=== PATIENT | male | born 1975 | race Caucasian/White ===

== ENCOUNTER 2018-02-28 06:16 | Emergency (ER) | payer BC, SELFPAY ==
[2018-02-28 06:17] VITALS: BP 164/111; PULSE 99; RESP 18; TEMP 37.1; O2SAT 93; BMI 33.5
--- NOTE | 2018-02-28 08:10 | ED.VIS.GEN ---
History of Present Illness Chief Complaint: Back Informant: Patient Onset: Weeks - 3-4 Context: Sudden Onset - Bumping machine at work with his hip Quality: Ache Location: Right low back, buttock, anterior thigh Current Severity: Moderate Maximum Severity: Severe Worsened by: Movement, bumping his machine with his hip at work Relieved by: Ibuprofen, rest Narrative: History of this pain, recurrent now. No bowel or bladder dysfunction. No numbness or weakness in his leg, pain radiates to the anterior right thigh but not to or below the knee. 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 Past Medical History - Allergies and Home Meds Allergies/Adverse Reactions: Allergies acetaminophen [From Vicodin] Adverse Reaction (Verified 02/28/18 06:18) Upset Stomach hydrocodone bitartrate [From Vicodin] Adverse Reaction (Verified 02/28/18 06:18) Upset Stomach meloxicam [From Mobic] Adverse Reaction (Verified 02/28/18 06:18) Nausea Primary Care Physician: Nikko Yoo MD [Primary Care Provider] - Smoking Status: Current some day smoker Review of Systems All systems negative except as indicated Musculoskeletal: Reports: Back pain, Extremity Pain Physical Exam Vital Signs/Narrative: Vital Signs Temp Pulse Resp BP Pulse Ox 02/28/18 06:17 98.8 F 99 18 164/111 H 93 Inital Vital Signs reviewed: Yes General: Well nourished, Well developed Head: Normocephalic, Atraumatic Back: - - Right SI joint, pelvic brim, buttock including piriformis. No midline tenderness or step-off or signs of trauma or rash.. Negative for: Spinal tenderness Extremities: Nontender, No edema, - - Negative bilateral lower extremity straight leg raises while lying supine Skin: Normal color, No rash Neurological: Alert, Oriented x3, Cranial nerves II-XII grossly intact, Normal Strength, Normal Sensation Psychological: Normal affect Diagnostic/Tx/Re-eval - Medical Decision Making Patient states he is on Suboxone and wants nothing to do with narcotics. He took ibuprofen this morning which helped. He is asking for Tylenol, I also offered a muscle relaxer, he is thankful and will follow-up. ED Disposition - Plan for ED Patient: Disposition: Home or Assisted Living Chief Complaint: Back Diagnosis: Acute lumbosacral myofascial strain Instructions: ED Low Back Pain Injury Prescriptions: Cyclobenzaprine [Flexeril] 10 mg PO TID PRN PRN #15 tab PRN Reason: Muscle Spasm Referrals: Nikko Yoo MD [Primary Care Provider] - 1 Week if not improving
[2018-02-28] MEDS: Acetaminophen 500 MG Tablet 1000 MG PO (08:15)
[2018-02-28] MEDS: Orphenadrine 60 MG/2 ML Ampul IM (08:16)
== END 2018-02-28 08:36 | disposition home or self-care (01) ==
PROVIDERS: Emergency Provider Emergency Medicine; Family Provider Family Medicine; PCP Family Medicine
DX: S39.012A Strain of muscle, fascia and tendon of lower back, initial encounter (principal); W22.8XXA Striking against or struck by other objects, initial encounter; Y93.9 Activity, unspecified; Y92.9 Unspecified place or not applicable; Y99.0 Civilian activity done for income or pay; Z79.899 Other long term (current) drug therapy
CPT/HCPCS: 96372; 99283

== ENCOUNTER 2018-10-05 06:49 | Emergency (ER) | payer BC, SELFPAY ==
[2018-10-05] VITALS (8 sets, daily range): BP systolic 141–164; BP diastolic 85–111; PULSE 89–121; RESP 14–22; TEMP 36.3; O2SAT 95–98; BMI 33.9
--- NOTE | 2018-10-05 07:11 | EKG12_ITS ---
Test Reason : CP Blood Pressure : / mmHG Vent. Rate : 118 BPM Atrial Rate : 118 BPM P-R Int : 146 ms QRS Dur : 094 ms QT Int : 314 ms P-R-T Axes : 056 079 035 degrees QTc Int : 440 ms Sinus tachycardia Otherwise normal ECG Confirmed by IRINEO PRADO MD ([id number]), newspaper photo editor CRZU SANCHEZ ([id number]) on 10/08/2018 8:29:49 AM Referred By: ZAYDA Confirmed By:IRINEO PRADO MD
--- NOTE | 2018-10-05 07:11 | CT_ITS ---
STUDY: CTA CHEST REASON FOR EXAM: Male, 43 years old. Chest pain RADIATION DOSAGE (If Supplied By Facility): CTDIvol = ( 14.97 ) mGy, DLP = ( 1345.02 ) mGycm TECHNIQUE: The examination was performed with the intravenous administration of 100 ml of Isovue 370 contrast material. Post-processing of the angiographic images was performed, with multiplanar reformation and 3D reconstruction. Individualized dose optimization techniques were used for this CT. COMPARISON: None. FINDINGS: There is suboptimal enhancement of the pulmonary arteries. Pulmonary embolism cannot be entirely excluded on this examination. Normal thoracic aorta and visualized great vessels. There is no demonstrated aortic dissection. Normal heart and pericardium. Normal mediastinum. Normal hilar regions. Normal visualized trachea and bronchi. The lungs are well expanded. There are no pulmonary infiltrates. There are no pleural effusions. Normal chest wall structures. Normal osseous structures. Normal visualized upper abdomen. CT/CTA Chest W/WO Contrast IMPRESSION: 1. No evidence of aortic dissection. 2. No infiltrate is seen. Electronically Signed: Carlos Coronado MD at 9:20 EST Tel , Service support ,
--- NOTE | 2018-10-05 07:11 | RAD_ITS ---
STUDY: X-RAY CHEST REASON FOR EXAM: Male, 43 years old. Chest pain TECHNIQUE: Single AP portable view of the chest. COMPARISON: 09/13/2016. FINDINGS: The lungs are clear and expanded. There is no demonstrated pleural abnormality. Normal size heart. Normal mediastinum and mabel. Normal visualized pulmonary arteries. Normal visualized aortic arch and descending thoracic aorta. The thoracic spine is obscured by the mediastinum. Normal visualized ribs, clavicles, and shoulders. There is no demonstrated abnormality of the visualized soft tissue structures of the upper abdomen. RAD/Chest 1 View (Portable) IMPRESSION: No active pulmonary disease. Electronically Signed: Carlos Coronado MD at 8:51 EST Tel , Service support ,
--- NOTE | 2018-10-05 07:13 | CT_ITS ---
Chest pain. PROCEDURE: CTA ABDOMEN AND PELVIS WITH CONTRAST REASON FOR EXAM: Male, 43 years old. Chest pain. RADIATION DOSAGE (If Supplied By Facility): CTDIvol = ( 14.97 ) mGy, DLP = ( 1345.02 ) mGycm TECHNIQUE: Transaxial images were obtained from the dome of the diaphragm to the symphysis pubis without oral contrast, and without intravenous contrast. COMPARISON: None. FINDINGS: The visualized lung bases are unremarkable. No focal lesion is identified in the liver. Normal gallbladder and extrahepatic biliary system. Normal unenhanced spleen. Normal pancreas. The right adrenal gland is unremarkable. There is slightly prominent nodular left adrenal gland. Normal right kidney. Normal left kidney. Normal visualized stomach. There are nonspecific fluid-filled small bowel loops. There is no evidence of bowel obstruction. There is fecal retention. There is mild thickening of the sigmoid colon probably due to underdistention. The appendix is visualized and appears normal. There is no demonstrated peritoneal fluid. Normal abdominal aorta. No evidence of aortic dissection. Normal inferior vena cava. Normal retroperitoneum. There is mild thickening of the bladder wall which could be due to underdistention. Cystitis is less likely. There is no pelvic mass lesion or lymphadenopathy. There is no pelvic fluid. Normal abdominal wall. There are degenerative changes in the spine. CT/CT ANGIO ABD&PEL W/O&W/DYE IMPRESSION: 1. No evidence of aortic dissection. 2. Mild thickening of the bladder wall probably due to underdistention. Cystitis is less likely. 3. No demonstrated acute process. CT Electronically Signed: Carlos Coronado MD at 9:17 EST Tel , Service support ,
--- NOTE | 2018-10-05 07:14 | ED.VISSUMM ---
- ER Visit Summary Date of Service: 10/05/18 Chief Complaint: Chest pain History of Present Illness: The patient is a 43 M who presents with 1 hour of 11 out of 10 chest pain. Pain is described as a substernal pressure and burning with radiation into the abdomen and down the front of the legs. Patient denies any back pain, neck pain, radiation to the arms. He has associated shortness of breath and sweats. Patient denies fever, acute cough, nausea or vomiting. He has had similar episodes in the past but states the pain is never been this severe for quite like this episode today. He does have history of anxiety and panic attacks. He missed a dose of Effexor 2 days ago but is taking it yesterday and today. He is on Suboxone and took it this morning. He has been drinking daily for the last 6 months to help with his anxiety with his last drink last night. He denies ever drinking in the mornings. Patient received aspirin by EMS. He has history of hypertension and smoking. He denies any history of diabetes, or any recent travel, surgery, or prior VTE. Patient denies any possibility that he is withdrawing from a substance. Physical Examination: Vital signs: afebrile, hypertensive and tachycardic, no hypoxia on room air General: well nourished, well developed, appears mildly uncomfortable Skin: warm, diaphoretic, especially in the face, no rash, no pallor HEENT: normocephalic and atraumatic; PERRL, EOMI, moist mucous membranes Cardiovascular: Tachycardic rate and rhythm without murmurs, no peripheral edema, 2+ pulses in the radial pulses, diminished pulses in the lower extremities Respiratory: No increased work of breathing, lungs are clear to auscultation in the upper m[place], mild coarseness in the lower mckin[place] consistent with smoker's lung Abdominal: Abdomen is soft, nontender with normoactive bowel sounds, no guarding or rebound, no pulsatile masses MSK: Moves all extremities, no deformities, normal strength Neuro: Awake and alert, oriented ?4. No facial droop, sensation and motor function intact and symmetric Test Results: Abnormal Lab Results 10/05/18 10/05/18 10/05/18 07:35 07:35 07:35 WBC 5.5 RBC 4.87 Hgb 15.5 Hct 46.0 MCV 94.5 H MCH 31.8 MCHC 33.7 RDW 13.8 RDW Differential 47.4 H Plt Count 282 MPV 8.9 Immature Gran % (Auto) 0.400 Neut % (Auto) 53.8 Lymph % (Auto) 28.4 [place] % (Auto) 13.4 H Eos % (Auto) 3.3 Baso % (Auto) 0.7 Absolute Neuts (auto) 2.9 Absolute Lymphs (auto) 1.55 Total Counted Not Reportable PT 12.7 INR 1.0 APTT 23.9 L Sodium 136 Potassium 4.2 Chloride 101 Carbon Dioxide 27.0 Anion Gap 8 BUN 15 Creatinine 1.24 Estim Creat Clear Calc 86.05 Est GFR (MDRD) Af Amer 83 Est GFR (MDRD) Non-Af 68 BUN/Creatinine Ratio 12.1 Glucose 187 H Calcium 9.1 Magnesium 1.7 Total Bilirubin 0.30 AST 20 ALT 23 Alkaline Phosphatase 96 Troponin I < 0.015 Total Protein 8.1 Albumin 4.1 Globulin 4.0 Albumin/Globulin Ratio 1.0 TSH 1.07 Ethyl Alcohol 10/05/18 07:35 WBC RBC Hgb Hct MCV MCH MCHC RDW RDW Differential Plt Count MPV Immature Gran % (Auto) Neut % (Auto) Lymph % (Auto) [place] % (Auto) Eos % (Auto) Baso % (Auto) Absolute Neuts (auto) Absolute Lymphs (auto) Total Counted PT INR APTT Sodium Potassium Chloride Carbon Dioxide Anion Gap BUN Creatinine Estim Creat Clear Calc Est GFR (MDRD) Af Amer Est GFR (MDRD) Non-Af BUN/Creatinine Ratio Glucose Calcium Magnesium Total Bilirubin AST ALT Alkaline Phosphatase Troponin I Total Protein Albumin Globulin Albumin/Globulin Ratio TSH Ethyl Alcohol 5.0 Clinical Impression(s) from Imaging Studies Chest CTA 10/05/18 07:11 IMPRESSION: 1. No evidence of aortic dissection. 2. No infiltrate is seen. Electronically Signed: Carlos Coronado MD at 9:20 EST Tel , Service support , Chest X-Ray 10/05/18 07:11 IMPRESSION: No active pulmonary disease. Electronically Signed: Carlos Coronado MD at 8:51 EST Tel , Service support , Abdomen/Pelvis CTA 10/05/18 07:13 IMPRESSION: 1. No evidence of aortic dissection. 2. Mild thickening of the bladder wall probably due to underdistention. Cystitis is less likely. 3. No demonstrated acute process. CT Electronically Signed: Carlos Coronado MD at 9:17 EST Tel , Service support , Medications Given Discontinued Medications Al Hydroxide/Mg Hydroxide (Mylanta Ii) 30 ml PO X1 ONE Stop: 10/05/18 10:19 Last Admin: 10/05/18 11:05 Dose: 30 ml Sodium Chloride () 1,000 mls @ 1,000 mls/hr IV .Q1H ONE Stop: 10/05/18 08:10 Last Admin: 10/05/18 07:45 Dose: 1,000 mls/hr Ketorolac Tromethamine (Toradol) 15 mg IV X1 ONE Stop: 10/05/18 11:58 Last Admin: 10/05/18 12:34 Dose: 15 mg Lidocaine HCl (Xylocaine Viscous) 15 ml PO X1 ONE Stop: 10/05/18 10:19 Last Admin: 10/05/18 11:05 Dose: 15 ml Lorazepam (Ativan) 0.5 mg IV X1 ONE Stop: 10/05/18 08:09 Last Admin: 10/05/18 08:16 Dose: 0.5 mg Multi-Ingredient GI Drug () 1 each PO X1 ONE Stop: 10/05/18 10:19 Last Admin: 10/05/18 12:34 Dose: Not Given Nitroglycerin (Nitrostat) 0.4 mg SUBLINGUAL Q5M WANG Stop: 10/05/18 07:26 Last Admin: 10/05/18 07:57 Dose: 0.4 mg Admin: 10/05/18 07:51 Dose: 0.4 mg Admin: 10/05/18 07:46 Dose: 0.4 mg Nitroglycerin (Nitrobid) 0.5 inch TRANSDERM. X1 ONE Stop: 10/05/18 08:10 Last Admin: 10/05/18 08:15 Dose: 0.5 inch Emergency Department Course and Treatment: Patient received aspirin prehospital. Patient is presenting with severe chest tightness and burning with radiation into the abdomen and bilateral lower extremities. Patient is persistently tachycardic and mildly diaphoretic. Differential includes acute coronary syndrome, pulmonary embolism, aortic dissection, substance withdrawal or abuse, among other possibilities. Because patient is tachycardic and has radiation into the abdomen and lower legs, CTA of the chest, abdomen and pelvis was performed to evaluate for any possible dissection or aneurysm, as well as pulmonary embolism. EKG showed a sinus tachycardia with no overt ischemic changes. Reevaluated 804 after he had received 3 sublingual nitro. Patient states his pain is now localized only in the substernal region and is continued pressure about any radiation into the abdomen or legs. Pain is rated 6 out of 10 now. Patient remains hypertensive and persistently tachycardic at 120. Nitropaste was applied the patient's chest, and he was given 0.5 mg of Ativan IV to see if this would help with his feeling of anxiousness and the tachycardia. Patient continued to have discomfort, although improved, and was given a GI cocktail. Labs showed no leukocytosis or anemia, no electrolyte derangements. No hepatic derangements. Troponin negative. Alcohol negative. TSH within normal limits. EKG showed sinus tachycardia without any ischemic changes. A repeat EKG after treatment showed tachycardia resolved and still no ST changes. CTA of the chest, abdomen and pelvis showed no dissection. Timing was not adequate for ruling out PE. Patient's tachycardia has resolved however. Because patient continues to complain of the chest discomfort, he was discussed with the earth moving technician Dr. Oh, who agrees with admission for further chest pain workup. Patient was discussed with the hospitalist and accepted for admission. However while still in the emergency department, the patient decided that he would prefer not to stay. Cardiology did evaluate patient in the emergency department, patient states that since he would not get any further cardiac workup this weekend and would have to wait for Sunday, he does not want to stay. He is going to follow-up on Sunday with his family doctor to pursue an outpatient workup. Patient was strongly encouraged to stay for the chest pain rule out, but he still chose to leave AGAINST MEDICAL ADVICE after we discussed the risks and benefits of him leaving. Patient will return if he has any worsening of his condition. Patient left AGAINST MEDICAL ADVICE. Treatment Plan: [] Disposition: [] Impression: Acute intractable chest pain, left AGAINST MEDICAL ADVICE This note was generated with [employer] dictation software. It may contain incorrect words, spelling, and punctuation that were not noted in review of the chart prior to signing ED Disposition - Plan for ED Patient: Disposition: Against Medical Advice Referrals: Nikko Yoo MD [Primary Care Provider] - As soon as possible Additional Instructions: You have chosen to leave AGAINST MEDICAL ADVICE instead of completing a chest pain workup to make sure your chest pain is not caused by your heart. Please return at any time if you change your mind and would like to complete your chest pain workup. If you develop worsening of your symptoms or have any new concerning symptoms, call 911 or return immediately to the emergency department for another evaluation. If you choose not to return, please follow-up with your family doctor or cardiology to get an outpatient stress test and further heart workup.
--- NOTE | 2018-10-05 07:19 | ED.DCSUM_ITS ---
- ER Visit Summary Date of Service: 10/05/18 Chief Complaint: Chest pain History of Present Illness: The patient is a 43 M who presents with 1 hour of 11 out of 10 chest pain. Pain is described as a substernal pressure and burning with radiation into the abdomen and down the front of the legs. Patient denies any back pain, neck pain, radiation to the arms. He has associated shortness of breath and sweats. Patient denies fever, acute cough, nausea or vomiting. He has had similar episodes in the past but states the pain is never been this severe for quite like this episode today. He does have history of anxiety and panic attacks. He missed a dose of Effexor 2 days ago but is taking it yesterday and today. He is on Suboxone and took it this morning. He has been drinking daily for the last 6 months to help with his anxiety with his last drink last night. He denies ever drinking in the mornings. Patient received aspirin by EMS. He has history of hypertension and smoking. He denies any history of diabetes, or any recent travel, surgery, or prior VTE. Patient denies any possibility that he is withdrawing from a substance. Physical Examination: Vital signs: afebrile, hypertensive and tachycardic, no hypoxia on room air General: well nourished, well developed, appears mildly uncomfortable Skin: warm, diaphoretic, especially in the face, no rash, no pallor HEENT: normocephalic and atraumatic; PERRL, EOMI, moist mucous membranes Cardiovascular: Tachycardic rate and rhythm without murmurs, no peripheral edema, 2+ pulses in the radial pulses, diminished pulses in the lower extremities Respiratory: No increased work of breathing, lungs are clear to auscultation in the upper mckinney, mild coarseness in the lower mckinney consistent with smoker's lung Abdominal: Abdomen is soft, nontender with normoactive bowel sounds, no guarding or rebound, no pulsatile masses MSK: Moves all extremities, no deformities, normal strength Neuro: Awake and alert, oriented ?4. No facial droop, sensation and motor function intact and symmetric Test Results: Abnormal Lab Results 10/05/18 10/05/18 10/05/18 07:35 07:35 07:35 WBC 5.5 RBC 4.87 Hgb 15.5 Hct 46.0 MCV 94.5 H MCH 31.8 MCHC 33.7 RDW 13.8 RDW Differential 47.4 H Plt Count 282 MPV 8.9 Immature Gran % (Auto) 0.400 Neut % (Auto) 53.8 Lymph % (Auto) 28.4 Bulloch % (Auto) 13.4 H Eos % (Auto) 3.3 Baso % (Auto) 0.7 Absolute Neuts (auto) 2.9 Absolute Lymphs (auto) 1.55 Total Counted Not Reportable PT 12.7 INR 1.0 APTT 23.9 L Sodium 136 Potassium 4.2 Chloride 101 Carbon Dioxide 27.0 Anion Gap 8 BUN 15 Creatinine 1.24 Estim Creat Clear Calc 86.05 Est GFR (MDRD) Af Amer 83 Est GFR (MDRD) Non-Af 68 BUN/Creatinine Ratio 12.1 Glucose 187 H Calcium 9.1 Magnesium 1.7 Total Bilirubin 0.30 AST 20 ALT 23 Alkaline Phosphatase 96 Troponin I < 0.015 Total Protein 8.1 Albumin 4.1 Globulin 4.0 Albumin/Globulin Ratio 1.0 TSH 1.07 Ethyl Alcohol 10/05/18 07:35 WBC RBC Hgb Hct MCV MCH MCHC RDW RDW Differential Plt Count MPV Immature Gran % (Auto) Neut % (Auto) Lymph % (Auto) Bulloch % (Auto) Eos % (Auto) Baso % (Auto) Absolute Neuts (auto) Absolute Lymphs (auto) Total Counted PT INR APTT Sodium Potassium Chloride Carbon Dioxide Anion Gap BUN Creatinine Estim Creat Clear Calc Est GFR (MDRD) Af Amer Est GFR (MDRD) Non-Af BUN/Creatinine Ratio Glucose Calcium Magnesium Total Bilirubin AST ALT Alkaline Phosphatase Troponin I Total Protein Albumin Globulin Albumin/Globulin Ratio TSH Ethyl Alcohol 5.0 Clinical Impression(s) from Imaging Studies Chest CTA 10/05/18 07:11 IMPRESSION: 1. No evidence of aortic dissection. 2. No infiltrate is seen. Electronically Signed: Carlos Coronado MD at 9:20 EST Tel , Service support , Chest X-Ray 10/05/18 07:11 IMPRESSION: No active pulmonary disease. Electronically Signed: Carlos Coronado MD at 8:51 EST Tel , Service support , Abdomen/Pelvis CTA 10/05/18 07:13 IMPRESSION: 1. No evidence of aortic dissection. 2. Mild thickening of the bladder wall probably due to underdistention. Cystitis is less likely. 3. No demonstrated acute process. CT Electronically Signed: Carlos Coronado MD at 9:17 EST Tel , Service support , Medications Given Discontinued Medications Al Hydroxide/Mg Hydroxide (Mylanta Ii) 30 ml PO X1 ONE Stop: 10/05/18 10:19 Last Admin: 10/05/18 11:05 Dose: 30 ml Sodium Chloride () 1,000 mls @ 1,000 mls/hr IV .Q1H ONE Stop: 10/05/18 08:10 Last Admin: 10/05/18 07:45 Dose: 1,000 mls/hr Ketorolac Tromethamine (Toradol) 15 mg IV X1 ONE Stop: 10/05/18 11:58 Last Admin: 10/05/18 12:34 Dose: 15 mg Lidocaine HCl (Xylocaine Viscous) 15 ml PO X1 ONE Stop: 10/05/18 10:19 Last Admin: 10/05/18 11:05 Dose: 15 ml Lorazepam (Ativan) 0.5 mg IV X1 ONE Stop: 10/05/18 08:09 Last Admin: 10/05/18 08:16 Dose: 0.5 mg Multi-Ingredient GI Drug () 1 each PO X1 ONE Stop: 10/05/18 10:19 Last Admin: 10/05/18 12:34 Dose: Not Given Nitroglycerin (Nitrostat) 0.4 mg SUBLINGUAL Q5M WANG Stop: 10/05/18 07:26 Last Admin: 10/05/18 07:57 Dose: 0.4 mg Admin: 10/05/18 07:51 Dose: 0.4 mg Admin: 10/05/18 07:46 Dose: 0.4 mg Nitroglycerin (Nitrobid) 0.5 inch TRANSDERM. X1 ONE Stop: 10/05/18 08:10 Last Admin: 10/05/18 08:15 Dose: 0.5 inch Emergency Department Course and Treatment: Patient received aspirin prehospital. Patient is presenting with severe chest tightness and burning with radiation into the abdomen and bilateral lower extremities. Patient is persistently tachycardic and mildly diaphoretic. Differential includes acute coronary syndrome, pulmonary embolism, aortic dissection, substance withdrawal or abuse, among other possibilities. Because patient is tachycardic and has radiation into the abdomen and lower legs, CTA of the chest, abdomen and pelvis was performed to evaluate for any possible dissection or aneurysm, as well as pulmonary embolism. EKG showed a sinus tachycardia with no overt ischemic changes. Reevaluated 804 after he had received 3 sublingual nitro. Patient states his pain is now localized only in the substernal region and is continued pressure about any radiation into the abdomen or legs. Pain is rated 6 out of 10 now. Patient remains hypertensive and persistently tachycardic at 120. Nitropaste was applied the patient's chest, and he was given 0.5 mg of Ativan IV to see if this would help with his feeling of anxiousness and the tachycardia. Patient continued to have discomfort, although improved, and was given a GI cocktail. Labs showed no leukocytosis or anemia, no electrolyte derangements. No hepatic derangements. Troponin negative. Alcohol negative. TSH within normal limits. EKG showed sinus tachycardia without any ischemic changes. A repeat EKG after treatment showed tachycardia resolved and still no ST changes. CTA of the chest, abdomen and pelvis showed no dissection. Timing was not adequate for ruling out PE. Patient's tachycardia has resolved however. Because patient continues to complain of the chest discomfort, he was discussed with the chocolate finisher operator Dr. Oh, who agrees with admission for further chest pain workup. Patient was discussed with the hospitalist and accepted for admission. However while still in the emergency department, the patient decided that he would prefer not to stay. Cardiology did evaluate patient in the emergency departm ent, patient states that since he would not get any further cardiac workup this weekend and would have to wait for Sunday, he does not want to stay. He is going to follow-up on Sunday with his family doctor to pursue an outpatient workup. Patient was strongly encouraged to stay for the chest pain rule out, but he still chose to leave AGAINST MEDICAL ADVICE after we discussed the risks and benefits of him leaving. Patient will return if he has any worsening of his condition. Patient left AGAINST MEDICAL ADVICE. Treatment Plan: [] Disposition: [] Impression: Acute intractable chest pain, left AGAINST MEDICAL ADVICE This note was generated with [employer] dictation software. It may contain incorrect words, spelling, and punctuation that were not noted in review of the chart prior to signing ED Disposition - Plan for ED Patient: Disposition: Against Medical Advice Referrals: Nikko Yoo MD [Primary Care Provider] - As soon as possible Additional Instructions: You have chosen to leave AGAINST MEDICAL ADVICE instead of completing a chest pain workup to make sure your chest pain is not caused by your heart. Please return at any time if you change your mind and would like to complete your chest pain workup. If you develop worsening of your symptoms or have any new concerning symptoms, call 911 or return immediately to the emergency department for another evaluation. If you choose not to return, please follow-up with your family doctor or cardiology to get an outpatient stress test and further heart workup.
[2018-10-05] MEDS: 0.9% Normal Saline 1,000 ML 1000 ML IV (07:45)
[2018-10-05 07:52] LABS: Absolute Lymphocyte Count 1.55 X10^3/ul (0.83-4.51); Absolute Neutrophil Count 2.9 X10^3/uL (2.0-7.7); Basophil# 0.04 X10^3/uL; Basophil% 0.7 % (0-1); Eosinophil# 0.18 X10^3/uL; Eosinophils% 3.3 % (0-5); Hemoglobin 15.5 g/dl (13.0-16.5); Lymphocyte # 1.55 X10^3/ul (4.0); Lymphocyte % 28.4 % (19-41); Mean Corp Hgb Conc 33.7 g/gl (32-36); Mean Corpuscular Hgb 31.8 pg (27.0-32.0); Mean Corpuscular Volume 94.5 fL (80-94); Mean Platelet Vol. 8.9 fl (6.2-12.0); Monocyte# 0.73 X10^3/uL; Monocyte% 13.4 % (0-10); Neutrophil # 2.94 X10^3/uL (2.7-7.7); Neutrophil % 53.8 % (47-70); Platelet Count 282 K/mm3 (150-450); RBC Distribution Width CV 13.8 % (11.6-14.6); RBC Distribution Width SD 47.4 fl (35.1-43.9); Red Blood Count 4.87 M/mm3 (4.6-6.2); White Blood Count 5.5 K/mm3 (4.4-11.0)
[2018-10-05 07:53] LABS: POSITIVE COUNT NO; POSITIVE DIFFERENTIAL NO; POSITIVE MORPHOLOGY NO
[2018-10-05 07:56] LABS: Prothrombin Time (Protime)PT. 12.7 SECONDS (11.7-14.9)
[2018-10-05 07:57] LABS: Partial Thromboplast Time 23.9 Seconds (24.1-36.2)
[2018-10-05] MEDS: Nitroglycerin Oint 1 INCH PACKET 0.5 INCH TRANSDERM. (08:15)
[2018-10-05] MEDS: LORazepam 2 MG/ML Syringe 0.5 MG IV (08:16)
[2018-10-05 08:28] LABS: AST(SGOT) 20 U/L (15-37); Alanine Aminotransfer ALT/SGPT 23 U/L (16-61); Albumin, Serum 4.1 g/dL (3.2-5.0); Alkaline Phosphatase 96 U/L (45-117); Anion Gap 8 (5-15); BUN 15 mg/dL (7-18); BUN/Creat Ratio 12.1 RATIO (10-20); Calcium,Total 9.1 mg/dL (8.5-10.1); Chloride 101 mmol/L (98-107); Creatinine, Serum 1.24 mg/dL (0.70-1.30); EST Glomerular Filtration Rate 68 mL/min (>60); Est Glom Filt Rate - Afr Amer 83 mL/min (>60); Estimated Creatinine Clearance 86.05 ml/min; Glucose 187 mg/dL (74-106); Magnesium 1.7 mg/dL (1.6-2.6); Potassium 4.2 mmol/L (3.5-5.1); Protein, Total 8.1 g/dL (6.4-8.2); Sodium Level 136 mmol/L (136-145); Thyroid Stim Hormone (TSH) 1.07 uIU/mL (0.358-3.74)
--- NOTE | 2018-10-05 10:41 | EKG12_ITS ---
Test Reason : REPEAT EKG Blood Pressure : / mmHG Vent. Rate : 091 BPM Atrial Rate : 091 BPM P-R Int : 152 ms QRS Dur : 096 ms QT Int : 332 ms P-R-T Axes : 063 060 038 degrees QTc Int : 408 ms Normal sinus rhythm Normal ECG Confirmed by EVE XAVIER, IRINEO ([id number]), society editor CRUZ SANCHEZ ([id number]) on 10/08/2018 8:30:03 AM Referred By: DAVID Confirmed By:IRINEO PRADO MD
[2018-10-05] MEDS: Mag Hydrox/Al Hydrox/Simeth 30 ML UDC PO (11:05)
[2018-10-05] MEDS: Ketorolac 15 MG/ML Vial IV (12:34)
--- NOTE | 2018-10-05 13:18 | ED.RN ---
PT STATES THAT HE HAD A STRESS TEST 6 MO. AGO. STATES HE WILL F/U WITH HIS DRJanelle ON SUNDAY FOR A REFERAL TO A BROADCAST OPERATIONS MANAGER.
--- NOTE | 2018-10-05 13:19 | DCINST.ED_ITS ---
ED Disposition - Plan for ED Patient: Disposition: Against Medical Advice Referrals: Nikko Yoo MD [Primary Care Provider] - As soon as possible Additional Instructions: You have chosen to leave AGAINST MEDICAL ADVICE instead of completing a chest pain workup to make sure your chest pain is not caused by your heart. Please return at any time if you change your mind and would like to complete your chest pain workup. If you develop worsening of your symptoms or have any new concerning symptoms, call 911 or return immediately to the emergency department for another evaluation. If you choose not to return, please follow-up with your family doctor or cardio logy to get an outpatient stress test and further heart workup.
== END 2018-10-05 13:23 | disposition left against medical advice (07) ==
PROVIDERS: Emergency Provider Emergency Medicine; Family Provider Family Medicine; PCP Family Medicine
DX: R07.9 Chest pain, unspecified (principal); R00.0 Tachycardia, unspecified; Z53.21 Procedure and treatment not carried out due to patient leaving prior to being seen by health care provider; I10 Essential (primary) hypertension; F41.0 Panic disorder [episodic paroxysmal anxiety]; F17.200 Nicotine dependence, unspecified, uncomplicated; Z72.89 Other problems related to lifestyle; Z79.899 Other long term (current) drug therapy
CPT/HCPCS: 71045; 71275; 74174; 80053; 80320; 83735; 84443; 84484; 85025; 85610; 85730; 93005; 96361; 96374; 96375; 99285; J7030; Q9967; A4216; G0480

== ENCOUNTER 2020-01-11 23:06 | Emergency (ER) | payer OTHER, SELFPAY ==
[2018-10-05 06:51] VITALS: BMI 33.9
[2020-01-11 23:08] VITALS: BP 163/106; PULSE 112; RESP 12; TEMP 36.4; O2SAT 100
--- NOTE | 2020-01-11 23:16 | EKG12_ITS ---
Test Reason : EDEMA Blood Pressure : / mmHG Vent. Rate : 099 BPM Atrial Rate : 099 BPM P-R Int : 146 ms QRS Dur : 100 ms QT Int : 338 ms P-R-T Axes : 074 064 040 degrees QTc Int : 433 ms Normal sinus rhythm Normal ECG Confirmed by IRINEO PRADO MD ([id number]), graphics editor CRUZ SANCHEZ ([id number]) on 01/13/2020 3:39:37 PM Referred By: CD Confirmed By:IRINEO PRADO MD
--- NOTE | 2020-01-11 23:24 | ED.VIS.GEN ---
History of Present Illness Chief Complaint: Edema Narrative: 44-year-old male presents with 5 days of gradual onset ankle and hand swelling. No shortness of breath or chest pain. No exertional symptoms. No recent travel or immobilization. He states that he has heart problems but does not know what they are. He states that he never followed up as directed but reports that he does take occasional sublingual nitro when he gets stressed out. He does not take it for chest pain or shortness of breath and is not certain why he has it but reports that his doctor prescribed him several years ago. He denies family history of cardiac disease at young age. Denies IV drug use. Denies fever, chills, body aches, or night sweats. No recent coronavirus exposure. Symptom onset gradual. Severity moderate. Past Medical History - Allergies and Home Meds Allergies/Adverse Reactions: Allergies acetaminophen [From Vicodin] Adverse Reaction (Verified 01/11/20 23:07) Upset Stomach hydrocodone bitartrate [From Vicodin] Adverse Reaction (Verified 01/11/20 23:07) Upset Stomach meloxicam [From Mobic] Adverse Reaction (Verified 01/11/20 23:07) Nausea Primary Care Physician: Nikko Yoo MD [Primary Care Provider] - Smoking Status: Current every day smoker Review of Systems General: Denies: Chills, Fever, Sweats Eyes: Denies: Visual changes - bilaterally, Diplopia ENT: Denies: Rhinorrhea, Sore throat Cardiovascular: Denies: Chest pain, Palpitations Respiratory: Denies: Dyspnea, Cough, Dyspnea on exertion Gastrointestinal: Denies: Abdominal pain, Nausea, Vomiting, Diarrhea, Melena, Hematochezia Genitourinary: Denies: Dysuria, Hematuria, Frequency Musculoskeletal: Reports: Swelling. Denies: Back pain, Extremity Pain Skin: Denies: Rash, Wounds Neurological: Denies: Headache, Weakness, Numbness Physical Exam Vital Signs/Narrative: Vital Signs Temp Pulse Resp BP Pulse Ox 01/11/20 23:08 97.5 F L 112 H 12 163/106 H 100 General: Well nourished, Well developed, No Acute Distress Head: Normocephalic, Atraumatic Eyes: Perrl, EOMI ENT: Moist mucous membranes, No rhinorrhea Neck: Supple, Nontender Cardiovascular: Regular rate, Regular rhythm, No murmurs Respiratory: No distress, CTA bilaterally, Chest nontender Abdomen: Soft, Nontender, Nondistended, Normal bowel sounds Back: Nontender, Normal Inspection Extremities: Nontender, Edema - 1+ symmetric ankle edema and hand edema. No tenderness along the venous system. Skin: Normal color, No rash Neurological: Alert, Oriented x3, Cranial nerves II-XII grossly intact, Normal Strength, Normal Sensation Psychological: Normal affect, Normal Mood Diagnostic/Tx/Re-eval - Medical Decision Making EKG reveals sinus rhythm at a rate of 99. No acute ischemic changes. No ST elevation. Interpreted by me. Unchanged from prior. Troponin negative. Beta natruretic peptide normal. Chest x-ray totally clear. Other labs within normal limits except for slight leukopenia. He has no cough, chest pain, fever, chills, or body aches to suggest coronavirus and his platelets and lymphocyte count are essentially normal. He looks well. On reexamination his heart rate is normal. No hypoxia to suggest PE. No fever, chills, or night sweats. He states that he is also being worked up for inflammatory arthritis and he has a history of arthritis. He states that there is some concern that he may have rheumatoid arthritis. He states that he is already scheduled to have outpatient labs for this. Given his overall well appearance and normal vital signs, I feel that he can safely follow-up as an outpatient, perhaps for an outpatient echocardiogram as well. He will return here if worse. ED Disposition - Plan for ED Patient: Disposition: Home or Assisted Living Diagnosis: Edema Instructions: ED Peripheral Edema, Bilateral Referrals: Nikko Yoo MD [Primary Care Provider] - As soon as possible
[2020-01-11 23:37] VITALS: BP 157/103; PULSE 99; RESP 20; O2SAT 96
[2020-01-11 23:43] LABS: Absolute Lymphocyte Count 1.24 X10^3/uL (0.83-4.51); Absolute Neutrophil Count 2.1 X10^3/uL (2.0-7.7); Basophil# 0.05 X10^3/uL; Basophil% 1.2 % (0-1); Eosinophil# 0.13 X10^3/uL; Eosinophils% 3.2 % (0-5); Hematocrit 41.1 % (40-54); Hemoglobin 13.1 g/dL (13.0-16.5); Lymphocyte # 1.24 X10^3/ul (4.0); Lymphocyte % 30.3 % (19-41); Mean Corp Hgb Conc 31.9 g/dL (32-36); Mean Corpuscular Hgb 28.5 pg (27.0-32.0); Mean Corpuscular Volume 89.3 fL (80-94); Mean Platelet Vol. 8.6 fl (6.2-12.0); Monocyte% 14.7 % (0-10); NRBC Flagged by Analyzer 0 % (0-5); Neutrophil # 2.06 X10^3/uL (2.7-7.7); Neutrophil % 50.4 % (47-70); POSITIVE MORPHOLOGY YES; Platelet Count 280 K/mm3 (150-450); RBC Distribution Width CV 12.9 % (11.6-14.6); RBC Distribution Width SD 42.5 fl (35.1-43.9); White Blood Count 4.1 K/mm3 (4.4-11.0)
[2020-01-11 23:44] LABS: Differential Indicated SCAN CRITERIA MET
--- NOTE | 2020-01-11 23:45 | RAD_ITS ---
STUDY: X-RAY CHEST REASON FOR EXAM: Male, 44 years old patient with chest pain and signs and symptoms of CHF. TECHNIQUE: Single AP portable view of the chest. COMPARISON: October 05, 2018. FINDINGS: Cardiac monitoring leads are present. The lungs are clear and hyperexpanded. There is no demonstrated pleural abnormality. Normal size heart. Normal mediastinum and mabel. There is prominence of the pulmonary hilar arteries without peripheral pulmonary vascular congestion. Normal visualized aortic arch and descending thoracic aorta. Normal visualized thoracic spine. Normal visualized ribs, clavicles, and shoulders. There is no demonstrated abnormality of the visualized soft tissue structures of the upper abdomen. RAD/Chest 1 View (Portable) IMPRESSION: No radiographic evidence of acute cardiopulmonary disease. Electronically Signed: Francine Peña MD at 0:10 EDT , Service support ,
[2020-01-12 00:11] LABS: Anion Gap 6 (5-15); BUN 20 mg/dL (7-18); BUN/Creat Ratio 17.4 RATIO (10-20); Calcium,Total 8.9 mg/dL (8.5-10.1); Chloride 102 mmol/L (98-107); Creatinine, Serum 1.15 mg/dL (0.70-1.30); EST Glomerular Filtration Rate 74 mL/min (>60); Est Glom Filt Rate - Afr Amer 89 mL/min (>60); Estimated Creatinine Clearance 91.85 ml/min; Glucose 150 mg/dL (74-106); Potassium 4.6 mmol/L (3.5-5.1); Sodium Level 137 mmol/L (136-145)
[2020-01-12 00:15] LABS: Atypical Lymphocyte RARE %; Differential Comment SCANNED
[2020-01-12 00:17] LABS: BNP,B-Type NATRIURETIC PEPTIDE 14.9 pg/mL (0-100)
[2020-01-12 00:25] VITALS: BP 137/87; PULSE 90; RESP 14; O2SAT 98
[2020-01-12 00:42] VITALS: BP 137/87; PULSE 89; RESP 18; O2SAT 99
== END 2020-01-12 00:43 | disposition home or self-care (01) ==
PROVIDERS: Emergency Provider Emergency Medicine; PCP Family Medicine
DX: R60.0 Localized edema (principal); F17.200 Nicotine dependence, unspecified, uncomplicated
CPT/HCPCS: 71045; 80048; 83880; 84484; 85025; 93005; 99283

== ENCOUNTER 2020-11-25 20:50 | Observation (INO) | payer MEDICAID, SELFPAY ==
[2020-11-25 20:51] VITALS: BP 144/89; PULSE 109; RESP 18; TEMP 36.6; O2SAT 99; BMI 29.8
--- NOTE | 2020-11-25 21:27 | EKG12_ITS ---
Test Reason : DYSRYTHMIA Blood Pressure : / mmHG Vent. Rate : 080 BPM Atrial Rate : 080 BPM P-R Int : 148 ms QRS Dur : 098 ms QT Int : 388 ms P-R-T Axes : 066 070 036 degrees QTc Int : 447 ms Normal sinus rhythm Normal ECG Confirmed by KENAN XAVIER, REYES ([id number]), senior technical editor ANDRAE RIVERA ([id number]) on 11/26/2020 12:56:38 PM Referred By: MARIO ALBERTO Confirmed By:REYES GRAYSON MD
[2020-11-25] MEDS: Ondansetron 4 MG/2 ML Vial IV (21:51)
[2020-11-25] MEDS: 0.9% Normal Saline 1,000 ML 1000 ML IV (21:51)
[2020-11-25 21:56] LABS: Absolute Lymphocyte Count 1.25 X10^3/uL (0.83-4.51); Absolute Neutrophil Count 2.2 X10^3/uL (2.0-7.7); Basophil# 0.05 X10^3/uL; Basophil% 1.2 % (0-1); Eosinophil# 0.18 X10^3/uL; Eosinophils% 4.4 % (0-5); Hematocrit 38.8 % (40-54); Hemoglobin 12.7 g/dL (13.0-16.5); Lymphocyte # 1.25 X10^3/ul (4.0); Lymphocyte % 30.8 % (19-41); Mean Corp Hgb Conc 32.7 g/dL (32-36); Mean Corpuscular Hgb 30.3 pg (27.0-32.0); Mean Corpuscular Volume 92.6 fL (80-94); Mean Platelet Vol. 9.1 fl (6.2-12.0); Monocyte# 0.42 X10^3/uL; Monocyte% 10.3 % (0-10); NRBC Flagged by Analyzer 0 % (0-5); Neutrophil # 2.15 X10^3/uL (2.7-7.7); Neutrophil % 53.1 % (47-70); Platelet Count 186 K/mm3 (150-450); RBC Distribution Width CV 13.1 % (11.6-14.6); RBC Distribution Width SD 44.4 fl (35.1-43.9); Red Blood Count 4.19 M/mm3 (4.6-6.2); White Blood Count 4.1 K/mm3 (4.4-11.0)
--- NOTE | 2020-11-25 22:02 | RAD_ITS ---
STUDY: X-RAY - THORACIC SPINE REASON FOR EXAM: Male, 45 years old. mid t spine pain TECHNIQUE: 6 view(s) of the thoracic spine were obtained. COMPARISON: None. FINDINGS: Normal kyphosis of the thoracic spine. There is no substantial scoliosis. There is multilevel endplate spondylosis of the thoracic vertebrae. There is multilevel disc space narrowing of the thoracic spine. The soft tissue structures are unremarkable. RAD/Thoracic Spine 3 Views IMPRESSION: Degenerative changes without acute findings Electronically Signed: Rip Jha DO at 22:46 EDT Tel , Service support ,
--- NOTE | 2020-11-25 22:02 | RAD_ITS ---
STUDY: X-RAY CHEST REASON FOR EXAM: Male, 45 years old. chest pain TECHNIQUE: Single AP portable view of the chest. COMPARISON: 01/11/2020 FINDINGS: The lungs are clear and expanded. There is no demonstrated pleural abnormality. Normal size heart. Normal mediastinum and mabel. Normal visualized pulmonary arteries. Normal visualized aortic arch and descending thoracic aorta. Normal visualized thoracic spine. Normal visualized ribs, clavicles, and shoulders. There is no demonstrated abnormality of the visualized soft tissue structures of the upper abdomen. RAD/Chest 1 View (Portable) IMPRESSION: Normal x-ray examination of the chest. Electronically Signed: Rip Jha DO at 22:40 EDT Tel , Service support ,
[2020-11-25 22:05] LABS: International Normalized Ratio 1.2; Prothrombin Time (Protime)PT. 14.6 SECONDS (11.7-14.9)
[2020-11-25 22:18] LABS: Alcohol, Blood (Medical)-Serum < 3.0 mg/dL
[2020-11-25 22:24] LABS: ALB/GLOB Ratio 0.9 RATIO (0.9-2.4); AST(SGOT) 114 U/L (15-37); Alanine Aminotransfer ALT/SGPT 174 U/L (16-61); Alkaline Phosphatase 130 U/L (45-117); Anion Gap 0 (5-15); BUN 15 mg/dL (7-18); BUN/Creat Ratio 19.8 RATIO (10-20); Calcium,Total 8.5 mg/dL (8.5-10.1); Chloride 104 mmol/L (98-107); Creatinine, Serum 0.76 mg/dL (0.70-1.30); EST Glomerular Filtration Rate 119 mL/min (>60); Est Glom Filt Rate - Afr Amer 144 mL/min (>60); Estimated Creatinine Clearance 137.56 ml/min; Globulin 3.4 g/dL (2.2-4.2); Glucose 172 mg/dL (74-106); Potassium 4.2 mmol/L (3.5-5.1); Protein, Total 6.4 g/dL (6.4-8.2); Sodium Level 136 mmol/L (136-145)
[2020-11-25 22:51] VITALS: BP 151/94; PULSE 83; RESP 15; O2SAT 95
[2020-11-25 23:22] LABS: Amphetamine Urine VISTA POSITIVE (<1000 ng/mL); Barbiturate Urine VISTA NEGATIVE (< 200 ng/mL); Benzodiazepine Urine VISTA NEGATIVE (< 200 ng/mL); Cocaine Urine VISTA NEGATIVE (< 300 ng/mL); Ecstacy Urine VISTA POSITIVE (< 500 ng/mL); Methadone Urine VISTA NEGATIVE (< 300 ng/mL); PCP Urine VISTA NEGATIVE (< 25 ng/mL); THC Urine VISTA NEGATIVE (< 50 ng/mL); Vista UDS pH Range 6
[2020-11-26] VITALS: BP 140/103; PULSE 94; RESP 12; O2SAT 99
--- NOTE | 2020-11-26 00:09 | ED.DCSUM_ITS ---
- ER Visit Summary Date of Service: 11/26/20 Chief Complaint: Multiple complaints History of Present Illness: The patient is a 45 M with multiple complaints. He uses fentanyl daily. He injects into his left arm at the AC and upper arm. He relapsed about 6 or 7 months ago and has been using since. His last use was earlier today. He is requesting detox. He is having myalgias and arthralgias. He also has upper back pain and he reports some swelling to his hands and feet. He denies fever, chest pain, shortness of breath, or skin changes. He reports methamphetamine use to help with his withdrawal symptoms. His last use was 3 days ago. He denies suicidal or homicidal thoughts. Physical Examination: Afebrile and vital signs unremarkable except for heart rate of 109. Heart tachycardic. No murmurs. Lungs clear. Abdomen soft. Back shows normal inspection. He has mild mid thoracic tenderness. Overlying skin appears normal. I cannot reproduce his pain. Neurologic testing is unremarkable. Extremities show no signs of splinter hemorrhages, Osler nodes, Janeway lesions. Mild edema to his hands and feet. He has track sneed to his left upper arm. No sign of infection there. Test Results: EKG shows sinus rhythm at a rate of 80. White count 4.1, hemoglobin 12.7, glucose 172, alkaline phosphatase 130, ALT 174, AST 114, INR normal. Troponin normal. BMP normal. Alcohol negative. Talk screen positive for amphetamines. Covid negative. Chest x-ray negative. Thoracic x-ray negative. Emergency Department Course and Treatment: Patient is withdrawing from opioids and requesting detox. He has some back pain. The exam is unremarkable. He has chronic pain. I do not suspect an abscess at this time. He has no fevers. His white count is 4.1. He has nothing to suggest endocarditis. I am not sure why he has some swelling. He does have a history of hepatitis B and his liver enzymes were slightly elevated. His kidney function is normal and his BNP is normal. Swelling is symmetric and nontender. I do not believe he has DVTs. I reevaluated the patient. He is still requesting detox. He is not suicidal. I consulted the hospitalist for further care. Treatment Plan: As above Disposition: [facility] Impression: Opioid withdrawal, methamphetamine use, hepatitis B This note was generated with [employer] software. It may contain incorrect words, spelling, and punctuation that were not noted in review of the chart prior to signing ED Disposition - Plan for ED Patient: Referrals: Marika Gibbs NP, [facility] [Primary Care Provider] -
--- NOTE | 2020-11-26 00:12 | HP.PCM_ITS ---
Problem List (1) Opioid abuse Status: Acute (2) Desire for detoxification Status: Acute (3) recurrent MRSA skin infections Status: Chronic (4) Chronic back pain Status: Chronic History of Present Illness Date of Admission: 11/26/20 Chief Complaint: Desire for detoxification The patient is a 45 year old M with a significant history of hepatitis B; hepatitis C and recurrent MRSA infection; and opioid abuse who presents to the emergency department with desire from detoxification from opioids. Reportedly he has been shooting fentanyl for many years. He was clean for 6 years and then began using about 8 months ago. Last time he used was just before coming to the emergency department. Also he reports bilateral hand swelling that started a day before presentation. Further he reports swelling/tightness in bilateral legs that has been going on for many years and reportedly was treated with prednisone for 2 and half years. He also reports a history of cryoglobulinemia; rheumatoid arthritis; and osteoarthritis. Reportedly in regard to his hepatitis C he has received treatment. Past Medical History Past Medical History (Chronic Problems): Chronic Problems recurrent MRSA skin infections (Chronic) Chronic back pain (Chronic) Allergies acetaminophen [From Vicodin] Adverse Reaction (Verified 11/25/20 20:53) Upset Stomach hydrocodone bitartrate [From Vicodin] Adverse Reaction (Verified 11/25/20 20:53) Upset Stomach meloxicam [From Mobic] Adverse Reaction (Verified 11/25/20 20:53) Nausea Home Medications: Ambulatory Orders Medication Instructions Recorded Albuterol Inhaler [Ventolin Hfa] 1 - 2 puff INHALATION Q4H PRN PRN 09/14/16 #1 inhaler Nitroglycerin 0.4 mg SL DAILY PRN 01/11/20 Surgical History: herniorrhaphy Smoking Status: Current every day smoker Tobacco Use: Cigarettes Alcohol: Sober - *Family History Maternal History Items: Cancer, Heart Disease Paternal History Items: Cancer Review of Systems Constitutional: Denies: Chills, Fever, Weight Change HEENT: Denies: Head Aches, Sinus Congestion, Sinus Drainage Cardiovascular: Denies: Chest Pain, Palpitations Respiratory: Denies: Cough, Shortness of breath at rest, Sputum production Gastrointestinal: Reports: Hematochezia. Denies: Abdominal Pain, Nausea, Vomiting Genitourinary: Denies: Dysuria Musculoskeletal: Denies: Joint Pain, Joint Tenderness Skin: Denies: Rash, Wounds Neurological: Denies: Numbness, Tingling, Focal weakness Psychiatric: Denies: Anxiety, Depression, Homicidal Ideations, Suicidal Ideations Hematologic/ Lymphatic: Denies: Easy Bruising, Easy Bleeding VTE Information - Inpt Only VTE Present on Admission: No VTE Mechan Device Prophylaxis: None VTE Pharm Prophylaxis ordered?: No Reason prophylaxis not ordered:: Treatment Not Indicated - Low risk; encourage to ambulate Patient Problems: Active and Suspected Problems Opioid abuse (Acute) Desire for detoxification (Acute) - Physical Exam Vitals/I&O's: Vital Signs Temp Pulse Resp BP Pulse Ox 97.8 F 83 15 151/94 H 95 11/25/20 20:51 11/25/20 22:51 11/25/20 22:51 11/25/20 22:51 11/25/20 22:51 Oxygen Delivery Method Room Air Weight: 99.79 kg Body Mass Index (BMI) 29.8 General: Alert, Oriented x3, Cooperative HEENT: Atraumatic, PERRLA, EOMI, Normocephalic Neck: Supple, No JVD, Negative Carotid Bruits Lungs: Clear to auscultation, Normal air movement Cardiovascular: Regular rate, No murmurs Abdomen: Bowel Sounds Present, Soft, Non Tender Extremities: Capillary Refill Less than 3 Seconds, Edema - bilateral hands Skin: No rashes, No breakdown Musculoskeletal: Tenderness - Between shoulder blades Neurological: Cranial nerves II-XII grossly intact Psych/Mental Status: Normal Affect, Appropriate Microbiology Past 72 Hours 11/25/20 21:45 Mucosa - Nose SARS-CoV-2 Antigen (Rapid) - Final Laboratory Results 11/25/20 21:45: WBC 4.1 L, RBC 4.19 L, Hgb 12.7 L, Hct 38.8 L, MCV 92.6, MCH 30.3, MCHC 32.7, RDW Std Deviation 44.4 H, RDW Coeff of Cullen 13.1, Plt Count 186, MPV 9.1, Immature Gran % (Auto) 0.200, Neut % (Auto) 53.1, Lymph % (Auto) 30.8, [place] % (Auto) 10.3 H, Eos % (Auto) 4.4, Baso % (Auto) 1.2 H, Absolute Neuts (auto) 2.2, Absolute Lymphs (auto) 1.25, Nucleated RBC % 0 11/25/20 21:45: PT 14.6, INR 1.2 11/25/20 21:45: Sodium 136, Potassium 4.2, Chloride 104, Carbon Dioxide 32.0, Anion Gap 0 L, BUN 15, Creatinine 0.76, Estim Creat Clear Calc 137.56, Est GFR (MDRD) Af Amer 144, Est GFR (MDRD) Non-Af 119, BUN/Creatinine Ratio 19.8, Glucose 172 H, Calcium 8.5, Total Bilirubin 0.50, AST 114 H, ALT 174 H, Alkaline Phosphatase 130 H, Troponin I < 0.015, Total Protein 6.4, Albumin 3.0 L, Globulin 3.4, Albumin/Globulin Ratio 0.9 11/25/20 21:45: Ethyl Alcohol < 3.0 11/25/20 21:45: B-Natriuretic Peptide 28.0 11/25/20 22:35: Urine Opiates Screen NEGATIVE, Urine Methadone Screen NEGATIVE, Ur Barbiturates Screen NEGATIVE, Ur Phencyclidine Scrn NEGATIVE, Ur Amphetamines Screen POSITIVE H, U Methamphetamin-MDMA POSITIVE H, U Benzodiazepines Scrn NEGATIVE, Urine Cocaine Screen NEGATIVE, U Cannabinoids Screen NEGATIVE, Ur Drug Screen Comment Assessment/Plan All Active Problems Opioid abuse (Acute) Desire for detoxification (Acute) The patient is a 45 year old M with a significant history of hepatitis B; hepatitis C and recurrent MRSA infection; and opioid abuse who presents emergency department with desire from detoxification from opioids. Opioid dependence and withdrawal Patient be started on Subutex and other adjunctive medications: Gabapentin as needed; dicyclomine as needed; Vistaril as needed; methocarbamol as needed; clonidine as needed; Imodium as needed; trazodone as needed and Zofran as needed. Monitor COWS and CINA score Tobacco abuse Counseled Declined nicotine patch . Acute blood loss anemia Hemoglobin is mildly low at 12.7. Report hematochezia. We will put on Protonix p.o. Occult stool ordered. Trend CBC Elevated liver enzymes Review of emergency department labs showed elevated AST; ALT and alkaline phosphatase. These have risen over his baseline. Reports history of hepatitis B; and treated hepatitis C. Acute hepatitis panel ordered. Trend CMP. DVT prophylaxis Low risk Encourage to ambulate Inpatient E&M: 20789 Init Hosp L3
[2020-11-26 00:21] VITALS: BP 140/103; PULSE 93; RESP 19; TEMP 36.3; O2SAT 100
[2020-11-26 01:01] VITALS: BMI 30.2; BMI 30.3
[2020-11-26 01:24] VITALS: BP 140/85; PULSE 85; RESP 16; TEMP 36.7; O2SAT 97
[2020-11-26] MEDS: Dicyclomine 10 MG Capsule 20 MG PO ×2 (01:51→08:46)
[2020-11-26] MEDS: Methocarbamol 750 MG Tablet 1500 MG PO ×2 (01:51→08:46)
[2020-11-26 06:00] VITALS: BP 133/78; PULSE 87; RESP 18; TEMP 36.8; O2SAT 97
[2020-11-26 06:32] LABS: Absolute Lymphocyte Count 1.61 X10^3/uL (0.83-4.51); Absolute Neutrophil Count 2.2 X10^3/uL (2.0-7.7); Basophil# 0.06 X10^3/uL; Basophil% 1.3 % (0-1); Eosinophil# 0.21 X10^3/uL; Eosinophils% 4.7 % (0-5); Hemoglobin 13.1 g/dL (13.0-16.5); Lymphocyte # 1.61 X10^3/ul (4.0); Lymphocyte % 35.8 % (19-41); Mean Corp Hgb Conc 33.6 g/dL (32-36); Mean Corpuscular Hgb 31.5 pg (27.0-32.0); Mean Corpuscular Volume 93.8 fL (80-94); Mean Platelet Vol. 9.5 fl (6.2-12.0); Monocyte# 0.46 X10^3/uL; Monocyte% 10.2 % (0-10); NRBC Flagged by Analyzer 0 % (0-5); Neutrophil # 2.15 X10^3/uL (2.7-7.7); Neutrophil % 47.8 % (47-70); Platelet Count 193 K/mm3 (150-450); RBC Distribution Width CV 13.2 % (11.6-14.6); RBC Distribution Width SD 45.6 fl (35.1-43.9); Red Blood Count 4.16 M/mm3 (4.6-6.2); White Blood Count 4.5 K/mm3 (4.4-11.0)
[2020-11-26 06:56] LABS: ALB/GLOB Ratio 0.8 RATIO (0.9-2.4); AST(SGOT) 98 U/L (15-37); Alanine Aminotransfer ALT/SGPT 160 U/L (16-61); Albumin, Serum 2.7 g/dL (3.2-5.0); Alkaline Phosphatase 115 U/L (45-117); Anion Gap 1 (5-15); BUN 15 mg/dL (7-18); BUN/Creat Ratio 19.6 RATIO (10-20); Calcium,Total 8.5 mg/dL (8.5-10.1); Chloride 107 mmol/L (98-107); Creatinine, Serum 0.76 mg/dL (0.70-1.30); EST Glomerular Filtration Rate 118 mL/min (>60); Est Glom Filt Rate - Afr Amer 143 mL/min (>60); Estimated Creatinine Clearance 137.56 ml/min; Globulin 3.3 g/dL (2.2-4.2); Glucose 121 mg/dL (74-106); Potassium 4.1 mmol/L (3.5-5.1); Sodium Level 139 mmol/L (136-145)
--- NOTE | 2020-11-26 07:53 | PN_ITS ---
Patient Problems: Active and Suspected Problems Opioid abuse (Acute) Desire for detoxification (Acute) Vitals/I&O's: Vital Signs Temp Pulse Resp BP Pulse Ox 98.2 F 87 18 133/78 H 97 11/26/20 06:00 11/26/20 06:00 11/26/20 06:00 11/26/20 06:00 11/26/20 06:00 Oxygen Delivery Method Room Air Weight: 101.2 kg Body Mass Index (BMI) 30.2 Intake and Output for Last 24 Hours 11/24/20 11/25/20 11/26/20 23:59 23:59 23:59 Intake Total 1000 / 1000 400 / 400 Balance 1000 / 1000 400 / 400 Microbiology Past 72 Hours 11/25/20 21:45 Mucosa - Nose SARS-CoV-2 Antigen (Rapid) - Final Laboratory Results 11/25/20 21:45: WBC 4.1 L, RBC 4.19 L, Hgb 12.7 L, Hct 38.8 L, MCV 92.6, MCH 30.3, MCHC 32.7, RDW Std Deviation 44.4 H, RDW Coeff of Cullen 13.1, Plt Count 186, MPV 9.1, Immature Gran % (Auto) 0.200, Neut % (Auto) 53.1, Lymph % (Auto) 30.8, [place] % (Auto) 10.3 H, Eos % (Auto) 4.4, Baso % (Auto) 1.2 H, Absolute Neuts ( auto) 2.2, Absolute Lymphs (auto) 1.25, Nucleated RBC % 0 11/25/20 21:45: PT 14.6, INR 1.2 11/25/20 21:45: Sodium 136, Potassium 4.2, Chloride 104, Carbon Dioxide 32.0, Anion Gap 0 L, BUN 15, Creatinine 0.76, Estim Creat Clear Calc 137.56, Est GFR (MDRD) Af Amer 144, Est GFR (MDRD) Non-Af 119, BUN/Creatinine Ratio 19.8, Glucose 172 H, Calcium 8.5, Total Bilirubin 0.50, AST 114 H, ALT 174 H, Alkaline Phosphatase 130 H, Troponin I < 0.015, Total Protein 6.4, Albumin 3.0 L, Globulin 3.4, Albumin/Globulin Ratio 0.9 11/25/20 21:45: Ethyl Alcohol < 3.0 11/25/20 21:45: B-Natriuretic Peptide 28.0 11/25/20 22:35: Urine Opiates Screen NEGATIVE, Urine Methadone Screen NEGATIVE, Ur Barbiturates Screen NEGATIVE, Ur Phencyclidine Scrn NEGATIVE, Ur Amphetamines Screen POSITIVE H, U Methamphetamin-MDMA POSITIVE H, U Benzodiazepines Scrn NEGATIVE, Urine Cocaine Screen NEGATIVE, U Cannabinoids Screen NEGATIVE, Ur Drug Screen Comment 11/26/20 06:10: Hepatitis A IgM Ab Pending, Hep Bs Antigen Pending, Hep B Core IgM Ab Pending, Hepatitis C Ab (EIA) Pending 11/26/20 06:10: WBC 4.5, RBC 4.16 L, Hgb 13.1, Hct 39.0 L, MCV 93.8, MCH 31.5, MCHC 33.6, RDW Std Deviation 45.6 H, RDW Coeff of Cullen 13.2, Plt Count 193, MPV 9.5, Immature Gran % (Auto) 0.200, Neut % (Auto) 47.8, Lymph % (Auto) 35.8, [place] % (Auto) 10.2 H, Eos % (Auto) 4.7, Baso % (Auto) 1.3 H, Absolute Neuts (auto) 2.2, Absolute Lymphs (auto) 1.61, Nucleated RBC % 0 11/26/20 06:10: Sodium 139, Potassium 4.1, Chloride 107, Carbon Dioxide 31.0, Anion Gap 1 L, BUN 15, Creatinine 0.76, Estim Creat Clear Calc 137.56, Est GFR (MDRD) Af Amer 143, Est GFR (MDRD) Non-Af 118, BUN/Creatinine Ratio 19.6, Glucose 121 H, Calcium 8.5, Total Bilirubin 0.60, AST 98 H, ALT 160 H, Alkaline Phosphatase 115, Total Protein 6.0 L, Albumin 2.7 L, Globulin 3.3, Albumin/Globulin Ratio 0.8 L Current Medications Buprenorphine HCl (Buprenorphine Hcl 2 Mg Tab.Subl) 0 mg SL Q8H WANG; Taper Stop: 11/29/20 00:54 Clonidine (Clonidine Hcl 0.1 Mg Tablet) 0.1 mg PO Q8H PRN PRN PRN Reason: RESTLESSNESS Dicyclomine HCl (Dicyclomine 10 Mg Capsule) 20 mg PO Q6H PRN PRN PRN Reason: Abdominal Discomfort Last Admin: 11/26/20 01:51 Dose: 20 mg Documented by: Gabapentin (Gabapentin 300 Mg Capsule) 300 mg PO Q8H PRN PRN PRN Reason: moderate to severe anxiety Hydroxyzine Pamoate (Hydroxyzine Kendra 25 Mg Capsule) 50 mg PO Q6H PRN PRN PRN Reason: mild anxiety Loperamide HCl (Loperamide 2 Mg Capsule) 2 mg PO Q4H PRN PRN PRN Reason: LOOSE STOOLS Methocarbamol (Methocarbamol 750 Mg Tablet) 1,500 mg PO Q6H PRN PRN PRN Reason: MUSCLE SPASM Last Admin: 11/26/20 01:51 Dose: 1,500 mg Documented by: Nutritional Formula (Lactose Free) (Ensure Enlive 120 Ml Liquid) 120 ml PO 4X/DAY WANG Ondansetron HCl (Ondansetron 8 Mg Tablet) 8 mg PO Q8H PRN PRN PRN Reason: NAUSEA Pantoprazole Sodium (Pantoprazole Sodium 40 Mg Tablet) 40 mg PO DAILY WANG Sodium Chloride (0.9% Saline Lock 10 Ml Syringe) 10 - 40 ml IV UD PRN PRN Reason: SALINE FLUSH Trazodone HCl (Trazodone 100 Mg Tablet) 100 mg PO QHS PRN PRN PRN Reason: INSOMNIA STROKE Vital Signs/Narrative: Vital Signs Temp Pulse Resp BP Pulse Ox 11/26/20 06:00 98.2 F 87 18 133/78 H 97 Medical Necessity - Tobacco Use Smoking Status: Current every day smoker Tobacco Use: Cigarettes Assessment/Plan All Active Problems Opioid abuse (Acute) Desire for detoxification (Acute)
[2020-11-26 08:45] VITALS: PULSE 96
[2020-11-26] MEDS: Gabapentin 300 MG Capsule PO (08:46)
[2020-11-26] MEDS: Buprenorphine HCl 2 MG TAB.SUBL 4 MG SL (10:10)
[2020-11-26] MEDS: Pantoprazole Sodium 40 MG Tablet PO (10:10)
--- NOTE | 2020-11-26 10:51 | CASEMGMT ---
Social Work Note Pt is RAMP pt. Pt is also listed as self-pay. [facility]. SW in to speak with pt. SW introduced self and role at [facility]. Pt sleeping when this worker entered the room but woke up to speak to this worker. Pt confirms he currently has no insurance, states he reapplied for Medicaid this week. Pt states he is currently unemployed. Pt states his is also currently unemployed. TAD provided pt with financial resources including HCAP application, Medicaid Application, [facility], [place] [id number], [employer], RX assistance and [facility]cription [facility]. Pt denied additional needs or concerns at this time. Ayanna Crabtree MUSIC PASTOR, GRAIN THRESHER
--- NOTE | 2020-11-26 11:31 | PCM.NTREPORT ---
Nutrition Therapy Report - History Nutrition Services has been consulted to:: Manage nutrient details of diet order Current diet / nutrition support order:: Regular - Anthropometric Measurements Height:: 6 ft Weight:: 101.2 kg Body Mass Index (BMI):: 30.2 - Relevant Labs Relevant Labs:: WBC 4.1 K/mm3 (4.4-11.0) L 11/25/20 21:45 RBC 4.16 M/mm3 (4.6-6.2) L 11/26/20 06:10 Hgb 12.7 g/dL (13.0-16.5) L 11/25/20 21:45 Hct 39.0 % (40-54) L 11/26/20 06:10 RDW Std Deviation 45.6 fl (35.1-43.9) H 11/26/20 06:10 [place] % (Auto) 10.2 % (0-10) H 11/26/20 06:10 Baso % (Auto) 1.3 % (0-1) H 11/26/20 06:10 Anion Gap 1 (5-15) L 11/26/20 06:10 Glucose 121 mg/dL (74-106) H 11/26/20 06:10 AST 98 U/L (15-37) H 11/26/20 06:10 ALT 160 U/L (16-61) H 11/26/20 06:10 Alkaline Phosphatase 130 U/L (45-117) H 11/25/20 21:45 Total Protein 6.0 g/dL (6.4-8.2) L 11/26/20 06:10 Albumin 2.7 g/dL (3.2-5.0) L 11/26/20 06:10 Albumin/Globulin Ratio 0.8 RATIO (0.9-2.4) L 11/26/20 06:10 - Assessment Food / Nutrition-Related History:: Appetite so so detective captain and states he ate fair at breakfast today. Pt agreeable to ONS - states had his first one this morning and it was okay. UBW: 117.934 kg - wt loss of 14.2% in past 8-9 mo - sig for malnutrition. Pt states he was eating detective captain - but wt loss likely d/t drug use. Pt tries to limit salt in diet at home - quit using the salt shaker. Denies issues chewing/swallowing despite edentulous. States he has dentures at home, but doesn't wear b/ the yury mixed my tops up w/ someone else and they don't fit - pt cuts food and then is able to eat. Does NOT want foods mech altered here. Pt usually eats one, maybe two meals/day. - Nutrition Diagnosis Problem / Etiology / Signs & Symptoms (PES):: Pt with inadequate oral intake r/t decreased ability to consume sufficient energy / nutrients aeb 14.2% wt loss x 8-9 mo, opiod dependence causing pt to only eat 1-2 meals per day at most and only having fair appetite. Evidence of Malnutrition Exists:: Yes Severe PCM:: Social & Environmental circumstances - Nutrition Intervention Nutrition Prescription:: [id number] kennedi/day (RMRx1.3). 100-120 gm pro/day (1-1.2 gm/kg). 2200 ml/day (1 ml/kennedi). - Food / Nutrient Delivery Interventions Summary of nutrition intervention:: Continue ONS w/ medpass for increased nutrition if consumed. Nutrition support ordered as / adjusted to:: Changed diet to Regular / Sodium restricted r/t edema issues. Nutrition education provided?: No - MNT Monitoring Further MNT monitoring and evaluation required?: Yes MNT Follow-up in:: 3-5 days - please call RD/LD if questions/concerns at [phone]
[2020-11-26 11:37] VITALS: BMI 30.2
[2020-11-26] MEDS: Ibuprofen 600 MG Tablet PO (12:13)
--- NOTE | 2020-11-26 15:21 | PCM.DC ---
- Discharge Diagnoses Current Active Problems: Current Active and Chronic Problems Opioid abuse (Acute) Desire for detoxification (Acute) recurrent MRSA skin infections (Chronic) Chronic back pain (Chronic) Reason(s) for Visit for Discharge Instructions: Acute opioid withdrawal Allergies/Adverse Reactions: Allergies acetaminophen [From Vicodin] Adverse Reaction (Verified 11/25/20 20:53) Upset Stomach hydrocodone bitartrate [From Vicodin] Adverse Reaction (Verified 11/25/20 20:53) Upset Stomach meloxicam [From Mobic] Adverse Reaction (Verified 11/25/20 20:53) Nausea Medications to take at Discharge Albuterol Inhaler [Ventolin Hfa] 1 - 2 puff INHALATION Q4H PRN PRN #1 inhaler 09/14/16 Nitroglycerin 0.4 mg SL DAILY PRN 01/11/20 Calcium Carbonate [Calcium] 1,000 mg PO DAILY 11/26/20 Cholecalciferol (Vitamin D3) [Vitamin D3] 150 mcg PO DAILY 11/26/20 Multivit-Minerals/FA/Lycopene [One Daily For Men Tablet] 1 tablet PO DAILY 11/26/20 Zinc 100 mg PO DAILY 11/26/20 Primary Care Physician: Marika Gibbs CROWNING HAMMER OPERATOR, CROWNING HAMMER OPERATOR-C [Primary Care Provider] - Test Results: Test results from this visit will be discussed in further detail at your follow-up appointment, if applicable.
--- NOTE | 2020-11-26 15:21 | PCM.DC.SUM ---
Discharge Date and Diagnosis - Problem List Patient Problems: Active and Suspected Problems Opioid abuse (Acute) Desire for detoxification (Acute) Date of Admission: 11/26/20 Date of Discharge: 11/26/20 - Primary Discharge Diagnosis Acute Problems: Active Problems Acute opioid withdrawal Nicotine dependence Elevated liver enzymes - Secondary Discharge Diagnosis Chronic Problems: Chronic Problems recurrent MRSA skin infections (Chronic) Chronic back pain (Chronic) Hospital Course and Treatment Imaging Results: Clinical Impression(s) from Imaging Studies Chest X-Ray 11/25/20 22:02 IMPRESSION: Normal x-ray examination of the chest. Electronically Signed: Rip hJa DO at 22:40 EDT Tel , Service support , Thoracic Spine X-Ray 11/25/20 22:02 IMPRESSION: Degenerative changes without acute findings Electronically Signed: Rip Jha DO at 22:46 EDT Tel , Service support , Operations: None Procedures: None Summary of Care Provided: The patient is a 45 year old M with past medical history of chronic otitis B and C, history of recurrent MRSA infection, opioid use disorder who comes in requesting for medical stabilization. Patient admits to using fentanyl for many years. He was admitted to the [facility] floor, managed on the Subutex withdrawal protocol. Patient complained of generalized pains and aches. He was medicated. He however became upset, pushed away his food tray, spit out his Motrin given and signed out AGAINST MEDICAL ADVICE. Patient Problems: Active and Suspected Problems Opioid abuse (Acute) Desire for detoxification (Acute) Subjective: Patient was seen and examined. He complained of feeling hot and cold, abdominal cramps, pain in his joints from arthritis. Objective: Physical exam General: Alert, Oriented x3, Cooperative, appears in mild distress HEENT: Atraumatic, PERRLA, EOMI, Normocephalic Neck: Supple, No JVD, Negative Carotid Bruits Lungs: Clear to auscultation, Normal air movement Cardiovascular: Regular rate, No murmurs Abdomen: Bowel Sounds Present, Soft, Non Tender Extremities: Capillary Refill Less than 3 Seconds, Edema - bilateral hands Skin: No rashes, No breakdown Musculoskeletal: Tenderness - Between shoulder blades Neurological: Cranial nerves II-XII grossly intact Psych/Mental Status: Normal Affect, Appropriate - Physical Exam Vitals/I&O's: Vital Signs Temp Pulse Resp BP Pulse Ox 98.2 F 96 18 133/78 H 97 11/26/20 06:00 11/26/20 08:45 11/26/20 06:00 11/26/20 06:00 11/26/20 06:00 Oxygen Delivery Method Room Air Weight: 101.2 kg Body Mass Index (BMI) 30.2 Intake and Output for Last 24 Hours 11/24/20 11/25/20 11/26/20 23:59 23:59 23:59 Intake Total 1000 / 1000 400 / 400 Balance 1000 / 1000 400 / 400 Microbiology Past 72 Hours 11/25/20 21:45 Mucosa - Nose SARS-CoV-2 Antigen (Rapid) - Final Laboratory Results 11/25/20 21:45: WBC 4.1 L, RBC 4.19 L, Hgb 12.7 L, Hct 38.8 L, MCV 92.6, MCH 30.3, MCHC 32.7, RDW Std Deviation 44.4 H, RDW Coeff of Cullen 13.1, Plt Count 186, MPV 9.1, Immature Gran % (Auto) 0.200, Neut % (Auto) 53.1, Lymph % (Auto) 30.8, [place] % (Auto) 10.3 H, Eos % (Auto) 4.4, Baso % (Auto) 1.2 H, Absolute Neuts (auto) 2.2, Absolute Lymphs (auto) 1.25, Nucleated RBC % 0 11/25/20 21:45: PT 14.6, INR 1.2 11/25/20 21:45: Sodium 136, Potassium 4.2, Chloride 104, Carbon Dioxide 32.0, Anion Gap 0 L, BUN 15, Creatinine 0.76, Estim Creat Clear Calc 137.56, Est GFR (MDRD) Af Amer 144, Est GFR (MDRD) Non-Af 119, BUN/Creatinine Ratio 19.8, Glucose 172 H, Calcium 8.5, Total Bilirubin 0.50, AST 114 H, ALT 174 H, Alkaline Phosphatase 130 H, Troponin I < 0.015, Total Protein 6.4, Albumin 3.0 L, Globulin 3.4, Albumin/Globulin Ratio 0.9 11/25/20 21:45: Ethyl Alcohol < 3.0 11/25/20 21:45: B-Natriuretic Peptide 28.0 11/25/20 22:35: Urine Opiates Screen NEGATIVE, Urine Methadone Screen NEGATIVE, Ur Barbiturates Screen NEGATIVE, Ur Phencyclidine Scrn NEGATIVE, Ur Amphetamines Screen POSITIVE H, U Methamphetamin-MDMA POSITIVE H, U Benzodiazepines Scrn NEGATIVE, Urine Cocaine Screen NEGATIVE, U Cannabinoids Screen NEGATIVE, Ur Drug Screen Comment 11/26/20 06:10: Hepatitis A IgM Ab Pending, Hep Bs Antigen Pending, Hep B Core IgM Ab Pending, Hepatitis C Ab (EIA) Pending 11/26/20 06:10: WBC 4.5, RBC 4.16 L, Hgb 13.1, Hct 39.0 L, MCV 93.8, MCH 31.5, MCHC 33.6, RDW Std Deviation 45.6 H, RDW Coeff of Cullen 13.2, Plt Count 193, MPV 9.5, Immature Gran % (Auto) 0.200, Neut % (Auto) 47.8, Lymph % (Auto) 35.8, [place] % (Auto) 10.2 H, Eos % (Auto) 4.7, Baso % (Auto) 1.3 H, Absolute Neuts (auto) 2.2, Absolute Lymphs (auto) 1.61, Nucleated RBC % 0 11/26/20 06:10: Sodium 139, Potassium 4.1, Chloride 107, Carbon Dioxide 31.0, Anion Gap 1 L, BUN 15, Creatinine 0.76, Estim Creat Clear Calc 137.56, Est GFR (MDRD) Af Amer 143, Est GFR (MDRD) Non-Af 118, BUN/Creatinine Ratio 19.6, Glucose 121 H, Calcium 8.5, Total Bilirubin 0.60, AST 98 H, ALT 160 H, Alkaline Phosphatase 115, Total Protein 6.0 L, Albumin 2.7 L, Globulin 3.3, Albumin/Globulin Ratio 0.8 L Discharge Diet: No Restrictions Home Medications: Medications to take at Discharge Albuterol Inhaler [Ventolin Hfa] 1 - 2 puff INHALATION Q4H PRN PRN #1 inhaler 09/14/16 Nitroglycerin 0.4 mg SL DAILY PRN 01/11/20 Calcium Carbonate [Calcium] 1,000 mg PO DAILY 11/26/20 Cholecalciferol (Vitamin D3) [Vitamin D3] 150 mcg PO DAILY 11/26/20 Multivit-Minerals/FA/Lycopene [One Daily For Men Tablet] 1 tablet PO DAILY 11/26/20 Zinc 100 mg PO DAILY 11/26/20 Primary Care Physician: Marika Gibbs VACUUM FILTER OPERATOR, VACUUM FILTER OPERATOR-C [Primary Care Provider] - Disposition: Against Medical Advice Minutes spent on discharge:: 25 Patient Condition:: Stable Medical Necessity - Tobacco Use Smoking Status: Current every day smoker Tobacco Use: Cigarettes Meaningful Use Info Meaningful Use Diagnoses (Choose all that apply): None applicable Inpatient E&M: 25047 [facility] Hosp
[2020-11-27 08:08] LABS: Hepatitis A IgM Antibody Negative (Negative); Hepatitis B Core AB IgM Negative (Negative)
[2020-11-27 09:15] LABS: HEPATITIS B SURFACE AG Positive (Negative); Hep C Antibodies >11.0 s/co ratio (0.0-0.9)
== END 2020-11-26 13:12 | disposition left against medical advice (07) | DRG 894 ==
LOC: ED 21:45 → MS3 11-26 00:26
PROVIDERS: Admitting Provider Hospitalist; Emergency Provider Emergency Medicine; PCP Nurse Practitioner Family; Visit Provider Internal Medicine
DX: F11.23 Opioid dependence with withdrawal (principal); B18.1 Chronic viral hepatitis B without delta-agent; D62 Acute posthemorrhagic anemia; B18.2 Chronic viral hepatitis C; F15.90 Other stimulant use, unspecified, uncomplicated; F17.210 Nicotine dependence, cigarettes, uncomplicated; G89.29 Other chronic pain; D89.1 Cryoglobulinemia; M06.9 Rheumatoid arthritis, unspecified; M19.90 Unspecified osteoarthritis, unspecified site; Z86.14 Personal history of Methicillin resistant Staphylococcus aureus infection; Z79.899 Other long term (current) drug therapy; R74.8 Abnormal levels of other serum enzymes
CPT/HCPCS: 71045; 72072; 80053; 80074; 80307; 82077; 83880; 84484; 85025; 85610; 87426; 93005; 96374; 97802; 99218; 99285; J7030; A4216; G0378; J2405

== ENCOUNTER → 2021-03-25 13:58 | Outpatient (CLI) | payer MEDICAID, SELFPAY ==
[2021-03-25 15:25] LABS: Hemoglobin A1c 5.8 % (3.8-5.6)
[2021-03-25 15:31] LABS: AST(SGOT) 70 U/L (15-37); Alanine Aminotransfer ALT/SGPT 93 U/L (16-61); Albumin, Serum 3.5 g/dL (3.2-5.0); Alkaline Phosphatase 113 U/L (45-117); Anion Gap 7 (5-15); Bilirubin, Direct 0.16 mg/dL (0.00-0.30); Chloride 102 mmol/L (98-107); Globulin 3.8 g/dL (2.2-4.2); Potassium 4.2 mmol/L (3.5-5.1); Protein, Total 7.3 g/dL (6.4-8.2); Sodium Level 137 mmol/L (136-145)
[2021-03-27 08:08] LABS: Hepatitis Be Ag Positive (Negative)
[2021-03-27 11:09] LABS: Hepatitis A IgM Antibody Negative (Negative)
[2021-03-29 05:06] LABS: Hepatitis A AB, Total Negative (Negative)
== END ==
PROVIDERS: PCP Nurse Practitioner Family; Visit Provider Internal Medicine Infectious Disease
DX: B18.1 Chronic viral hepatitis B without delta-agent (principal)
CPT/HCPCS: 36415; 80051; 80076; 83036; 86708; 86709; 87350

== ENCOUNTER → 2021-05-03 17:02 | Outpatient (CLI) | payer MEDICAID, SELFPAY ==
[2021-05-03 19:07] LABS: ALB/GLOB Ratio 0.7 RATIO (0.9-2.4); AST(SGOT) 47 U/L (15-37); Alanine Aminotransfer ALT/SGPT 58 U/L (16-61); Alkaline Phosphatase 93 U/L (45-117); Anion Gap 6 (5-15); BUN 14 mg/dL (7-18); BUN/Creat Ratio 15.8 RATIO (10-20); Calcium,Total 8.5 mg/dL (8.5-10.1); Chloride 102 mmol/L (98-107); Creatinine, Serum 0.89 mg/dL (0.70-1.30); EST Glomerular Filtration Rate 99 mL/min (>60); Est Glom Filt Rate - Afr Amer 120 mL/min (>60); Globulin 4.2 g/dL (2.2-4.2); Glucose 174 mg/dL (74-106); Magnesium 1.9 mg/dL (1.6-2.6); Potassium 3.7 mmol/L (3.5-5.1); Protein, Total 7.2 g/dL (6.4-8.2); Sodium Level 137 mmol/L (136-145)
[2021-05-04 09:21] LABS: Hepatitis B Surface Antigen REACTIVE (Nonreactive)
[2021-05-05 18:36] LABS: Hepatitis Be Ag Positive (Negative)
== END ==
PROVIDERS: PCP Nurse Practitioner Family; Visit Provider Internal Medicine Infectious Disease
DX: B18.1 Chronic viral hepatitis B without delta-agent (principal)
CPT/HCPCS: 36415; 80053; 82746; 83735; 87340; 87350

== ENCOUNTER → 2021-06-07 15:21 | Outpatient (CLI) | payer MEDICAID, SELFPAY ==
[2021-06-07 17:59] LABS: ALB/GLOB Ratio 0.8 RATIO (0.9-2.4); AST(SGOT) 32 U/L (15-37); Alanine Aminotransfer ALT/SGPT 41 U/L (16-61); Albumin, Serum 3.1 g/dL (3.2-5.0); Alkaline Phosphatase 86 U/L (45-117); Anion Gap 5 (5-15); BUN 16 mg/dL (7-18); BUN/Creat Ratio 21.1 RATIO (10-20); Chloride 103 mmol/L (98-107); Creatinine, Serum 0.76 mg/dL (0.70-1.30); EST Glomerular Filtration Rate 119 mL/min (>60); Est Glom Filt Rate - Afr Amer 144 mL/min (>60); Globulin 3.9 g/dL (2.2-4.2); Glucose 87 mg/dL (74-106); Magnesium 1.8 mg/dL (1.6-2.6); Potassium 3.9 mmol/L (3.5-5.1); Sodium Level 139 mmol/L (136-145)
[2021-06-08 08:42] LABS: Hepatitis B Surface Antigen REACTIVE (Nonreactive)
[2021-06-09 08:08] LABS: Hepatitis Be Ag Positive (Negative)
== END ==
PROVIDERS: PCP Nurse Practitioner Family; Referring Provider Internal Medicine Infectious Disease; Visit Provider Internal Medicine Infectious Disease
DX: B18.1 Chronic viral hepatitis B without delta-agent (principal)
CPT/HCPCS: 36415; 80053; 82746; 83735; 87340; 87350

== ENCOUNTER → 2021-07-01 08:08 | Outpatient (CLI) | payer MEDICAID, SELFPAY ==
--- NOTE | 2021-07-01 08:11 | US_ITS ---
STUDY: ABDOMINAL ULTRASOUND REASON FOR EXAM: Male, 46 years old. Elevated LFTs, hepatitis B TECHNIQUE: Transabdominal ultrasound was performed with real-time and static fernandez scale imaging. TECHNICAL QUALITY: Adequate. COMPARISON: None. FINDINGS: Liver: The liver measures 15 cm. There is increased echogenicity consistent with fatty infiltration. The bile ducts are within normal limits. There is hepatic color flow. The direction of portal flow is hepatopetal. There is no demonstrated mass lesion. Portal vein measurement: Gallbladder: There is a contracted gallbladder. The gallbladder wall measures 4 mm. There is a negative sonographic Uriarte''s sign. There is no pericholecystic fluid. There are no gallstones. Common Bile Duct (C.B.D.): The common bile duct measures 4 mm. Pancreas: Normal size of the head, body and tail of the pancreas. There is normal echogenicity of the pancreas. There is no demonstrated pancreatic mass or cyst. Spleen: There is splenomegaly. The spleen measures 14.4 cm. Right Kidney: Normal size of the right kidney. The right kidney measures measures 12.3 x 5.5 x 6.9 cm. Normal renal cortex. The right cortex measures 2.2 cm. There is no demonstrated renal mass or cyst. There is no right hydronephrosis. Left Kidney: Normal size of the left kidney. The left kidney measures 11.4 x 6.2 x 7.3 cm. Normal renal cortex. The left cortex measures 1.9 cm. There is no demonstrated renal mass or cyst. There is no left hydronephrosis. Aorta: Tapers normally I.V.C.: The IVC is patent. There is no ascites. US/Abdomen Complete IMPRESSION: Contracted gallbladder with bladder wall thickening at 4 mm. However, there is no other sonographic evidence of gallbladder disease. Gallbladder wall thickening is a nonspecific finding and can be seen normally, but also with hepatitis, pancreatitis or cholecystitis. Fatty liver, no discrete lesion Nonspecific splenomegaly Electronically Signed: Gage Lobo MD at 10:30 EDT , Service support ,
== END ==
PROVIDERS: PCP Nurse Practitioner Family; Referring Provider Internal Medicine Infectious Disease; Visit Provider Internal Medicine Infectious Disease
DX: B18.1 Chronic viral hepatitis B without delta-agent (principal); K76.0 Fatty (change of) liver, not elsewhere classified
CPT/HCPCS: 76700

== ENCOUNTER → 2021-07-11 06:43 | Outpatient (CLI) | payer MEDICAID, SELFPAY ==
--- NOTE | 2021-07-11 06:52 | MRI_ITS ---
STUDY: MRI CERVICAL SPINE WITHOUT CONTRAST REASON FOR EXAM: Male, 46 years old. RADICULOPATHY TECHNIQUE: Standardized fat and water weighted pulse sequences were obtained in the sagittal and axial planes. COMPARISON: None FINDINGS: Normal foramen magnum and brainstem-cervical cord junction. Normal craniovertebral junction. Normal anterior atlantoaxial articulation. Normal odontoid process. Normal cervical lordosis. Normal vertebral bodies and posterior osseous elements. C2-3: Normal endplates. Normal disc height, signal and morphology. Normal central canal and intervertebral neural foramina. C3-4: Normal endplates. Normal disc height, signal and morphology. Normal central canal and intervertebral neural foramina. C4-5: Normal endplates. Normal disc height, signal and morphology. Normal central canal and intervertebral neural foramina. C5-6: Normal endplates. Minimal disc space height narrowing. Small posterior bulging disc. Normal central canal and intervertebral neural foramina. C6-7: Minimal anterior marginal spurs. Normal endplates. Mild disc space height narrowing. Normal central canal. Mild stenosis of the left intervertebral neural foramen due to osteophyte arising from the left uncovertebral joint. Normal right intervertebral neural foramen. C7-T1: Normal endplates. Normal disc height, signal and morphology. Normal central canal and intervertebral neural foramina. T1-T2 and T2-T3: (Sagittal only). Normal endplates. Normal disc height, signal and morphology. No ventral extradural defect. Normal central canal and intervertebral neural foramina. Normal cervical cord. Normal upper thoracic spinal cord. Normal included portions of the brainstem and cerebellum. Normal visualized soft tissue structures. MRI/Spine Cervical (Routine) IMPRESSION: 1. Limited study due to motion artifacts. 2. No suspicious cervical extruded disc fragment. 3. Mild stenosis of the left C6-C7 intervertebral neural foramen due to osteophyte arising from the left uncovertebral joint. 4. Small C5-C6 posterior bulging disc. Electronically Signed: Pal Delgado MD at 9:17 EST , Service support ,
== END ==
PROVIDERS: PCP Nurse Practitioner Family; Referring Provider Internal Medicine Infectious Disease; Visit Provider Internal Medicine Infectious Disease
DX: M54.12 Radiculopathy, cervical region (principal); M50.223 Other cervical disc displacement at C6-C7 level; M48.02 Spinal stenosis, cervical region
CPT/HCPCS: 72141

== ENCOUNTER 2021-09-13 09:00 | Outpatient (CLI) | payer MEDICAID, SELFPAY ==
[2021-09-13 10:47] LABS: AST(SGOT) 30 U/L (15-37); Alanine Aminotransfer ALT/SGPT 41 U/L (16-61); Albumin, Serum 3.5 g/dL (3.2-5.0); Alkaline Phosphatase 94 U/L (45-117); Bilirubin, Direct 0.11 mg/dL (0.00-0.30); Globulin 3.8 g/dL (2.2-4.2); Protein, Total 7.3 g/dL (6.4-8.2)
== END 2021-09-13 23:59 | disposition short-term general hospital (02) ==
PROVIDERS: PCP Nurse Practitioner Family; Visit Provider Internal Medicine Infectious Disease
DX: B18.1 Chronic viral hepatitis B without delta-agent (principal); F11.20 Opioid dependence, uncomplicated
CPT/HCPCS: 36415; 80076

== ENCOUNTER 2021-12-14 09:22 | Emergency (ER) | payer MEDICAID, SELFPAY ==
[2021-12-14 09:23] VITALS: BP 151/95; PULSE 105; RESP 17; TEMP 36.5; O2SAT 100; BMI 29.0
--- NOTE | 2021-12-14 09:45 | ED.VIS.GI ---
HPI HPI - GI History of Present Illness Chief Complaint: Constipation Informant: patient Abdominal Pain/Flank Pain Onset: Month(s) (1) Context: Gradual Onset Timing: Waxes and wanes Quality: Cramping Location: Diffuse Worsened by: Food Relieved by: Nothing Nausea/Vomiting/Emesis GI Symptom: Positive for Nausea; Negative for Vomiting Diarrhea/Melena/Hematochezia GI Symptom: Positive for Hematochezia; Negative for Diarrhea and Melena Associated Symptoms Associated Symptoms: Positive for Dysuria; Negative for Frequency and Hematuria Narrative Narrative: Patient presents with constipation that has been getting worse over the last month. Patient states that he is only been able to have very small bowel movements. Patient states his stools have been hard. Patient states he started having some bleeding with his bowel movements. Patient admits to some cramping abdominal pain. Patient states it is diffuse. Patient states it is worse with eating. Patient admits to nausea but denies any vomiting. Patient admits to some dysuria but denies any hematuria. Patient states he has been having trouble urinating as well recently. Patient states he saw urologist for this. Patient also complains of diffuse joint aching and stiffness. Patient states it is mainly in his hands, wrists, and back. Patient denies any fevers or chills. Patient denies any radiation of the pain. Patient denies any saddle anesthesia. [facility] Medical History Hepatitis B Home Medications albuterol sulfate [Ventolin HFA] 1 - 2 puff INHALATION Q4H PRN PRN #1 inhaler 09/14/16 [Rx Last Taken Unknown] cholecalciferol (vitamin D3) 150 mcg PO DAILY 11/26/20 [History Last Taken 11/25/20 08:00] multivit with [id number] 1 tablet PO DAILY 11/26/20 [History Last Taken 11/25/20 08:00] zinc 100 mg PO DAILY 11/26/20 [History Last Taken 11/25/20 08:00] entecavir 1 mg PO DAILY 12/14/21 [History Last Taken Unknown] magnesium 12/14/21 [History Last Taken Unknown] ondansetron 4 mg PO Q8H PRN PRN #10 tab 12/14/21 [Rx Last Taken Unknown] polyethylene glycol 3350 [Miralax] 17 g PO DAILY #119 g 12/14/21 [Rx Last Taken Unknown] Allergy/AdvReac Type Severity Reaction Status Date / Time acetaminophen [From Vicodin] AdvReac Upset Verified 12/14/21 09:23 Stomach hydrocodone bitartrate AdvReac Upset Verified 12/14/21 09:23 [From Vicodin] Stomach meloxicam [From Mobic] AdvReac Nausea Verified 12/14/21 09:23 Surgical History Hx of hernia repair Social History Smoking Status: Current every day smoker tobacco type: cigarettes ROS ROS ED Constitutional Constitutional ED: Denies chills or fever(s) Eyes Eyes: Reports blurry vision ENT ENT ED: Denies rhinorrhea or sore throat Cardiovascular Cardiovascular: Denies chest pain or palpitations Respiratory/Chest Respiratory/Chest: Denies cough or dyspnea Gastrointestinal Gastrointestinal: Reports abdominal pain, constipation and nausea; Denies vomiting Genitourinary Genitourinary ED: Reports dysuria; Denies hematuria Musculoskeletal Musculoskeletal: Reports arthralgias and back pain; Denies neck pain Integumentary Reports rash; Denies abscess Neurologic Neurologic: Reports headache(s); Denies weakness Allergic/Immunologic Allergic/Immunologic ED: Denies mouth swelling or urticaria EXAM Physical Exam Const Vital Signs: 12/14/21 09:23 12/14/21 11:58 Temperature 97.7 F L Temperature Source Temporal Pulse Rate 105 H 92 Respiratory Rate 17 18 Blood Pressure 151/95 H 134/87 H Blood Pressure Mean 113 102 Pulse Ox 100 100 Oxygen Delivery Method Room Air Room Air Positive well nourished and well developed General Appearance ED: well developed and NAD HEENT Reports moist mucous membranes Neck supple and no JVD Resp normal respiratory effort and clear to auscultation bilaterally Cardio regular rate and regular rhythm GI non-tender Auscultation: normoactive bowel sounds Palpation: soft Neuro CN's II-XII intact bilaterally, moves all extremities and no sensory deficits noted Sensorium / Orientation: alert, oriented to person, oriented to place and oriented to time Motor Exam: strength 5/5 throughout Psych mental status grossly normal MDM MDM MDM Narrative Medical decision making narrative: Acute abdominal x-rays were obtained. There are 5 views. On my interpretation, there is no evidence of bowel obstruction or perforation. There is a large amount of stool throughout the colon. Radiologist also interpreted the x-rays and agrees. CBC was within normal limits. Comprehensive metabolic profile was essentially within normal limits. Urinalysis does not show any evidence of urinary tract infection or hematuria. Bladder scan was obtained and was 51. Patient was given a soapsuds enema here. Patient had some good results with this. Patient started having some nausea and was given a dose of Zofran. Patient was feeling better on reevaluation. Patient was advised of his findings. Patient was given a prescription for MiraLAX and Zofran. Patient was instructed to follow-up with his primary care physician in 5 to 7 days. Patient understood and was agreeable with the plan. All questions were answered. Lab Data Attestation: I reviewed the patient's lab results. Labs: Laboratory Results - last 24 hr 12/14/21 12/14/21 12/14/21 10:10 10:10 10:10 WBC 3.9 L RBC 4.41 L Hgb 13.3 Hct 40.5 MCV 91.8 MCH 30.2 MCHC 32.8 RDW Std Deviation 43.5 RDW Coeff of Cullen 12.8 Plt Count 192 MPV 8.9 Immature Gran % (Auto) 0.300 Neut % (Auto) 64.1 Lymph % (Auto) 26.7 [place] % (Auto) 3.3 Eos % (Auto) 4.6 Baso % (Auto) 1.0 Absolute Neuts (auto) 2.5 Absolute Lymphs (auto) 1.04 Nucleated RBC % 0 Sodium 135 L Potassium 4.9 Chloride 103 Carbon Dioxide 29.0 Anion Gap 3 L BUN 13 Creatinine 0.73 Estim Creat Clear Calc 141.74 Est GFR (MDRD) Af Amer 151 Est GFR (MDRD) Non-Af 125 BUN/Creatinine Ratio 17.9 Glucose 151 H Calcium 9.0 Total Bilirubin 0.40 AST 45 H ALT 49 Alkaline Phosphatase 89 Total Protein 7.3 Albumin 3.1 L Globulin 4.2 Albumin/Globulin Ratio 0.7 L Urine Color Yellow Urine Clarity Sl. Cloudy Urine pH 6.0 Ur Specific [place] 1.025 Urine Protein 15 H Urine Glucose (UA) Normal Urine Ketones 5 H Urine Occult Blood Negative Urine Nitrite Negative Urine Bilirubin Negative Urine Urobilinogen 1 H Ur Leukocyte Esterase 25 H Urine RBC 0 SEEN Urine WBC 0-5 SEEN Ur Squamous Epith Cells 0 SEEN Calcium Oxalate Crystal 1+ Urine Bacteria 1+ Urine Mucus 2+ Radiography Diagnostic Testing: Clinical Impression(s) from Imaging Studies Acute Abdomen Series 12/14/21 10:25 IMPRESSION: Nonobstructive bowel gas pattern. Colonic fecal retention. Electronically Signed: Sabas Lowry MD ([place]) at 10:45 EDT Reading Location ID and State: / [place] , Service support , Discharge Plan Triage Chief Complaint: Constipation ED Provider: Gagandeep Todd Dx/Rx/DC Orders Clinical Impression: Constipation, Arthralgia Instructions: ED Constipation (Adult) Prescriptions: New polyethylene glycol 3350 [Miralax] 17 gram/dose powder 17 g PO DAILY Qty: 119 RF: 0 ondansetron [ondansetron] 4 MG tablet 4 mg PO Q8H PRN PRN (Reason: Nausea) Qty: 10 RF: 0 No Action albuterol sulfate [Ventolin HFA] 1 INHALER inhaler 1 - 2 puff inhalation Q4H PRN PRN (Reason: Sob &/Or Wheezing) Qty: 1 RF: 0 zinc 50 MG tablet 100 mg PO DAILY RF: 0 multivit with [id number] 1 EACH tablet 1 tablet PO DAILY RF: 0 cholecalciferol (vitamin D3) 50 MCG capsule 150 mcg PO DAILY RF: 0 entecavir 1 mg tablet 1 mg PO DAILY RF: 0 magnesium RF: 0 Primary Care Provider: Sera Tee Referrals: Sera Tee [Primary Care Provider] - 5-7 Days Disposition Disposition: Home, Self Care
[2021-12-14] MEDS: 0.9% Normal Saline 1,000 ML 1000 ML IV (10:16)
[2021-12-14] MEDS: Ondansetron 4 MG/2 ML Vial IV ×2 (10:16→12:03)
[2021-12-14 10:17] LABS: Red Blood Cells-Urine 0 SEEN /hpf (0-5); Squamous Epithelial Cells - UA 0 SEEN /hpf (0-5)
[2021-12-14 10:19] LABS: Absolute Lymphocyte Count 1.04 X10^3/uL (0.83-4.51); Absolute Neutrophil Count 2.5 X10^3/uL (2.0-7.7); Basophil# 0.04 X10^3/uL; Eosinophil# 0.18 X10^3/uL; Eosinophils% 4.6 % (0-5); Hematocrit 40.5 % (40-54); Hemoglobin 13.3 g/dL (13.0-16.5); Lymphocyte # 1.04 X10^3/ul (0.83-4.51); Lymphocyte % 26.7 % (19-41); Mean Corp Hgb Conc 32.8 g/dL (32-36); Mean Corpuscular Hgb 30.2 pg (27.0-32.0); Mean Corpuscular Volume 91.8 fL (80-94); Mean Platelet Vol. 8.9 fl (6.2-12.0); Monocyte# 0.13 X10^3/uL; Monocyte% 3.3 % (0-10); NRBC Flagged by Analyzer 0 % (0-5); Neutrophil # 2.49 X10^3/uL (2.7-7.7); Neutrophil % 64.1 % (47-70); Platelet Count 192 K/mm3 (150-450); RBC Distribution Width CV 12.8 % (11.6-14.6); RBC Distribution Width SD 43.5 fl (35.1-43.9); Red Blood Count 4.41 M/mm3 (4.6-6.2); White Blood Count 3.9 K/mm3 (4.4-11.0)
[2021-12-14 10:24] LABS: Color, Urine Yellow (Yellow); Glucose, Dipstick Normal (Normal); Ketone-Dipstick 5 mg/dl (Negative); Leukocyte Esterase-Dipstick 25 /ul (Negative); Nitrite-Dipstick Negative (Negative); Occult Blood-Urine Negative /ul (Negative); Protein-Dipstick 15 mg/dl (Negative); Specific Gravity, Urine 1.025 (1.002-1.030); Urine Bilirubin Dipstick Negative (Negative); Urine Clarity Sl. Cloudy (Clear); Urine Urobilinogen 1 mg/dl (Normal)
--- NOTE | 2021-12-14 10:25 | RAD_ITS ---
STUDY: X-RAY - ACUTE ABDOMINAL SERIES REASON FOR EXAM: Male, 46 years old. CONSTIPATION FOR SEVERAL WEEKS WITH BLOODY AND HARD STOOLS, ABDOMINAL PAIN TECHNIQUE: Single view of the chest. Supine, and erect view(s) of the abdomen were obtained. COMPARISON: None. FINDINGS: The lungs are clear and expanded. Normal size heart. Normal mediastinum and mabel. Normal visualized pulmonary arteries. Normal visualized aortic arch and descending thoracic aorta. No dilated loops of small bowel. There is fecal residue in the right and left colon. The soft tissue structures of the abdomen and pelvis are unremarkable. Normal visualized osseous structures. RAD/Acute Abdomen Inc Chest IMPRESSION: Nonobstructive bowel gas pattern. Colonic fecal retention. Electronically Signed: Sabas Lowry MD ([place]) at 10:45 EDT ,
[2021-12-14 10:34] LABS: Bacteria 1+ /hpf (None Seen); Calcium Oxalate Crystals Ur 1+ /hpf (<or=2+); Mucous, Urine 2+ /hpf (<or=2+); White Blood Cells 0-5 SEEN /hpf (0-5)
[2021-12-14 10:42] LABS: ALB/GLOB Ratio 0.7 RATIO (0.9-2.4); AST(SGOT) 45 U/L (15-37); Alanine Aminotransfer ALT/SGPT 49 U/L (16-61); Albumin, Serum 3.1 g/dL (3.2-5.0); Alkaline Phosphatase 89 U/L (45-117); Anion Gap 3 (5-15); BUN 13 mg/dL (7-18); BUN/Creat Ratio 17.9 RATIO (10-20); Chloride 103 mmol/L (98-107); Creatinine, Serum 0.73 mg/dL (0.70-1.30); EST Glomerular Filtration Rate 125 mL/min (>60); Est Glom Filt Rate - Afr Amer 151 mL/min (>60); Estimated Creatinine Clearance 141.74 ml/min; Globulin 4.2 g/dL (2.2-4.2); Glucose 151 mg/dL (74-106); Potassium 4.9 mmol/L (3.5-5.1); Protein, Total 7.3 g/dL (6.4-8.2); Sodium Level 135 mmol/L (136-145)
[2021-12-14 11:58] VITALS: BP 134/87; PULSE 92; RESP 18; O2SAT 100
== END 2021-12-14 12:15 | disposition home or self-care (01) ==
PROVIDERS: Emergency Provider Emergency Medicine; Visit Provider Emergency Medicine
DX: K59.00 Constipation, unspecified (principal); M25.541 Pain in joints of right hand; M25.542 Pain in joints of left hand; M25.531 Pain in right wrist; M25.532 Pain in left wrist; F17.210 Nicotine dependence, cigarettes, uncomplicated
CPT/HCPCS: 74022; 80053; 81001; 85025; 96361; 96374; 96376; 99285; A4216; J2405

== ENCOUNTER 2022-01-23 12:18 | Emergency (ER) | payer MEDICAID, SELFPAY ==
[2022-01-23 12:19] VITALS: BP 151/104; PULSE 90; RESP 18; TEMP 37.3; O2SAT 97; BMI 29.8
--- NOTE | 2022-01-23 12:38 | RAD_ITS ---
STUDY: X-RAY CHEST REASON FOR EXAM: Male, 46 years old. cough TECHNIQUE: Single AP portable view of the chest. COMPARISON: 12/14/2021 FINDINGS: The lungs are clear and expanded. There is no demonstrated pleural abnormality. Normal size heart. Normal mediastinum and mabel. Normal visualized pulmonary arteries. Normal visualized aortic arch and descending thoracic aorta. Normal visualized thoracic spine. Normal visualized ribs, clavicles, and shoulders. There is no demonstrated abnormality of the visualized soft tissue structures of the upper abdomen. RAD/Chest 1 View (Portable) IMPRESSION: Normal x-ray examination of the chest. Electronically Signed: Rod Crocker MD at 13:32 EDT ,
--- NOTE | 2022-01-23 12:40 | EDS_ITS ---
HPI History of Present Illness Chief Complaint: Edema Detail of Chief Complaint: Body aches, headache, swelling, fatigue Informant: patient Onset/Context/Timing Onset: Weeks Context: Gradual Onset Current Severity: Moderate Maximum Severity: Moderate Narrative Narrative: Patient presents with multiple complaints. He reports having bright red blood mixed with his stool for the last several months. His primary care group is attempting to get him into GI cannot be seen until February. He presents today because of generalized body aches, fatigue, headache, generalized swelling over the past 3 days. He states he is just been laying in bed. Minimal cough noted. No vomiting. He has been tolerating p.o. [facility] Medical History Hepatitis B Home Medications albuterol sulfate [Ventolin HFA] 1 - 2 puff INHALATION Q4H PRN PRN #1 inhaler 09/14/16 [Rx Last Taken Unknown] cholecalciferol (vitamin D3) 150 mcg PO DAILY 11/26/20 [History Last Taken 11/25/20 08:00] multivit with [id number] 1 tablet PO DAILY 11/26/20 [History Last Taken 11/25/20 08:00] zinc 100 mg PO DAILY 11/26/20 [History Last Taken 11/25/20 08:00] entecavir 1 mg PO DAILY 12/14/21 [History Last Taken Unknown] magnesium 12/14/21 [History Last Taken Unknown] ondansetron 4 mg PO Q8H PRN PRN #10 tab 12/14/21 [Rx Last Taken Unknown] polyethylene glycol 3350 [Miralax] 17 g PO DAILY #119 g 12/14/21 [Rx Last Taken Unknown] Allergy/AdvReac Type Severity Reaction Status Date / Time acetaminophen [From Vicodin] AdvReac Upset Verified 01/23/22 12:21 Stomach hydrocodone bitartrate AdvReac Upset Verified 01/23/22 12:21 [From Vicodin] Stomach meloxicam [From Mobic] AdvReac Nausea Verified 01/23/22 12:21 Surgical History Hx of hernia repair Social History Smoking Status: Current every day smoker tobacco type: cigarettes ROS ROS ED Constitutional Constitutional ED: Denies chills or fever(s) Eyes Eyes: Denies change in vision ENT ENT ED: Denies sore throat Cardiovascular Cardiovascular: Denies chest pain Respiratory/Chest Respiratory/Chest: Reports cough; Denies dyspnea Gastrointestinal Gastrointestinal: Denies abdominal pain, diarrhea, nausea or vomiting Genitourinary Genitourinary ED: Denies dysuria Musculoskeletal Musculoskeletal: Reports myalgias; Denies back pain Integumentary Denies rash Neurologic Neurologic: Reports headache(s) and weakness Allergic/Immunologic Allergic/Immunologic ED: Denies urticaria EXAM Physical Exam Const Vital Signs: 01/23/22 12:19 01/23/22 12:54 01/23/22 13:56 Temperature 99.2 F H 99.2 F H Temperature Source Temporal Temporal Pulse Rate 90 90 Respiratory Rate 18 18 Respiratory Effort Normal Non-Labored Blood Pressure 151/104 H 151/104 H Blood Pressure Mean 119 119 Pulse Ox 97 97 Oxygen Delivery Method Room Air Room Air Positive well nourished and well developed General Appearance ED: well developed HEENT Reports moist mucous membranes Eyes PERRL and EOMs intact bilaterally Neck supple Chest Wall inspection of chest normal and palpation of chest normal Resp normal respiratory effort and clear to auscultation bilaterally Cardio regular rate and regular rhythm GI non-tender Auscultation: hypoactive bowel sounds Palpation: soft Extremity Extremity Narrative: Mild edema noted to the extremities. Neuro oriented x3 Neuro Narrative: No focal neurologic deficits. Sensorium / Orientation: alert Psych mental status grossly normal Skin no wounds MDM MDM MDM Narrative Medical decision making narrative: Lab work and chest x-ray obtained. Swabs for COVID and influenza ordered. Patient given Toradol. Lab Data Attestation: I reviewed the patient's lab results. Labs: Laboratory Results - last 24 hr 01/23/22 01/23/22 01/23/22 12:49 12:49 12:49 WBC 5.0 RBC 4.67 Hgb 13.7 Hct 41.9 MCV 89.7 MCH 29.3 MCHC 32.7 RDW Std Deviation 41.5 RDW Coeff of [place]ullen 12.5 Plt Count 198 MPV 8.7 Immature Gran % (Auto) 0.400 Neut % (Auto) 55.1 Lymph % (Auto) 31.3 [place] % (Auto) 8.0 Eos % (Auto) 4.4 Baso % (Auto) 0.8 Absolute Neuts (auto) 2.8 Absolute Lymphs (auto) 1.56 Nucleated RBC % 0 Sodium 139 Potassium 4.1 Chloride 106 Carbon Dioxide 30.0 Anion Gap 3 L BUN 13 Creatinine 0.71 Estim Creat Clear Calc 145.73 Est GFR (MDRD) Af Amer 155 Est GFR (MDRD) Non-Af 128 BUN/Creatinine Ratio 18.4 Glucose 115 H Calcium 8.7 Total Bilirubin 0.40 Direct Bilirubin 0.13 AST 24 ALT 29 Alkaline Phosphatase 72 B-Natriuretic Peptide 58.0 Total Protein 6.5 Albumin 2.8 L Globulin 3.7 Lipase 26 L Radiography Chest X-Ray - ED: 1 View, Read by ED Physician, Normal, Heart, Lungs and Mediastinum Diagnostic Testing: Clinical Impression(s) from Imaging Studies Chest X-Ray 01/23/22 12:38 IMPRESSION: Normal x-ray examination of the chest. Electronically Signed: Rod Crocker MD at 13:32 EDT , Treatment and Re-Evaluation Narrative: On repeat evaluation patient resting comfortably. now at [facility]. Test results discussed with him. CBC is unremarkable. Chemistry studies normal. LFTs significant for low albumin at 2.8. This is likely contributing to his edema. Chest x-ray is normal per my interpretation as well as radiology. COVID and influenza swabs are negative. I discussed with him that I do believe he likely has a viral syndrome, just not COVID or influenza. I did recommend drinking protein shakes or increasing protein in the diet to help increase his albumin level. He does report blood in his stool for the last several months but his hemoglobin is normal. He will fol low-up as an outpatient as scheduled. Return instructions are provided. Discharge Plan Triage Chief Complaint: Edema ED Provider: Sugey Jordan Dx/Rx/DC Orders Clinical Impression: Viral syndrome, Hypoalbuminemia Instructions: ED Viral Syndrome (Adult) Prescriptions: No Action albuterol sulfate [Ventolin HFA] 1 INHALER inhaler 1 - 2 puff inhalation Q4H PRN PRN (Reason: Sob &/Or Wheezing) Qty: 1 RF: 0 zinc 50 MG tablet 100 mg PO DAILY RF: 0 multivit with [id number] 1 EACH tablet 1 tablet PO DAILY RF: 0 cholecalciferol (vitamin D3) 50 MCG capsule 150 mcg PO DAILY RF: 0 entecavir 1 mg tablet 1 mg PO DAILY RF: 0 magnesium RF: 0 polyethylene glycol 3350 [Miralax] 17 gram/dose powder 17 g PO DAILY Qty: 119 RF: 0 ondansetron [ondansetron] 4 MG tablet 4 mg PO Q8H PRN PRN (Reason: Nausea) Qty: 10 RF: 0 Primary Care Provider: Sera Tee Referrals: Sera Tee [Primary Care Provider] - 1 Week if not improving Disposition Disposition: Home, Self Care
[2022-01-23 12:54] VITALS: BP 151/104; PULSE 90; RESP 18; TEMP 37.3; O2SAT 97
[2022-01-23 12:56] LABS: Absolute Lymphocyte Count 1.56 X10^3/uL (0.83-4.51); Absolute Neutrophil Count 2.8 X10^3/uL (2.0-7.7); Basophil# 0.04 X10^3/uL; Basophil% 0.8 % (0-1); Eosinophil# 0.22 X10^3/uL; Eosinophils% 4.4 % (0-5); Hematocrit 41.9 % (40-54); Hemoglobin 13.7 g/dL (13.0-16.5); Lymphocyte # 1.56 X10^3/ul (0.83-4.51); Lymphocyte % 31.3 % (19-41); Mean Corp Hgb Conc 32.7 g/dL (32-36); Mean Corpuscular Hgb 29.3 pg (27.0-32.0); Mean Corpuscular Volume 89.7 fL (80-94); Mean Platelet Vol. 8.7 fl (6.2-12.0); NRBC Flagged by Analyzer 0 % (0-5); Neutrophil # 2.75 X10^3/uL (2.7-7.7); Neutrophil % 55.1 % (47-70); Platelet Count 198 K/mm3 (150-450); RBC Distribution Width CV 12.5 % (11.6-14.6); RBC Distribution Width SD 41.5 fl (35.1-43.9); Red Blood Count 4.67 M/mm3 (4.6-6.2)
[2022-01-23 13:13] LABS: AST(SGOT) 24 U/L (15-37); Alanine Aminotransfer ALT/SGPT 29 U/L (16-61); Albumin, Serum 2.8 g/dL (3.2-5.0); Alkaline Phosphatase 72 U/L (45-117); Anion Gap 3 (5-15); BUN 13 mg/dL (7-18); BUN/Creat Ratio 18.4 RATIO (10-20); Bilirubin, Direct 0.13 mg/dL (0.00-0.30); Calcium,Total 8.7 mg/dL (8.5-10.1); Chloride 106 mmol/L (98-107); Creatinine, Serum 0.71 mg/dL (0.70-1.30); EST Glomerular Filtration Rate 128 mL/min (>60); Est Glom Filt Rate - Afr Amer 155 mL/min (>60); Estimated Creatinine Clearance 145.73 ml/min; Globulin 3.7 g/dL (2.2-4.2); Glucose 115 mg/dL (74-106); Lipase 26 U/L (73-393); Potassium 4.1 mmol/L (3.5-5.1); Protein, Total 6.5 g/dL (6.4-8.2); Sodium Level 139 mmol/L (136-145)
[2022-01-23] MEDS: Ketorolac 30 MG/ML Syringe IV (13:36)
[2022-01-23 15:20] VITALS: BP 132/83; PULSE 79; RESP 16; O2SAT 98
== END 2022-01-23 15:21 | disposition home or self-care (01) ==
PROVIDERS: Emergency Provider Emergency Medicine; Visit Provider Emergency Medicine
DX: B34.9 Viral infection, unspecified (principal); E88.09 Other disorders of plasma-protein metabolism, not elsewhere classified; F17.210 Nicotine dependence, cigarettes, uncomplicated
CPT/HCPCS: 71045; 80048; 80076; 83690; 83880; 85025; 87428; 96374; 99283; A4216

== ENCOUNTER → 2022-01-30 | Outpatient (CLI) | payer MEDICAID, SELFPAY ==
[2022-01-31 16:47] LABS: Hepatitis Be Ag Positive (Negative)
== END | disposition home or self-care (01) ==
DX: B18.1 Chronic viral hepatitis B without delta-agent (principal)
CPT/HCPCS: 36415; 87350

== ENCOUNTER 2022-02-14 17:11 | Emergency (ER) | payer MEDICAID, SELFPAY ==
[2022-02-14 17:12] VITALS: BP 135/98; PULSE 82; RESP 18; TEMP 37.1; O2SAT 100; BMI 28.5
--- NOTE | 2022-02-14 17:59 | EX.ED.GUMALE ---
HPI History of Present Illness Chief Complaint: Flank Pain Detail of Chief Complaint: Difficulty urinating. Informant: patient Pain Onset: Today and Yesterday Context: Gradual Onset Timing: Continuous Current Severity: Mild Maximum Severity: Mild Narrative Narrative: 46-year-old male who has a history of hepatitis B. States that since last night has had significant difficulty urinating. He has to strain to urinate he said very little out at all today. He denies any gross blood. He is never had a Arreaga catheter. He has been trying to get into see a urologist recently. He denies any fever. He denies any vomiting or diarrhea. He has no known kidney disease. Prior similar symptoms: Yes Recent Illness/Hospitalization: No PFSH [facility] Medical History B12 deficiency anemia Hepatitis B Hepatitis C Rectal bleeding Home Medications albuterol sulfate 90 mcg/actuation aerosol inhaler (Ventolin HFA) 1 - 2 puff inhalation Q4H PRN PRN Sob &/Or Wheezing ##1 09/14/16 [Rx Last Taken Unknown] cholecalciferol (vitamin D3) 50 mcg (2,000 unit) capsule 150 mcg PO DAILY supplement 11/26/20 [History Last Taken 11/25/20 08:00] multivit with minerals-folic acid-lycopene 0.4 mg-600 mcg tablet 1 tablet PO DAILY supplement 11/26/20 [History Last Taken 11/25/20 08:00] zinc 50 mg tablet 100 mg PO DAILY supplement 11/26/20 [History Last Taken 11/25/20 08:00] entecavir 1 mg tablet 1 mg PO DAILY 12/14/21 [History Last Taken Unknown] magnesium 12/14/21 [History Last Taken Unknown] ondansetron 4 mg disintegrating tablet 4 mg PO Q8H PRN PRN Nausea #10 tabs 12/14/21 [Rx Last Taken Unknown] polyethylene glycol 3350 17 gram/dose oral powder (Miralax) 17 g PO DAILY #119 grams 12/14/21 [Rx Last Taken Unknown] tamsulosin 0.4 mg capsule (Flomax) 0.4 mg PO DAILY 10 days #10 caps 02/14/22 [Rx Last Taken Unknown] Allergy/AdvReac Type Severity Reaction Status Date / Time acetaminophen [From Vicodin] AdvReac Upset Verified 02/14/22 17:13 Stomach hydrocodone bitartrate AdvReac Upset Verified 02/14/22 17:13 [From Vicodin] Stomach meloxicam [From Mobic] AdvReac Nausea Verified 02/14/22 17:13 Surgical History Hx of hernia repair Social History Smoking Status: Current every day smoker tobacco type: cigarettes ROS ROS ED ROS Narrative Urinary tension. Review of Systems ROS Unobtainable: Denies due to encephalopathy Constitutional Constitutional ED: Denies chills Eyes Eyes: Denies blurry vision ENT ENT ED: Denies ear pain Cardiovascular Cardiovascular: Denies chest pain Respiratory/Chest Respiratory/Chest: Denies cough Gastrointestinal Gastrointestinal: Denies abdominal pain Genitourinary Genitourinary ED: Denies dysuria, hematuria or urinary frequency Musculoskeletal Musculoskeletal: Denies arthralgias Integumentary Denies abscess Neurologic Neurologic: Denies headache(s) Psychiatric Psychiatric: Denies anxiety Endocrine Endocrinology: Denies polydipsia Hematologic/Lymphatic Hematologic/Lymphatic: Denies easy bleeding Allergic/Immunologic Allergic/Immunologic ED: Denies mouth swelling EXAM Physical Exam Narrative Exam Narrative: 6-year-old male no acute distress vital signs stable afebrile. H EENT exam unremarkable. Neck nontender no JVD. Lungs clear to auscultation. Heart regular rhythm no murmur. Abdomen soft nontender normal bowel sounds no peritoneal signs. Moving all 4 extremities. Nontender no edema. Neurologically is awake and alert. No focal motor deficits. Const Vital Signs: 02/14/22 17:12 02/14/22 19:23 02/14/22 21:15 Temperature 98.8 F Temperature Source Oral Pulse Rate 82 79 72 Respiratory Rate 18 16 16 Blood Pressure 135/98 H 118/65 Blood Pressure Mean 110 82 Pulse Ox 100 95 100 Oxygen Delivery Method Room Air Room Air Room Air Positive well nourished and well developed; Negative for obese, cachectic, contractures or unkempt General Appearance ED: well developed; Negative for unkempt, cachectic, contractures or pallor Nutritional Appearance: Negative for cachectic or obese HEENT Reports moist mucous membranes; Denies dry mucous membranes normocephalic and atraumatic; Negative for trauma Mouth ED: No dry mucous membranes Mouth: No dry mucous membranes Eyes PERRL and EOMs intact bilaterally General Eye ED: Negative for pale conjunctiva Neck no lymphadenopathy, supple and no JVD General: Negative for tenderness Resp normal respiratory effort and clear to auscultation bilaterally Effort and Inspection: Negative for retractions Auscultation: Negative for rales, rhonchi or wheezes Cardio regular rate, regular rhythm, S1 normal heart sound and S2 normal heart sound Rate: Negative for bradycardia Rhythm: Negative for abnormal rhythm Heart Sounds: Negative for other GI non-tender, non-distended and no masses Inspection: Negative for abdominal distention Auscultation: normoactive bowel sounds Palpation: soft; Negative for tender, guarding or hepatomegaly no CVA tenderness Bladder / Kidney Exam: No CVA tenderness Back/Spine no CVA tenderness General Back: Negative for CVA tenderness Extremity normal to inspection General Extremety ED: Negative for edema General Extremity: Negative for edema Neuro oriented x3, moves all extremities and no focal motor deficits Sensorium / Orientation: alert, oriented to person, oriented to place and oriented to time; Negative for confused Motor Exam: strength 5/5 throughout Psych mental status grossly normal Appearance: Negative for unkempt Attitude: No agitated Mood & Affect: Negative for depressed Thought Process: normal thought process Thought Content: normal thought content Skin General Skin Exam: Negative for jaundice or pallor Lesions: no lesions Rashes: no rashes MDM MDM MDM Narrative Medical decision making narrative: 46-year-old male history of what sounds like urinary retention since last night. Bladder scan showed 450 cc per nurse. We are going to place a Arreaga catheter due to his bladder scan showing 4 and 50 cc. Patient went to try to urinate and he was able to urinate a small amount. He denies discussed this. And he was amenable to having a Arreaga catheter placed. Otherwise his lab work-up was negative. He will be discharged home on Flomax and follow-up with the urologist Dr. Steven Portillo. Lab Data Attestation: I reviewed the patient's lab results. Lab results narrative: CBC shows a white count of 7.7. H&H 12.9 and 39.6. Electrolytes show a gap of 3 normal BUN and creatinine is 16 and 0.7. Glucose of 99. Urine completely clean with no signs of infection. No white, red cells or any bacteria. No nitrites. Labs: Laboratory Results - last 24 hr 02/14/22 02/14/22 02/14/22 18:07 18:10 18:10 WBC 7.7 RBC 4.33 L Hgb 12.9 L Hct 39.6 L MCV 91.5 MCH 29.8 MCHC 32.6 RDW Std Deviation 42.5 RDW Coeff of Cullen 12.7 Plt Count 163 MPV 8.9 Immature Gran % (Auto) 0.400 Neut % (Auto) 88.4 H Lymph % (Auto) 6.9 L [place] % (Auto) 2.1 Eos % (Auto) 1.8 Baso % (Auto) 0.4 Absolute Neuts (auto) 6.8 Absolute Lymphs (auto) 0.53 L Nucleated RBC % 0 Differential Comment SCANNED Sodium 139 Potassium 4.2 Chloride 104 Carbon Dioxide 32.0 Anion Gap 3 L BUN 16 Creatinine 0.71 Estim Creat Clear Calc 145.73 Est GFR (MDRD) Af Amer 155 Est GFR (MDRD) Non-Af 128 BUN/Creatinine Ratio 22.6 H Glucose 99 Calcium 8.8 Urine Color Yellow Urine Clarity Clear Urine pH 8.0 Ur Specific [place] 1.010 Urine Protein Negative Urine Glucose (UA) Normal Urine Ketones Negative Urine Occult Blood Negative Urine Nitrite Negative Urine Bilirubin Negative Urine Urobilinogen Normal Ur Leukocyte Esterase Negative Urine RBC 0 SEEN Urine WBC 0 SEEN Ur Squamous Epith Cells 0 SEEN Urine Bacteria 0 SEEN Urine Mucus 0 SEEN Discharge Plan Triage Chief Complaint: Flank Pain ED Provider: Sebas Simpson Dx/Rx/DC Orders Clinical Impression: Acute urinary retention Instructions: ED Urinary Retention, Male Prescriptions: New tamsulosin [Flomax] 0.4 mg capsule 0.4 mg PO DAILY 10 Days Qty: 10 0RF No Action albuterol sulfate [Ventolin HFA] 1 INHALER inhaler 1 - 2 puff inhalation Q4H PRN PRN (Reason: Sob &/Or Wheezing) Qty: 1 0RF Label Comments: BREATHING zinc 50 MG tablet 100 mg PO DAILY multivit with [id number] 1 EACH tablet 1 tablet PO DAILY cholecalciferol (vitamin D3) 50 MCG capsule 150 mcg PO DAILY entecavir 1 mg tablet 1 mg PO DAILY magnesium polyethylene glycol 3350 [Miralax] 17 gram/dose powder 17 g PO DAILY Qty: 119 0RF ondansetron [ondansetron] 4 MG tablet 4 mg PO Q8H PRN PRN (Reason: Nausea) Qty: 10 0RF [facility] Referrals: Ab Portillo MD [STAFF PHYSICIAN] - As soon as possible [facility],Sera Tee [Primary Care Provider] - Activity Restrictions/Additional Instructions: Empty Arreaga leg bag whenever three quarters full. Call and follow-up with the urologist Dr. Steven Portillo Take the medication Flomax once daily. Disposition Disposition: Home, Self Care
[2022-02-14 18:13] LABS: Bacteria 0 SEEN /hpf (None Seen); Mucous, Urine 0 SEEN /hpf (<or=2+); Red Blood Cells-Urine 0 SEEN /hpf (0-5); Squamous Epithelial Cells - UA 0 SEEN /hpf (0-5); White Blood Cells 0 SEEN /hpf (0-5)
[2022-02-14 18:16] LABS: Absolute Lymphocyte Count 0.53 X10^3/uL (0.83-4.51); Absolute Neutrophil Count 6.8 X10^3/uL (2.0-7.7); Basophil# 0.03 X10^3/uL; Basophil% 0.4 % (0-1); Eosinophil# 0.14 X10^3/uL; Eosinophils% 1.8 % (0-5); Hematocrit 39.6 % (40-54); Hemoglobin 12.9 g/dL (13.0-16.5); Lymphocyte # 0.53 X10^3/ul (0.83-4.51); Lymphocyte % 6.9 % (19-41); Mean Corp Hgb Conc 32.6 g/dL (32-36); Mean Corpuscular Hgb 29.8 pg (27.0-32.0); Mean Corpuscular Volume 91.5 fL (80-94); Mean Platelet Vol. 8.9 fl (6.2-12.0); Monocyte# 0.16 X10^3/uL; Monocyte% 2.1 % (0-10); NRBC Flagged by Analyzer 0 % (0-5); Neutrophil % 88.4 % (47-70); POSITIVE DIFFERENTIAL YES; Platelet Count 163 K/mm3 (150-450); RBC Distribution Width CV 12.7 % (11.6-14.6); RBC Distribution Width SD 42.5 fl (35.1-43.9); Red Blood Count 4.33 M/mm3 (4.6-6.2); White Blood Count 7.7 K/mm3 (4.4-11.0)
[2022-02-14 18:18] LABS: Differential Indicated SCAN CRITERIA MET
[2022-02-14 18:22] LABS: Color, Urine Yellow (Yellow); Glucose, Dipstick Normal (Normal); Ketone-Dipstick Negative (Negative); Leukocyte Esterase-Dipstick Negative /ul (Negative); Nitrite-Dipstick Negative (Negative); Occult Blood-Urine Negative /ul (Negative); Protein-Dipstick Negative (Negative); Urine Bilirubin Dipstick Negative (Negative); Urine Clarity Clear (Clear); Urine Urobilinogen Normal (Normal)
[2022-02-14 18:30] LABS: Anion Gap 3 (5-15); BUN 16 mg/dL (7-18); BUN/Creat Ratio 22.6 RATIO (10-20); Calcium,Total 8.8 mg/dL (8.5-10.1); Chloride 104 mmol/L (98-107); Creatinine, Serum 0.71 mg/dL (0.70-1.30); EST Glomerular Filtration Rate 128 mL/min (>60); Est Glom Filt Rate - Afr Amer 155 mL/min (>60); Estimated Creatinine Clearance 145.73 ml/min; Glucose 99 mg/dL (74-106); Potassium 4.2 mmol/L (3.5-5.1); Sodium Level 139 mmol/L (136-145)
[2022-02-14 19:19] LABS: Differential Comment SCANNED
[2022-02-14 19:23] VITALS: BP 118/65; PULSE 79; RESP 16; O2SAT 95
[2022-02-14 21:15] VITALS: PULSE 72; RESP 16; O2SAT 100
[2022-02-15 00:11] VITALS: BP 123/71; PULSE 62; RESP 18
== END 2022-02-15 00:14 | disposition home or self-care (01) ==
PROVIDERS: Emergency Provider Emergency Medicine; Visit Provider Emergency Medicine
DX: R33.9 Retention of urine, unspecified (principal); F17.210 Nicotine dependence, cigarettes, uncomplicated
CPT/HCPCS: 51702; 80048; 81001; 85025; 99284

== ENCOUNTER 2022-02-15 12:04 | Emergency (ER) | payer MEDICAID, SELFPAY ==
[2022-02-15 12:06] VITALS: BP 121/83; PULSE 74; RESP 14; TEMP 36.8; O2SAT 98; BMI 28.7
[2022-02-15 13:31] LABS: Bacteria 0 SEEN /hpf (None Seen); Mucous, Urine 0 SEEN /hpf (<or=2+); Squamous Epithelial Cells - UA 0 SEEN /hpf (0-5)
[2022-02-15 13:34] LABS: Absolute Lymphocyte Count 1.41 X10^3/uL (0.83-4.51); Absolute Neutrophil Count 3.1 X10^3/uL (2.0-7.7); Basophil# 0.04 X10^3/uL; Basophil% 0.8 % (0-1); Eosinophils% 3.8 % (0-5); Hematocrit 38.1 % (40-54); Hemoglobin 12.3 g/dL (13.0-16.5); Lymphocyte # 1.41 X10^3/ul (0.83-4.51); Lymphocyte % 26.6 % (19-41); Mean Corp Hgb Conc 32.3 g/dL (32-36); Mean Corpuscular Hgb 29.4 pg (27.0-32.0); Mean Corpuscular Volume 91.1 fL (80-94); Mean Platelet Vol. 9.2 fl (6.2-12.0); Monocyte# 0.57 X10^3/uL; Monocyte% 10.7 % (0-10); NRBC Flagged by Analyzer 0 % (0-5); Neutrophil # 3.08 X10^3/uL (2.7-7.7); Neutrophil % 57.9 % (47-70); Platelet Count 176 K/mm3 (150-450); RBC Distribution Width CV 12.9 % (11.6-14.6); RBC Distribution Width SD 43.3 fl (35.1-43.9); Red Blood Count 4.18 M/mm3 (4.6-6.2); White Blood Count 5.3 K/mm3 (4.4-11.0)
[2022-02-15 13:36] LABS: Color, Urine Amber (Yellow); Glucose, Dipstick Normal (Normal); Ketone-Dipstick 5 mg/dl (Negative); Leukocyte Esterase-Dipstick 500 /ul (Negative); Nitrite-Dipstick Negative (Negative); Occult Blood-Urine 250 /ul (Negative); Protein-Dipstick 100 mg/dl (Negative); Urine Bilirubin Dipstick Negative (Negative); Urine Clarity Cloudy (Clear); Urine Urobilinogen 1 mg/dl (Normal)
[2022-02-15 13:41] LABS: International Normalized Ratio 1.1; Prothrombin Time (Protime)PT. 14.1 SECONDS (11.7-14.9); Red Blood Cells-Urine > 100 SEEN /hpf (0-5); White Blood Cells 0-5 SEEN /hpf (0-5)
[2022-02-15 13:42] LABS: Partial Thromboplast Time 31.6 Seconds (24.1-36.2)
[2022-02-15 13:47] LABS: ALB/GLOB Ratio 0.9 RATIO (0.9-2.4); AST(SGOT) 20 U/L (15-37); Alanine Aminotransfer ALT/SGPT 32 U/L (16-61); Alkaline Phosphatase 81 U/L (45-117); Anion Gap 3 (5-15); BUN 19 mg/dL (7-18); Calcium,Total 8.7 mg/dL (8.5-10.1); Chloride 105 mmol/L (98-107); Creatinine, Serum 0.68 mg/dL (0.70-1.30); EST Glomerular Filtration Rate 135 mL/min (>60); Est Glom Filt Rate - Afr Amer 163 mL/min (>60); Estimated Creatinine Clearance 152.16 ml/min; Globulin 3.4 g/dL (2.2-4.2); Glucose 117 mg/dL (74-106); Potassium 4.2 mmol/L (3.5-5.1); Protein, Total 6.4 g/dL (6.4-8.2); Sodium Level 138 mmol/L (136-145)
--- NOTE | 2022-02-15 14:13 | EX.ED.GUMALE ---
HPI History of Present Illness Chief Complaint: Arreaga C/O Detail of Chief Complaint: Hematuria Informant: patient Pain Onset: Today Context: Sudden Onset Timing: Continuous Worsened by: Nothing Relieved by: Nothing Narrative Narrative: Patient presents with hematuria that began today. Patient was seen here yesterday for urinary retention and had a Arreaga catheter placed. Patient states that he noted some blood and discharge at his urethral meatus today around the catheter. Patient states he has some burning and aching in his low back. Patient states nothing makes his pain worse and nothing makes it better. Patient admits to nausea but denies any vomiting. Patient denies any fevers or chills. [facility] Medical History B12 deficiency anemia Hepatitis B Hepatitis C Rectal bleeding Home Medications albuterol sulfate 90 mcg/actuation aerosol inhaler (Ventolin HFA) 1 - 2 puff inhalation Q4H PRN PRN Sob &/Or Wheezing ##1 09/14/16 [Rx Last Taken Unknown] cholecalciferol (vitamin D3) 50 mcg (2,000 unit) capsule 150 mcg PO DAILY supplement 11/26/20 [History Last Taken 11/25/20 08:00] multivit with minerals-folic acid-lycopene 0.4 mg-600 mcg tablet 1 tablet PO DAILY supplement 11/26/20 [History Last Taken 11/25/20 08:00] zinc 50 mg tablet 100 mg PO DAILY supplement 11/26/20 [History Last Taken 11/25/20 08:00] entecavir 1 mg tablet 1 mg PO DAILY 12/14/21 [History Last Taken Unknown] magnesium 12/14/21 [History Last Taken Unknown] ondansetron 4 mg disintegrating tablet 4 mg PO Q8H PRN PRN Nausea #10 tabs 12/14/21 [Rx Last Taken Unknown] polyethylene glycol 3350 17 gram/dose oral powder (Miralax) 17 g PO DAILY #119 grams 12/14/21 [Rx Last Taken Unknown] tamsulosin 0.4 mg capsule (Flomax) 0.4 mg PO DAILY 10 days #10 caps 02/14/22 [Rx Last Taken Unknown] Allergy/AdvReac Type Severity Reaction Status Date / Time acetaminophen [From Vicodin] AdvReac Upset Verified 02/15/22 12:09 Stomach hydrocodone bitartrate AdvReac Upset Verified 02/15/22 12:09 [From Vicodin] Stomach meloxicam [From Mobic] AdvReac Nausea Verified 02/15/22 12:09 Surgical History Hx of hernia repair Social History Smoking Status: Current every day smoker tobacco type: cigarettes ROS ROS ED Constitutional Constitutional ED: Denies chills or fever(s) Eyes Eyes: Denies blurry vision or change in vision ENT ENT ED: Denies rhinorrhea or sore throat Cardiovascular Cardiovascular: Reports chest pain; Denies palpitations Respiratory/Chest Respiratory/Chest: Denies cough or dyspnea Gastrointestinal Gastrointestinal: Reports abdominal pain and nausea; Denies vomiting Genitourinary Genitourinary ED: Reports hematuria; Denies dysuria Musculoskeletal Musculoskeletal: Reports back pain; Denies neck pain Integumentary Denies abscess or rash Neurologic Neurologic: Denies headache(s) or weakness Allergic/Immunologic Allergic/Immunologic ED: Denies mouth swelling or urticaria EXAM Physical Exam Const Vital Signs: 02/15/22 12:06 Temperature 98.3 F Temperature Source Temporal Pulse Rate 74 Respiratory Rate 14 Blood Pressure 121/83 H Blood Pressure Mean 95 Pulse Ox 98 Oxygen Delivery Method Room Air Positive well nourished and well developed General Appearance ED: well developed HEENT Reports moist mucous membranes Neck supple and no JVD Resp normal respiratory effort and clear to auscultation bilaterally Cardio regular rate, regular rhythm and no murmurs GI normal to inspection, nondistended, normoactive bowel sounds and non-tender Palpation: soft Extremity normal to inspection General Extremety ED: Negative for edema or tenderness General Extremity: Negative for edema Neuro oriented x3, CN's II-XII intact bilaterally and no sensory deficits noted Sensorium / Orientation: alert Motor Exam: strength 5/5 throughout Psych mental status grossly normal Skin no rashes or lesions noted MDM MDM MDM Narrative Medical decision making narrative: There were a couple small clots noted in the urine coming from the Arreaga catheter. The Arreaga catheter was irrigated. Patient tolerated well. There is still some mild bleeding. There are no more clots noted. CBC shows a mild anemia with a hemoglobin of 12.3 hematocrit 38.1. PT with INR and PTT were normal. Comprehensive metabolic profile was essentially within normal limits. Urinalysis shows greater than 100 red blood cells but no white blood cells. Patient was advised of his findings. Patient was instructed to follow-up with his primary care physician in 2 days for Arreaga catheter removal. Patient understood and was agreeable with the plan. All questions were answered. Lab Data Attestation: I reviewed the patient's lab results. Labs: Laboratory Results - last 24 hr 02/15/22 02/15/22 02/15/22 13:25 13:25 13:25 WBC 5.3 RBC 4.18 L Hgb 12.3 L Hct 38.1 L MCV 91.1 MCH 29.4 MCHC 32.3 RDW Std Deviation 43.3 RDW Coeff of Cullen 12.9 Plt Count 176 MPV 9.2 Immature Gran % (Auto) 0.200 Neut % (Auto) 57.9 Lymph % (Auto) 26.6 [place] % (Auto) 10.7 H Eos % (Auto) 3.8 Baso % (Auto) 0.8 Absolute Neuts (auto) 3.1 Absolute Lymphs (auto) 1.41 Nucleated RBC % 0 PT 14.1 INR 1.1 APTT 31.6 Sodium 138 Potassium 4.2 Chloride 105 Carbon Dioxide 30.0 Anion Gap 3 L BUN 19 H Creatinine 0.68 L Estim Creat Clear Calc 152.16 Est GFR (MDRD) Af Amer 163 Est GFR (MDRD) Non-Af 135 BUN/Creatinine Ratio 28.0 H Glucose 117 H Calcium 8.7 Total Bilirubin 0.20 AST 20 ALT 32 Alkaline Phosphatase 81 Total Protein 6.4 Albumin 3.0 L Globulin 3.4 Albumin/Globulin Ratio 0.9 Urine Color Urine Clarity Urine pH Ur Specific [place] Urine Protein Urine Glucose (UA) Urine Ketones Urine Occult Blood Urine Nitrite Urine Bilirubin Urine Urobilinogen Ur Leukocyte Esterase Urine RBC Urine WBC Ur Squamous Epith Cells Urine Bacteria Urine Mucus 02/15/22 13:25 WBC RBC Hgb Hct MCV MCH MCHC RDW Std Deviation RDW Coeff of Cullen Plt Count MPV Immature Gran % (Auto) Neut % (Auto) Lymph % (Auto) [place] % (Auto) Eos % (Auto) Baso % (Auto) Absolute Neuts (auto) Absolute Lymphs (auto) Nucleated RBC % PT INR APTT Sodium Potassium Chloride Carbon Dioxide Anion Gap BUN Creatinine Estim Creat Clear Calc Est GFR (MDRD) Af Amer Est GFR (MDRD) Non-Af BUN/Creatinine Ratio Glucose Calcium Total Bilirubin AST ALT Alkaline Phosphatase Total Protein Albumin Globulin Albumin/Globulin Ratio Urine Color [place]ela Urine Clarity Cloudy Urine pH 7.0 Ur Specific [place] 1.010 Urine Protein 100 H Urine Glucose (UA) Normal Urine Ketones 5 H Urine Occult Blood 250 H Urine Nitrite Negative Urine Bilirubin Negative Urine Urobilinogen 1 H Ur Leukocyte Esterase 500 H Urine RBC > 100 SEEN Urine WBC 0-5 SEEN Ur Squamous Epith Cells 0 SEEN Urine Bacteria 0 SEEN Urine Mucus 0 SEEN Discharge Plan Triage Chief Complaint: Arreaga C/O ED Provider: Gagandeep Todd Dx/Rx/DC Orders Clinical Impression: Hematuria, Acute urinary retention Instructions: ED Arreaga Catheter, Care Prescriptions: No Action albuterol sulfate [Ventolin HFA] 1 INHALER inhaler 1 - 2 puff inhalation Q4H PRN PRN (Reason: Sob &/Or Wheezing) Qty: 1 0RF Label Comments: BREATHING zinc 50 MG tablet 100 mg PO DAILY multivit with [id number] 1 EACH tablet 1 tablet PO DAILY cholecalciferol (vitamin D3) 50 MCG capsule 150 mcg PO DAILY entecavir 1 mg tablet 1 mg PO DAILY magnesium polyethylene glycol 3350 [Miralax] 17 gram/dose powder 17 g PO DAILY Qty: 119 0RF ondansetron [ondansetron] 4 MG tablet 4 mg PO Q8H PRN PRN (Reason: Nausea) Qty: 10 0RF tamsulosin [Flomax] 0.4 mg capsule 0.4 mg PO DAILY 10 Days Qty: 10 0RF Primary Care Provider: [facility] Sera Lucas [facility] - 2 Days Disposition Disposition: Home, Self Care
== END 2022-02-15 14:44 | disposition home or self-care (01) ==
PROVIDERS: Emergency Provider Emergency Medicine; Visit Provider Emergency Medicine
DX: R31.9 Hematuria, unspecified (principal); R33.9 Retention of urine, unspecified; F17.210 Nicotine dependence, cigarettes, uncomplicated
CPT/HCPCS: 80053; 81001; 85025; 85610; 85730; 99282; A4216

== ENCOUNTER 2022-02-23 15:07 | Emergency (ER) | payer MEDICAID, SELFPAY ==
[2022-02-23 15:08] VITALS: BP 151/94; PULSE 100; RESP 16; TEMP 36.1; O2SAT 100; BMI 29.8
--- NOTE | 2022-02-23 15:30 | EX.ED.SAOD ---
HPI History of Present Illness Chief Complaint: Substance Abuse Narrative Narrative: 46-year-old male presenting with chief complaint of urinary retention. He has a Arreaga catheter placed this week for urinary tension. He states he has been eating and drinking normally. This morning while he was at work his Arreaga catheter stopped flowing. He denies any displacement or injury. He states he feels otherwise well. 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 He states he uses 3 times a day. He snorts and injects. He states he wants to detox but does not want to detox currently. He wants to come back later tonight or tomorrow morning. He states he left all of his tools out today. [facility] Medical History B12 deficiency anemia Hepatitis B Hepatitis C Rectal bleeding Home Medications albuterol sulfate 90 mcg/actuation aerosol inhaler (Ventolin HFA) 1 - 2 puff inhalation Q4H PRN PRN Sob &/Or Wheezing ##1 09/14/16 [Rx Last Taken Unknown] cholecalciferol (vitamin D3) 50 mcg (2,000 unit) capsule 150 mcg PO DAILY supplement 11/26/20 [History Last Taken 11/25/20 08:00] multivit with minerals-folic acid-lycopene 0.4 mg-600 mcg tablet 1 tablet PO DAILY supplement 11/26/20 [History Last Taken 11/25/20 08:00] zinc 50 mg tablet 100 mg PO DAILY supplement 11/26/20 [History Last Taken 11/25/20 08:00] entecavir 1 mg tablet 1 mg PO DAILY 12/14/21 [History Last Taken Unknown] magnesium 12/14/21 [History Last Taken Unknown] ondansetron 4 mg disintegrating tablet 4 mg PO Q8H PRN PRN Nausea #10 tabs 12/14/21 [Rx Last Taken Unknown] polyethylene glycol 3350 17 gram/dose oral powder (Miralax) 17 g PO DAILY #119 grams 12/14/21 [Rx Last Taken Unknown] tamsulosin 0.4 mg capsule (Flomax) 0.4 mg PO DAILY 10 days #10 caps 02/14/22 [Rx Last Taken Unknown] Allergy/AdvReac Type Severity Reaction Status Date / Time acetaminophen [From Vicodin] AdvReac Upset Verified 02/23/22 15:08 Stomach hydrocodone bitartrate AdvReac Upset Verified 02/23/22 15:08 [From Vicodin] Stomach meloxicam [From Mobic] AdvReac Nausea Verified 02/23/22 15:08 Surgical History Hx of hernia repair Social History Smoking Status: Current every day smoker tobacco type: cigarettes EXAM Physical Exam Const Vital Signs: 02/23/22 15:08 Temperature 97.0 F L Temperature Source Temporal Pulse Rate 100 Respiratory Rate 16 Blood Pressure 151/94 H Blood Pressure Mean 113 Pulse Ox 100 Oxygen Delivery Method Room Air Positive well nourished General Appearance ED: NAD; Negative for pallor HEENT Reports moist mucous membranes Eyes PERRL Resp normal respiratory effort and clear to auscultation bilaterally Cardio regular rate and regular rhythm GI Inspection: Negative for abdominal distention Neuro oriented x3 and CN's II-XII intact bilaterally Sensorium / Orientation: alert Motor Exam: strength 5/5 throughout Psych mental status grossly normal and thought process normal Skin General Skin Exam: Negative for jaundice or pallor MDM MDM MDM Narrative Medical decision making narrative: Patient presenting for evaluation of his Arreaga catheter which was placed for urinary retention this week. He states that he has not been making urine. Per nursing after this was assessed and irrigated the patient had some leakage of urine around his Arreaga catheter. This was subsequently removed. The patient refuses to have another Arreaga catheter placed. His bladder scan showed that he had very little urine in his bladder. He was able to spontaneously void. 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 I counseled him with his urinary retention he will likely do back sooner, but he still refuses to have a Arreaga catheter placed again. Patient is discharged in stable condition. Impression: 1. History of urinary retention. 2. History of opioid abuse 3. Arreaga catheter removal Discharge Plan Triage Chief Complaint: Substance Abuse ED Provider: Kwaku Barraza Dx/Rx/DC Orders Instructions: Arreaga Catheter Removal Prescriptions: No Action albuterol sulfate [Ventolin HFA] 1 INHALER inhaler 1 - 2 puff inhalation Q4H PRN PRN (Reason: Sob &/Or Wheezing) Qty: 1 0RF Label Comments: BREATHING zinc 50 MG tablet 100 mg PO DAILY multivit with [id number] 1 EACH tablet 1 tablet PO DAILY cholecalciferol (vitamin D3) 50 MCG capsule 150 mcg PO DAILY entecavir 1 mg tablet 1 mg PO DAILY magnesium polyethylene glycol 3350 [Miralax] 17 gram/dose powder 17 g PO DAILY Qty: 119 0RF ondansetron [ondansetron] 4 MG tablet 4 mg PO Q8H PRN PRN (Reason: Nausea) Qty: 10 0RF tamsulosin [Flomax] 0.4 mg capsule 0.4 mg PO DAILY 10 Days Qty: 10 0RF [facility] Referrals: Ab Portillo MD [STAFF PHYSICIAN] - As soon as possible [facility],Sera Tee [Primary Care Provider] - Disposition Disposition: Home, Self Care
[2022-02-23 17:22] VITALS: BP 135/90; PULSE 79; RESP 18; O2SAT 93
== END 2022-02-23 17:24 | disposition home or self-care (01) ==
PROVIDERS: Emergency Provider Student in an Organized Health Care Education/Training Program; Visit Provider Student in an Organized Health Care Education/Training Program
DX: R33.9 Retention of urine, unspecified (principal); F11.10 Opioid abuse, uncomplicated; F17.210 Nicotine dependence, cigarettes, uncomplicated
CPT/HCPCS: 99282

== ENCOUNTER → 2022-02-23 | Outpatient (CLI) | payer MEDICAID, SELFPAY ==
--- NOTE | 2022-02-23 17:50 | RAD_ITS ---
STUDY: X-RAY - LEFT WRIST REASON FOR EXAM: Male, 46 years old. Left lateral wrist pain radiating into the thumb with swelling. No known injury. TECHNIQUE: 2 view(s) of the wrist were obtained. COMPARISON: None. FINDINGS: Normal visualized distal radius and ulna. Normal radiocarpal articulation. Normal distal radioulnar articulation. Normal carpal bones. Normal carpal articulations. Normal carpometacarpal articulation of the thumb. Normal second through fifth carpometacarpal articulations. Normal visualized metacarpal bones. The soft tissue structures are unremarkable. RAD/Wrist 2 Views IMPRESSION: Normal x-ray examination of the wrist. Electronically Signed: Eddie Soler DO at 23:59 EDT Reading Location ID and State: [address] [place] [address] Tel [phone], Service support ,
== END | disposition home or self-care (01) ==
LOC: RAD 17:55
PROVIDERS: Visit Provider Nurse Practitioner Adult Health
DX: M67.832 Other specified disorders of synovium, left wrist (principal)
CPT/HCPCS: 73100

== ENCOUNTER 2022-02-26 14:09 | Observation (INO) | payer MEDICAID, SELFPAY ==
[2022-02-26 14:10] VITALS: BP 139/88; PULSE 104; RESP 17; TEMP 36.9; O2SAT 96; BMI 28.6
--- NOTE | 2022-02-26 15:02 | EDS_ITS ---
HPI History of Present Illness Chief Complaint: Substance Abuse Detail of Chief Complaint: Request for detox Informant: patient Narrative Narrative: Patient presents requesting admission for detox from heroin. He has been using them for the past 2 years. Prior to that he had been clean for 6 years. He states he snorts and injects both. Last use was 2 hours prior to arrival. He has never been through a formal detox or rehab program. [facility] Medical History B12 deficiency anemia Hepatitis B Hepatitis C Rectal bleeding Home Medications albuterol sulfate 90 mcg/actuation aerosol inhaler (Ventolin HFA) 1 - 2 puff inhalation Q4H PRN PRN Sob &/Or Wheezing ##1 09/14/16 [Rx Last Taken Unknown] cholecalciferol (vitamin D3) 50 mcg (2,000 unit) capsule 150 mcg PO DAILY supplement 11/26/20 [History Last Taken 11/25/20 08:00] multivit with minerals-folic acid-lycopene 0.4 mg-600 mcg tablet 1 tablet PO DAILY supplement 11/26/20 [History Last Taken 11/25/20 08:00] zinc 50 mg tablet 100 mg PO DAILY supplement 11/26/20 [History Last Taken 11/25/20 08:00] entecavir 1 mg tablet 1 mg PO DAILY 12/14/21 [History Last Taken Unknown] magnesium 12/14/21 [History Last Taken Unknown] ondansetron 4 mg disintegrating tablet 4 mg PO Q8H PRN PRN Nausea #10 tabs 12/14/21 [Rx Last Taken Unknown] polyethylene glycol 3350 17 gram/dose oral powder (Miralax) 17 g PO DAILY #119 grams 12/14/21 [Rx Last Taken Unknown] tamsulosin 0.4 mg capsule (Flomax) 0.4 mg PO DAILY 10 days #10 caps 02/14/22 [Rx Last Taken Unknown] Allergy/AdvReac Type Severity Reaction Status Date / Time acetaminophen [From Vicodin] AdvReac Upset Verified 02/26/22 14:09 Stomach hydrocodone bitartrate AdvReac Upset Verified 02/26/22 14:09 [From Vicodin] Stomach meloxicam [From Mobic] AdvReac Nausea Verified 02/26/22 14:09 Surgical History Hx of hernia repair Social History Smoking Status: Current every day smoker tobacco type: cigarettes ROS ROS ED Constitutional Constitutional ED: Denies chills or fever(s) Eyes Eyes: Denies change in vision or discharge from eye(s) ENT ENT ED: Denies discharge from eye(s), rhinorrhea or sore throat Cardiovascular Cardiovascular: Denies chest pain or palpitations Respiratory/Chest Respiratory/Chest: Denies cough or dyspnea Gastrointestinal Gastrointestinal: Denies abdominal pain, diarrhea, nausea or vomiting Genitourinary Genitourinary ED: Denies difficulty urinating or dysuria Musculoskeletal Musculoskeletal: Denies back pain or extremity pain Integumentary Denies Abrasions or rash Neurologic Neurologic: Denies headache(s) or weakness Psychiatric Psychiatric: Denies anxiety or depression Allergic/Immunologic Allergic/Immunologic ED: Denies lip swelling or urticaria EXAM Physical Exam Const Vital Signs: 02/26/22 14:10 Temperature 98.5 F Temperature Source Temporal Pulse Rate 104 H Respiratory Rate 17 Blood Pressure 139/88 H Blood Pressure Mean 105 Pulse Ox 96 Oxygen Delivery Method Room Air Positive well nourished and well developed General Appearance ED: well developed HEENT Reports normocephalic and head/scalp atraumatic Eyes PERRL and EOMs intact bilaterally Neck supple Chest Wall inspection of chest normal and palpation of chest normal Resp normal respiratory effort and clear to auscultation bilaterally Cardio regular rate and regular rhythm GI non-tender Palpation: soft Back/Spine no CVA tenderness Extremity normal to inspection Neuro oriented x3 and no sensory deficits noted Sensorium / Orientation: alert Motor Exam: strength 5/5 throughout Psych mental status grossly normal Skin no rashes or lesions noted MDM MDM MDM Narrative Medical decision making narrative: Lab work for addiction medicine obtained. Lab Data Attestation: I reviewed the patient's lab results. Labs: Laboratory Results - last 24 hr 02/26/22 02/26/22 02/26/22 14:30 15:25 15:25 WBC 4.0 L RBC 4.44 L Hgb 13.1 Hct 40.7 MCV 91.7 MCH 29.5 MCHC 32.2 RDW Std Deviation 42.9 RDW Coeff of Cullen 12.8 Plt Count 198 MPV 9.1 Immature Gran % (Auto) 0.000 Neut % (Auto) 52.8 Lymph % (Auto) 31.2 [place] % (Auto) 10.5 H Eos % (Auto) 4.5 Baso % (Auto) 1.0 Absolute Neuts (auto) 2.1 Absolute Lymphs (auto) 1.25 Nucleated RBC % 0 Sodium 137 Potassium 4.7 Chloride 104 Carbon Dioxide 31.0 Anion Gap 2 L BUN 17 Creatinine 0.73 Estim Creat Clear Calc 141.74 Est GFR (MDRD) Af Amer 150 Est GFR (MDRD) Non-Af 124 BUN/Creatinine Ratio 23.3 H Glucose 125 H Calcium 8.8 Total Bilirubin 0.20 AST 22 ALT 27 Alkaline Phosphatase 75 Total Protein 6.4 Albumin 2.9 L Globulin 3.5 Albumin/Globulin Ratio 0.8 L Urine Opiates Screen POSITIVE H Urine Methadone Screen NEGATIVE Ur Barbiturates Screen NEGATIVE Ur Phencyclidine Scrn NEGATIVE Ur Amphetamines Screen POSITIVE H MDMA (Ecstasy) Screen POSITIVE H U Benzodiazepines Scrn NEGATIVE Urine Cocaine Screen NEGATIVE U Cannabinoids Screen NEGATIVE Ur Drug Screen Comment Ethyl Alcohol 02/26/22 15:25 WBC RBC Hgb Hct MCV MCH MCHC RDW Std Deviation RDW Coeff of Cullen Plt Count MPV Immature Gran % (Auto) Neut % (Auto) Lymph % (Auto) [place] % (Auto) Eos % (Auto) Baso % (Auto) Absolute Neuts (auto) Absolute Lymphs (auto) Nucleated RBC % Sodium Potassium Chloride Carbon Dioxide Anion Gap BUN Creatinine Estim Creat Clear Calc Est GFR (MDRD) Af Amer Est GFR (MDRD) Non-Af BUN/Creatinine Ratio Glucose Calcium Total Bilirubin AST ALT Alkaline Phosphatase Total Protein Albumin Globulin Albumin/Globulin Ratio Urine Opiates Screen Urine Methadone Screen Ur Barbiturates Screen Ur Phencyclidine Scrn Ur Amphetamines Screen MDMA (Ecstasy) Screen U Benzodiazepines Scrn Urine Cocaine Screen U Cannabinoids Screen Ur Drug Screen Comment Ethyl Alcohol < 3.0 Treatment and Re-Evaluation Narrative: CBC and chemistry studies unremarkable. LFTs normal at this time. EtOH negative. Talk screen positive for opiates, amphetamines, MDMA. Patient will be discussed with the hospitalist for admission. Discharge Plan Triage Chief Complaint: Substance Abuse ED Provider: Sugey Jordan Dx/Rx/DC Orders Clinical Impression: Heroin abuse, Desire for detoxification Prescriptions: No Action albuterol sulfate [Ventolin HFA] 1 INHALER inhaler 1 - 2 puff inhalation Q4H PRN PRN (Reason: Sob &/Or Wheezing) Qty: 1 0RF Label Comments: BREATHING zinc 50 MG tablet 100 mg PO DAILY multivit with [id number] 1 EACH tablet 1 tablet PO DAILY cholecalciferol (vitamin D3) 50 MCG capsule 150 mcg PO DAILY entecavir 1 mg tablet 1 mg PO DAILY magnesium polyethylene glycol 3350 [Miralax] 17 gram/dose powder 17 g PO DAILY Qty: 119 0RF ondansetron [ondansetron] 4 MG tablet 4 mg PO Q8H PRN PRN (Reason: Nausea) Qty: 10 0RF tamsulosin [Flomax] 0.4 mg capsule 0.4 mg PO DAILY 10 Days Qty: 10 0RF Primary Care Provider: [facility] Sear Lucas Referrals: [facility] Sera Lucas [Primary Care Provider] - Disposition Disposition: Acute Care Hospital [facility]
[2022-02-26 15:31] LABS: Absolute Lymphocyte Count 1.25 X10^3/uL (0.83-4.51); Absolute Neutrophil Count 2.1 X10^3/uL (2.0-7.7); Basophil# 0.04 X10^3/uL; Eosinophil# 0.18 X10^3/uL; Eosinophils% 4.5 % (0-5); Hematocrit 40.7 % (40-54); Hemoglobin 13.1 g/dL (13.0-16.5); Lymphocyte # 1.25 X10^3/ul (0.83-4.51); Lymphocyte % 31.2 % (19-41); Mean Corp Hgb Conc 32.2 g/dL (32-36); Mean Corpuscular Hgb 29.5 pg (27.0-32.0); Mean Corpuscular Volume 91.7 fL (80-94); Mean Platelet Vol. 9.1 fl (6.2-12.0); Monocyte# 0.42 X10^3/uL; Monocyte% 10.5 % (0-10); NRBC Flagged by Analyzer 0 % (0-5); Neutrophil # 2.12 X10^3/uL (2.7-7.7); Neutrophil % 52.8 % (47-70); Platelet Count 198 K/mm3 (150-450); RBC Distribution Width CV 12.8 % (11.6-14.6); RBC Distribution Width SD 42.9 fl (35.1-43.9); Red Blood Count 4.44 M/mm3 (4.6-6.2)
[2022-02-26 15:48] LABS: ALB/GLOB Ratio 0.8 RATIO (0.9-2.4); AST(SGOT) 22 U/L (15-37); Alanine Aminotransfer ALT/SGPT 27 U/L (16-61); Albumin, Serum 2.9 g/dL (3.2-5.0); Alkaline Phosphatase 75 U/L (45-117); Anion Gap 2 (5-15); BUN 17 mg/dL (7-18); BUN/Creat Ratio 23.3 RATIO (10-20); Calcium,Total 8.8 mg/dL (8.5-10.1); Chloride 104 mmol/L (98-107); Creatinine, Serum 0.73 mg/dL (0.70-1.30); EST Glomerular Filtration Rate 124 mL/min (>60); Est Glom Filt Rate - Afr Amer 150 mL/min (>60); Estimated Creatinine Clearance 141.74 ml/min; Globulin 3.5 g/dL (2.2-4.2); Glucose 125 mg/dL (74-106); Potassium 4.7 mmol/L (3.5-5.1); Protein, Total 6.4 g/dL (6.4-8.2); Sodium Level 137 mmol/L (136-145)
[2022-02-26 15:49] LABS: Amphetamine Urine VISTA POSITIVE (<1000 ng/mL); Barbiturate Urine VISTA NEGATIVE (< 200 ng/mL); Benzodiazepine Urine VISTA NEGATIVE (< 200 ng/mL); Cocaine Urine VISTA NEGATIVE (< 300 ng/mL); Ecstacy Urine VISTA POSITIVE (< 500 ng/mL); Methadone Urine VISTA NEGATIVE (< 300 ng/mL); PCP Urine VISTA NEGATIVE (< 25 ng/mL); THC Urine VISTA NEGATIVE (< 50 ng/mL); Vista UDS pH Range 7
[2022-02-26 16:03] LABS: Alcohol, Blood (Medical)-Serum < 3.0 mg/dL
--- NOTE | 2022-02-26 16:22 | PCM.HP.STD ---
HPI - General General Date of Admission: 02/26/22 Date of Service: 02/26/22 Chief Complaint: Opiate detoxification/stabilization HPI Narrative APRIL NAYLOR, is a 46 M who presented to the emergency department at [facility] on 02/26/2022 requesting detoxification from opiates. The patient states he uses approximately 3.5 g every 5 days. He also admits to methamphetamine use on an intermittent basis but opiates are his drug of choice. He uses these intravenously. His last use was approximately 1:30 PM this afternoon and he is currently having no withdrawal symptoms. He was here on 02/23/2022 for urinary retention and a Arreaga had to be placed temporarily. He was discharged with Flomax and has now returned for opiate detox as he states he is gotten things in order for him to be away from for a few days. He admits he had approximately 6 years of sobriety but started using again secondary to financial stressors. Vital signs the emergency department on presentation demonstrated a temperature of 98.5, heart rate of 105, blood pressure 139/88, respiratory rate of 17, and sats were 96% on room air. His CBC showed a leukopenia with a white count of 4.0 but was otherwise unremarkable. His CMP is unremarkable. His urine toxicology screen showed opiates, amphetamines, ecstasy and was negative for alcohol. [facility] Medical History B12 deficiency anemia Chronic back pain Hepatitis B Hepatitis C Rectal bleeding recurrent MRSA skin infections Home Medications albuterol sulfate 90 mcg/actuation aerosol inhaler (Ventolin HFA) 1 - 2 puff inhalation Q4H PRN PRN Sob &/Or Wheezing ##1 09/14/16 [Rx Last Taken Unknown] cholecalciferol (vitamin D3) 50 mcg (2,000 unit) capsule 150 mcg PO DAILY supplement 11/26/20 [History Last Taken 11/25/20 08:00] multivit with minerals-folic acid-lycopene 0.4 mg-600 mcg tablet 1 tablet PO DAILY supplement 11/26/20 [History Last Taken 11/25/20 08:00] zinc 50 mg tablet 100 mg PO DAILY supplement 11/26/20 [History Last Taken 11/25/20 08:00] entecavir 1 mg tablet 1 mg PO DAILY 12/14/21 [History Last Taken Unknown] magnesium 12/14/21 [History Last Taken Unknown] ondansetron 4 mg disintegrating tablet 4 mg PO Q8H PRN PRN Nausea #10 tabs 12/14/21 [Rx Last Taken Unknown] polyethylene glycol 3350 17 gram/dose oral powder (Miralax) 17 g PO DAILY #119 grams 12/14/21 [Rx Last Taken Unknown] tamsulosin 0.4 mg capsule (Flomax) 0.4 mg PO DAILY 10 days #10 caps 02/14/22 [Rx Last Taken Unknown] Allergy/AdvReac Type Severity Reaction Status Date / Time acetaminophen [From Vicodin] AdvReac Upset Verified 02/26/22 14:09 Stomach hydrocodone bitartrate AdvReac Upset Verified 02/26/22 14:09 [From Vicodin] Stomach meloxicam [From Mobic] AdvReac Nausea Verified 02/26/22 14:09 Family History (Updated 02/26/22 @ 16:[address] 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 Smoking Status: Current every day smoker tobacco type: cigarettes Smoking packs per day: 0.5 Smoking cigarettes per day: 10.0 alcohol intake: never substance use type: heroin, IV drugs, methamphetamine and other details: IV fentanyl ROS Constitutional Constitutional: Denies anorexia, change in weight, chills, fatigue, fever(s), malaise, night sweats, weakness or other Eyes Eyes: Denies blurry vision, change in eye color, change in vision, discharge from eye(s), double vision, erythema, eye pain, loss of vision or other ENT HEENT: Denies abnormal hearing, dysphagia, ear pain, epistaxis, headache(s), hearing loss, nasal congestion, nasal discharge, post nasal drip, sinus pressure, sore throat or other Cardiovascular Cardiovascular: Denies chest pain, claudication, dyspnea on exertion, edema, lightheadedness, orthopnea, palpitations, paroxysmal nocturnal dyspnea, rapid heart rate, syncope or other Respiratory/Chest Respiratory/Chest: Denies cough, dyspnea, excessive phlegm production, hemoptysis, productive cough, shortness of breath at rest, shortness of breath with exertion, wheezing or other Gastrointestinal Gastrointestinal: Denies abdominal pain, coffee ground emesis, constipation, diarrhea, dyspepsia, hematemesis, hematochezia, loose stools, melena, nausea, vomiting or other Genitourinary Genitourinary: Denies burning urination, difficulty urinating, dysuria, hematuria, nocturia, urinary frequency, urinary hesitancy, urinary incontinence, urinary urgency or other Musculoskeletal Musculoskeletal: Reports back pain, joint pain and joint stiffness; Denies arthralgias, joint swelling, myalgias, neck pain or other Neurologic Neurologic: Denies abnormal gait, abnormal speech, confusion, disequilibrium, dizziness, focal weakness, headache(s), numbness, paresthesias, seizure-like activity, seizures, syncope, tingling, tremor(s) or other Psychiatric Psychiatric: Denies anxiety, depression, homicidal ideation, suicidal ideation or other Endocrine Endocrinology: Denies change in body appearance, cold intolerance, excessive sweating, heat intolerance, polydipsia, polyuria or other Hematologic/Lymphatic Hematologic/Lymphatic: Denies anemia, easy bleeding, easy bruising, lymphadenopathy or other Allergic/Immunologic Allergic/Immunologic: Denies rhinitis, hives, eczemia, asthma or other Vital Signs Vital Signs Vital Signs: 02/26/22 14:10 Temperature 98.5 F Temperature Source Temporal Pulse Rate 104 H Respiratory Rate 17 Blood Pressure 139/88 H Blood Pressure Mean 105 Pulse Ox 96 Oxygen Delivery Method Room Air Weight Weight: 95.9 kg Body Mass Index (BMI) 28.6 Physical Exam Const alert, oriented x3, no apparent distress and well nourished Constitutional Narrative: Somewhat disheveled middle aged slightly overweight white male sitting on the edge of the bed, appears much older than stated age, appears comfortable and nontoxic at this time General Appearance: cooperative HEENT normocephalic, head/scalp atraumatic, hearing grossly normal bilaterally and moist oral mucous membranes HEENT Narrative: Edentulous, Mallampati 2, no thrush Resp normal respiratory effort, no retractions, no use of accessory muscles and clear to auscultation bilaterally Resp Narrative: Diffusely diminished but clear Auscultation: Negative for crackles, rales, rhonchi or wheezes Cardio regular rate, regular rhythm, S1 normal heart sound, S2 normal heart sound, no murmurs, no rub, no gallops, no clicks and no JVD GI normal to inspection, nondistended, normoactive bowel sounds, soft to palpation, non-tender and non-distended Extremity no clubbing, cyanosis or edema Extremity Narrative: Track sneed noted but no signs of infection, multiple tattoos Neuro oriented x3, CN's II-XII intact bilaterally, moves all extremities and no focal motor deficits Neuro Narrative: Normal gait, right I deviates some intermittently Sensorium / Orientation: awake, alert, oriented to person, oriented to place and oriented to time Speech: speech normal Motor Exam: strength 5/5 throughout Psych Psych Narrative: Affect is slightly flat however patient was appropriately interactive and made good eye contact Results Lab / Micro Data Result Diagrams: 02/26/22 15:25 02/26/22 15:25 Labs: Laboratory Results - last 24 hr 02/26/22 14:30: Urine Opiates Screen POSITIVE H, Urine Methadone Screen NEGATIVE, Ur Barbiturates Screen NEGATIVE, Ur Phencyclidine Scrn NEGATIVE, Ur Amphetamines Screen POSITIVE H, MDMA (Ecstasy) Screen POSITIVE H, U Benzodiazepines Scrn NEGATIVE, Urine Cocaine Screen NEGATIVE, U Cannabinoids Screen NEGATIVE, Ur Drug Screen Comment 02/26/22 15:25: WBC 4.0 L, RBC 4.44 L, Hgb 13.1, Hct 40.7, MCV 91.7, MCH 29.5, MCHC 32.2, RDW Std Deviation 42.9, RDW Coeff of Cullen 12.8, Plt Count 198, MPV 9.1, Immature Gran % (Auto) 0.000, Neut % (Auto) 52.8, Lymph % (Auto) 31.2, [place] % (Auto) 10.5 H, Eos % (Auto) 4.5, Baso % (Auto) 1.0, Absolute Neuts (auto) 2.1, Absolute Lymphs (auto) 1.25, Nucleated RBC % 0 02/26/22 15:25: Sodium 137, Potassium 4.7, Chloride 104, Carbon Dioxide 31.0, Anion Gap 2 L, BUN 17, Creatinine 0.73, Estim Creat Clear Calc 141.74, Est GFR (MDRD) Af Amer 150, Est GFR (MDRD) Non-Af 124, BUN/Creatinine Ratio 23.3 H, Glucose 125 H, Calcium 8.8, Total Bilirubin 0.20, AST 22, ALT 27, Alkaline Phosphatase 75, Total Protein 6.4, Albumin 2.9 L, Globulin 3.5, Albumin/Globulin Ratio 0.8 L 02/26/22 15:25: Ethyl Alcohol < 3.0 Assessment & Plan Assessment/Plan (1) Heroin abuse: (2) Desire for detoxification: (3) Opioid abuse: (4) Polysubstance abuse: (5) Tobacco abuse: PLAN: Plan Opiate abuse with acute withdrawal -Patient desires detoxification/stabilization -Had 6 years of sobriety previously started using again secondary to financial stressors -Uses approximately 3.5 g every 5 days -Last use was 1:30 PM on 02/26/2022 -Start Subutex taper per [facility] protocol -Supportive medications -Check HIV status -180 consultation Recent urinary retention -Required Arreaga placement emergency department 02/23/2022 -Arreaga since been removed and patient is urinating without difficulty at this time -Continue home Flomax History of hepatitis B/C -Takes antiviral at baseline for hepatitis B -Follows with Dr. Peralta -Continue Tobacco abuse -Recommend cessation -Nicotine replacement ordered DVT prophylaxis -Low risk -Ambulation protocol CODE STATUS -Full code Charges/Coding Visit Charges Inpatient E&M: 77102 Init Hosp L2
[2022-02-26 16:26] VITALS: BP 133/78; PULSE 72; RESP 14; TEMP 36.5; O2SAT 94
[2022-02-26 17:32] VITALS: BMI 29.8
[2022-02-26 17:56] VITALS: BP 138/96; PULSE 72; RESP 18; TEMP 36.7; O2SAT 100
[2022-02-26 18:39] LABS: HIV - WCH Non-Reactive (Nonreactive)
[2022-02-26 19:55] VITALS: BP 119/80; PULSE 77; RESP 16; TEMP 36.6; O2SAT 97
[2022-02-27 04:24] VITALS: BP 133/82; PULSE 69; RESP 16; TEMP 36.6; O2SAT 100
[2022-02-27] MEDS: Gabapentin 300 MG Capsule PO ×2 (04:36→13:56)
[2022-02-27] MEDS: Methocarbamol 750 MG Tablet 1500 MG PO ×3 (04:36→20:24)
[2022-02-27] MEDS: Buprenorphine HCl 2 MG TAB.SUBL SL ×2 (06:23→13:56)
[2022-02-27 07:30] VITALS: O2SAT 97
[2022-02-27] MEDS: Tamsulosin HCl 0.4 MG Capsule PO (07:58)
[2022-02-27] MEDS: cloNIDine HCl 0.1 MG Tablet PO ×2 (07:59→20:24)
[2022-02-27] MEDS: Ondansetron 8 MG Tablet PO (07:59)
[2022-02-27] MEDS: hydrOXYzine PAM 25 MG Capsule 50 MG PO ×3 (07:59→20:24)
[2022-02-27] MEDS: Dicyclomine 10 MG Capsule 20 MG PO (07:59)
--- NOTE | 2022-02-27 08:04 | NURSING ---
pt agitated, at desk asking what did they give me, I've never felt this bad beforept c/o abdominal cramps, is agiated and restless-see leticia HARDY's given
[2022-02-27 08:07] VITALS: BP 144/105; PULSE 87; RESP 20; O2SAT 100
--- NOTE | 2022-02-27 12:00 | PN.HOSP_ITS ---
Subjective Subjective Doing well, no issues overnight. Cina score of 13 Objective Data Objective Data Vital Signs: Vital Signs Temp Pulse Resp BP Pulse Ox O2 Del Method 97.9 F 87 20 H 144/105 H 100 Room Air 02/27/22 04:24 02/27/22 08:07 02/27/22 08:07 02/27/22 08:07 02/27/22 08:07 02/27/22 08:07 Oxygen Delivery Method Room Air Weight: 220 lb Body Mass Index (BMI) 29.8 Intake & Output: Intake and Output for Last 24 Hours 02/26/22 02/27/22 02/28/22 03:59 03:59 03:59 Intake Total 150 / 150 Balance 150 / 150 Lab / Micro Data Result Diagrams: 02/26/22 15:25 02/26/22 15:25 Labs: Laboratory Results - last 24 hr 02/26/22 14:30: Urine Opiates Screen POSITIVE H, Urine Methadone Screen NEGATIVE, Ur Barbiturates Screen NEGATIVE, Ur Phencyclidine Scrn NEGATIVE, Ur Amphetamines Screen POSITIVE H, MDMA (Ecstasy) Screen POSITIVE H, U Benzodiazepines Scrn NEGATIVE, Urine Cocaine Screen NEGATIVE, U Cannabinoids Screen NEGATIVE, Ur Drug Screen Comment 02/26/22 15:25: WBC 4.0 L, RBC 4.44 L, Hgb 13.1, Hct 40.7, MCV 91.7, MCH 29.5, MCHC 32.2, RDW Std Deviation 42.9, RDW Coeff of Cullen 12.8, Plt Count 198, MPV 9.1, Immature Gran % (Auto) 0.000, Neut % (Auto) 52.8, Lymph % (Auto) 31.2, [place] % (Auto) 10.5 H, Eos % (Auto) 4.5, Baso % (Auto) 1.0, Absolute Neuts (auto) 2.1, Absolute Lymphs (auto) 1.25, Nucleated RBC % 0 02/26/22 15:25: Sodium 137, Potassium 4.7, Chloride 104, Carbon Dioxide 31.0, Anion Gap 2 L, BUN 17, Creatinine 0.73, Estim Creat Clear Calc 141.74, Est GFR (MDRD) Af Amer 150, Est GFR (MDRD) Non-Af 124, BUN/Creatinine Ratio 23.3 H, Glucose 125 H, Calcium 8.8, Total Bilirubin 0.20, AST 22, ALT 27, Alkaline Phosphatase 75, Total Protein 6.4, Albumin 2.9 L, Globulin 3.5, Albumin/Globulin Ratio 0.8 L 02/26/22 15:25: Ethyl Alcohol < 3.0 02/26/22 15:25: HIV 1&2 Antibody Non-Reactive Physical Exam Const alert, oriented x3 and no apparent distress General Appearance: cooperative HEENT normocephalic and moist oral mucous membranes Eyes PERRL, EOMs intact bilaterally and conjunctivae normal Neck supple and no JVD Resp normal respiratory effort, no retractions, no use of accessory muscles and clear to auscultation bilaterally Auscultation: Negative for crackles, rales, rhonchi or wheezes Cardio regular rate, regular rhythm, S1 normal heart sound, S2 normal heart sound and no murmurs GI soft to palpation, non-tender and non-distended; Negative for hepatosplenomegaly Extremity no clubbing, cyanosis or edema Skin no rashes or lesions noted Neuro no focal motor deficits and no sensory deficits noted Psych affect normal Appearance: appropriate Assessment & Plan Assessment/Plan (1) Heroin abuse: (2) Desire for detoxification: (3) Opioid abuse: (4) Polysubstance abuse: (5) Tobacco abuse: PLAN: Plan 1. Acute opiate withdrawal/history of hepatitis B and C/tobacco abuse ? Continue with the alcohol withdrawal protocol ? States that he started using because of financial stressors ? We will have him follow-up with 180 as an outpatient ? He does take antiviral medication for his hepatitis B and C and follows with infectious disease as an outpatient ? We will continue with nicotine replacement, to be cessation DVT: Ambulation Charges/Coding Visit Charges Inpatient E&M: 25153 Subs Hosp L2
[2022-02-27 14:36] VITALS: BP 138/87; PULSE 83; RESP 18; TEMP 36.7; O2SAT 98
[2022-02-27 20:11] VITALS: BP 130/76; PULSE 92; RESP 18; TEMP 36.7; O2SAT 95
[2022-02-28 02:17] VITALS: BP 128/82; PULSE 73; RESP 18; TEMP 37; O2SAT 96
[2022-02-28] MEDS: Tamsulosin HCl 0.4 MG Capsule PO (08:55)
[2022-02-28 08:57] VITALS: BP 129/82; PULSE 79; RESP 18; TEMP 36.9; O2SAT 99
[2022-02-28] MEDS: ENTECAVIR 1 MG PO (08:59)
--- NOTE | 2022-02-28 10:00 | PCM.PN.HOSP ---
Subjective Subjective No issues overnight, Cina of 1 today Objective Data Objective Data Vital Signs: Vital Signs Temp Pulse Resp BP Pulse Ox O2 Del Method 98.4 F 79 18 129/82 H 99 Room Air 02/28/22 08:57 02/28/22 08:57 02/28/22 08:57 02/28/22 08:57 02/28/22 08:57 02/28/22 09:03 Oxygen Delivery Method Room Air Weight: 220 lb Body Mass Index (BMI) 29.8 Intake & Output: Intake and Output for Last 24 Hours 02/27/22 02/28/22 03/01/22 03:59 03:59 03:59 Intake Total 150 / 150 600 / 600 500 / 500 Balance 150 / 150 600 / 600 500 / 500 Lab / Micro Data Result Diagrams: 02/26/22 15:25 02/26/22 15:25 Physical Exam Narrative Const alert, oriented x3 and no apparent distress General Appearance: cooperative HEENT normocephalic and moist oral mucous membranes Eyes PERRL, EOMs intact bilaterally and conjunctivae normal Neck supple and no JVD Resp normal respiratory effort, no retractions, no use of accessory muscles and clear to auscultation bilaterally Auscultation: Negative for crackles, rales, rhonchi or wheezes Cardio regular rate, regular rhythm, S1 normal heart sound, S2 normal heart sound and no murmurs GI soft to palpation, non-tender and non-distended; Negative for hepatosplenomegaly Extremity no clubbing, cyanosis or edema Skin no rashes or lesions noted Neuro no focal motor deficits and no sensory deficits noted Psych affect normal Appearance: appropriate Assessment & Plan Assessment/Plan (1) Heroin abuse: (2) Desire for detoxification: (3) Opioid abuse: (4) Polysubstance abuse: (5) Tobacco abuse: PLAN: Plan 1. Acute opiate withdrawal/history of hepatitis B and C/tobacco abuse ? Continue with the alcohol withdrawal protocol ? States that he started using because of financial stressors ? We will have him follow-up with 180 as an outpatient ? He does take antiviral medication for his hepatitis B and C and follows with infectious disease as an outpatient ? We will continue with nicotine replacement, to be cessation DVT: Ambulation Charges/Coding Visit Charges Inpatient E&M: 70876 Subs Hosp L2
--- NOTE | 2022-02-28 10:10 | DCINST_ITS ---
Discharge Instructions Diet Discharge Diet: No restrictions Activity Discharge Activity: Return to Normal Activity Dressing / Incision Call your doctor if you observe: Fever of 101 or Higher, Shortness of breath, Dizziness, Fainting spells, Swelling in the ankles, Chest pain and Increased palpitations (irregular heartbeat) Follow Up Care Test Results: Test results from this visit will be discussed in further detail at your follow- up appointment, if applicable. Discharge Plan Admission Admit Date/Time: 02/26/22 16:16 Attending Provider: Reese Guido [facility] Providers: Shari Starks Discharge Orders/Prescriptions Prescriptions: Continued albuterol sulfate [Ventolin HFA] 1 INHALER inhaler 1 - 2 puff inhalation Q4H PRN PRN (Reason: Sob &/Or Wheezing) Qty: 1 0RF Label Comments: BREATHING zinc 50 MG tablet 100 mg PO DAILY multivit with [id number] 1 EACH tablet 1 tablet PO DAILY cholecalciferol (vitamin D3) 50 MCG capsule 150 mcg PO DAILY entecavir 1 mg tablet 1 mg PO DAILY magnesium polyethylene glycol 3350 [Miralax] 17 gram/dose powder 17 g PO DAILY Qty: 119 0RF ondansetron 4 MG tablet 4 mg PO Q8H PRN PRN (Reason: Nausea) Qty: 10 0RF tamsulosin [Flomax] 0.4 mg capsule 0.4 mg PO DAILY 10 Days Qty: 10 0RF [facility] - Disposition Disposition (needs filled in before D/C Order can be placed): Home, Self Care
--- NOTE | 2022-02-28 10:12 | PCM.DC.SUM ---
Providers Date of Admission: 02/26/22 Primary Care Physician: [facility] Reason For Visit: ACUTE OPIATE WITHDRAWAL Diagnosis Discharge Diagnosis (1) Heroin abuse: Status: Acute Code(s): F11.10 - Opioid abuse, uncomplicated (2) Desire for detoxification: Status: Acute (3) Opioid abuse: Status: Acute Code(s): F11.10 - Opioid abuse, uncomplicated (4) Polysubstance abuse: Status: Acute Code(s): F19.10 - Other psychoactive substance abuse, uncomplicated (5) Tobacco abuse: Status: Acute Code(s): Z72.0 - Tobacco use Plan 1. Acute opiate withdrawal/history of hepatitis B and C/tobacco abuse ? Continue with the alcohol withdrawal protocol ? States that he started using because of financial stressors ? We will have him follow-up with 180 as an outpatient ? He does take antiviral medication for his hepatitis B and C and follows with infectious disease as an outpatient ? We will continue with nicotine replacement, to be cessation DVT: Ambulation Medications at Discharge Home Medications albuterol sulfate 90 mcg/actuation aerosol inhaler (Ventolin HFA) 1 - 2 puff inhalation Q4H PRN PRN Sob &/Or Wheezing ##1 09/14/16 cholecalciferol (vitamin D3) 50 mcg (2,000 unit) capsule 150 mcg PO DAILY supplement 11/26/20 multivit with minerals-folic acid-lycopene 0.4 mg-600 mcg tablet 1 tablet PO DAILY supplement 11/26/20 zinc 50 mg tablet 100 mg PO DAILY supplement 11/26/20 entecavir 1 mg tablet 1 mg PO DAILY 12/14/21 magnesium 12/14/21 ondansetron 4 mg disintegrating tablet 4 mg PO Q8H PRN PRN Nausea #10 tabs 12/14/21 polyethylene glycol 3350 17 gram/dose oral powder (Miralax) 17 g PO DAILY #119 grams 12/14/21 tamsulosin 0.4 mg capsule (Flomax) 0.4 mg PO DAILY 10 days #10 caps 02/14/22 Hospital Course Operations None Summary of Care Provided Minutes Spent on Discharge: 38 Hospital Course: Per HPI: APRIL NAYLOR, is a 46 M who presented to the emergency department at [facility] on 02/26/2022 requesting detoxification from opiates. The patient states he uses approximately 3.5 g every 5 days. He also admits to methamphetamine use on an intermittent basis but opiates are his drug of choice. He uses these intravenously. His last use was approximately 1:30 PM this afternoon and he is currently having no withdrawal symptoms. He was here on 02/23/2022 for urinary retention and a Arreaga had to be placed temporarily. He was discharged with Flomax and has now returned for opiate detox as he states he is gotten things in order for him to be away from for a few days. He admits he had approximately 6 years of sobriety but started using again secondary to financial stressors. Vital signs the emergency department on presentation demonstrated a temperature of 98.5, heart rate of 105, blood pressure 139/88, respiratory rate of 17, and sats were 96% on room air. His CBC showed a leukopenia with a white count of 4.0 but was otherwise unremarkable. His CMP is unremarkable. His urine toxicology screen showed opiates, amphetamines, ecstasy and was negative for alcohol. Hospital Course: 1.? Acute opiate withdrawal/history of hepatitis B and C/tobacco abuse ? Continue with the alcohol withdrawal protocol ? States that he started using because of financial stressors ? We will have him follow-up with 180 as an outpatient ? He does take antiviral medication for his hepatitis B and C and follows with infectious disease as an outpatient ? We will continue with nicotine replacement, discussed cessation ? He wants to go today, and in 180 is here and states he refused to surgery we will get him follow-up today as an outpatient. Therefore we will plan to discharge home today. Weight / BMI Weight Weight: 220 lb Body Mass Index (BMI) 29.8 ABG / Lab / Microbiology Data Result Diagrams: 02/26/22 15:25 02/26/22 15:25 D/C Instructions Discharge Diet: No restrictions Call your doctor if you observe: Fever of 101 or Higher, Shortness of breath, Dizziness, Fainting spells, Swelling in the ankles, Chest pain and Increased palpitations (irregular heartbeat) Meaningful Use Info Meaningful Use Diagnoses (Choose all that apply): None applicable Discharge Plan Admission Admit Date/Time: 02/26/22 16:16 Attending Provider: Reese Guido [facility] Providers: Shari Starks Discharge Orders/Prescriptions Prescriptions: Continued albuterol sulfate [Ventolin HFA] 1 INHALER inhaler 1 - 2 puff inhalation Q4H PRN PRN (Reason: Sob &/Or Wheezing) Qty: 1 0RF Label Comments: BREATHING zinc 50 MG tablet 100 mg PO DAILY multivit with [id number] 1 EACH tablet 1 tablet PO DAILY cholecalciferol (vitamin D3) 50 MCG capsule 150 mcg PO DAILY entecavir 1 mg tablet 1 mg PO DAILY magnesium polyethylene glycol 3350 [Miralax] 17 gram/dose powder 17 g PO DAILY Qty: 119 0RF ondansetron 4 MG tablet 4 mg PO Q8H PRN PRN (Reason: Nausea) Qty: 10 0RF tamsulosin [Flomax] 0.4 mg capsule 0.4 mg PO DAILY 10 Days Qty: 10 0RF Referrals / Follow Up: [facility] [Primary Care Provider] - Disposition Disposition (needs filled in before D/C Order can be placed): Home, Self Care Charges/Coding Visit Charges Inpatient E&M: 48642 Disch Hosp
--- NOTE | 2022-02-28 10:34 | ADDICTION ---
This television script writer met with PT to conduct ASAM, MSE, AUDIT, DUDIT assessments and to plan for d/c. PT A+Ox4 and participated actively. All assessments completed, faxed to [facility] and placed in PT's chart. PT plans to f/u with individual counselor at [facility] for follow-up counseling services. PT did not indicate a need for transportation post d/c from [facility].
[2022-02-28 10:44] VITALS: BP 126/79; PULSE 92; RESP 18; TEMP 37.1; O2SAT 100
== END 2022-02-28 10:55 | disposition home or self-care (01) ==
LOC: ED 16:14 → MS3 17:17
PROVIDERS: Admitting Provider Internal Medicine; Emergency Provider Emergency Medicine; Visit Provider Family Medicine
DX: F11.23 Opioid dependence with withdrawal (principal); F11.10 Opioid abuse, uncomplicated; B19.10 Unspecified viral hepatitis B without hepatic coma; F17.210 Nicotine dependence, cigarettes, uncomplicated; B19.20 Unspecified viral hepatitis C without hepatic coma; F15.90 Other stimulant use, unspecified, uncomplicated; D51.9 Vitamin B12 deficiency anemia, unspecified; Z79.899 Other long term (current) drug therapy; Z86.14 Personal history of Methicillin resistant Staphylococcus aureus infection
CPT/HCPCS: 73100; 80053; 80307; 82077; 85025; 86703; 97802; 99218; 99251; 99282; 99283; 99406; H0012; G0378; G0463

== ENCOUNTER 2022-04-21 19:07 | Outpatient (REF) | payer MEDICAID, SELFPAY ==
[2022-04-21 19:08] VITALS: BP 144/95; PULSE 108; RESP 18; TEMP 36.8; O2SAT 98
[2022-04-21 19:10] VITALS: BP 144/95; PULSE 108; RESP 18; TEMP 36.8; O2SAT 98; BMI 27.2
--- NOTE | 2022-04-21 20:31 | EKG12_ITS ---
Test Reason : DYSRHYTHMIA Blood Pressure : / mmHG Vent. Rate : 090 BPM Atrial Rate : 090 BPM P-R Int : 138 ms QRS Dur : 092 ms QT Int : 360 ms P-R-T Axes : 043 054 035 degrees QTc Int : 440 ms Normal sinus rhythm Normal ECG Confirmed by NICO XAVIER, SANTINO ([id number]), newspaper editor managing ANDRAE RIVERA ([id number]) on 04/24/2022 9:40:40 AM Referred By: Confirmed By:RYLEE WALSH MD
--- NOTE | 2022-04-21 20:32 | EDS_ITS ---
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 [facility] He tells me that at beginning of March they stopped my medication that he takes for hepatitis. He states that 6 days ago he did have his medicines restarted. He states he just does not know what is going on. When asked what symptomology he states he phytonadione. He states his heart rate keeps going fast. He gets tingling in his hands and his feet. He feels tired. He states he is only urinated 5 times in the past 15 days. [facility] Medical History B12 deficiency anemia Chronic back pain Hepatitis B Hepatitis C Opioid abuse Polysubstance abuse Rectal bleeding recurrent MRSA skin infections Tobacco abuse Home Medications albuterol sulfate 90 mcg/actuation aerosol inhaler (Ventolin HFA) 1 - 2 puff inhalation Q4H PRN PRN Sob &/Or Wheezing ##1 09/14/16 [Rx Last Taken Unknown] cholecalciferol (vitamin D3) 50 mcg (2,000 unit) capsule 150 mcg PO DAILY supplement 11/26/20 [History Last Taken 11/25/20 08:00] multivit with minerals-folic acid-lycopene 0.4 mg-600 mcg tablet 1 tablet PO DAILY supplement 11/26/20 [History Last Taken 11/25/20 08:00] zinc 50 mg tablet 100 mg PO DAILY supplement 11/26/20 [History Last Taken 11/25/20 08:00] entecavir 1 mg tablet 1 mg PO DAILY 12/14/21 [History Last Taken Unknown] magnesium g PO.IVFORM BID 12/14/21 [History Last Taken Unknown] polyethylene glycol 3350 17 gram/dose oral powder (Miralax) 17 g PO DAILY #119 grams 12/14/21 [Rx Last Taken Unknown] tamsulosin 0.4 mg capsule (Flomax) 0.4 mg PO DAILY 10 days #10 caps 02/14/22 [Rx Last Taken Unknown] apple cider vinegar 300 mg tablet mg PO 03/01/22 [History Last Taken Unknown] ascorbic acid (vitamin C) 500 mg tablet 500 mg PO DAILY 03/01/22 [History Last Taken Unknown] cyanocobalamin (vitamin B-12) 500 mcg tablet (Vitamin B-12) 500 mcg PO DAILY 03/01/22 [History Last Taken Unknown] protien powder PO 1XD 03/01/22 [History Last Taken Unknown] Allergy/AdvReac Type Severity Reaction Status Date / Time acetaminophen [From Vicodin] AdvReac Upset Verified 04/21/22 20:23 Stomach hydrocodone bitartrate AdvReac Upset Verified 04/21/22 20:23 [From Vicodin] Stomach meloxicam [From Mobic] AdvReac Nausea Verified 04/21/22 20:23 Family History Other Addiction Cancer Diabetes Hypertension Surgical History History of eye surgery History of hernia repair Hx of hernia repair Social History household members: spouse current occupational status: employed 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 Smoking Status: Current every day smoker tobacco type: cigarettes alcohol intake: never substance use type: heroin, IV drugs, methamphetamine and other details: IV fentanyl what type of physical activity do you participate in: none do you feel safe at home: Yes ROS ROS ED ROS Narrative Generalized weakness Constitutional Constitutional ED: Denies chills, fever(s) or weight loss Eyes Eyes: Denies change in vision or diplopia ENT ENT ED: Denies ear pain, rhinorrhea or sore throat Cardiovascular Cardiovascular: Reports racing heartbeat; Denies chest pain, orthopnea or palpitations Respiratory/Chest Respiratory/Chest: Denies cough, dyspnea or orthopnea Gastrointestinal Gastrointestinal: Denies abdominal pain, diarrhea, nausea or vomiting Genitourinary Genitourinary ED: Denies dysuria, hematuria or urinary frequency Musculoskeletal Musculoskeletal: Denies arthralgias or myalgias Integumentary Denies abscess or rash Neurologic Neurologic: Reports paresthesias; Denies headache(s) or weakness Psychiatric Psychiatric: Denies anxiety, depression, suicidal ideation or suicidal thoughts Endocrine Endocrinology: Denies polydipsia, polyphagia or polyuria Allergic/Immunologic Allergic/Immunologic ED: Denies mouth swelling, tongue swelling or urticaria EXAM Physical Exam Const Vital Signs: 04/21/22 19:10 04/21/22 19:08 04/21/22 20:26 Temperature 98.3 F 98.3 F Temperature Source Temporal Temporal Pulse Rate 108 H 108 H Respiratory Rate 18 18 Respiratory Effort Normal Non-Labored Blood Pressure 144/95 H 144/95 H Blood Pressure Mean 111 111 Pulse Ox 98 98 Oxygen Delivery Method Room Air Room Air 04/21/22 21:19 Temperature Temperature Source Pulse Rate 92 Respiratory Rate 21 H Respiratory Effort Blood Pressure 157/92 H Blood Pressure Mean 113 Pulse Ox 95 Oxygen Delivery Method Room Air Positive well nourished and well developed General Appearance ED: well developed HEENT Reports normocephalic, head/scalp atraumatic and moist mucous membranes Eyes PERRL and EOMs intact bilaterally Neck no lymphadenopathy, supple and no JVD Resp normal respiratory effort and clear to auscultation bilaterally Cardio regular rate, regular rhythm and no murmurs GI normal to inspection, nondistended, normoactive bowel sounds and non-tender Palpation: soft Back/Spine no CVA tenderness and normal ROM Extremity normal to inspection General Extremety ED: Negative for edema General Extremity: Negative for edema Neuro oriented x3 and CN's II-XII intact bilaterally Sensorium / Orientation: alert Motor Exam: strength 5/5 throughout Psych mental status grossly normal Mood & Affect: Negative for depressed or tearful Skin no rashes or lesions noted and no wounds MDM MDM MDM Narrative Medical decision making narrative: CBC CMP troponin were normal. Curious that he only urinates once every 3 days with a creatinine of 0.8 and a BUN of 12 and a gap of 5. His CO2 level is 28. My interpretation of the chest x-ray is no acute process. His EKG is a normal sinus rhythm. This point patient has normal vital signs. He has normal labs and he has very vague complaints. I think the patient can be discharged back to halfway Lab Data Attestation: I reviewed the patient's lab results. Labs: Laboratory Results - last 24 hr 04/21/22 04/21/22 20:40 20:40 WBC 7.6 RBC 4.77 Hgb 14.1 Hct 42.1 MCV 88.3 MCH 29.6 MCHC 33.5 RDW Std Deviation 40.0 RDW Coeff of Cullen 12.4 Plt Count 253 MPV 9.2 Immature Gran % (Auto) 0.300 Neut % (Auto) 52.6 Lymph % (Auto) 35.6 [place] % (Auto) 8.5 Eos % (Auto) 2.5 Baso % (Auto) 0.5 Absolute Neuts (auto) 4.0 Absolute Lymphs (auto) 2.71 Nucleated RBC % 0 Sodium 143 Potassium 4.0 Chloride 110 H Carbon Dioxide 28.0 Anion Gap 5 BUN 12 Creatinine 0.81 Estim Creat Clear Calc 127.74 Est GFR (MDRD) Af Amer 133 Est GFR (MDRD) Non-Af 110 BUN/Creatinine Ratio 14.8 Glucose 118 H Calcium 9.2 Total Bilirubin 0.20 AST 28 ALT 73 H Alkaline Phosphatase 95 Troponin I High Sens 8 Total Protein 6.4 Albumin 3.0 L Globulin 3.4 Albumin/Globulin Ratio 0.9 Radiography Diagnostic Testing: Clinical Impression(s) from Imaging Studies Chest X-Ray 04/21/22 20:50 IMPRESSION: Normal x-ray examination of the chest. Electronically Signed: Rod Crocker MD at 21:10 EDT , EKG Initial EKG: Attestation: I personally reviewed and interpreted this EKG as follows: Comments: Normal sinus rhythm with a ventricular rate of 90 bpm Discharge Plan Triage Chief Complaint: General Illness ED Provider: Alexandro Rosado Dx/Rx/DC Orders Clinical Impression: Weakness, Palpitations Instructions: ED Palpitations, ED Weakness (Uncertain Cause) Prescriptions: No Action cyanocobalamin (vitamin B-12) [Vitamin B-12] 500 mcg tablet 500 mcg PO DAILY apple cider vinegar 300 mg tablet PO ascorbic acid (vitamin C) 500 mg tablet 500 mg PO DAILY protien powder PO 1XD Label Comments: 1 drink per day Rx Instructions: 1 per day albuterol sulfate [Ventolin HFA] 1 INHALER inhaler 1 - 2 puff inhalation Q4H PRN PRN (Reason: Sob &/Or Wheezing) Qty: 1 0RF Label Comments: BREATHING zinc 50 MG tablet 100 mg PO DAILY multivit with [id number] 1 EACH tablet 1 tablet PO DAILY cholecalciferol (vitamin D3) 50 MCG capsule 150 mcg PO DAILY entecavir 1 mg tablet 1 mg PO DAILY magnesium PO.IVFORM BID polyethylene glycol 3350 [Miralax] 17 gram/dose powder 17 g PO DAILY Qty: 119 0RF tamsulosin [Flomax] 0.4 mg capsule 0.4 mg PO DAILY 10 Days Qty: 10 0RF Primary Care Provider: [facility] Lcu[facility] Referrals: [facility] Sera Lucas [Primary Care Provider] - As Needed Disposition Disposition: Home, Self Care
[2022-04-21 20:47] LABS: Absolute Lymphocyte Count 2.71 X10^3/uL (0.83-4.51); Basophil# 0.04 X10^3/uL; Basophil% 0.5 % (0-1); Eosinophil# 0.19 X10^3/uL; Eosinophils% 2.5 % (0-5); Hematocrit 42.1 % (40-54); Hemoglobin 14.1 g/dL (13.0-16.5); Lymphocyte # 2.71 X10^3/ul (0.83-4.51); Lymphocyte % 35.6 % (19-41); Mean Corp Hgb Conc 33.5 g/dL (32-36); Mean Corpuscular Hgb 29.6 pg (27.0-32.0); Mean Corpuscular Volume 88.3 fL (80-94); Mean Platelet Vol. 9.2 fl (6.2-12.0); Monocyte# 0.65 X10^3/uL; Monocyte% 8.5 % (0-10); NRBC Flagged by Analyzer 0 % (0-5); Neutrophil % 52.6 % (47-70); Platelet Count 253 K/mm3 (150-450); RBC Distribution Width CV 12.4 % (11.6-14.6); Red Blood Count 4.77 M/mm3 (4.6-6.2); White Blood Count 7.6 K/mm3 (4.4-11.0)
--- NOTE | 2022-04-21 20:50 | RAD_ITS ---
STUDY: X-RAY CHEST REASON FOR EXAM: Male, 46 years old. palpitations TECHNIQUE: Single AP portable view of the chest. COMPARISON: 12/14/2021 FINDINGS: The lungs are clear and expanded. There is no demonstrated pleural abnormality. Normal size heart. Normal mediastinum and mabel. Normal visualized pulmonary arteries. Normal visualized aortic arch and descending thoracic aorta. Normal visualized thoracic spine. Normal visualized ribs, clavicles, and shoulders. There is no demonstrated abnormality of the visualized soft tissue structures of the upper abdomen. RAD/Chest 1 View (Portable) IMPRESSION: Normal x-ray examination of the chest. Electronically Signed: Rod Crocker MD at 21:10 EDT ,
[2022-04-21 21:05] LABS: ALB/GLOB Ratio 0.9 RATIO (0.9-2.4); AST(SGOT) 28 U/L (15-37); Alanine Aminotransfer ALT/SGPT 73 U/L (16-61); Alkaline Phosphatase 95 U/L (45-117); Anion Gap 5 (5-15); BUN 12 mg/dL (7-18); BUN/Creat Ratio 14.8 RATIO (10-20); Calcium,Total 9.2 mg/dL (8.5-10.1); Chloride 110 mmol/L (98-107); Creatinine, Serum 0.81 mg/dL (0.70-1.30); EST Glomerular Filtration Rate 110 mL/min (>60); Est Glom Filt Rate - Afr Amer 133 mL/min (>60); Estimated Creatinine Clearance 127.74 ml/min; Globulin 3.4 g/dL (2.2-4.2); Glucose 118 mg/dL (74-106); Protein, Total 6.4 g/dL (6.4-8.2); Sodium Level 143 mmol/L (136-145); Troponin-I HS 8 pg/mL (3.0-78.0)
[2022-04-21 21:19] VITALS: BP 157/92; PULSE 92; RESP 21; O2SAT 95
[2022-04-21 22:05] VITALS: BP 148/100; PULSE 92; RESP 21; O2SAT 100
== END 2022-04-21 22:05 | disposition home or self-care (01) ==
LOC: ED 19:07
PROVIDERS: Visit Provider Emergency Medicine
DX: R53.1 Weakness (principal); R00.2 Palpitations; M54.9 Dorsalgia, unspecified; K75.9 Inflammatory liver disease, unspecified; G89.4 Chronic pain syndrome; Z79.899 Other long term (current) drug therapy; F17.210 Nicotine dependence, cigarettes, uncomplicated
CPT/HCPCS: 36415; 71045; 80053; 84484; 85025; 93005; 99284; A4216

== ENCOUNTER → 2022-07-03 | Outpatient (CLI) | payer MEDICAID, SELFPAY ==
[2022-07-03 12:15] LABS: Hematocrit 40.7 % (40-54); Hemoglobin 13.3 g/dL (13.0-16.5); Mean Corp Hgb Conc 32.7 g/dL (32-36); Mean Corpuscular Hgb 29.6 pg (27.0-32.0); Mean Corpuscular Volume 90.6 fL (80-94); Platelet Count 229 K/mm3 (150-450); RBC Distribution Width CV 12.9 % (11.6-14.6); RBC Distribution Width SD 42.8 fl (35.1-43.9); Red Blood Count 4.49 M/mm3 (4.6-6.2); White Blood Count 4.7 K/mm3 (4.4-11.0)
[2022-07-03 12:33] LABS: BNP,B-Type NATRIURETIC PEPTIDE 31.6 pg/mL (0-100)
[2022-07-03 12:44] LABS: AST(SGOT) 28 U/L (15-37); Alanine Aminotransfer ALT/SGPT 29 U/L (16-61); Albumin, Serum 3.5 g/dL (3.2-5.0); Alkaline Phosphatase 85 U/L (45-117); Anion Gap 5 (5-15); BUN 18 mg/dL (7-18); BUN/Creat Ratio 24.4 RATIO (10-20); Calcium,Total 8.9 mg/dL (8.5-10.1); Chloride 103 mmol/L (98-107); Creatinine, Serum 0.74 mg/dL (0.70-1.30); EST Glomerular Filtration Rate 122 mL/min (>60); Est Glom Filt Rate - Afr Amer 147 mL/min (>60); Globulin 3.6 g/dL (2.2-4.2); Glucose 75 mg/dL (74-106); Potassium 3.9 mmol/L (3.5-5.1); Protein, Total 7.1 g/dL (6.4-8.2); Sodium Level 138 mmol/L (136-145)
== END | disposition home or self-care (01) ==
LOC: LAB 11:39
DX: R60.0 Localized edema (principal)
CPT/HCPCS: 36415; 80053; 83880; 85027

== ENCOUNTER 2022-07-06 23:31 | Emergency (ER) | payer MEDICAID, SELFPAY ==
[2022-07-06 23:31] VITALS: BP 162/90; PULSE 93; RESP 18; TEMP 36.9; O2SAT 96; BMI 27.8
--- NOTE | 2022-07-06 23:59 | EX.ED.DYSGE1 ---
HPI History of Present Illness Chief Complaint: Fatigue Narrative Narrative: Patient presents with numbness and tingling and feet and legs as well as lower extremity edema and the lower legs. The numbness and tingling have been going on for about a month but he has had lower extremity edema for about 7 months. This is bilateral. No fevers or chills. No shortness of breath. No cough or congestion. No abdominal pain. He has no issue with urination. [facility] Medical History B12 deficiency anemia Chronic back pain Hepatitis B Hepatitis C Opioid abuse Polysubstance abuse Rectal bleeding recurrent MRSA skin infections Tobacco abuse Home Medications cholecalciferol (vitamin D3) 50 mcg (2,000 unit) capsule 150 mcg PO DAILY supplement 11/26/20 [History Last Taken 11/25/20 08:00] multivit with minerals-folic acid-lycopene 0.4 mg-600 mcg tablet 1 tablet PO DAILY supplement 11/26/20 [History Last Taken 11/25/20 08:00] zinc 50 mg tablet 100 mg PO DAILY supplement 11/26/20 [History Last Taken 11/25/20 08:00] entecavir 1 mg tablet 1 mg PO DAILY 12/14/21 [History Last Taken Unknown] magnesium 1 tab PO.IVFORM BID 12/14/21 [History Last Taken Unknown] tamsulosin 0.4 mg capsule (Flomax) 0.4 mg PO DAILY 10 days #10 caps 02/14/22 [Rx Last Taken Unknown] ascorbic acid (vitamin C) 500 mg tablet 500 mg PO DAILY 03/01/22 [History Last Taken Unknown] cyanocobalamin (vitamin B-12) 500 mcg tablet (Vitamin B-12) 500 mcg PO DAILY 03/01/22 [History Last Taken Unknown] potassium 99 mg tablet 99 mg PO DAILY 07/06/22 [History Last Taken Unknown] Allergy/AdvReac Type Severity Reaction Status Date / Time acetaminophen [From Vicodin] AdvReac Upset Verified 07/06/22 23:33 Stomach hydrocodone bitartrate AdvReac Upset Verified 07/06/22 23:33 [From Vicodin] Stomach meloxicam [From Mobic] AdvReac Nausea Verified 07/06/22 23:33 Family History Other Addiction Cancer Diabetes Hypertension Surgical History History of eye surgery History of hernia repair Hx of hernia repair Social History household members: spouse current occupational status: employed 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 Smoking Status: Current every day smoker tobacco type: cigarettes alcohol intake: never substance use type: heroin, IV drugs, methamphetamine and other details: IV fentanyl what type of physical activity do you participate in: none do you feel safe at home: Yes ROS ROS ED ROS Narrative Past medical history: Reviewed Medications: Reviewed Social history: Noncontributory Review of systems: All systems negative except as indicated General: No fever Eyes: No visual changes ENT: No upper airway congestion, normal voice Neck: No neck pain Cardiovascular: No chest pain Respiratory: No shortness of breath or cough Gastrointestinal: No abdominal pain, nausea vomiting or diarrhea Genitourinary: No dysuria Musculoskeletal: Paresthesias pain in both hands and feet, as well as lower extremity edema Skin: No rash Neurological: No memory loss, confusion or any focal weakness Psych: No recent behavioral changes Hematologic: No easy bleeding or easy bruising EXAM Physical Exam Narrative Exam Narrative: Physical exam General: Patient appears relatively comfortable as I walk into the room. Head: Normocephalic, Atraumatic Eyes: Conjunctiva not pale ENT: Moist mucous membranes Neck: Supple, Nontender, No lymphadenopathy Cardiovascular: Regular rate, Regular rhythm Respiratory: No distress, CTA bilaterally Abdomen: Soft, Nontender, Nondistended Back: Nontender, Normal Inspection. Negative for: CVA tenderness Extremities: Nontender, normal strength normal sensation in fingers and toes as well as the hands and feet. He does have bilateral lower extremity edema, no signs of cellulitis. Skin: Normal color, No rash Neurological: Alert, Normal Strength, Normal Sensation Psychological: Pleasant, slightly anxious. Const Vital Signs: 07/06/22 23:31 07/06/22 23:41 Temperature 98.4 F Temperature Source Temporal Pulse Rate 93 Respiratory Rate 18 Respiratory Effort Normal Respiratory Pattern Normal Blood Pressure 162/90 H Blood Pressure Mean 114 Pulse Ox 96 Oxygen Delivery Method Room Air MDM MDM MDM Narrative Medical decision making narrative: Patient has a normal work-up, he has multiple other chronic issues like vitamin deficiencies, he can follow-up with his PCP, at this time I do not see any other signs or symptoms for his bilateral hand and feet paresthesias. Lab Data Labs: Laboratory Results - last 24 hr 07/07/22 07/07/22 00:07 00:07 WBC 4.7 RBC 4.21 L Hgb 12.5 L Hct 38.0 L MCV 90.3 MCH 29.7 MCHC 32.9 RDW Std Deviation 41.9 RDW Coeff of Cullen 12.7 Plt Count 201 MPV 8.8 Immature Gran % (Auto) 0.200 Neut % (Auto) 48.9 Lymph % (Auto) 35.2 [place] % (Auto) 10.0 Eos % (Auto) 4.9 Baso % (Auto) 0.8 Absolute Neuts (auto) 2.3 Absolute Lymphs (auto) 1.66 Nucleated RBC % 0 Sodium 138 Potassium 4.2 Chloride 102 Carbon Dioxide 30.0 Anion Gap 6 BUN 17 Creatinine 0.85 Estim Creat Clear Calc 120.46 Est GFR (MDRD) Af Amer 126 Est GFR (MDRD) Non-Af 104 BUN/Creatinine Ratio 20.1 H Glucose 158 H Calcium 8.9 Total Bilirubin 0.30 AST 28 ALT 30 Alkaline Phosphatase 84 Total Protein 6.7 Albumin 3.4 Globulin 3.3 Albumin/Globulin Ratio 1.0 Discharge Plan Triage Chief Complaint: Fatigue ED Provider: Justin Encarnacion Dx/Rx/DC Orders Clinical Impression: Complaint of paresthesia, Edema Instructions: ED Weakness (Uncertain Cause) Prescriptions: No Action cyanocobalamin (vitamin B-12) [Vitamin B-12] 500 mcg tablet 500 mcg PO DAILY ascorbic acid (vitamin C) 500 mg tablet 500 mg PO DAILY zinc 50 MG tablet 100 mg PO DAILY multivit with [id number] 1 EACH tablet 1 tablet PO DAILY cholecalciferol (vitamin D3) 50 MCG capsule 150 mcg PO DAILY entecavir 1 mg tablet 1 mg PO DAILY magnesium 1 tab PO.IVFORM BID tamsulosin [Flomax] 0.4 mg capsule 0.4 mg PO DAILY 10 Days Qty: 10 0RF potassium 99 mg Tablet 99 mg PO DAILY Primary Care Provider: Pat Altman [facility]Non-Staff[facility] - 3-5 Days Disposition Disposition: Home, Self Care
[2022-07-07 00:15] LABS: Absolute Lymphocyte Count 1.66 X10^3/uL (0.83-4.51); Absolute Neutrophil Count 2.3 X10^3/uL (2.0-7.7); Basophil# 0.04 X10^3/uL; Basophil% 0.8 % (0-1); Eosinophil# 0.23 X10^3/uL; Eosinophils% 4.9 % (0-5); Hemoglobin 12.5 g/dL (13.0-16.5); Lymphocyte # 1.66 X10^3/ul (0.83-4.51); Lymphocyte % 35.2 % (19-41); Mean Corp Hgb Conc 32.9 g/dL (32-36); Mean Corpuscular Hgb 29.7 pg (27.0-32.0); Mean Corpuscular Volume 90.3 fL (80-94); Mean Platelet Vol. 8.8 fl (6.2-12.0); Monocyte# 0.47 X10^3/uL; NRBC Flagged by Analyzer 0 % (0-5); Neutrophil % 48.9 % (47-70); Platelet Count 201 K/mm3 (150-450); RBC Distribution Width CV 12.7 % (11.6-14.6); RBC Distribution Width SD 41.9 fl (35.1-43.9); Red Blood Count 4.21 M/mm3 (4.6-6.2); White Blood Count 4.7 K/mm3 (4.4-11.0)
[2022-07-07 00:27] LABS: AST(SGOT) 28 U/L (15-37); Alanine Aminotransfer ALT/SGPT 30 U/L (16-61); Albumin, Serum 3.4 g/dL (3.2-5.0); Alkaline Phosphatase 84 U/L (45-117); Anion Gap 6 (5-15); BUN 17 mg/dL (7-18); BUN/Creat Ratio 20.1 RATIO (10-20); Calcium,Total 8.9 mg/dL (8.5-10.1); Chloride 102 mmol/L (98-107); Creatinine, Serum 0.85 mg/dL (0.70-1.30); EST Glomerular Filtration Rate 104 mL/min (>60); Est Glom Filt Rate - Afr Amer 126 mL/min (>60); Estimated Creatinine Clearance 120.46 ml/min; Globulin 3.3 g/dL (2.2-4.2); Glucose 158 mg/dL (74-106); Potassium 4.2 mmol/L (3.5-5.1); Protein, Total 6.7 g/dL (6.4-8.2); Sodium Level 138 mmol/L (136-145)
== END 2022-07-07 00:50 | disposition home or self-care (01) ==
PROVIDERS: Emergency Provider Emergency Medicine; PCP Nurse Practitioner Adult Health; Visit Provider Emergency Medicine
DX: R20.2 Paresthesia of skin (principal); R60.9 Edema, unspecified; F17.210 Nicotine dependence, cigarettes, uncomplicated
CPT/HCPCS: 80053; 85025; 99282; A4216

== ENCOUNTER → 2022-07-12 | Outpatient (CLI) | payer MEDICAID, SELFPAY ==
--- NOTE | 2022-07-12 08:53 | BI_ITS ---
MAMMOGRAPHY - BILATERAL DIAGNOSTIC REASON FOR EXAM: Male, 47 years old. Tender right retroareolar breast lump. PERTINENT HISTORY: Non-contributory. TECHNIQUE: Digital bilateral breast bo (3D mammographic acquisition) in the CC and MLO projections. 2-D mediolateral oblique (MLO) and craniocaudad (CC) views of both breasts were obtained. CAD: Full Field Digital Mammography with Computer Added Detection was performed. COMPARISON: None. Baseline examination. FINDINGS: Breast Composition: The breasts are almost entirely fatty. 9.5 mm right retroareolar breast density. Correlation with ultrasound is recommended. No other significant abnormalities are identified. BI/DIAG MAMM W/CAD, BILAT IMPRESSION: 9.5 mm right retroareolar breast density. Correlation with ultrasound is recommended. ASSESSMENT CATEGORY: BIRADS Category 0: Incomplete. Need additional imaging evaluation. A letter regarding these results will be sent to the patient by the facility within 30 days. Approximately 10% of breast cancers are not detected by mammography. A normal mammogram should not delay biopsy of a clinically suspicious abnormality. Electronically Signed: Eugene Salomon MD at 9:56 EST ,
--- NOTE | 2022-07-12 08:54 | US_ITS ---
STUDY: ULTRASOUND BREAST - RIGHT REASON FOR EXAM: Male, 47 years old. Palpable lump in the right breast. TECHNIQUE: Axial and longitudinal images of the RIGHT breast were performed with a high resolution ultrasound transducer. # OF IMAGES: 15 COMPARISON: Comparison is made with prior mammogram done earlier in the day. FINDINGS: RIGHT Breast: The retroareolar region of the right breast was examined with ultrasound. No sonographic abnormality is seen. US/Breast Limited Unilateral IMPRESSION: No sonographic abnormality is seen. ASSESSMENT CATEGORY: BIRADS Category 1: Negative. A letter regarding these results will be sent to the patient by the facility within 30 days. Electronically Signed: Eugene Salomon MD at 10:03 EST ,
== END | disposition home or self-care (01) ==
LOC: OPBI 08:52
PROVIDERS: PCP Nurse Practitioner Adult Health; Visit Provider Nurse Practitioner Family
DX: N64.4 Mastodynia (principal); R60.0 Localized edema
CPT/HCPCS: 77062; 76642; 77066; G0279

== ENCOUNTER → 2022-07-13 | Outpatient (CLI) | payer MEDICAID, SELFPAY | END | disposition home or self-care (01) | LOC: RAD 16:06 | PROVIDERS: PCP Nurse Practitioner Adult Health; Referring Provider Nurse Practitioner Family; Visit Provider Nurse Practitioner Family | DX: M54.2 Cervicalgia (principal) ==

== ENCOUNTER 2022-09-05 01:07 | Emergency (ER) | payer MEDICAID, SELFPAY ==
[2022-09-05 01:09] VITALS: BP 155/88; PULSE 88; RESP 18; TEMP 36.8; O2SAT 97; BMI 28.4
--- NOTE | 2022-09-05 01:43 | EKG12_ITS ---
Test Reason : DYSRHYTHMIA Blood Pressure : / mmHG Vent. Rate : 076 BPM Atrial Rate : 076 BPM P-R Int : 150 ms QRS Dur : 104 ms QT Int : 392 ms P-R-T Axes : 073 074 039 degrees QTc Int : 441 ms Normal sinus rhythm Normal ECG Confirmed by KENAN XAVIER, REYES ([id number]), editor & co founder ANDRAE RIVERA ([id number]) on 09/06/2022 10:45:22 AM Referred By: ABIGAIL Confirmed By:REYES GRAYSON MD
--- NOTE | 2022-09-05 01:43 | RAD_ITS ---
STUDY: X-RAY CHEST REASON FOR EXAM: Male, 47 years old. chest pain TECHNIQUE: PA and lateral views of the chest. COMPARISON: April 21, 2022. FINDINGS: No focal infiltrates or effusions. No pneumothorax. Normal size heart. Normal mediastinum and mabel. Normal visualized pulmonary arteries. Normal visualized aortic arch and descending thoracic aorta. Normal visualized thoracic spine. Normal visualized ribs, clavicles, and shoulders. There is no demonstrated abnormality of the visualized soft tissue structures of the upper abdomen. RAD/Chest PA and Lateral IMPRESSION: No acute cardiopulmonary disease. Electronically Signed: Russel Pierre MD at 2:17 EST Reading Location ID and State: [id number] / , Service support ,
--- NOTE | 2022-09-05 01:44 | EX.ED.DYSGE1 ---
HPI History of Present Illness Chief Complaint: Edema Informant: patient Onset/Context/Timing Onset: Today ((this past day)) Context: Gradual Onset Timing: Continuous Quality: swelling Location: everywhere - BLE, BUE, face Current Severity: Moderate Maximum Severity: Moderate Worsened by: unk Relieved by: nothing Associated Symptoms Associated Symptoms: chest tightness, a little sob Narrative Narrative: Patient presents because he feels like he is swelling everywhere, making it difficult for him to walk although he walked into triage into the room without difficulty. He has a history of hepatitis B. He was diagnosed with that may be 1 or 2 years ago. He sees an infectious disease specialist for this that is not local to here in this area. He denies any pruritus or confusion or fevers. No abdominal pain. Normal urination. No recent rectal bleeding or melena. No nausea or vomiting. States as a result of the swelling, his fingers feel tight and stiff, he has a history of rheumatoid arthritis as well, he states. States he is also been having the chest tightness most of this past day, more than 10 hours. No worse when he exerts himself, nonpleuritic, substernal nonlateralizing. No radiation. Denies any calf pain or history of DVT or PE. [facility] Medical History B12 deficiency anemia Chronic back pain Cirrhosis of liver Hepatitis B Hepatitis C Opioid abuse Polysubstance abuse Rectal bleeding recurrent MRSA skin infections Tobacco abuse Home Medications cholecalciferol (vitamin D3) 50 mcg (2,000 unit) capsule 150 mcg PO DAILY supplement 11/26/20 [History Last Taken 11/25/20 08:00] multivit with minerals-folic acid-lycopene 0.4 mg-600 mcg tablet 1 tablet PO DAILY supplement 11/26/20 [History Last Taken 11/25/20 08:00] zinc 50 mg tablet 100 mg PO DAILY supplement 11/26/20 [History Last Taken 11/25/20 08:00] entecavir 1 mg tablet 1 mg PO DAILY 12/14/21 [History Last Taken Unknown] magnesium 1 tab PO.IVFORM BID 12/14/21 [History Last Taken Unknown] tamsulosin 0.4 mg capsule (Flomax) 0.4 mg PO DAILY 10 days #10 caps 02/14/22 [Rx Last Taken Unknown] ascorbic acid (vitamin C) 500 mg tablet 500 mg PO DAILY 03/01/22 [History Last Taken Unknown] cyanocobalamin (vitamin B-12) 500 mcg tablet (Vitamin B-12) 500 mcg PO DAILY 03/01/22 [History Last Taken Unknown] potassium 99 mg tablet 99 mg PO DAILY 07/06/22 [History Last Taken Unknown] furosemide 40 mg tablet 40 mg PO DAILY #3 tabs 09/05/22 [Rx Last Taken Unknown] Allergy/AdvReac Type Severity Reaction Status Date / Time acetaminophen [From Vicodin] AdvReac Upset Verified 09/05/22 01:12 Stomach hydrocodone bitartrate AdvReac Upset Verified 09/05/22 01:12 [From Vicodin] Stomach meloxicam [From Mobic] AdvReac Nausea Verified 09/05/22 01:12 Family History Other Addiction Cancer Diabetes Hypertension Surgical History History of eye surgery History of hernia repair Hx of hernia repair Social History household members: spouse current occupational status: employed 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 Smoking Status: Current every day smoker tobacco type: cigarettes alcohol intake: never substance use type: heroin, IV drugs, methamphetamine and other details: IV fentanyl what type of physical activity do you participate in: none do you feel safe at home: Yes ROS ROS ED Constitutional Constitutional ED: Denies chills or fever(s) Eyes Eyes: Denies change in vision or diplopia ENT ENT ED: Denies rhinorrhea or sore throat Cardiovascular Cardiovascular: Reports as per HPI, chest pain, dyspnea, edema and leg edema; Denies palpitations, rapid heart rate or syncope Respiratory/Chest Respiratory/Chest: Reports dyspnea; Denies cough Gastrointestinal Gastrointestinal: Denies abdominal pain, diarrhea, melena, nausea or vomiting Genitourinary Genitourinary ED: Denies dysuria or hematuria Musculoskeletal Musculoskeletal: Denies back pain or neck pain Integumentary Denies abscess, jaundice or rash Neurologic Neurologic: Denies headache(s), paresthesias or weakness Psychiatric Psychiatric: Denies anxiety or suicidal thoughts EXAM Physical Exam Const Vital Signs: 09/05/22 01:09 09/05/22 01:12 Temperature 98.2 F Temperature Source Temporal Pulse Rate 88 Respiratory Rate 18 Respiratory Effort Normal Non-Labored Respiratory Pattern Normal Blood Pressure 155/88 H Blood Pressure Mean 110 Pulse Ox 97 Oxygen Delivery Method Room Air Positive well nourished and well developed General Appearance ED: well developed and NAD HEENT Reports moist mucous membranes normocephalic and atraumatic Eyes PERRL and EOMs intact bilaterally Eyes Narrative: Disconjugate gaze Neck full ROM, supple and no JVD Resp normal respiratory effort, no retractions and clear to auscultation bilaterally Effort and Inspection: able to speak in complete sentences Cardio regular rate, regular rhythm and no murmurs Rate: Negative for tachycardic GI non-tender and non-distended Auscultation: normoactive bowel sounds Palpation: soft Back/Spine no CVA tenderness General Back: other FROM Extremity normal to inspection General Extremety ED: Yes edema; Negative for pulses abnormal or tenderness General Extremity: edema bilateral upper extremity mild (Hands) and lower extremity Details: mild; Negative for pulses abnormal Neuro oriented x3, CN's II-XII intact bilaterally, no focal motor deficits, no sensory deficits noted and gait normal Sensorium / Orientation: awake and alert Motor Exam: strength 5/5 throughout Psych mental status grossly normal Skin no rashes or lesions noted and no wounds General Skin Exam: Negative for jaundice MDM MDM MDM Narrative Medical decision making narrative: Patient's blood counts are unremarkable, his liver enzymes and kidney function all appears normal except for a slightly low albumin, however he has been lower than this in the past, 3.1 today. His INR is normal, arguing against cirrhosis which he does not have to his knowledge. With regards to his chest discomfort, his EKG on my interpretation is completely normal, his troponin is negative after having discomfort all day, his BNP is normal at 70 ruling out acute decompensated congestive heart failure, and 2 view chest x-ray which I interpreted is normal. Radiology is in agreement. I reviewed that report. While waiting for this work-up to return, I gave him Lasix 40 mg IV and he had multiple trips to the toilet to urinate. He is feeling a little better, I do not think he needs to be admitted for anything here, unknown if this is related to his arthritis or his hypoalbuminemia, or third spacing due to something else but he is well-appearing, normal vital signs, not clinically septic, not in anaphylactic shock or having any other signs of an allergic reaction. He is wanting some more diuretic until he can follow-up with his infectious disease specialist, I am happy to give him 2 more days worth of Lasix. Lab Data Attestation: I reviewed the patient's lab results. Labs: Laboratory Results - last 24 hr 09/05/22 09/05/22 09/05/22 01:50 01:50 01:50 WBC 4.4 RBC 4.27 L Hgb 12.4 L Hct 38.6 L MCV 90.4 MCH 29.0 MCHC 32.1 RDW Std Deviation 44.0 H RDW Coeff of Cullen 13.3 Plt Count 199 MPV 9.4 Immature Gran % (Auto) 0.200 Neut % (Auto) 50.6 Lymph % (Auto) 29.9 [place] % (Auto) 10.7 H Eos % (Auto) 7.5 H Baso % (Auto) 1.1 H Absolute Neuts (auto) 2.2 Absolute Lymphs (auto) 1.31 Nucleated RBC % 0 PT INR Sodium 144 Potassium 3.8 Chloride 108 H Carbon Dioxide 32.0 Anion Gap 4 L BUN 10 Creatinine 0.78 Estim Creat Clear Calc 131.27 Est GFR (MDRD) Af Amer 139 Est GFR (MDRD) Non-Af 115 BUN/Creatinine Ratio 12.9 Glucose 156 H Calcium 8.7 Total Bilirubin 0.40 AST 35 ALT 32 Alkaline Phosphatase 73 Troponin I High Sens 6 B-Natriuretic Peptide 69.5 Total Protein 6.4 Albumin 3.1 L Globulin 3.3 Albumin/Globulin Ratio 0.9 Urine Color Urine Clarity Urine pH Ur Specific [place] Urine Protein Urine Glucose (UA) Urine Ketones Urine Occult Blood Urine Nitrite Urine Bilirubin Urine Urobilinogen Ur Leukocyte Esterase Urine RBC Urine WBC Ur Squamous Epith Cells Urine Bacteria Urine Mucus 09/05/22 09/05/22 01:50 02:14 WBC RBC Hgb Hct MCV MCH MCHC RDW Std Deviation RDW Coeff of Cullen Plt Count MPV Immature Gran % (Auto) Neut % (Auto) Lymph % (Auto) [place] % (Auto) Eos % (Auto) Baso % (Auto) Absolute Neuts (auto) Absolute Lymphs (auto) Nucleated RBC % PT 14.0 INR 1.1 Sodium Potassium Chloride Carbon Dioxide Anion Gap BUN Creatinine Estim Creat Clear Calc Est GFR (MDRD) Af Amer Est GFR (MDRD) Non-Af BUN/Creatinine Ratio Glucose Calcium Total Bilirubin AST ALT Alkaline Phosphatase Troponin I High Sens B-Natriuretic Peptide Total Protein Albumin Globulin Albumin/Globulin Ratio Urine Color Yellow Urine Clarity Clear Urine pH 6.5 Ur Specific [place] 1.015 Urine Protein 15 H Urine Glucose (UA) Normal Urine Ketones Negative Urine Occult Blood Negative Urine Nitrite Positive H Urine Bilirubin Negative Urine Urobilinogen Normal Ur Leukocyte Esterase 100 H Urine RBC 0 SEEN Urine WBC 0-5 SEEN Ur Squamous Epith Cells 0 SEEN Urine Bacteria 1+ Urine Mucus 0 SEEN Radiography Chest X-Ray - ED: 2 View, Read by ED Physician, No Acute Disease and No Infiltrates Diagnostic Testing: Clinical Impression(s) from Imaging Studies Chest X-Ray 09/05/22 01:43 IMPRESSION: No acute cardiopulmonary disease. Electronically Signed: Russel Pierre MD at 2:17 EST Reading Location ID and State: [id number] / , Service support , Rhythm Strip Rhythm Strip: Sinus Rhythm Rate: 75 Ectopy: None EKG Initial EKG: Attestation: I personally reviewed and interpreted this EKG as follows: Interpretation: Sinus Rhythm and No Acute Injury Pattern Comments: Normal EKG Discharge Plan Triage Chief Complaint: Edema ED Provider: Frederick Thomas Dx/Rx/DC Orders Clinical Impression: Edema, Hypoalbuminemia, Chronic hepatitis B Instructions: ED Peripheral Edema, Bilateral Prescriptions: New furosemide 40 mg tablet 40 mg PO DAILY Qty: 3 0RF No Action cyanocobalamin (vitamin B-12) [Vitamin B-12] 500 mcg tablet 500 mcg PO DAILY ascorbic acid (vitamin C) 500 mg tablet 500 mg PO DAILY zinc 50 MG tablet 100 mg PO DAILY multivit with [id number] 1 EACH tablet 1 tablet PO DAILY cholecalciferol (vitamin D3) 50 MCG capsule 150 mcg PO DAILY entecavir 1 mg tablet 1 mg PO DAILY magnesium 1 tab PO.IVFORM BID tamsulosin [Flomax] 0.4 mg capsule 0.4 mg PO DAILY 10 Days Qty: 10 0RF potassium 99 mg Tablet 99 mg PO DAILY Primary Care Provider: Pat Altman Referrals: Pat Altman, EMBROIDERY SPECIALIST-C [Primary Care Provider] - 3-5 Days (or your ID specialist) Disposition Disposition: Home, Self Care
[2022-09-05] MEDS: Furosemide 40 MG/4 ML Vial IV (01:52)
[2022-09-05 02:07] LABS: Absolute Lymphocyte Count 1.31 X10^3/uL (0.83-4.51); Absolute Neutrophil Count 2.2 X10^3/uL (2.0-7.7); Basophil# 0.05 X10^3/uL; Basophil% 1.1 % (0-1); Eosinophil# 0.33 X10^3/uL; Eosinophils% 7.5 % (0-5); Hematocrit 38.6 % (40-54); Hemoglobin 12.4 g/dL (13.0-16.5); Lymphocyte # 1.31 X10^3/ul (0.83-4.51); Lymphocyte % 29.9 % (19-41); Mean Corp Hgb Conc 32.1 g/dL (32-36); Mean Corpuscular Volume 90.4 fL (80-94); Mean Platelet Vol. 9.4 fl (6.2-12.0); Monocyte# 0.47 X10^3/uL; Monocyte% 10.7 % (0-10); NRBC Flagged by Analyzer 0 % (0-5); Neutrophil # 2.21 X10^3/uL (2.7-7.7); Neutrophil % 50.6 % (47-70); Platelet Count 199 K/mm3 (150-450); RBC Distribution Width CV 13.3 % (11.6-14.6); Red Blood Count 4.27 M/mm3 (4.6-6.2); White Blood Count 4.4 K/mm3 (4.4-11.0)
[2022-09-05 02:25] LABS: Color, Urine Yellow (Yellow); Glucose, Dipstick Normal (Normal); Ketone-Dipstick Negative (Negative); Leukocyte Esterase-Dipstick 100 /ul (Negative); Mucous, Urine 0 SEEN /hpf (<or=2+); Nitrite-Dipstick Positive (Negative); Occult Blood-Urine Negative /ul (Negative); Protein-Dipstick 15 mg/dl (Negative); Red Blood Cells-Urine 0 SEEN /hpf (0-5); Specific Gravity, Urine 1.015 (1.002-1.030); Squamous Epithelial Cells - UA 0 SEEN /hpf (0-5); Urine Bilirubin Dipstick Negative (Negative); Urine Clarity Clear (Clear); Urine Urobilinogen Normal (Normal); Urine pH 6.5 (5.0 - 8.0)
[2022-09-05 02:28] LABS: ALB/GLOB Ratio 0.9 RATIO (0.9-2.4); AST(SGOT) 35 U/L (15-37); Alanine Aminotransfer ALT/SGPT 32 U/L (16-61); Albumin, Serum 3.1 g/dL (3.2-5.0); Alkaline Phosphatase 73 U/L (45-117); Anion Gap 4 (5-15); BUN 10 mg/dL (7-18); BUN/Creat Ratio 12.9 RATIO (10-20); Calcium,Total 8.7 mg/dL (8.5-10.1); Chloride 108 mmol/L (98-107); Creatinine, Serum 0.78 mg/dL (0.70-1.30); EST Glomerular Filtration Rate 115 mL/min (>60); Est Glom Filt Rate - Afr Amer 139 mL/min (>60); Estimated Creatinine Clearance 131.27 ml/min; Globulin 3.3 g/dL (2.2-4.2); Glucose 156 mg/dL (74-106); International Normalized Ratio 1.1; Potassium 3.8 mmol/L (3.5-5.1); Protein, Total 6.4 g/dL (6.4-8.2); Sodium Level 144 mmol/L (136-145); Troponin-I HS 6 pg/mL (3.0-78.0)
[2022-09-05 02:35] LABS: BNP,B-Type NATRIURETIC PEPTIDE 69.5 pg/mL (0-100)
[2022-09-05 02:35] LABS: Bacteria 1+ /hpf (None Seen); White Blood Cells 0-5 SEEN /hpf (0-5)
== END 2022-09-05 02:53 | disposition home or self-care (01) ==
PROVIDERS: Emergency Provider Emergency Medicine; PCP Nurse Practitioner Adult Health; Visit Provider Emergency Medicine
DX: R60.9 Edema, unspecified (principal); B18.1 Chronic viral hepatitis B without delta-agent; E88.09 Other disorders of plasma-protein metabolism, not elsewhere classified; R06.02 Shortness of breath
CPT/HCPCS: 71046; 80053; 81001; 83880; 84484; 85025; 85610; 93005; 96374; 99282; A4216; J1940

== ENCOUNTER → 2022-09-14 | Outpatient (CLI) | payer MEDICAID, SELFPAY ==
--- NOTE | 2022-09-14 08:56 | US_ITS ---
STUDY: ABDOMINAL ULTRASOUND - RIGHT UPPER QUADRANT REASON FOR VISIT: Male, 47 years old EDEMA TECHNIQUE: Ultrasound evaluation of the right upper quadrant was performed with real-time and static fernandez-scale imaging. TECHNICAL QUALITY: Adequate. COMPARISON: Comparison is made with prior study dated 07/01/2021. FINDINGS: Liver: The liver measures 14.2 cm. There is increased echogenicity consistent with fatty infiltration. The bile ducts are within normal limits. There is hepatic color flow. The direction of portal flow is hepatopetal. There is no demonstrated mass lesion. Gallbladder: Normal distended gallbladder. The gallbladder wall measures 2.8 mm. There is a negative sonographic Uriarte''s sign. There is no pericholecystic fluid. There are no gallstones. Common Bile Duct (C.B.D.): The common bile duct measures 3.4 mm. Pancreas: There is nonvisualization of the pancreas due to overlying bowel gas. Right Kidney: Normal size of the right kidney. The right kidney measures 12.3 cm x 5.6 cm by 6.8 cm. Normal renal cortex. The right cortex measures 2.5 cm. There is no demonstrated renal mass or cyst. There is no right hydronephrosis. US/Liver IMPRESSION: Fatty infiltration of the liver. Electronically Signed: Eugene Salomon MD at 11:09 [facility] ,
== END | disposition home or self-care (01) ==
LOC: US 08:55
PROVIDERS: PCP Nurse Practitioner Adult Health; Referring Provider Nurse Practitioner Family; Visit Provider Nurse Practitioner Family
DX: K76.0 Fatty (change of) liver, not elsewhere classified (principal); R10.11 Right upper quadrant pain; R60.0 Localized edema
CPT/HCPCS: 76705

== ENCOUNTER → 2022-09-28 | Outpatient (CLI) | payer MEDICAID, SELFPAY ==
[2022-09-28 14:57] LABS: Hematocrit 37.7 % (40-54); Hemoglobin 12.1 g/dL (13.0-16.5); Mean Corp Hgb Conc 32.1 g/dL (32-36); Mean Corpuscular Hgb 29.7 pg (27.0-32.0); Mean Corpuscular Volume 92.4 fL (80-94); Mean Platelet Vol. 9.9 fl (6.2-12.0); Platelet Count 183 K/mm3 (150-450); RBC Distribution Width CV 13.4 % (11.6-14.6); RBC Distribution Width SD 45.7 fl (35.1-43.9); Red Blood Count 4.08 M/mm3 (4.6-6.2); White Blood Count 4.9 K/mm3 (4.4-11.0)
[2022-09-28 15:28] LABS: BNP,B-Type NATRIURETIC PEPTIDE 103.2 pg/mL (0-100)
[2022-09-28 15:34] LABS: ALB/GLOB Ratio 0.8 RATIO (0.9-2.4); AST(SGOT) 13 U/L (15-37); Alanine Aminotransfer ALT/SGPT 19 U/L (16-61); Albumin, Serum 3.1 g/dL (3.2-5.0); Alkaline Phosphatase 81 U/L (45-117); Anion Gap 6 (5-15); BUN 15 mg/dL (7-18); BUN/Creat Ratio 20.3 RATIO (10-20); Calcium,Total 9.2 mg/dL (8.5-10.1); Chloride 102 mmol/L (98-107); Creatinine, Serum 0.74 mg/dL (0.70-1.30); EST Glomerular Filtration Rate 122 mL/min (>60); Est Glom Filt Rate - Afr Amer 147 mL/min (>60); Globulin 3.7 g/dL (2.2-4.2); Glucose 102 mg/dL (74-106); Potassium 4.2 mmol/L (3.5-5.1); Protein, Total 6.8 g/dL (6.4-8.2); Sodium Level 140 mmol/L (136-145)
== END | disposition home or self-care (01) ==
LOC: LAB 13:57
PROVIDERS: PCP Student in an Organized Health Care Education/Training Program; Visit Provider Student in an Organized Health Care Education/Training Program
DX: R60.0 Localized edema (principal); F17.200 Nicotine dependence, unspecified, uncomplicated; K62.5 Hemorrhage of anus and rectum; R07.89 Other chest pain; Z86.19 Personal history of other infectious and parasitic diseases
CPT/HCPCS: 36415; 80053; 83880; 85027

== ENCOUNTER → 2022-10-13 | Outpatient (CLI) | payer MEDICAID, SELFPAY ==
[2022-10-13 11:23] LABS: Absolute Lymphocyte Count 0.65 X10^3/uL (0.83-4.51); Absolute Neutrophil Count 5.2 X10^3/uL (2.0-7.7); Basophil# 0.05 X10^3/uL; Basophil% 0.8 % (0-1); Eosinophil# 0.16 X10^3/uL; Eosinophils% 2.5 % (0-5); Hematocrit 41.5 % (40-54); Hemoglobin 13.1 g/dL (13.0-16.5); Lymphocyte # 0.65 X10^3/ul (0.83-4.51); Mean Corp Hgb Conc 31.6 g/dL (32-36); Mean Corpuscular Hgb 29.2 pg (27.0-32.0); Mean Corpuscular Volume 92.6 fL (80-94); Mean Platelet Vol. 8.8 fl (6.2-12.0); Monocyte# 0.44 X10^3/uL; Monocyte% 6.8 % (0-10); NRBC Flagged by Analyzer 0 % (0-5); Neutrophil # 5.18 X10^3/uL (2.7-7.7); Neutrophil % 79.6 % (47-70); Platelet Count 207 K/mm3 (150-450); RBC Distribution Width CV 13.7 % (11.6-14.6); Red Blood Count 4.48 M/mm3 (4.6-6.2); White Blood Count 6.5 K/mm3 (4.4-11.0)
[2022-10-13 11:29] LABS: International Normalized Ratio 1.1; Prothrombin Time (Protime)PT. 14.3 SECONDS (11.7-14.9)
[2022-10-13 11:43] LABS: Erythrocyte Sedimentation Rate 9 mm/hr (0-20)
[2022-10-13 11:49] LABS: Hemoglobin A1c 5.9 % (3.8-5.6)
[2022-10-13 12:07] LABS: ALB/GLOB Ratio 0.9 RATIO (0.9-2.4); AST(SGOT) 20 U/L (15-37); Alanine Aminotransfer ALT/SGPT 21 U/L (16-61); Albumin, Serum 3.2 g/dL (3.2-5.0); Alkaline Phosphatase 82 U/L (45-117); Anion Gap 5 (5-15); BUN 15 mg/dL (7-18); CRP 3.24 mg/L (0.0-3.0); Calcium,Total 8.9 mg/dL (8.5-10.1); Chloride 105 mmol/L (98-107); Creatinine, Serum 0.79 mg/dL (0.70-1.30); EST Glomerular Filtration Rate 113 mL/min (>60); Est Glom Filt Rate - Afr Amer 136 mL/min (>60); Ferritin 37 ng/mL (26-388); Globulin 3.7 g/dL (2.2-4.2); Glucose 126 mg/dL (74-106); LDH 182 U/L (87-241); Potassium 4.3 mmol/L (3.5-5.1); Protein, Total 6.9 g/dL (6.4-8.2); Sodium Level 140 mmol/L (136-145)
[2022-10-13 13:40] LABS: HIV - WCH Non-Reactive (Nonreactive)
[2022-10-13 13:42] LABS: Hepatitis C Antibody Preliminary Reactive (Nonreactive)
[2022-10-14 13:07] LABS: Anti-Centromere B Ab <0.2 AI (0.0-0.9); Anti-Chromatin 0.2 AI (0.0-0.9); Anti-Jo <0.2 AI (0.0-0.9); Anti-Scleroderma-70 AB <0.2 AI (0.0-0.9); RNP Ab <0.2 AI (0.0-0.9); SJOGREN'S Anti-SS-A test < 0.2 AI (0.0-0.9); SJOGREN'S Anti-SS-B test < 0.2 AI (0.0-0.9); Smith Ab <0.2 AI (0.0-0.9)
[2022-10-14 22:14] LABS: Anti-Mitochondrial AB <20.0 Units (0.0-20.0); Anti-dsDNA Ab 5 IU/mL (0-9)
== END | disposition home or self-care (01) ==
PROVIDERS: PCP Student in an Organized Health Care Education/Training Program; Visit Provider Internal Medicine Gastroenterology
DX: B19.20 Unspecified viral hepatitis C without hepatic coma (principal); B19.10 Unspecified viral hepatitis B without hepatic coma
CPT/HCPCS: 36415; 80053; 80074; 82105; 82140; 82164; 82390; 82525; 82728; 83010; 83036; 83516; 83615; 85025; 85610; 85652; 86140; 86225; 86235; 86256; 86703; 86705; 86707; 86803; 87340; 87350; 87902

== ENCOUNTER → 2022-10-24 | Outpatient (CLI) | payer MEDICAID, SELFPAY ==
--- NOTE | 2022-10-24 08:00 | US_ITS ---
STUDY: ABDOMINAL ULTRASOUND - ELASTOGRAPHY REASON FOR VISIT: Male, 47 years old. Hepatitis. TECHNIQUE: Liver stiffness measurements were obtained on a [employer] RS 85 ultrasound machine using a CA 1-7 probe following the SRU guidelines. 3 measurements were obtained using a 2-D-SWE method. The IQR/M was 18% suggesting a quality data set. TECHNICAL QUALITY: Adequate. COMPARISON: Comparison is made with prior examination in 09/14/2022. FINDINGS: Liver: Fatty infiltration of the liver. Median liver stiffness measured 11 kPa. US/Elastography Parenchyma/Organ IMPRESSION: Liver stiffness measures 11 kPa compatible with F2-F3 (Mild to moderate liver fibrosis) Metavir score. Electronically Signed: Eugene Salomon MD at 11:21 EST ,
== END | disposition home or self-care (01) ==
LOC: US 07:59
PROVIDERS: PCP Student in an Organized Health Care Education/Training Program; Visit Provider Internal Medicine Gastroenterology
DX: B19.20 Unspecified viral hepatitis C without hepatic coma (principal); B19.10 Unspecified viral hepatitis B without hepatic coma
CPT/HCPCS: 76981

== ENCOUNTER → 2022-10-26 | Outpatient (CLI) | payer MEDICAID, SELFPAY ==
--- NOTE | 2022-10-26 | LIVB_PTH ---
PATIENT: APRIL NAYLOR LOC: CT U#:[id number] AGE/SX: 47/M ROOM: RE10/26/[address]: Dr. Lewis Angel DO : 1975 BED: DIS: 10/26/2022 SPEC #: [id number] RECD: 10/26/22 09:26 STATUS: VIK RERadha #: [id number] ERIC: 10/26/22 00:[address]: Lewis Angel DEPT: SURGICAL PATHOLOGY RECD BY: Fany Estrada ENTERED: 10/26/22 09:52 SP TYPE: LIVER BX OTHR DR: Dr. Cornelio Oakes DO Tissues: Liver, NOS Procedures: PAS with Diastase (control) Trichrome (control) Special Stain Group II PAS Stain (control) Surgery Specimen Level V Retic (control) Iron Stain (control) HEADER OPERATION: Liver biopsy PRE-OP DIAGNOSIS: Hep B, hep C TISSUE SUBMITTED: Liver 18-gauge x3 MICROSCOPIC DIAGNOSIS Liver, CT-guided core biopsy: Chronic hepatitis, grade II, stage III. See microscopic description and comment. SJ:elieser 10/27/2022 COMMENT Correlation with clinical, radiologic findings and appropriate follow up are necessary. Case has been reviewed in consultation with Dr. Smith who concurs with the above diagnosis. IDC:[email or web address] MICROSCOPIC DESCRIPTION Slides are reviewed. The specimen shows liver parenchymal tissue with focal distortion of normal lobular architecture without obvious cirrhosis. Hepatocytes show mild reactive changes. Focal dilatation of sinusoids is noted. Focal minimal lobular chronic inflammation is noted. Portal area shows mild to moderate chronic inflammatory cell infiltrate consisting predominantly of lymphocytes. Mild interface inflammation is also noted. Trichrome and reticulin stains show increased portal and periportal fibrosis and focal bridging fibrosis. Obvious cirrhosis is not seen. Iron stain shows absent iron. PAS and PASD does not show any abnormal accumulation of protein. All stains are performed with appropriate matched controls. GROSS DESCRIPTION Received is one container labeled with the patient's name and not further designated. The specimen consists of three elongated fragments of montoya soft tissue each measuring 2.0 cm in length and 0.1 cm in diameter. The specimen is totally submitted in one cassette. / SJ:elieser 10/26/2022 TC:3 CPT: 61139, 07818 x5
[2022-10-26 08:12] LABS: Platelet Count 230 K/mm3 (150-450)
[2022-10-26 08:29] VITALS: BP 121/75; PULSE 73; RESP 14; TEMP 36.7; O2SAT 93; BMI 28.5
[2022-10-26 08:45] VITALS: BP 121/75; RESP 8; O2SAT 88
[2022-10-26 08:50] LABS: International Normalized Ratio 1.2; Partial Thromboplast Time 31.4 Seconds (24.1-36.2); Prothrombin Time (Protime)PT. 14.5 SECONDS (11.7-14.9)
--- NOTE | 2022-10-26 09:00 | CT_ITS ---
PROCEDURE: CT DIRECTED CORE LIVER BIOPSY INDICATION: Male, 47 years old. Hepatitis B and hepatitis C. PHYSICIAN: Dr. Umm Hawthorne CONSENT: Written informed consent was obtained having explained the risks, benefits and alternatives in detail with the patient who accepted the risks and agreed to proceed. Laboratory review and clinical assessment was performed. RADIATION DOSAGE (If Supplied By Facility): CTDIvol = ( 20 ) mGy, DLP = ( 552.44 ) mGycm Individualized dose optimization techniques were used for this CT. TECHNIQUE: Using CT image guidance with image documentation, a suitable location in the left lobe of the liver was identified. Using an anterior approach, puncture of the liver was uneventful with an 18-gauge core needle system. 3, 18-gauge core samples were obtained, and submitted in formalin to the pathologist for further assessment. Followup CT scan revealed no distinct sequelae. CT/Biopsy/Inj or Needle Placement IMPRESSION: 1. CT directed core needle biopsy of the liver, using CT image guidance with image documentation as described. Electronically Signed: Eugene Salomon MD at 9:43 EST ,
[2022-10-26 09:10] VITALS: BP 121/75; BP 124/87; PULSE 82; RESP 10; O2SAT 98
[2022-10-26] MEDS: Lidocaine 2% (20 ml mdv) 20 ML Vial INFILT (09:10)
[2022-10-26 09:15] VITALS: BP 121/75; BP 124/87; PULSE 80; RESP 13; O2SAT 100
[2022-10-26 09:45] VITALS: BP 104/53; BP 121/75; PULSE 71; RESP 12; O2SAT 96
[2022-10-26 10:15] VITALS: BP 119/78; BP 121/75; PULSE 74; RESP 12; O2SAT 92
== END | disposition home or self-care (01) ==
PROVIDERS: PCP Student in an Organized Health Care Education/Training Program; Referring Provider Internal Medicine Gastroenterology; Visit Provider Internal Medicine Gastroenterology
DX: K73.8 Other chronic hepatitis, not elsewhere classified (principal)
CPT/HCPCS: 47000; 36415; 77012; 85049; 85610; 85730; 88307; 88313

== ENCOUNTER → 2022-11-01 | Outpatient (CLI) | payer MEDICAID, SELFPAY | END | disposition home or self-care (01) | PROVIDERS: PCP Student in an Organized Health Care Education/Training Program; Referring Provider Internal Medicine Gastroenterology; Visit Provider Internal Medicine Gastroenterology | DX: K73.9 Chronic hepatitis, unspecified (principal) ==

== ENCOUNTER → 2022-12-07 | Outpatient (CLI) | payer MEDICAID, SELFPAY ==
--- NOTE | 2022-12-07 07:06 | MRI_ITS ---
HISTORY: FACIAL NUMBNESS/VISION CHANGES LEFT. TECHNIQUE: Multiplanar and multisequence MR images of the brain were obtained without contrast. 349 images. COMPARISON: CT 03/12/2004. FINDINGS: BRAIN PARENCHYMA: Mild right inferior frontal encephalomalacia. Trace serpiginous enhancement in the left periventricular region, likely developmental venous anomaly. No enhancing mass in the brain parenchyma. No abnormal focus of restricted diffusion. No acute intracranial hemorrhage identified. CSF SPACES: Cerebral ventricles, cortical sulci, and other extra-axial CSF spaces within normal limits in size. No significant midline shift or other mass effect.No extra-axial fluid collection. VASCULAR SYSTEM: Major intracranial flow voids are maintained. PARANASAL SINUSES AND MASTOID AIR CELLS: Moderate mucosal thickening in the ethmoid air cells. ORBITS: Right lens resection. Prominence of the right optic nerve sheath CSF space, suggesting mild optic nerve atrophy. 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 MRI/Brain W/WO Contrast IMPRESSION: Mild right inferior frontal encephalomalacia. Mild right optic nerve atrophy. Ethmoid sinusitis. Probable small developmental venous anomaly in the left periventricular frontal lobe. No evidence for enhancing intracranial mass, acute infarct, or significant mass effect. Electronically Signed: Greta Green MD at 15:55 EDT ,
== END | disposition home or self-care (01) ==
LOC: MRI 07:00
PROVIDERS: PCP Student in an Organized Health Care Education/Training Program; Referring Provider Otolaryngology; Visit Provider Otolaryngology
DX: H53.9 Unspecified visual disturbance (principal); R20.0 Anesthesia of skin
CPT/HCPCS: 70553; A9575

== ENCOUNTER 2023-02-27 13:57 | Outpatient (REF) | payer SELFPAY ==
[2023-02-27 13:58] VITALS: BP 147/113; PULSE 97; RESP 20; TEMP 36.9; O2SAT 99; BMI 30.1
[2023-02-27 14:23] VITALS: PULSE 88
--- NOTE | 2023-02-27 14:28 | EKG12_ITS ---
Test Reason : PALPS Blood Pressure : / mmHG Vent. Rate : 089 BPM Atrial Rate : 089 BPM P-R Int : 154 ms QRS Dur : 096 ms QT Int : 354 ms P-R-T Axes : 014 057 028 degrees QTc Int : 430 ms Normal sinus rhythm Normal ECG Confirmed by EVE XAVIER, IRINEO ([id number]), city editor ANDRAE RIVERA ([id number]) on 02/28/2023 11:01:15 AM Referred By: TIANA/RADHA Confirmed By:IRINEO PRADO MD
--- NOTE | 2023-02-27 14:36 | EDS_ITS ---
HPI History of Present Illness Chief Complaint: Overdose Informant: patient Onset/Context/Timing Onset: Today and Hours Activity at onset: sudden Current Severity: Mild Maximum Severity: Mild Worsened By: Nothing Relieved By: Nothing Associated Symptoms: Positive for Lightheadedness Narrative Narrative: 47-year-old male history of polysubstance abuse. Squad was called due to an overdose he used IV fentanyl. They medically released the in as a police were arresting him for an outstanding warrant he claimed he was having palpitations and some chest discomfort. Denies any cardiac history. No history of DVT or PE. No recent travel or surgery. No leg pain or swelling. Prior Similar Symptoms: No Recent Illness/Hospitalization: No CVD Risk Factors: Positive for Smoking; Negative for Hypertension, Diabetes, Hypercholesterolemia or Family History 1' </=55 PE Risk Factors: Negative for Recent Travel/Surgery, Recent Immobilization, Prior DVT or PE, Cancer or OCP + Smoking + >/=35 TAD Risk Factors: Negative for Marfan's Syndrome [facility] Medical History B12 deficiency anemia Chronic back pain Cirrhosis of liver Opioid abuse Polysubstance abuse Rectal bleeding recurrent MRSA skin infections Tobacco abuse Home Medications cholecalciferol (vitamin D3) 50 mcg (2,000 unit) capsule 150 mcg PO DAILY supplement 11/26/20 [History Last Taken 11/25/20 08:00] multivit with minerals-folic acid-lycopene 0.4 mg-600 mcg tablet 1 tablet PO DAILY supplement 11/26/20 [History Last Taken 11/25/20 08:00] zinc 50 mg tablet 100 mg PO DAILY supplement 11/26/20 [History Last Taken 11/25/20 08:00] entecavir 1 mg tablet 1 mg PO DAILY 12/14/21 [History Last Taken Unknown] magnesium 1 tab PO.IVFORM BID 12/14/21 [History Last Taken Unknown] tamsulosin 0.4 mg capsule (Flomax) 0.4 mg PO DAILY 10 days #10 caps 02/14/22 [Rx Last Taken Unknown] ascorbic acid (vitamin C) 500 mg tablet 500 mg PO DAILY 03/01/22 [History Last Taken Unknown] cyanocobalamin (vitamin B-12) 500 mcg tablet (Vitamin B-12) 500 mcg PO DAILY 03/01/22 [History Last Taken Unknown] potassium 99 mg tablet 99 mg PO DAILY 11/10/22 [History Last Taken Unknown] Allergy/AdvReac Type Severity Reaction Status Date / Time acetaminophen [From Vicodin] AdvReac Upset Verified 02/27/23 14:01 Stomach hydrocodone bitartrate AdvReac Upset Verified 02/27/23 14:01 [From Vicodin] Stomach meloxicam [From Mobic] AdvReac Nausea Verified 02/27/23 14:01 Family History Other Addiction Cancer Diabetes Hypertension Surgical History History of eye surgery History of hernia repair Hx of hernia repair Social History household members: spouse current occupational status: employed 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 Review of Systems ROS Unobtainable: Denies due to encephalopathy Constitutional Constitutional ED: Denies chills or fever(s) Eyes Eyes: Reports none Cardiovascular Cardiovascular: Reports as per HPI and chest pain; Denies racing heartbeat Respiratory/Chest Respiratory/Chest: Denies cough or dyspnea Gastrointestinal Gastrointestinal: Denies abdominal pain Genitourinary Genitourinary ED: Denies dysuria Musculoskeletal Musculoskeletal: Denies arthralgias Integumentary Denies abscess Neurologic Neurologic: Denies headache(s) Psychiatric Psychiatric: Denies anxiety Endocrine Endocrinology: Denies cold intolerance Hematologic/Lymphatic Hematologic/Lymphatic: Denies easy bleeding or easy bruising Allergic/Immunologic Allergic/Immunologic ED: Denies mouth swelling or tongue swelling EXAM Physical Exam Narrative Exam Narrative: Middle-age male sitting upright in bed. He is handcuffed. Plates are present. Vital signs are stable his blood pressure is elevated 147 113. Heart rate is 90. H EENT exam unremarkable. Neck nontender. No JVD. Lungs clear to auscult ation bilaterally. Heart regular rate and rhythm rate about 90 no murmur. Chest were nontender. Abdomen soft nontender. Moving all 4 extremities. He is handcuffed. Calves are nontender without edema or cords. He is awake alert. He is answering questions following commands. Const Vital Signs: 02/27/23 13:58 02/27/23 14:23 02/27/23 14:23 Temperature 98.5 F Temperature Source Temporal Pulse Rate 97 88 Respiratory Rate 20 H Respiratory Effort Normal Non-Labored Blood Pressure 147/113 H Blood Pressure Mean 124 Pulse Ox 99 Oxygen Delivery Method Room Air 02/27/23 14:51 Temperature Temperature Source Pulse Rate Respiratory Rate Respiratory Effort Blood Pressure Blood Pressure Mean Pulse Ox Oxygen Delivery Method Room Air Positive well nourished and well developed; Negative for cachectic, contractures or unkempt General Appearance ED: well developed and NAD; Negative for unkempt, cachectic, contractures or pallor Nutritional Appearance: Negative for cachectic HEENT Reports moist mucous membranes normocephalic and atraumatic; Negative for trauma or tenderness Eyes PERRL and EOMs intact bilaterally General Eye ED: Negative for pale conjunctiva, scleral icterus or other Neck no lymphadenopathy, supple and no JVD General: Negative for tenderness Chest Wall inspection of chest normal and palpation of chest normal Chest: Negative for tenderness Resp normal respiratory effort and clear to auscultation bilaterally Effort and Inspection: Negative for respiratory distress Auscultation: Negative for rales, rhonchi or wheezes Cardio regular rate, regular rhythm, S1 normal heart sound, S2 normal heart sound and no murmurs Peripheral Pulses: pulses 2+ throughout GI normal to inspection, nondistended, normoactive bowel sounds, soft to palpation, non-tender, non-distended and no masses Auscultation: Negative for hyperactive bowel sounds Back/Spine no CVA tenderness and no thoracic nor lumbar tenderness General Back: Negative for CVA tenderness Cervical Spine: Negative for cervical spine tenderness Extremity normal to inspection General Extremety ED: Negative for edema, pulses abnormal or tenderness General Extremity: Negative for edema or pulses abnormal Neuro oriented x3 and CN's II-XII intact bilaterally Sensorium / Orientation: awake, alert, oriented to person, oriented to place and oriented to time; Negative for confused, lethargic or stuporous Motor Exam: strength 5/5 throughout Psych mental status grossly normal Appearance: Negative for unkempt Attitude: No agitated Mood & Affect: Negative for depressed, anxious or tearful Skin no rashes or lesions noted and no wounds General Skin Exam: Negative for jaundice or pallor Rashes: No rashes noted Trauma: Negative for abrasion or laceration Heart Score History: Slightly/Non-Suspicious ECG: Normal Age: >45 - <65 years Risk Factors: 1 or 2 Risk Factors Troponin: </= Normal Limit Score: 2 MDM MDM MDM Narrative Medical decision making narrative: 47-year-old male with palpitations and atypical chest pain after IV fentanyl. His exam is benign. Undergo cardiac work-up if its negative is medically cleared to go to assisted. Repeat exam at 3:30 PM. Patient's had some nausea and vomiting. Nurses were able to obtain blood but not an IV. He is being given p.o. Zofran. Patient doing well at 3:58 he is resting comfortably. Currently symptom-free. Pain- free. His work-up is negative will be discharged to assisted. History & Record Review Discussion w/independent historian: Patient and Other ([place] Additional record(s) reviewed:: Prior inpatient record, Prior outpatient record, Prior ED visit and Prior labs Lab Data Attestation: I reviewed the patient's lab results. Lab results narrative: CBC normal. White count of 9. H&H 13 and 41. Platelets 194. Chemistries are unremarkable gap of 5. BUN and creatinine 22 and 0.8. Glucose 179. Troponin 10. Chest x-ray unremarkable. Labs: Laboratory Results - last 24 hr 02/27/23 15:00 WBC 9.8 RBC 4.43 L Hgb 13.3 Hct 41.0 MCV 92.6 MCH 30.0 MCHC 32.4 RDW Std Deviation 45.9 H RDW Coeff of [place] 13.5 Plt Count 194 MPV 9.6 Immature Gran % (Auto) 0.300 Neut % (Auto) 89.0 H Lymph % (Auto) 4.9 L [place] % (Auto) 5.2 Eos % (Auto) 0.4 Baso % (Auto) 0.2 Absolute Neuts (auto) 8.7 H Absolute Lymphs (auto) 0.48 L Nucleated RBC % 0 Differential Comment SCANNED Sodium 135 L Potassium 4.5 Chloride 105 Carbon Dioxide 25.0 Anion Gap 5 BUN 22 H Creatinine 0.88 Estim Creat Clear Calc 116.35 Est GFR (MDRD) Af Amer 120 Est GFR (MDRD) Non-Af 99 BUN/Creatinine Ratio 25.0 H Glucose 179 H Calcium 8.6 Troponin I High Sens 10 Radiography Chest X-Ray - ED: 1 View, Read by ED Physician, Read by Radiologist, Heart, Lungs, Mediastinum, Bony Structures, No Acute Disease and Chronic Changes Diagnostic Testing: Clinical Impression(s) from Imaging Studies Chest X-Ray 02/27/23 15:15 IMPRESSION: There is bilateral basilar infiltrate / atelectasis. Electronically Signed: Dilan Cr MD at 15:30 EDT , Chest x-ray, portable, single view shows no acute abnormality. Possible atelectasis. Normal cardiac silhouette mediastinum. Rhythm Strip Rhythm Strip: Sinus Rhythm Rate: 89 Ectopy: None EKG Initial EKG: Attestation: I personally reviewed and interpreted this EKG as follows: Interpretation: Sinus Rhythm and No Acute Injury Pattern Comments: Normal sinus rhythm rate 89 no acute signs of NM or ischemia. No dysrhythmia. Discharge Plan Triage Chief Complaint: Overdose Other Complaint: Palpitations ED Provider: Sebas Simpson Dx/Rx/DC Orders Clinical Impression: Acute drug overdose, Palpitation, Chest pain Instructions: ED Overdose, Opiate Prescriptions: No Action cyanocobalamin (vitamin B-12) [Vitamin B-12] 500 mcg tablet 500 mcg PO DAILY ascorbic acid (vitamin C) 500 mg tablet 500 mg PO DAILY zinc 50 MG tablet 100 mg PO DAILY multivit with [id number] 1 EACH tablet 1 tablet PO DAILY cholecalciferol (vitamin D3) 50 MCG capsule 150 mcg PO DAILY entecavir 1 mg tablet 1 mg PO DAILY magnesium 1 tab PO.IVFORM BID tamsulosin [Flomax] 0.4 mg capsule 0.4 mg PO DAILY 10 Days Qty: 10 0RF potassium 99 mg Tablet 99 mg PO DAILY Primary Care Provider: Cornelio Oakes Referrals: Cornelio Oakes DO [Primary Care Provider] - As Needed Activity Restrictions/Additional Instructions: Patient is medically cleared to go to assisted. His labs, EKG and chest x-ray were all unremarkable. Disposition Disposition: Home, Self Care
--- NOTE | 2023-02-27 15:15 | RAD_ITS ---
EXAM: XR CHEST, 1 VIEW CLINICAL INDICATION: chest pain TECHNIQUE: Frontal view of the chest. COMPARISON: 09.05.22 FINDINGS: LUNGS AND PLEURAL SPACES: There is bilateral basilar infiltrate / atelectasis. No pneumothorax. No effusion. HEART: Unremarkable. Cardiac silhouette not enlarged. MEDIASTINUM: Central airways and mediastinal contour are unremarkable. BONES/JOINTS: Unremarkable. SOFT TISSUES: Unremarkable. RAD/Chest 1 View (Portable) IMPRESSION: There is bilateral basilar infiltrate / atelectasis. Electronically Signed: Dilan Cr MD at 15:30 EDT ,
[2023-02-27 15:16] LABS: Absolute Lymphocyte Count 0.48 X10^3/uL (0.83-4.51); Absolute Neutrophil Count 8.7 X10^3/uL (2.0-7.7); Basophil# 0.02 X10^3/uL; Basophil% 0.2 % (0-1); Eosinophil# 0.04 X10^3/uL; Eosinophils% 0.4 % (0-5); Hemoglobin 13.3 g/dL (13.0-16.5); Lymphocyte # 0.48 X10^3/ul (0.83-4.51); Lymphocyte % 4.9 % (19-41); Mean Corp Hgb Conc 32.4 g/dL (32-36); Mean Corpuscular Volume 92.6 fL (80-94); Mean Platelet Vol. 9.6 fl (6.2-12.0); Monocyte# 0.51 X10^3/uL; Monocyte% 5.2 % (0-10); NRBC Flagged by Analyzer 0 % (0-5); Neutrophil # 8.67 X10^3/uL (2.7-7.7); POSITIVE DIFFERENTIAL YES; Platelet Count 194 K/mm3 (150-450); RBC Distribution Width CV 13.5 % (11.6-14.6); RBC Distribution Width SD 45.9 fl (35.1-43.9); Red Blood Count 4.43 M/mm3 (4.6-6.2); White Blood Count 9.8 K/mm3 (4.4-11.0)
[2023-02-27 15:17] LABS: Differential Indicated SCAN CRITERIA MET
[2023-02-27] MEDS: Ondansetron ODT 4 MG Tablet 8 MG PO (15:31)
[2023-02-27 15:35] LABS: Anion Gap 5 (5-15); BUN 22 mg/dL (7-18); Calcium,Total 8.6 mg/dL (8.5-10.1); Chloride 105 mmol/L (98-107); Creatinine, Serum 0.88 mg/dL (0.70-1.30); EST Glomerular Filtration Rate 99 mL/min (>60); Est Glom Filt Rate - Afr Amer 120 mL/min (>60); Estimated Creatinine Clearance 116.35 ml/min; Glucose 179 mg/dL (74-106); Potassium 4.5 mmol/L (3.5-5.1); Sodium Level 135 mmol/L (136-145); Troponin-I HS 10 pg/mL (3.0-78.0)
[2023-02-27 15:40] LABS: Differential Comment SCANNED
[2023-02-27 16:09] VITALS: BP 140/68; PULSE 90; RESP 16; O2SAT 99
== END 2023-02-27 16:12 ==
LOC: ED 13:57
PROVIDERS: PCP Student in an Organized Health Care Education/Training Program; Visit Provider Emergency Medicine
DX: T40.411A Poisoning by fentanyl or fentanyl analogs, accidental (unintentional), initial encounter (principal); F11.10 Opioid abuse, uncomplicated; F15.10 Other stimulant abuse, uncomplicated; R07.89 Other chest pain; R00.2 Palpitations; F17.200 Nicotine dependence, unspecified, uncomplicated
CPT/HCPCS: 71045; 80048; 84484; 85025; 93005; A4216

== ENCOUNTER 2023-08-31 20:32 | Emergency (ER) | payer MEDICAID, SELFPAY ==
[2023-08-31 20:33] VITALS: BP 120/86; PULSE 89; RESP 16; TEMP 36.6; O2SAT 97; BMI 34.6
[2023-09-01] MEDS: 0.9% Normal Saline (1000mL) 1,000 ML 999 ML IV
[2023-09-01 00:27] LABS: Absolute Lymphocyte Count 1.33 X10^3/uL (0.83-4.51); Absolute Neutrophil Count 2.1 X10^3/uL (2.0-7.7); Basophil# 0.05 X10^3/uL; Basophil% 1.3 % (0-1); Eosinophil# 0.15 X10^3/uL; Eosinophils% 3.8 % (0-5); Hematocrit 44.9 % (40-54); Lymphocyte # 1.33 X10^3/ul (0.83-4.51); Lymphocyte % 33.8 % (19-41); Mean Corp Hgb Conc 33.4 g/dL (32-36); Mean Corpuscular Hgb 30.2 pg (27.0-32.0); Mean Corpuscular Volume 90.3 fL (80-94); Mean Platelet Vol. 9.5 fl (6.2-12.0); Monocyte% 7.6 % (0-10); NRBC Flagged by Analyzer 0 % (0-5); Neutrophil # 2.06 X10^3/uL (2.7-7.7); Neutrophil % 52.5 % (47-70); Platelet Count 178 K/mm3 (150-450); RBC Distribution Width CV 13.2 % (11.6-14.6); RBC Distribution Width SD 44.2 fl (35.1-43.9); Red Blood Count 4.97 M/mm3 (4.6-6.2); White Blood Count 3.9 K/mm3 (4.4-11.0)
[2023-09-01 00:37] LABS: Anion Gap 3 (5-15); BUN 15 mg/dL (7-18); BUN/Creat Ratio 19.1 RATIO (10-20); Calcium,Total 9.1 mg/dL (8.5-10.1); Chloride 104 mmol/L (98-107); Creatinine, Serum 0.78 mg/dL (0.70-1.30); EST Glomerular Filtration Rate 113 mL/min (>60); Est Glom Filt Rate - Afr Amer 137 mL/min (>60); Estimated Creatinine Clearance 129.89 ml/min; Glucose 88 mg/dL (74-106); Potassium 4.3 mmol/L (3.5-5.1); Sodium Level 137 mmol/L (136-145)
--- OUTSIDE RECORDS SUMMARY | 2023-09-01 00:40 | XMS RPT_ITS | CCD ---
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 Primary Care Provider Unav ailable [facility], [facility] Primary Care Unavailable APRIL DE LA CRUZ Attending Unavailable MILLIEILSETH Attending Unavailable SETH YOST Admitting Unavailable SIGNS, RENEE J Referring Unavailable SIGNS, RENEE J Attending Unavailable [facility], [facility] Primary Care Unavailable SIGNS, RENEE J Referring Unavailable SIGNS, RENEE J Attending Unavailable INC, [facility] Primary Care Unavailable APRIL DE LA CRUZ Referring Unavailable APRIL DE LA CRUZ Attending Unavailable SIGNS, RENEE Raines Attending Unavailable ROMAR DO, DR OLIVIER Attending Unavailable ROMAR DO, DR OLIVIER Primary Care Unavailable ROMAR DO, DR OLIVIER Attending Unavailable ROMAR DO, DR OLIVIER Primary Care Unavailable ROMAR DO, DR OLIVIER Primary Care Unavailable ROBER LOPES-DORIS, MEGAN Nelson Attending Un available ROMAR DO, DR OLIVIER Primary Care Unavailable YISEL CASTANO MD Attending Unavailable ROMAR DO, DR OLIVIER Primary Care Unavailable MICHEAL XAVIER, DR BOWEN Attending Unavailab le ERICAA DO, SHELTON Attending Unavailable ROMAR DO, DR OLIVIER Primary Care Unavailable WANDA HENRIQUEZ Attending Unavailable ROMAR DO, DR OLIVIER Primary Care Unavailable SILKE XAVIER, DR HARLEY Attending Unavailab le ROMAR DO, DR OLIVIER Primary Care Unavailable [facility], JOSE Attending Unava ilable ROMAR DO, DR OLIVIER Primary Care Unavailable ROMAR DO, DR OLIVIER Attending Unavailable ROMAR DO, DR OLIVIER Primary Care Unavailable ROMAR DO, DR OLIVIER Attending Unavailable ROMAR DO, DR OLIVIER Primary Care Unavailable SILKE XAVIER, DR HARLEY Attending Unavailab le ROMAR DO, DR OLIVIER Primary Care Unavailable ROMAR DO, DR OLIVIER Attending Unavailable ROMAR DO, DR OLIVIER Primary Care Unavailable ROMAR DO, DR OLIVIER Attending Unavailable ROMAR DO, DR OLIVIER Primary Care Unavailable ROMAR DO, DR OLIVIER Attending Unavailable ROMAR DO, DR OLIVIER Primary Care Unavailable ROMAR DO, DR OLIVIER Primary Care Unavailable SILKE XAVIER, DR HARLEY Attending Unavailab le ROMAR DO, DR OLIVIER Attending Unavailable ROMAR DO, DR OLIVIER Primary Care Unavailable ROMAR DO, DR OLIVIER Attending Unavailable ROMAR DO, DR OLIVIER Primary Care Unavailable [facility], JOSE Attending Unava ilable ROMAR DO, DR OLIVIER Primary Care Unavailable ROMAR DO, DR OLIVIER Attending Unavailable ROMAR DO, DR OLIVIER Primary Care Unavailable CRISSY PARKER MD Attending Unavailable ROMAR DO, DR OLIVIER Primary Care Unavailable Allergies Allergy Classification Reported Allergen(s) Allergy Type Date of Onset Reaction(s) Facility (1 source) HYDROCODONE BITARTRATE-ACETAMI NOPHEN Drug allergy (disorder) [facility] (20 sources) Acetaminophen / HYDROcodone; Translations: [acetaminophen-hyd rocodone] Drug Allergy 08-04-2005 [facility] (20 sources) meloxicam; Translations: [meloxicam] Drug Allergy 04-14-2013 [facility] Medications Current Medications Medication Drug Class(es) Dates Sig (Normalized) Sig (Original) [id number] 200 actuat albuterol 0.09 mg/actuat metered dose inhaler (20 sources) beta2-Adrenergic Agonist Start: 07-18-2022 take 2 puff(s) by inhalation four times daily as needed for wheezing albuterol (ProAir HFA) 108 (90 Base) MCG/ACT inhaler 2 puff(s), Inhalation, QID, PRN as needed for wheezing, # 8.5 gram(s), 0 Refill(s), URTI - Viral upper respiratory tract infection 0 07/18/2022 Active Completed/Discontinued Medications Medication Drug Class(es) Dates Sig (Normalized) Sig (Original) 0.48 ML buprenorphine 50 MG/ML Prefilled Syringe [Brixadi] (1 source) Start: 06-07-2023 Brixadi Weekly 24 mg/0.48 mL subcutaneous solution, extended release See Instructions, 0.48 mL Intramuscular weekly, 0 Refill(s), 109.1 Start Date: 06/07/23 Status: Ordered Apple Cider Vinegar (1 source) Start: 12-13-2022 Apple Cider Vinegar Apple Cider Vinegar, 1 tab, Oral, Daily, 0 Refill(s), 109.1 Start Date: 12/13/22 Status: Ordered buprenorphine 5.7 mg / naloxone 1.4 mg sublingual tablet (11 sources) Partial Opioid Agonist, Opioid Antagonist Start: 08-09-2023 Zubsolv 5.7 mg-1.4 mg sublingual tablet Dose = 1 tab(s), Sublingual, qDay, 0 Refill(s), 113.9 Start Date: 08/09/23 Status: Ordered Problems Active Problems Problem Classification Problem Date Documented Da te Episodic/Chronic Abdominal pain (1 source) Right lower quadrant pain; Translations: [Right lower quadrant pain] Onset: 05-15-2018 Episodic Anxiety disorders (20 sources) Anxiety neurosis ; Translations: [Generalized anxiety disorder] Onset: 07-28-2015 07-28-2015 Chronic Aortic; peripheral; and visceral artery aneurysms (8 sources) Aortic root dilatation 11-17-2022 Chronic Bacterial infection; unspecified site (2 sources) Personal history of Methicillin resistant Staphylococcus aureus infection; Translations: [Personal history of Methicillin resistant Staphylococcus aureus infection] Onset: 07-03-2023 Episodic Deficiency and other anemia (8 sources) Anemia due to blood loss 11-17-2022 Chronic Essential hypertension (2 sources) Essential (primary) hypertension; Translations: [Essential (primary) hypertension] Onset: 04-27-2023 Chronic Gastrointestinal hemorrhage (9 sources) Rectal hemorrhage 09-26-2022 Episodic Genitourinary symptoms and ill-defined conditions (17 sources) Urgent desire to urinate; Translations: [Urgency of urination] Onset: 05-24-2023 Episodic Headache; including migraine (1 source) Headache; Translations: [Headache, unspecified] Onset: 11-27-2022 Episodic Heart valve disorders (17 sources) Heart murmur; Translations: [Cardiac murmur, unspecified] Onset: 05-24-2023 11-01-2022 Episodic Hepatitis (20 sources) Hepatitis C carrier; Translations: [Chronic viral hepatitis C] Onset: 07-28-2015 Resolved: 05-24-2023 08-22-2021 Chronic Hepatitis (20 sources) Acute type B viral hepatitis; Translations: [Acute hepatitis B without delta-agent and without hepatic coma] Onset: 03-18-2020 03-18-2020 Episodic Immunity disorders (11 sources) Cryoglobulinemia; Translations: [Cryoglobulinemia] 02-25-2020 Chronic Malaise and fatigue (13 sources) Malaise and fatigue; Translations: [Other malaise] Onset: 07-13-2022 05-24-2023 Episodic Mood disorders (20 sources) Bipolar disorder; Translations: [Bipolar disorder, unspecified] Onset: 05-24-2023 08-22-2021 Chronic Nonmalignant breast conditions (9 sources) Breast lump 09-26-2022 Episodic Nonspecific chest pain (9 sources) Tight chest 09-26-2022 Episodic Osteoarthritis (2 sources) Arthritis; Translations: [Unspecified osteoarthritis, unspecified site] Chronic Other aftercare (1 source) Drug therapy finding; Translations: [Other fdc (current) drug therapy] Episodic Other and unspecified benign neoplasm (9 sources) Melanocytic nevus 09-26-2022 Episodic Other connective tissue disease (8 sources) Radial styloid tenosynovitis; Translations: [Radial styloid tenosynovitis [de Quervain]] Onset: 05-24-2023 05-24-2023 Episodic Other infections; including parasitic (9 sources) History of hepatitis B 09-26-2022 Episodic Other infections; including parasitic (9 sources) History of hepatitis C 09-26-2022 Episodic Other infections; including parasitic (4 sources) Personal history of other infectious and parasitic diseases; Translations: [Personal history of other infectious and parasitic diseases] Onset: 08-24-2022 Episodic Other injuries and conditions due to external causes (9 sources) H/O: head injury 11-01-2022 Episodic Other injuries and conditions due to external causes (2 sources) H/O: facial injury; Translations: [Personal history of (healed) traumatic fracture] 02-08-2023 Episodic Other male genital disorders (1 source) Disorder of prostate; Translations: [Disorder of prostate, unspecified] Episodic Other nervous system disorders (1 source) Polyneuropathy; Translations: [Polyneuropathy, unspecified] Onset: 11-28-2022 Chronic Other nervous system disorders (2 sources) Other chronic pain; Translations: [Other chronic pain] Onset: 05-24-2023 Chronic Other nervous system disorders (2 sources) Chronic pain due to trauma; Translations: [Chronic pain due to trauma] Onset: 08-24-2022 Chronic Other nervous system disorders (10 sources) Numbness of face; Translations: [Anesthesia of skin] 11-17-2022 Episodic Other nervous system disorders (7 sources) Atypical facial pain 01-01-2023 Episodic Other nervous system disorders (8 sources) Trigeminal neuralgia; Translations: [Trigeminal neuralgia] Onset: 02-08-2023 01-01-2023 Episodic Other nervous system disorders (1 source) Left trigeminal neuralgia; Translations: [Trigeminal neuralgia] 02-08-2023 Episodic Residual codes; unclassified (2 sources) Family history of renal stone; Translations: [Family history of disorders of kidney and ureter] Episodic Residual codes; unclassified (9 sources) Peripheral edema 09-26-2022 Episodic Residual codes; unclassified (8 sources) Chronic pain 11-17-2022 Episodic Screening and history of mental health and substance abuse codes (6 sources) Tobacco use and exposure - finding 04-27-2023 Chronic Skin and subcutaneous tissue infections (8 sources) Abscess; Translations: [Abscess of hip] Onset: 07-27-2023 07-03-2023 Episodic Spondylosis; intervertebral disc disorders; other back problems (15 sources) Prolapsed lumbar intervertebral disc; Translations: [Other intervertebral disc displacement, lumbar region] Onset: 03-17-2013 03-17-2013 Chronic Spondylosis; intervertebral disc disorders; other back problems (20 sources) Neck pain; Translations: [Cervicalgia] Onset: 03-17-2013 03-17-2013 Episodic Sprains and strains (1 source) Injury of muscle and tendon at neck level; Translations: [Strain of muscle, fascia and tendon at neck level, initial encounter] Onset: 06-09-2021 Episodic Substance-related disorders (20 sources) Opioid abuse; Translations: [Opioid abuse, uncomplicated] Onset: 11-02-2017 Chronic Unclassified (2 sources) Patient encounter status 12-13-2022 Unclassified (1 source) Personal history of COVID-19; Translations: [Personal history of COVID-19] Onset: 08-24-2022 Viral infection (1 source) Viral disease; Translations: [Viral infection, unspecified] Onset: 07-18-2023 Episodic Past or Other Problems Problem Classification Problem Date Documented Da te Episodic/Chronic Disorders of teeth and jaw (4 sources) Dental abscess; Translations: [Periapical abscess without sinus] Onset: 02-08-2023 02-08-2023 Episodic Immunizations and screening for infectious disease (12 sources) Hepatitis B surface antigen positive; Translations: [Other specified abnormal immunological findings in serum] Onset: 02-05-2020 Episodic Nausea and vomiting (3 sources) Nausea; Translations: [Nausea] Onset: 02-08-2023 02-08-2023 Episodic Other connective tissue disease (11 sources) Unspecified rotator cuff tear or rupture of unspecified shoulder, not specified as traumatic; Translations: [Rotator cuff (capsule) sprain] Onset: 03-17-2013 03-17-2013 Episodic Other connective tissue disease (11 sources) Pain in left lower limb; Translations: [Pain in left leg] Onset: 03-17-2013 03-17-2013 Episodic Other gastrointestinal disorders (2 sources) Drug induced constipation; Translations: [Drug induced constipation] Onset: 08-24-2022 Episodic Other infections; including parasitic (11 sources) Patient cured; Translations: [Personal history of other infectious and parasitic diseases] Onset: 02-05-2020 02-05-2020 Episodic Other injuries and conditions due to external causes (2 sources) Personal history of (healed) traumatic fracture; Translations: [Personal history of (healed) traumatic fracture] Onset: 02-08-2023 Episodic Other nervous system disorders (1 source) Trigeminal neuralgia; Translations: [Trigeminal neuralgia] Onset: 02-08-2023 Episodic Other nervous system disorders (2 sources) Anesthesia of skin; Translations: [Anesthesia of skin] Onset: 02-08-2023 Episodic Other non-traumatic joint disorders (11 sources) Shoulder pain; Translations: [Pain in left shoulder] Onset: 03-17-2013 03-17-2013 Episodic Other non-traumatic joint disorders (11 sources) Pain of left wrist; Translations: [Pain in left wrist] Onset: 03-17-2013 03-17-2013 Episodic Other non-traumatic joint disorders (11 sources) Shoulder joint pain; Translations: [Pain in unspecified shoulder] Onset: 04-03-2013 04-03-2013 Episodic Residual codes; unclassified (8 sources) Edema; Translations: [Edema, unspecified] Onset: 09-18-2022 05-24-2023 Episodic Substance-related disorders (12 sources) Opioid withdrawal; Translations: [Opioid use, unspecified with withdrawal] Onset: 03-31-2021 Resolved: 08-28-2022 08-28-2022 Episodic Unclassified (1 source) Personal history of COVID-19; Translations: [Personal history of COVID-19] Onset: 08-24-2022 Results Test Name Value Interpretation Reference Range Facil ity Vital Signs Date Time Vital Sign Value Performing Clinician Facility 07-18-2023 12:44-0500 Diastolic Blood Pressure Non-Invasive 78 mm[Hg] [facility] 5 CUPS and some sugarUJAA DO [facility] 07-18-2023 12:44-0500 Heart rate 78 /min [facility] 5 CUPS and some sugarUJAA DO [facility] 07-18-2023 12:44-0500 [facility] 07-18-2023 12:44-0500 Systolic Blood Pressure Non-Invasive 128 mm[Hg] [facility] 07-18-2023 10:04-0500 Body height 182.[address] [facility] 5 CUPS and some sugarUJAA DO [facility] 07-18-2023 10:04-0500 Body temperature 98.06 [degF] NIDAL CHOUJAA DO [facility] 07-18-2023 10:04-0500 Body weight 110 kg NIDAL CHOUJAA DO [facility] 07-18-2023 10:04-0500 Diastolic Blood Pressure Non-Invasive 79 mm[Hg] NIDAL CHOUJAA DO [facility] 07-18-2023 10:04-0500 Heart rate 79 /min NIDAL CHOUJAA DO [facility] 07-18-2023 10:04-0500 Respiratory rate 20 /min NIDAL CHOUJAA DO [facility] 07-18-2023 10:04-0500 Systolic Blood Pressure Non-Invasive 143 mm[Hg] NIDAL CHOUJAA DO [facility] 06-08-2023 09:14-0400 Diastolic Blood Pressure Non-Invasive [address] CRICKET EDOUARD MD [facility] 06-08-2023 09:14-0400 Heart rate 60 /min DR CRICKET EDOUARD MD [facility] 06-08-2023 09:14-0400 Systolic Blood Pressure Non-Invasive [address] CRICKET EDOUARD MD [facility] 06-08-2023 08:35-[address] CRICKET EDOUARD MD [facility] 06-08-2023 08:35-[address] CRICKET EDOUARD MD [facility] 06-08-2023 08:35-0400 Body temperature 98.06 [degF] DR CRICKET EDOUARD MD [address] [place] [id number] 06-08-2023 08:35-0400 Diastolic Blood Pressure Non-Invasive [address] CRICKET EDOUARD MD [address] [place] [id number] 06-08-2023 08:35-0400 Heart rate 63 /min DR CRICKET EDOUARD MD [address] [place] [id number] 06-08-2023 08:35-0400 Respiratory rate 18 /min DR CRICKET EDOUARD MD [address] [place] [id number] 06-08-2023 08:35-0400 Systolic Blood Pressure Non-Invasive [address] CRICKET EDOUARD MD [address] [place] [id number] 06-07-2023 15:34-0400 Body height [address] CRICEKT EDOUARD MD [address] [place] [id number] 06-07-2023 15:34-0400 Body weight 109.[address] CRICKET EDOUARD MD [address] [place] [id number] 06-07-2023 15:34-0400 Body weight 33.67 kg/m2 DR CRICKET EDOUARD MD [address] [place] [id number] 06-06-2023 10:01-0400 Body height 182.9 cm [facility] [place] 06-06-2023 10:01-0400 Body mass index (BMI) [Ratio] 32.82 kg/m2 [facility] [place] 06-06-2023 10:01-0400 Body temperature 97.81 [degF] [facility] [place] 06-06-2023 10:01-0400 Body weight 109.[address] [facility] 05-24-2023 10:52-0400 Body height 182.9 cm Renee Peralta MD Work Phone: [facility] 05-24-2023 10:52-0400 Body mass index (BMI) [Ratio] 32.06 kg/m2 Renee Peralta MD Work Phone: [facility] 05-24-2023 10:52-0400 Body temperature 98.1 [degF] Renee Peralta MD Work Phone: [facility] 05-24-2023 10:52-0400 Body weight 107.23 kg Renee Peralta MD Work Phone: [facility] 05-24-2023 10:52-0400 Diastolic blood pressure 82 mm[Hg] Renee Peralta MD Work Phone: [facility] 05-24-2023 10:52-0400 Heart rate 73 /min Renee Peralta MD Work Phone: [facility] 05-24-2023 10:52-0400 SaO2% (BldA) [Mass fraction] 98 % Renee Peralta MD Work Phone: [facility] 05-24-2023 10:52-0400 Systolic blood pressure 122 mm[Hg] Renee Peralta MD Work Phone: [facility] 02-08-2023 13:08-0400 Body height 182.9 cm April De La Cruz MD Work Phone: [facility] 02-08-2023 13:08-0400 Body mass index (BMI) [Ratio] 31.19 kg/m2 April De La Cruz MD Work Phone: [facility] 02-08-2023 13:08-0400 Body weight 104.33 kg April De La Cruz MD Work Phone: [facility] 02-08-2023 13:08-0400 Diastolic blood pressure 90 mm[Hg] April De La Cruz MD Work Phone: [facility] 02-08-2023 13:08-0400 Heart rate 67 /min April De La Cruz MD Work Phone: [facility] 02-08-2023 13:08-0400 Systolic blood pressure 151 mm[Hg] April De La Cruz MD Work Phone: [place] 11-28-2022 00:34-0400 Diastolic Blood Pressure Non-Invasive [address] JESSI BURTON MD [facility] 11-28-2022 00:34-0400 Heart rate 75 /min DR JESSI BURTON MD [facility] 11-28-2022 00:34-0400 Respiratory rate 18 /min DR JESSI BURTON MD [facility] 11-28-2022 00:34-0400 Systolic Blood Pressure Non-Invasive [address] JESSI BURTON MD [facility] 11-27-2022 22:14-0400 Body temperature 98.42 [degF] DR JESSI BURTON MD [facility] 11-27-2022 22:14-0400 Diastolic Blood Pressure Non-Invasive [address] JESSI BURTON MD [facility] 11-27-2022 22:14-0400 Heart rate 78 /min DR JESSI BURTON MD [facility] 11-27-2022 22:14-0400 Respiratory rate 18 /min DR JESSI BURTON MD [facility] 11-27-2022 22:14-0400 Systolic Blood Pressure Non-Invasive [address] JESSI BURTON MD [facility] 03-13-2022 12:07-0400 Body height 179.7 cm Alda Pacheco MD Work Phone: [facility] 03-13-2022 12:07-0400 Body temperature 92.41 [degF] Alda Pacheco MD Work Phone: [facility] 03-13-2022 12:07-0400 Body weight 95.71 kg Alda Pacheco MD Work Phone: [facility] 03-13-2022 12:07-0400 Diastolic blood pressure 90 mm[Hg] Alda Pacheco MD Work Phone: [facility] 03-13-2022 12:07-0400 Heart rate 88 /min Alda Pacheco MD Work Phone: [facility] 03-13-2022 12:07-0400 Respiratory rate 14 /min Alda Pacheco MD Work Phone: [facility] 03-13-2022 12:07-0400 Systolic blood pressure 160 mm[Hg] Alda Pacheco MD Work Phone: [facility] 02-17-2022 13:09-0400 Body height 182.9 cm Alex Langford PA-C Work Phone: [facility] 02-17-2022 13:09-0400 Body temperature 97.9 [degF] Alex Langford PA-C Work Phone: [facility] 02-17-2022 13:09-0400 Body weight 97.98 kg Alex Langford PA-C Work Phone: [facility] 02-17-2022 13:09-0400 Diastolic blood pressure 80 mm[Hg] Alex Langford PA-C Work Phone: [facility] 02-17-2022 13:09-0400 Heart rate 96 /min Alex Langford PA-C Work Phone: [facility] 02-17-2022 13:09-0400 Respiratory rate 16 /min Alex Langford PA-C Work Phone: [facility] 02-17-2022 13:09-0400 SaO2% (BldA) [Mass fraction] 95 % Alex Langford PA-C Work Phone: [facility] 02-17-2022 13:09-0400 Systolic blood pressure 118 mm[Hg] Alex Langford PA-C Work Phone: [facility] 12-02-2021 11:39-0400 Body height 182.9 cm Alex Langford PA-C Work Phone: [facility] 12-02-2021 11:39-0400 Body temperature 96.91 [degF] Alex Langford PA-C Work Phone: [facility] 12-02-2021 11:39-0400 Body weight 100.25 kg Alex Langford PA-C Work Phone: [facility] 12-02-2021 11:39-0400 Diastolic blood pressure 94 mm[Hg] Alex Langford PA-C Work Phone: [facility] 12-02-2021 11:39-0400 Heart rate 102 /min Alex Langford PA-C Work Phone: [facility] 12-02-2021 11:39-0400 Respiratory rate 18 /min Alex Langford PA-C Work Phone: [facility] 12-02-2021 11:39-0400 SaO2% (BldA) [Mass fraction] 100 % Alex Langford PA-C Work Phone: [facility] 12-02-2021 11:39-0400 Systolic blood pressure 150 mm[Hg] Alex Langford PA-C Work Phone: [facility] 06-09-2021 05:56-0400 Body height 182.9 cm JESS SANCHEZ DO [facility] 06-09-2021 05:56-0400 Body temperature 97.7 [degF] JESS SANCHEZ DO [facility] 06-09-2021 05:56-0400 Body weight 100 kg JESS SANCHEZ DO [facility] 06-09-2021 05:56-0400 Diastolic blood pressure 95 mm[Hg] JESS SANCHEZ DO [facility] 06-09-2021 05:56-0400 Heart rate 90 /min JESS SANCHEZ DO [facility] 06-09-2021 05:56-0400 Respiratory rate 18 /min JESS SANCHEZ DO [facility] 06-09-2021 05:56-0400 Systolic blood pressure 152 mm[Hg] JESS SANCHEZ DO [facility] 03-31-2021 02:10-0400 Diastolic blood pressure 77 mm[Hg] Colton Gombash DO Work Phone: [facility] Work Phone: 03-31-2021 02:10-0400 Heart rate 69 /min Colton Gombash DO Work Phone: [facility] Work Phone: 03-31-2021 02:10-0400 Respiratory rate 16 /min Colton Gombash DO Work Phone: [facility] Work Phone: 03-31-2021 02:10-0400 SaO2% (BldA) [Mass fraction] 99 % Colton Gombash DO Work Phone: [facility] Work Phone: 03-31-2021 02:10-0400 Systolic blood pressure 139 mm[Hg] Colton Gombash DO Work Phone: [facility] Work Phone: 03-30-2021 14:43-0400 Body temperature 97.5 [degF] Colton Gombash DO Work Phone: [facility] Work Phone: 03-30-2021 14:41-0400 Body height 182.9 cm Colton Gombash DO Work Phone: [facility] Work Phone: 03-30-2021 14:41-0400 Body mass index (BMI) [Ratio] 29.84 kg/m2 Colton Allan DO Work Phone: [facility] Work Phone: 03-30-2021 14:41-0400 Body weight 99.79 kg Colton Allan DO Work Phone: [facility] Work Phone: Encounters Encounter Date Encounter Type Care Provider Facility Start: 08-13-2023 End: 08-14-2023 ambulatory WANDA HENRIQUEZ Facility:[facility] Start: 08-13-2023 End: 08-13-2023 Patient encounter procedure WANDA ILIANA MARTINEZ 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 [employer] [facility] Start: 08-09-2023 End: 08-14-[address] CORNELIO CAMACHO DO Facility:[facility] Start: 08-09-2023 End: 08-10-[address] CORNELIO CAMACHO DO Facility:[facility] Start: 07-27-2023 End: 08-01-[address] CORNELIO CAMACHO DO Facility:[facility] Start: 07-18-2023 End: 07-18-2023 Emergency department patient visit SHELTON MORGAN Facility:[facility] Start: 07-18-2023 End: 07-18-2023 Emergency department patient visit SHELTON MORGAN [facility] Start: 07-03-2023 End: 07-08-[address] CORNELIO CAMACHO DO Facility:B Start: 07-03-2023 End: 07-07-[address] CORNELIO CAMACHO DO [facility] Start: 06-08-2023 End: 06-08-[address] CORNELIO CAMACHO DO Facility:A Start: 06-08-2023 End: 06-08-[address] CRICKET EDOUARD MD [facility] Start: 06-06-2023 End: 06-06-2023 ambulatory [facility] Start: 06-06-2023 End: 06-06-2023 Clinical Support Fibroscan Schedule [facility] Infect[facility] Disease Procedures Date Procedure Procedure Detail Performing Clinician Start: 06-06-2023 Liver elastography w /o imag w/i&r Renee Peralta MD Work Phone: Start: 05-30-2023 Us abdominal real ti me w/image documentation Renee Peralta MD Work Phone: Start: 05-24-2023 Hepatic function panel Renee Peralta MD Work Phone: Start: 11-09-2022 Cardiovascular stres s testing CRISSY PARKER MD Plan of Treatment Date Care Activity Detail Author Start: 2027 Zoster Vaccines (1 of 2) Zoster Vaccines (1 of 2) [place] Start: 01-22-2024 DIABETES SCREEN DIABETES SCREEN [facility] Start: 06-21-2023 End: 06-21-2023 Patient encounter procedure 06/21/2023 10:00 AM EDT Office Visit [facility] [address] [place] [address] April De La Cruz MD [address] [place] [address] [facility] Start: 06-06-2023 End: 06-06-2023 Clinical Support 06/06/2023 10:30 AM EDT Clinical Support [facility] [address] [place] [address] [facility] Start: 05-30-2023 End: 05-30-2023 Patient encounter procedure 05/30/2023 8:30 AM EDT Appointment [facility] [address] [place] [id number] [facility] Start: 05-24-2023 End: 05-24-2024 US Abdomen US abdomen complete Imaging Routine Chronic viral hepatitis B without delta agent and without coma (HCC) Hx of drug abuse (CMS/HCC) (HCC) Severe opioid use disorder (HCC) Expected: 05/24/2023, Expires: 05/24/2024 [facility] Work Phone: Immunizations Immunization Date Immunization Notes Care Provider Praveen donnelly 09-27-2021 SARS-CoV-2 (COVID-19 ) [id number] CORNELIO CAMACHO DO [facility] 07-28-2020 influenza, injectabl e, quadrivalent, contains preservative Alda Pacheco MD Work Phone: [facility] 07-28-2020 influenza virus vacc ine, unspecified formulation April De La Cruz MD Work Phone: [facility] 08-02-2017 influenza virus vacc ine, unspecified formulation DR CORNELIO CAMACHO DO [facility] 08-02-2017 influenza, seasonal, injectable Alda Pacheco MD Work Phone: [facility] 09-14-2016 influenza virus vacc ine, unspecified formulation DR CORNELIO CAMACHO DO [facility] 07-28-2015 influenza virus vacc ine, unspecified formulation DR CORNELIO CAMACHO DO [facility] 07-28-2015 influenza, injectabl e, quadrivalent, contains preservative Alda Pacheco MD Work Phone: [facility] Work Phone: 07-28-2015 pneumococcal polysaccharide vaccine, 23 valent Alda Pacheco MD Work Phone: [facility] Work Phone: 09-01-2014 influenza virus vacc ine, unspecified formulation DR CORNELIO CAMACHO DO [facility] Payers Date Payer Category Payer Medicaid [id number] 2022 Medicaid [id number] 2020 Medicaid [facility] MEDICAID [id number] 2020-Present [phone] [address] [place] [address] Medicaid [id number] 2020 Medicaid [id number]. [id number] 1977 Unknown [id number] 2.16.840.1.012706.3.579.2. 1977 Unknown [id number] 2.16.840.1.722147.3.579.2. 1977 Unknown [id number] 2.16.840.1.515047.3.579.2. 1977 Unknown [id number] 2.16.840.1.538062.3.579.2. 1977 Unknown [id number] 2.16.840.1.437314.3.579.2. 1977 Unknown [id number] 2.16.840.1.062728.3.579.2. 1977 Unknown [id number] 2.16.840.1.769403.3.579.2. 1977 Unknown [id number] 2.16.840.1.444135.3.579.2. 1977 Unknown [id number] 2.16.840.1.270154.3.579.2. 1977 Unknown [id number] 2.16.840.1.070912.3.579.2. 1977 Unknown [id number] 2.16.840.1.591730.3.579.2. 1977 Unknown [id number] 2.16.840.1.163600.3.579.2.627 1977 Unknown [id number] 2.16.840.1.087024.3.579.2.627 1977 Unknown [id number] 2.16.840.1.938772.3.579.2.627 1977 Unknown [id number] 2.16.840.1.968261.3.579.2.627 1977 Unknown [id number] 2.16.840.1.169442.3.579.2.627 1977 Unknown [id number] 2.16.840.1.970991.3.579.2. 1977 Unknown [id number] 2.16.840.1.568910.3.579.2.7 1977 Unknown [id number] 2.16.840.1.463386.3.579.2. 1977 Unknown [id number] 2.16.840.1.346701.3.579.2.627 1977 Unknown [id number] 2.16.840.1.606697.3.579.2. Unknown [id number] Social History Date Type Detail Facility Tobacco smoking stat [facility] Unknown if ever smoked [facility] Work Phone: Start: 1975 Sex Assigned At Not on file [employer] Work Phone: Start: 11-04-2021 End: 04-20-2023 Exposure to SARS-CoV-2 (event) Not sure [facility] Start: 10-22-2020 End: 08-09-2023 Light tobacco smoker (finding) [facility] Sex Assigned At [facility] Start: 03-03-2020 End: 08-24-2022 Tobacco smoking status NHIS Smokes tobacco daily [facility] History of tobacco use Cigarette Smoker C [facility] Start: 03-03-2020 End: 08-25-2022 Cigarettes smoked current (pack per day) - Reported 1 [place] Start: 03-03-2020 End: 03-13-2022 Tobacco use and exposure Former smokeless tobacco user [facility] Start: 09-17-2020 End: 03-13-2022 Alcohol intake Current non-drinker of alcohol (finding) [facility] Start: 01-12-2020 End: 03-03-2020 History SDOH Alcohol Frequency 2 [facility] Start: 01-12-2020 End: 03-03-2020 History SDOH Alcohol Std Drinks 1 [facility] Start: 06-11-2015 History SDOH Alcohol Comment Hx of alcoholism. quit drinking in 2009 stopped drinking for a couple of years [facility] Start: 01-12-2020 History SDOH Social Connections Phone 5 [facility] Start: 01-12-2020 History SDOH Social Connections Living 3 [facility] Start: 01-12-2020 History SDOH Physical Activity MPS 98 [facility] Start: 01-12-2020 Education 14 [facility] Start: 10-02-2016 Tobacco Comment quit 09/14/2016 [facility] Start: 1975 Sex Assigned At Male [facility] Start: 03-13-2022 Tobacco smoking status NHIS Occasional tobacco smoker [facility] History of tobacco use Snuff User [facility] Start: 03-13-2022 Tobacco Comment One pack every three or four days [facility] Start: 12-13-2022 Tobacco smoking status Ex-smoker (finding) [facility] Start: 08-24-2022 Tobacco use and exposure Smokeless tobacco non-user [place] Start: 02-08-2023 End: 05-24-2023 Alcohol intake Ex-drinker (finding) [place] Start: 08-24-2022 End: 08-25-2022 Alcohol Use Disorder Identification Test - Consumption [AUDIT-C] [place] How often to you hav e a drink containing alcohol? Never [place] How many standard dr inks containing alcohol do you have on a typical day? Patient does not drink [place] In the past 12 month s, was there a time when you were not able to pay the mortgage or rent on time? No [place] Functional Status Date Assessment Result Facility 07-18-2023 Functional Status Ambulation in [facility] 06-08-2023 Functional Status Assistive Device None A [facility] 06-08-2023 Functional Status Standard Safet y ID band on, Allergy Band on, Wheels locked [facility] 06-07-2023 Functional Status Sensory Deficits None A [facility] Mental Status Date Assessment Result Facility 07-18-2023 Mental Status Orientation Oriented x 4 [facility] 06-08-2023 Mental Status Orientation Oriented x 4 [facility] 06-08-2023 Mental Status [facility] 11-28-2022 Mental Status Orientation Oriented x 4 [facility] 11-27-2022 Mental Status [facility] Clinical Notes 06-09-2021 to 08-13-2023 Dafne Delacruz LPN - 06/06/2023 10:30 AM EDTDenclyde Peralta MD - 05/24/2023 11:00 AM EDTPatient InstructionsTelephone Encounter - April De La Cruz MD - 04/23/2023 3:15 PM EDTLaboratoryRadiologyLaboratory Note Date & Type Note Facility 08-13-2023 Note ORIGINAL EXAMINATION: CT OF THE ABDOMEN AND PELVIS WITH URIWJNMX66/18/2023 10:40 am TECHNIQUE: CT of the abdomen and pelvis was performed with the administration of intravenous contrast. Multiplanar reformatted images are provided for review. Automated exposure control, iterative reconstruction, and/or weight based adjustment of the mA/kV was utilized to reduce the radiation dose to as low as reasonably achievable. COMPARISON: None HISTORY: ORDERING SYSTEM PROVIDED HISTORY: Reason for Exam: abscess right hip FINDINGS: The included lung bases are clear. There is no visible pleural or pericardial effusion. The heart is normal in size. The liver and gallbladder and spleen and stomach are normal. Adrenal glands and pancreas are normal. Kidneys enhance normally. There is no hydronephrosis. There are 2 punctate calculi in the left kidney. There is no hydronephrosis. There is several small retroperitoneal-para aortic lymph nodes. Abdominal aortic caliber is normal. The appendix is normal. Large and small bowel are unremarkable. Prostate gland and seminal vesicles are normal. Urinary bladder is unremarkable. There are no enlarged abdominal or pelvic lymph nodes or ascites or free intraperitoneal air. There are fatty infiltrative changes in the right inguinal canal with a 1.9 cm soft tissue density seen best on image 42 of coronal series 601 was subtle central low attenuation is seen on image 118, series number 2 there is no possibility of a small abscess. There is no evidence of abdominal wall for pelvic or hip abscess. There is no acute fracture or destructive or productive bony process. There is chronic bilateral L5 spondylolysis with grade 1 L5 anterolisthesis. There are advanced degenerative disc changes at L2-L3. IMPRESSION: 1. No evidence of an right hip abscess. 2. Focal inflammation in the right inguinal canal with a 1.9 cm posteromedial right angle canal soft tissue density with small abscess not excluded. 3. Punctate left-sided nephrolithiasis with no evidence of obstructive uropathy. Interpreted by: James Marrero Preliminary Report By: James Marrero Electronically signed By James Marrero Dictated Date: 08/13/2023 10:58:03 AM Prelim Date: 08/13/2023 11:10:39 AM Sign Date: 08/13/2023 11:10:39 AM Ordering Provider: WANDA HENRIQUEZ [facility] 08-11-2023 Note . MICRO - Microbiology PROCEDURE: Culture Wound Aerobic with Gram Stain [*1] SOURCE: Abscess BODY SITE: Abdomen COLLECTED DATE/TIME: 08/09/2023 10:57 EST RECEIVED DATE/TIME: 08/09/2023 15:09 EST START DATE/TIME: 08/09/2023 15:09 EST FREE TEXT SOURCE: FINAL REPORTS Final Report [] Verified Date/Time/Personnel: 08/11/2023 08:36 EST Few normal skin macarena present. Sensitivity testing not indicated. PRELIMINARY REPORTS Preliminary Report [] Verified Date/Time/Personnel: 08/10/2023 11:38 EST Culture results pending. STAINS GS [] Verified Date/Time/Personnel: 08/09/2023 21:28 EST Rare Epithelial cells Rare Polymorphonuclear cells 4+ Mononuclear cells Rare Gram Positive Cocci Performing Locations *1: This test was performed at: [facility], [address] [place] [address], [facility] , Count includes the [facility] ([place]) 07-29-2023 Note . MICRO - Microbiology PROCEDURE: Culture Wound Aerobic with Gram Stain [*1] SOURCE: Exudate BODY SITE: Abdomen COLLECTED DATE/TIME: 07/27/2023 16:33 EST RECEIVED DATE/TIME: 07/27/2023 19:09 EST START DATE/TIME: 07/27/2023 19:09 EST FREE TEXT SOURCE: FINAL REPORTS Final Report [] Verified Date/Time/Personnel: 07/29/2023 09:07 EST No growth at 48 hours. PRELIMINARY REPORTS Preliminary Report [] Verified Date/Time/Personnel: 07/28/2023 10:26 EST No growth to date STAINS GS [] Verified Date/Time/Personnel: 07/27/2023 19:32 EST No organisms seen. Performing Locations *1: This test was performed at: [address], [address] [place] [address] ([place]) 07-23-2023 Note . MICRO - Microbiology PROCEDURE: Blood Culture (bacterial) [*1] SOURCE: Blood BODY SITE: COLLECTED DATE/TIME: 07/18/2023 10:21 EST RECEIVED DATE/TIME: 07/18/2023 13:37 EST START DATE/TIME: 07/18/2023 13:37 EST FREE TEXT SOURCE: FINAL REPORTS Final Report [] Verified Date/Time/Personnel: 07/23/2023 13:59 EST Blood Culture: No Growth at 5 days. PRELIMINARY REPORTS Preliminary Report [] Verified Date/Time/Personnel: 07/18/2023 14:59 EST Culture has been received in lab and is no growth to date. Routine cultures are held for 5 days. Performing Locations *1: This test was performed at: [address], [address] [place] [address] ([place]) 07-23-2023 Note . MICRO - Microbiology PROCEDURE: Blood Culture (bacterial) [*1] SOURCE: Blood BODY SITE: COLLECTED DATE/TIME: 07/18/2023 10:21 EST RECEIVED DATE/TIME: 07/18/2023 13:37 EST START DATE/TIME: 07/18/2023 13:37 EST FREE TEXT SOURCE: FINAL REPORTS Final Report [] Verified Date/Time/Personnel: 07/23/2023 13:59 EST Blood Culture: No Growth at 5 days. PRELIMINARY REPORTS Preliminary Report [] Verified Date/Time/Personnel: 07/18/2023 14:59 EST Culture has been received in lab and is no growth to date. Routine cultures are held for 5 days. Performing Locations *1: This test was performed at: [facility], [address] [place] [address], [id number] , Count includes the [facility] ([place]) 07-18-2023 Hospital Discharge instructions Patient Education 07/18/2023 13:35:33 Viral Syndrome (Adult) Viral Syndrome (Adult) A viral illness may cause a number of symptoms such as fever. Other symptoms depend on the part of the body that the virus affects. If it settles in your nose, throat, and lungs, it may cause cough, sore throat, congestion, runny nose, headache, earache and other ear symptoms, or shortness of breath. If it settles in your stomach and intestinal tract, it may cause nausea, vomiting, cramping, and diarrhea. Sometimes it causes generalized symptoms like aching all over, feeling tired, loss of energy, or loss of appetite. A viral illness usually lasts anywhere from several days to several weeks, but sometimes it lasts longer. In some cases, a more serious infection can look like a viral syndrome in the first few days of the illness. You may need another exam and additional tests to know the difference. Watch for the warning signs listed below for when to seek medical advice. Home care Follow these guidelines for taking care of yourself at home: If symptoms are severe, rest at home for the first 2 to 3 days. Stay away from cigarette smoke - both your smoke and the smoke from others. You may use rtey-ruo-ouisbjl acetaminophen or ibuprofen for fever, muscle aching, and headache, unless another medicine was prescribed for this. If you have chronic liver or kidney disease or ever had a stomach ulcer or gastrointestinal bleeding, talk with your healthcare provider before using these medicines. No one who is younger than 18 and ill with a fever should take aspirin. It may cause severe disease or . Your appetite may be poor, so a light diet is fine. Avoid dehydration by drinking 8 to 12, 8-ounce glasses of fluids each day. This may include water; orange juice; lemonade; apple, grape, and cranberry juice; clear fruit drinks; electrolyte replacement and sports drinks; and decaffeinated teas and coffee. If you have been diagnosed with a kidney disease, ask your healthcare provider how much and what types of fluids you should drink to prevent dehydration. If you have kidney disease, drinking too much fluid can cause it build up in the your body and be dangerous to your health. Mqrf-oau-lignoqs remedies won't shorten the length of the illness but may be helpful for symptoms such as cough, sore throat, nasal and sinus congestion, or diarrhea. Don't use decongestants if you have high blood pressure. Follow-up care Follow up with your healthcare provider if you do not improve over the next week. Call 911 Call 911 if any of the following occur: Convulsion Feeling weak, dizzy, or like you are going to faint Chest pain, or more than mild shortness of breath When to seek medical advice Call your healthcare provider right away if any of these occur: Cough with lots of colored sputum (mucus) or blood in your sputum Chest pain, shortness of breath, wheezing, or trouble breathing Severe headache; face, neck, or ear pain Severe, constant pain in the lower right side of your belly (abdominal) Continued vomiting (can t keep liquids down) Frequent diarrhea (more than 5 times a day); blood (red or black color) or mucus in diarrhea Feeling weak, dizzy, or like you are going to faint Extreme thirst Fever of 100.4 F (38 C) or higher, or as directed by your healthcare provider [id number] [employer]. [address] [place] [address], [place] [address]. All rights reserved. This information is not intended as a substitute for professional medical care. Always follow your healthcare professional's instructions. Follow Up Care 07/18/2023 09:45:04 With:CORNELIO CAMACHO DO Address: [address] [place] [address] [place] [phone] When:2-4 days [facility] 07-18-2023 Note Discharge Instructions Thank you for allowing [facility] to assist you with your healthcare needs. The following is important discharge information regarding your hospital visit. Diagnosis from Today's Visit Viral syndrome Wound reevaluation with or without suture removal What to Do Next Instructions from Your Care Team Follow-up with your primary care doctor. Discharge Return to Work, School, or Sports (Return to Work, School, or Sports) - Ordered -- 07/19/23, May return to: work, 07/18/23 13:35:00 EST Post Acute Orders No qualifying data available. You Need to Schedule the Following Appointments Follow Up with CORNELIO CAMACHO DO When Within 2-4 days Where: [address] [facility] [place] [phone] Allergies Mobic (upset stomach) Vicodin (upset stomach) Medications Please ask your primary doctor or pharmacist before taking any other medication not listed, including over the counter drugs, herbal medications, vitamins and or supplements as they may interact with your home medications. What How Much When Why Instructions Last Dose Unchanged albuterol (ProAir HFA MDI (90 mcg/ inh) inhalation aerosol) 2 puff(s) by inhalation Four (4) times a day as needed for as needed for wheezing URTI - Viral upper respiratory tract infection Unchanged buprenorphine (Sublocade) Subcutaneous Once a month Unchanged DULoxetine (DULoxetine 30 mg oral delayed release capsule) 1 cap by mouth Once a day Duration: 90 Days do not crush or chew. Take with 60 mg dose for total of 90 mg once daily. Unchanged DULoxetine (DULoxetine 60 mg oral delayed release capsule) 1 cap by mouth Once a day Duration: 90 Days do not crush or chew. Take with 30 mg dose for total of 90 mg once daily. Unchanged entecavir (entecavir 1 mg oral tablet) 1 tab(s) by mouth Once a day TAKE 1 TABLET BY MOUTH DAILY Unchanged fluticasone nasal (Flonase 50 mcg/ inh nasal spray) 2 spray(s) each nostril Once a day (in the morning) Sinusitis Duration: 30 Days Unchanged isosorbide mononitrate (isosorbide mononitrate 30 mg oral tablet, extended release) 1 tab(s) by mouth Once a day (in the morning) Duration: 90 Days Sent in absence of PCP Unchanged metoprolol (metoprolol succinate 25 mg oral TABLET extended release) 1 tab(s) by mouth Two (2) times a day Duration: 90 Days Do not crush or chew (controlled release) Sent in absence of PCP. Unchanged nitroGLYcerin (nitroglycerin 0.4 mg sublingual tablet) 1 tab(s) under the tongue Every 5 minutes as needed for for chest pain Unchanged tamsulosin (tamsulosin 0.4 mg oral capsule) 1 cap by mouth Once a day Duration: 90 Days 30 minutes after the same meal Please take this list to your next doctor s visit. Bring all medications you take, including over the counter medications, herbals and other supplements with you to your doctor s visit. Patients and families are reminded to discard old lists and to update any records with all medication providers or retail pharmacies. Education Materials Viral Syndrome (Adult) A viral illness may cause a number of symptoms such as fever. Other symptoms depend on the part of the body that the virus affects. If it settles in your nose, throat, and lungs, it may cause cough, sore throat, congestion, runny nose, headache, earache and other ear symptoms, or shortness of breath. If it settles in your stomach and intestinal tract, it may cause nausea, vomiting, cramping, and diarrhea. Sometimes it causes generalized symptoms like aching all over, feeling tired, loss of energy, or loss of appetite. A viral illness usually lasts anywhere from several days to several weeks, but sometimes it lasts longer. In some cases, a more serious infection can look like a viral syndrome in the first few days of the illness. You may need another exam and additional tests to know the difference. Watch for the warning signs listed below for when to seek medical advice. Home care Follow these guidelines for taking care of yourself at home: If symptoms are severe, rest at home for the first 2 to 3 days. Stay away from cigarette smoke - both your smoke and the smoke from others. You may use jnht-ogp-kgrecbc acetaminophen or ibuprofen for fever, muscle aching, and headache, unless another medicine was prescribed for this. If you have chronic liver or kidney disease or ever had a stomach ulcer or gastrointestinal bleeding, talk with your healthcare provider before using these medicines. No one who is younger than 18 and ill with a fever should take aspirin. It may cause severe disease or . Your appetite may be poor, so a light diet is fine. Avoid dehydration by drinking 8 to 12, 8-ounce glasses of fluids each day. This may include water; orange juice; lemonade; apple, grape, and cranberry juice; clear fruit drinks; electrolyte replacement and sports drinks; and decaffeinated teas and coffee. If you have been diagnosed with a kidney disease, ask your healthcare provider how much and what types of fluids you should drink to prevent dehydration. If you have kidney disease, drinking too much fluid can cause it build up in the your body and be dangerous to your health. Isnk-bnk-ongilii remedies won't shorten the length of the illness but may be helpful for symptoms such as cough, sore throat, nasal and sinus congestion, or diarrhea. Don't use decongestants if you have high blood pressure. Follow-up care Follow up with your healthcare provider if you do not improve over the next week. Call 911 Call 911 if any of the following occur: Convulsion Feeling weak, dizzy, or like you are going to faint Chest pain, or more than mild shortness of breath When to seek medical advice Call your healthcare provider right away if any of these occur: Cough with lots of colored sputum (mucus) or blood in your sputum Chest pain, shortness of breath, wheezing, or trouble breathing Severe headache; face, neck, or ear pain Severe, constant pain in the lower right side of your belly (abdominal) Continued vomiting (can t keep liquids down) Frequent diarrhea (more than 5 times a day); blood (red or black color) or mucus in diarrhea Feeling weak, dizzy, or like you are going to faint Extreme thirst Fever of 100.4 F (38 C) or higher, or as directed by your healthcare provider [phone] [employer]. [address] [place] [address], [place] [address]. All rights reserved. This information is not intended as a substitute for professional medical care. Always follow your healthcare professional's instructions. Additional Information VACCINATE! IT SAVES LIVES! Members of the community who have not yet received the COVID-19 vaccine and would like to receive it can visit one of [facility] vaccine clinics. There are many vaccine clinic locations within the [facility]. For locations and available times, please visit [email or web address] It is important to note that some COVID mobile vaccine clinics are held outdoors and may be canceled in rainy or stormy conditions. To learn more about pediatric vaccinations (ages 5-11), we invite you to visit the [facility] webpage. [email or web address] [email or web address]-[email or web address]-[email or web address] To learn more about the COVID-19 vaccine, we invite you to visit the CDC website for a list of frequently asked questions. https://www.cdc.gov/coronavirus/ 2019-ncov/vaccines/faq.html [email or web address] Patient Portal Access Instructions: Stay connected with your healthcare team and access your personal medical information anytime with the [email or web address] Patient Portal. If you would like a full copy of your medical records please contact the [facility] Medical Records Department Sunday through Sunday between 8a.m. and 4:30p.m. Please follow the directions below to access the portal: 1.Access the email account you provided upon registration to the hospital.2.Look for an invitation email from [facility].3.Open the email and access the invitation link: Accept Invitation to [email or web address].Fill in the required mckinney to create your account. Sign into www.[email or web address] with your username and password that you created in the above steps to stay up to date. You can then view a summary of results, a summary of your visits, and the ability to download your summaries to your computer or send the information securely to a physician. Remember that your healthcare information is confidential, so carefully consider who you will allow to register on the [email or web address] Patient Portal for access to your information. You can also access the [email or web address] Patient Portal on the [employer] christa. Simply click on Health Records under Health Data and then click on the [employer] logo. HOW TO SAFELY DISPOSE OF PRESCRIPTION MEDICATIONS Please use one of the following methods to safely dispose of your unused medications. 1.Use a drug disposal kit: the drug disposal pouch allows you to safely discard your old and unused drugs. Ask your nurse to give you one when you are discharged.2.Visit a local take-back location: Many local pharmacies and police departments have programs that collect old and unwanted prescription drugs. Call your local pharmacy or go to http://EnzySurge.Bevy/2T6Uy0j to find one close to you.3.Make use of household items: Use cat litter or old coffee grounds to dispose medications if other options are not available. Mix your drugs with these household products, seal them in an airtight container and throw it into the garbage. Call [facility]: [phone] to be sure your drugs can be disposed of in this way. Some medicines may require a different approach.4.Never flush your medications down the toilet. IF YOU HAVE BEEN PRESCRIBED AN OPIOIDS FOR PAIN If you have been prescribed an opioid (such as hydrocodone, oxycodone or morphine), it is critical to understand the possible side effects and risks of opioid pain medications. Even when taken as directed, opioids can have several side effects including: Tolerance, meaning you might need to take more of a medication for the same pain relief. Nausea, vomiting and/or constipation. Sleepiness, dizziness, dry mouth, confusion, depression or itching. Physical dependence, meaning you have withdrawal symptoms when a medication is stopped ? this can develop within a few days. KNOW YOUR RESPONSIBILITIES It is important to know exactly how much and how often to take the opioid pain medications you are prescribed. Never take opioids in higher amounts or more often than prescribed. Do not combine opioids with alcohol or other drugs that cause drowsiness, such as benzodiazepines, also known as benzos, including diazepam and alprazolam, muscle relaxants or sleep aids. Never sell or share prescription opioids. This is illegal. Store opioids in a secure place and out of reach of others (including children, family, friends and visitors). The last page(s) of this document has been signed and retained as a CHART COPY Signatures Patient Education Materials Viral Syndrome (Adult) Medication Leaflets My discharge plan and instructions have been reviewed and explained to me and I,APRIL NAYLOR understand my current condition and have read and understand these discharge instructions. I have received a written copy of the plan/instructions. If I have questions, I am aware that I should contact my doctor. 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 HISTORY: ORDERING SYSTEM PROVIDED HISTORY: Reason for Exam: SOB/Cough/Fever FINDINGS: The cardiomediastinal silhouette demonstrates a normal appearance. No consolidative opacity is identified. There is no pleural effusion or pneumothorax. No free air seen beneath the level of the diaphragm. The bony thorax appears acutely intact. IMPRESSION: No evidence of an acute process. Interpreted by: Constantino Young MD Preliminary Report By: Constantino Young MD Electronically signed By Constantino Young MD Dictated Date: 07/18/2023 11:52:57 AM Prelim Date: 07/18/2023 11:53:54 AM Sign Date: 07/18/2023 11:53:54 AM Ordering Provider: SHELTON MORGAN [facility] 07-18-2023 Note Sinus rhythm Low voltage, extremity leads ST elev, probable normal early repol pattern EKG interpretation is noted and agreed to in [employer]. The interpretation of this patient's EKG contributed directly to the care and management of this patient. Electronic Signature: SHELTON MORGAN DO 07/18/2023 11:20:40 [facility] 07-18-2023 SARS-CoV-2 (COVID-19) RNA ELOISE+probe Ql (Nph) Negative *NA* (07/18/23 10:21 AM) AO Auto Urine SS 07-10-2023 Note . MICRO - Microbiology PROCEDURE: Culture Wound Deep Aerobe/Anaerobe w Gram Stain [*1] SOURCE: Abscess BODY SITE: Abdomen COLLECTED DATE/TIME: 07/03/2023 13:34 EST RECEIVED DATE/TIME: 07/03/2023 19:19 EST START DATE/TIME: 07/03/2023 19:19 EST FREE TEXT SOURCE: FINAL REPORTS Final Report [] Verified Date/Time/Personnel: 07/10/2023 07:07 EST No aerobes or anaerobes isolated at 7 days. PRELIMINARY REPORTS Preliminary Report [] Verified Date/Time/Personnel: 07/04/2023 11:30 EST No growth to date STAINS GS [] Verified Date/Time/Personnel: 07/03/2023 22:06 EST No organisms seen. Performing Locations *1: This test was performed at: [address], [facility] , Count includes the [facility] ([place]) 06-08-2023 Note Efren Cervantes RN: SIGN, AUTHOR, SIGN, AUTHOR, PERFORM Event Display: CT Procedure Record Authored Date: [id number] CT Procedure Record Summary Primary Physician: Finalized Date/Time: 06/08/23 09:41:46 Pt. Name: DAYDAYAPRIL/Sex: 1975 Male Med Rec #: [id number] Physician: Financial #: [id number] Pt. Type: O Room/Bed: / Admit/Disch: 06/08/23 08:20:48 - Institution: Allergies identified in patient's electronic medical record at time of printing on 06/08/23 Entry 1 Entry 2 Substance Mobic Vicodin Reaction Type Side Effect Side Effect Last Modified By: Meg Powell RN, Katelyn N RN 10/10/21 05:16:12 10/10/21 05:16:19 Case Attendance- CT Entry 1 Entry 2 Entry 3 Case Attendee MADDIE ULLOA MD, Shuttle Fitting Supervisor Efren Cervantes RN Role Performed Assisting Surgeon Pv Design Engineer Procedure Nurse Details Time In 06/08/23 09:14:00 06/08/23 09:15:00 06/08/23 09:14:00 Time Out 06/08/23 09:15:00 06/08/23 09:37:00 06/08/23 09:37:00 Procedure/Preference CT Coronary Angiography CT Coronary Angiography CT Coronary Angiography Card W+W/O Contrast ( W+W/O Contrast ( W+W/O Contrast ( Last Modified By: Efren Cervantes Lyndessa L Hershberger, Lyndessa L RN 06/08/23 09:41:29 RN 06/08/23 09:41:29 RN 06/08/23 09:41:29 Radiology Procedures- CT Entry 1 Procedure/Preference CT Coronary Angiography Actual Procedure CT CORONARY ANGIOGRAPHY Card W+W/O Contrast (SN) W+W/O CONTRAST Primary Procedure Yes Primary Surgeon MADDIE ULLOA MD Anesthesia/Sedation None Type Additional Procedure Times Start 06/08/23 09:17:00 Stop 06/08/23 09:35:00 Specialty Service SN Radiology Procedure EBL 0 mL Last Modified By: Efren Cervantes RN 06/08/23 09:35:43 General Case Data- CT Entry 1 Case Information Room AH CT 1 Case Level None Wound Class None Specialty SN Radiology Procedure ASA Class None Diagnosis Preop Diagnosis chest pain Postop Same As Preop Yes Postop Diagnosis chest pain Last Modified By: Efren Cervantes RN 06/08/23 09:19:41 Medication Administration- CT Entry 1 Medication Sub Nitro Time Administered 06/08/23 09:30:00 Route of Admin Buccal Volume 0.4 mg VORB Administered by No Administered by: Efren Cervantes Physician? RN Last Modified By: Efren Cervantes RN 06/08/23 09:30:18 Procedure Case Times- CT Entry 1 Patient In Procedure Patient In OR 06/08/23 09:14:00 Patient Out of OR 06/08/23 09:37:00 Procedure Start/Stop Procedure Start Time 06/08/23 09:17:00 Procedure Stop Time 06/08/23 09:35:00 Last Modified By: Efren Cervantes RN 06/08/23 09:37:44 Allergy Information- CT Entry 1 Allergies Reviewed? Yes Allergies Reviewed Patient With Last Modified By: Efren Cervantes RN 06/08/23 09:13:55 Radiology Protocols/Time Out- CT Entry 1 Preprocedure Clinician Verifies Correct patient ID When Clinically Confirmation of correct using name & date Indicated side(s) and site(s), or MRN, Accurate Correct diagnostic and procedure, complete radiology tests Informed Consent available OR/Procedure Room/Bedside Time 06/08/23 09:14:00 Clinician Verifies Correct patient identity including EMR & records using name and date or medical record number, Accurate procedure consent form, Correct patient position, Necessary equipment is available When Applicable Confirmation correct Team Members Efren Cervantes side and site marked, Present for Time Out Glynn BURT Rad Tech Relevant images and Tino Villatoro results are properly labeled and appropriately displayed Instrument Sterility Procedure CT Coronary Angiography W+W/O Contrast ( Last Modified By: Efren Cervantes RN 06/08/23 09:18:31 Patient Positioning - CT Entry [address] Coronary Angiography Body Position OP Supine W+W/O Contrast ( Feet Uncrossed? Yes Pressure Points Yes Checked Last Modified By: Efren Cervantes RN 06/08/23 09:18:39 Radiology Procedure Plan - CT Entry 1 Radiology - Nursing Care Plan Outcome Statement The patient's value Outcome Statement The patient receives system, lifestyle, Cont. appropriate ethnicity, and culture medication(s), safely are considered, administered during the respected, and perioperative/invasive incorporated in the period., The patient is perioperative plan of free from signs and care., The patient is symptoms of injury free from signs and caused by extraneous symptoms of infection. objects (equipment, instrumentation, sponges, or sharps)., The patient is free from signs and symptoms of electrical injury. Radiology - Action Plan Action Plan - Patient's value system, Outcome Statement lifestyle, ethnicity, and culture are considered, respected, and incorporated in the perioperative plan of care., Patient is free from signs and symptoms of infection., Patient is free from signs and symptoms of injury related to positioning., Patient is free from signs and symptoms of chemical injury., Patient receives appropriate medication(s), safely administered during the perioperative period., Patient is free from signs and symptoms of injury caused by extraneous objects (equipment, instrumentation, sponges, or sharps). Diesel Motor Mechanic Efren Cervantes window shade installer Plan Last Modified By: Efren Cervantes RN 06/08/23 09:19:25 Radiology Lines and Procedures- CT Entry 1 Radiology Sedation Case Times Sedation Total Time 0 Radiology - Fluid/Drainage RAD - CT Guidewires, Cath... Radiology Urinary Catheter Radiology - CT Other Items Radiology Contrast Contrast Used? Yes Dose 66 mL Medication OMNIPAQUE 350 [id number]/PK [id number] [facility] [id number] Radiology Procedure Site Last Modified By: Efren Cervantes RN 06/08/23 09:20:09 Transfer Post Procedure- CT Entry 1 RAD - Transport to Recovery Patient Transported IV Via Cart With Post-op Destination Receiving Transported By Claudio Maki, Efren Cervantes RN Post Procedure Time Out Double Verification Yes Date/Time Verified 06/08/23 09:35:00 of ID band on patient Completed Verfied ID Band on Efren Cervantes by RN, Claudio Maki Last Modified By: Efren Cervantes RN 06/08/23 09:35:52 Case Comments <None> Finalized By: Efren Cervantes RN Document Signatures Signed By: Efren Cervantes RN 06/08/23 09:41 Efren Cervantes RN 06/08/23 09:41 [facility] 06-08-2023 Hospital Discharge instructions Patient Education 06/08/2023 09:33:31 Radiology- CT Coronary Angiogram (CUSTOM) [place] Coronary CT Angiogram (Coronary CTA or Cardiac CTA) Discharge Instructions [facility] [address] [place] [address] Today, you had a Coronary CT Angiogram. This procedure was done to look at the anatomy of your heart and the surrounding vessels. The images obtained are to help evaluate the presence of coronary heart disease. These instructions should be followed after your procedure to reduce the chance of experiencing complications. Please follow the instructions below to reduce the chance of experiencing complications. Activity: Rest for the remainder of the day. You may resume your normal activity tomorrow. Avoid alcoholic beverages for 24 hours after your procedure. Do not drive or operate heavy machinery for 24 hours after your procedure. Do not make any legal decisions for 24 hours after your procedure. Diet: Resume your normal diet as tolerated. Medication: Please resume scheduled medications. When to seek medical help: Arm, neck or jaw pain Angina (chest pain) or chest discomfort Shortness of breath Dizziness or lightheaded Hives or itching If you experience any of these issues during the first 24 hours, please follow the instruction below or go to the Emergency Department: 8:00 am- 5:00 pm call [phone] After 5:00 pm call [phone] After 24 hours, contact the physician who ordered this procedure for you. Obtaining test results: Please make an appointment with your doctor to obtain your test results. They are usually available within 4 to 5 business days. Do not assume everything is normal if you have not heard from your doctor or medical facility. It is important for you to follow up on all of your test results. Follow Up Care 12/13/2022 11:14:02 With:CRICKET EDOUARD MD Address: [address] [place] [address] [address] [facility] [place] [address]- [phone] When: Unknown Comments:Follow-up as scheduled With:Go to emergency room if symptoms worsen Address:Unknown When: Unknown [facility] 06-08-[address] Procedure Record Summary Primary Physician: Finalized Date/Time: 06/08/23 09:41:46 Pt. Name: APRIL NAYLOR/Sex: 1975 Male Med Rec #: [id number] Physician: Financial #: [id number] Pt. Type: O Room/Bed: / Admit/Disch: 06/08/23 08:20:48 - Institution: Allergies identified in patient's electronic medical record at time of printing on 06/08/23 Entry 1 Entry 2 Substance Mobic Vicodin Reaction Type Side Effect Side Effect Last Modified By: Meg Powell RN, Katelyn N RN 10/10/21 05:16:12 10/10/21 05:16:19 Case Attendance- CT Entry 1 Entry 2 Entry 3 Case Attendee MADDIE ULLOA MD, [facility] Efren Cervantes RN Role Performed Assisting Surgeon Pv Design Engineer Procedure Nurse Details Time In 06/08/23 09:14:00 06/08/23 09:15:00 06/08/23 09:14:00 Time Out 06/08/23 09:15:00 06/08/23 09:37:00 06/08/23 09:37:00 Procedure/Preference CT Coronary Angiography CT Coronary Angiography CT Coronary Angiography Card W+W/O Contrast ( W+W/O Contrast ( W+W/O Contrast ( Last Modified By: Efren Cervantes Lyndessa L Hershberger, Lyndessa L RN 06/08/23 09:41:29 RN 06/08/23 09:41:29 RN 06/08/23 09:41:29 Radiology Procedures- CT Entry 1 Procedure/Preference CT Coronary Angiography Actual Procedure CT CORONARY ANGIOGRAPHY Card W+W/O Contrast (SN) W+W/O CONTRAST Primary Procedure Yes Primary Surgeon MADDIE ULLOA MD Anesthesia/Sedation None Type Additional Procedure Times Start 06/08/23 09:17:00 Stop 06/08/23 09:35:00 Specialty Service SN Radiology Procedure EBL 0 mL Last Modified By: Efren Cervantes RN 06/08/23 09:35:43 General Case Data- CT Entry [address] 1 Case Level None Wound Class None Specialty SN Radiology Procedure ASA Class None Diagnosis Preop Diagnosis chest pain Postop Same As Preop Yes Postop Diagnosis chest pain Last Modified By: Efren Cervantes RN 06/08/23 09:19:41 Medication Administration- CT Entry 1 Medication Sub Nitro Time Administered 06/08/23 09:30:00 Route of Admin Buccal Volume 0.4 mg VORB Administered by No Administered by: Efren Cervantes Physician? RN Last Modified By: Efren Cervantes RN 06/08/23 09:30:18 Procedure Case Times- CT Entry 1 Patient In Procedure Patient In OR 06/08/23 09:14:00 Patient Out of OR 06/08/23 09:37:00 Procedure Start/Stop Procedure Start Time 06/08/23 09:17:00 Procedure Stop Time 06/08/23 09:35:00 Last Modified By: Efren Cervantes RN 06/08/23 09:37:44 Allergy Information- CT Entry 1 Allergies Reviewed? Yes Allergies Reviewed Patient With Last Modified By: Efren Cervantes RN 06/08/23 09:13:55 Radiology Protocols/Time Out- CT Entry 1 Preprocedure Clinician Verifies Correct patient ID When Clinically Confirmation of correct using name & date Indicated side(s) and site(s), or MRN, Accurate Correct diagnostic and procedure, complete radiology tests Informed Consent available OR/Procedure Room/Bedside Time 06/08/23 09:14:00 Clinician Verifies Correct patient identity including EMR & records using name and date or medical record number, Accurate procedure consent form, Correct patient position, Necessary equipment is available When Applicable Confirmation correct Team Members Efren Cervantes side and site marked, Present for Time Out Glynn BURT Rad Tech Relevant images and Tino Villatoro results are properly labeled and appropriately displayed Instrument Sterility Procedure CT Coronary Angiography W+W/O Contrast ( Last Modified By: Efren Cervantes RN 06/08/23 09:18:31 Patient Positioning - CT Entry [address] Coronary Angiography Body Position OP Supine W+W/O Contrast ( Feet Uncrossed? Yes Pressure Points Yes Checked Last Modified By: Efren Cervantes RN 06/08/23 09:18:39 Radiology Procedure Plan - CT Entry 1 Radiology - Nursing Care Plan Outcome Statement The patient's value Outcome Statement The patient receives system, lifestyle, Cont. appropriate ethnicity, and culture medication(s), safely are considered, administered during the respected, and perioperative/invasive incorporated in the period., The patient is perioperative plan of free from signs and care., The patient is symptoms of injury free from signs and caused by extraneous symptoms of infection. objects (equipment, instrumentation, sponges, or sharps)., The patient is free from signs and symptoms of electrical injury. Radiology - Action Plan Action Plan - Patient's value system, Outcome Statement lifestyle, ethnicity, and culture are considered, respected, and incorporated in the perioperative plan of care., Patient is free from signs and symptoms of infection., Patient is free from signs and symptoms of injury related to positioning., Patient is free from signs and symptoms of chemical injury., Patient receives appropriate medication(s), safely administered during the perioperative period., Patient is free from signs and symptoms of injury caused by extraneous objects (equipment, instrumentation, sponges, or sharps). Diesel Motor Mechanic Efren Cervantes window shade installer Plan Last Modified By: Efren Cervantes RN 06/08/23 09:19:25 Radiology Lines and Procedures- CT Entry 1 Radiology Sedation Case Times Sedation Total Time 0 Radiology - Fluid/Drainage RAD - CT Guidewires, Cath... Radiology Urinary Catheter Radiology - CT Other Items Radiology Contrast Contrast Used? Yes Dose 66 mL Medication OMNIPAQUE 350 [id number]/PK [id number] [facility] [id number] Radiology Procedure Site Last Modified By: Efren Cervantes RN 06/08/23 09:20:09 Transfer Post Procedure- CT Entry 1 RAD - Transport to Recovery Patient Transported IV Via Cart With Post-op Destination Receiving Transported By Glynn Shuttle Fitting SupervisorMiranda Villatoro, Efren Cervantes RN Post Procedure Time Out Double Verification Yes Date/Time Verified 06/08/23 09:35:00 of ID band on patient Completed Verfied ID Band on Efren Cervantes by RN, Glynn Shuttle Fitting SupervisorMiranda Villatoro Last Modified By: Efren Cervantes RN 06/08/23 09:35:52 Case Comments Finalized By: Efren Cervantes RN Document Signatures Signed By: Efren Cervantes RN 06/08/23 09:41 Efren Cervantes RN 06/08/23 09:41 [facility] 06-08-2023 Summary of episode note Discharge Instructions Thank you for allowing [facility] to assist you with your healthcare needs. The following is important discharge information regarding your hospital visit. Your Care Team CORNELIO CAMACHO DO What to do next Scheduled Follow-Up Appointments Appointment Type When With Where Contact InformationPC OV 07/27/2023 01:30 PM EST CORNELIO CAMACHO DO [address] [phone] URO OV 05/07/2024 01:[address] [employer] [facility] Follow Up Appointments Follow Up with CRICKET EDOUARD MD When Why: Follow-up as scheduled Follow-up as needed Where: [address] [facility] [address] [place] [address]- [phone] Follow Up with CRICKET EDOUARD MD When Why: Follow-up as scheduled Where: [address] [facility] [address] [place] [address]- [phone] Follow Up with Go to emergency room if symptoms worsen When Allergies Mobic (upset stomach) Vicodin (upset stomach) Medications Please ask your primary doctor or pharmacist before taking any other medication not listed, including over the counter drugs, herbal medications, vitamins and or supplements as they may interact with your home medications. What How Much When Why Instructions Last Dose Unchanged albuterol (ProAir HFA MDI (90 mcg/ inh) inhalation aerosol) 2 puff(s) by inhalation Four (4) times a day as needed for as needed for wheezing URTI - Viral upper respiratory tract infection Unchanged buprenorphine (Brixadi Weekly 24 mg/ 0.48 mL subcutaneous solution, extended release) See instructions 0.48 mL Intramuscular weekly Unchanged DULoxetine (DULoxetine 30 mg oral delayed release capsule) 1 cap by mouth Once a day Duration: 90 Days do not crush or chew. Take with 60 mg dose for total of 90 mg once daily. Unchanged DULoxetine (DULoxetine 60 mg oral delayed release capsule) 1 cap by mouth Once a day Duration: 90 Days do not crush or chew. Take with 30 mg dose for total of 90 mg once daily. Unchanged entecavir (entecavir 1 mg oral tablet) 1 tab(s) by mouth Once a day TAKE 1 TABLET BY MOUTH DAILY Unchanged fluticasone nasal (Flonase 50 mcg/ inh nasal spray) 2 spray(s) each nostril Once a day (in the morning) Sinusitis Duration: 30 Days Unchanged isosorbide mononitrate (isosorbide mononitrate 30 mg oral tablet, extended release) 1 tab(s) by mouth Once a day (in the morning) Duration: 90 Days Sent in absence of PCP Unchanged metoprolol (metoprolol succinate 25 mg oral TABLET extended release) 1 tab(s) by mouth Two (2) times a day Duration: 90 Days Do not crush or chew (controlled release) Sent in absence of PCP. Unchanged nitroGLYcerin (nitroglycerin 0.4 mg sublingual tablet) 1 tab(s) under the tongue Every 5 minutes as needed for for chest pain Unchanged tamsulosin (tamsulosin 0.4 mg oral capsule) 1 cap by mouth Once a day Duration: 90 Days 30 minutes after the same meal Please take this list to your next doctor s visit. Bring all medications you take, including over the counter medications, herbals and other supplements with you to your doctor s visit. Patients and families are reminded to discard old lists and to update any records with all medication providers or retail pharmacies. Education Materials [place] Coronary CT Angiogram (Coronary CTA or Cardiac CTA) Discharge Instructions [facility] [address] [place] [address] Today, you had a Coronary CT Angiogram. This procedure was done to look at the anatomy of your heart and the surrounding vessels. The images obtained are to help evaluate the presence of coronary heart disease. These instructions should be followed after your procedure to reduce the chance of experiencing complications. Please follow the instructions below to reduce the chance of experiencing complications. Activity: Rest for the remainder of the day. You may resume your normal activity tomorrow. Avoid alcoholic beverages for 24 hours after your procedure. Do not drive or operate heavy machinery for 24 hours after your procedure. Do not make any legal decisions for 24 hours after your procedure. Diet: Resume your normal diet as tolerated. Medication: Please resume scheduled medications. When to seek medical help: Arm, neck or jaw pain Angina (chest pain) or chest discomfort Shortness of breath Dizziness or lightheaded Hives or itching If you experience any of these issues during the first 24 hours, please follow the instruction below or go to the Emergency Department: 8:00 am- 5:00 pm call [phone] After 5:00 pm call [phone] After 24 hours, contact the physician who ordered this procedure for you. Obtaining test results: Please make an appointment with your doctor to obtain your test results. They are usually available within 4 to 5 business days. Do not assume everything is normal if you have not heard from your doctor or medical facility. It is important for you to follow up on all of your test results. Additional Information VACCINATE! IT SAVES LIVES! Members of the community who have not yet received the COVID-19 vaccine and would like to receive it can visit one of [facility] vaccine clinics. There are many vaccine clinic locations within the [facility]. For locations and available times, please visit [email or web address].o hio.[email or web address] It is important to note that some COVID mobile vaccine clinics are held outdoors and may be canceled in rainy or stormy conditions. To learn more about pediatric vaccinations (ages 5-11), we invite you to visit the [facility] webpage. [email or web address] To learn more about the COVID-19 vaccine, we invite you to visit the CDC website for a list of frequently asked questions.https://www.cdc.gov/co ronavirus/2019-ncov/vaccines/faq .html [facility] Patient Portal Access Instructions: Stay connected with your healthcare team and access your personal medical information anytime with the [facility] Patient Portal. Please follow the directions below to create your [facility] account: 1.Access the email account you provided upon registration to the hospital/physician office.2.Look for an invitation email from [facility].3.Open the email and access the invitation link: Accept Invitation to [facility].4.Fill in the required mckinney to create your account. To access your account, visit [employer]. Click the blue button labeled Access Patient Portal and then log in with the username and password that you created in the steps above. You will be able to view your test results, lab results, a summary of your visits, upcoming appointments and more. There is also a convenient messaging option where you can send secure messages to your provider. In addition, you will have the ability to download any documents or summaries to your computer and/or send the information securely to a physician. Remember that your healthcare information is confidential, so carefully consider who you will allow to register on the [facility] Patient Portal for access to your information. You can also access the [facility] Patient Portal on the [facility]. Simply click on Patient Portal and then log into your account. If you would like to receive a full copy of your medical records, please contact the [facility] Medical Records Department by calling [phone], Sunday through Sunday between 8 a.m. and 4:30 p.m. HOW TO SAFELY DISPOSE OF PRESCRIPTION MEDICATIONS Please use one of the following methods to safely dispose of your unused medications. 1.Use a drug disposal kit: the drug disposal pouch allows you to safely discard your old and unused drugs. Ask your nurse to give you one when you are discharged.2.Visit a local take-back location: Many local pharmacies and police departments have programs that collect old and unwanted prescription drugs. Call your local pharmacy or go to http://[employer]/2M7Ty4z to find one close to you.3.Make use of household items: Use cat litter or old coffee grounds to dispose medications if other options are not available. Mix your drugs with these household products, seal them in an airtight container and throw it into the garbage. Call [facility]: [phone] to be sure your drugs can be disposed of in this way. Some medicines may require a different approach.4.Never flush your medications down the toilet. IF YOU HAVE BEEN PRESCRIBED AN OPIOID FOR PAIN If you have been prescribed an opioid (such as hydrocodone, oxycodone or morphine), it is critical to understand the possible side effects and risks of opioid pain medications. Even when taken as directed, opioids can have several side effects including: Tolerance, meaning you might need to take more of a medication for the same pain relief. Nausea, vomiting and/or constipation. Sleepiness, dizziness, dry mouth, confusion, depression or itching. Physical dependence, meaning you have withdrawal symptoms when a medication is stopped, can develop within a few days. KNOW YOUR RESPONSIBILITIES It is important to know exactly how much and how often to take the opioid pain medications you are prescribed. Never take opioids in higher amounts or more often than prescribed. Do not combine opioids with alcohol or other drugs that cause drowsiness, such as benzodiazepines, also known as benzos, including diazepam and alprazolam, muscle relaxants or sleep aids. Never sell or share prescription opioids. This is illegal. Store opioids in a secure place and out of reach of others (including children, family, friends and visitors). The last page of this document has been signed and retained as a CHART COPY. Signatures Patient Education Materials Radiology- CT Coronary Angiogram (CUSTOM) Medication Leaflets My discharge plan and instructions have been reviewed and explained to me and IDAYDAY JAMES R understand my current condition and have read and understand these discharge instructions. I have received a written copy of the plan/instructions. If I have questions, I am aware that I should contact my doctor. 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 Signature: Date/Time: Relationship to Patient: Witness Name/Signature: Date/Time: [facility] 06-06-2023 History of Present illness Narrative [facility] Infectious Disease Patient: Dayday Maravilla : 1975 Height: Ht Readings from Last 1 Encounters: 06/06/23 6' (1.829 m) Weight: Wt Readings from Last 1 Encounters: 06/06/23 242 lb (110 kg) BMI: BMI Readings from Last 1 Encounters: 06/06/23 32.82 kg/m Procedure: Patient referred by Dr Peralta for open-access FibroScan study for diagnosis of HBV Patient identified x 2 and verified the following: age 18 or older-yes Fasting >3 hours-yes FibroScan study completed using Extra Large probe and 12 consecutive valid measurements obtained. Patient tolerated procedure well. Results: Median=6.4 kPa IQR=0.9 IQR/med=14 % SNU=506 dB/m Dafne Delacruz LPN, 06/06/2023 10:40 AM Diagnosis/Problems: Diagnosis Plan 1. Chronic viral hepatitis B without delta agent and without coma (HCC) Fibroscan 2. Hx of Hepatitis C s/p therapy 3. BMI of 33 IMPRESSION: Considering the patient's history and recent liver tests, this 1). Liver Stiffness Score of 6.4 kPa is consistent with: Liver Fibrosis Stage F 1- mild fatty liver disease 2). Liver Fat Estimation: Patient had median Controlled Attenuation Parameter of 222 decibels/m (dB/m) the CAP Score is consistent with Liver Steatosis Stage S 0- no significant fatty liver disease Interpretation: The CAP score is measured in decibels per meter (Db/m). It ranges from 100 to 400 Db/m. The table below shows ranges of CAP scores and the matching steatosis grade and amount of fatty change. Cap Score Steatosis Grade Amount of Liver with Fatty Change 238-260 dB/m S1 11 to 33% 260 to 290 Db/m S2 34 to 66% Higher than 290 Db/M S3 67% or more Your fibrosis result is a measurement of the amount of scarring in your liver. FibroScan measures scarring by measuring the stiffness of your liver. The fibrosis result is measured in kilopascals (kPa) It's normally between 2 and 6 kPa. The highest possible result is 75 kPa. Many people with liver disease(s) have a result that's higher than the normal range. Your healthcare provider will use your FibroScan fibrosis result and your medical history to determine your fibrosis score. Fibrosis score F0 to F1: No liver scarring or mild liver scarring Fibrosis score F2: Moderate liver scarring Fibrosis score F3: Severe liver scarring Fibrosis score F4: Advanced liver scarring (cirrhosis) Using your FibroScan fibrosis result to estimate your fibrosis score The table below shows liver diseases, ranges of fibrosis results, and the matching fibrosis score. The ranges of fibrosis results in the table are estimates. This means that your actual fibrosis score (the score that your healthcare provider tells you) may not match the fibrosis score in the table. If you have more than one liver disease, you may not be able to use the table. To use the table, find the liver disease that you have on the left side of the table. Read across the row from left to right until you find the range that includes your fibrosis result. Then, look at the top of that column to see the fibrosis score. F0 to F1 F2 F3 F4 Hepatitis B 2 to 7 kPa 8 to 9 kPa 8 to 11kPa 18 kPa or higher Hepatitis C 2 to 7 kPa 8 to 9 kPa 9 to 14kPa 14 kPa or higher HIV/HCV Coinfection 2 to 7 kPa 7 to 11 kPa 11 to 14kPa 14 kPa or higher Non-alcoholic Fatty Liver 2 to 7 kPa 7.5 to 10 kPa 10 to 14kPa 14 kPa or higher Disease (NAFLD OR GARCIA) Alcohol Related Disease 2 to 7 kPa 7.5 to 11 kPa 11 to 19kPa 19 kPa or higher Your fibrosis result may be over-estimated (your liver may have less scarring than what your fibrosis result says) if you have: Liver inflammation. This can be caused by a recent liver illness or drinking alcohol. Benign (not cancerous) or cancerous tumors in your liver. Liver congestion (when your liver is too full of blood or other fluids). This is usually caused by heart failure. Your FibroScan results may also be less accurate if you have: A body mass index (BMI) higher than 30 (obesity) A build-up of fluid in your abdomen (ascites) Too little bile flowing out of your liver (biliary obstruction) documented in this encounter [place] 05-24-2023 History of Present illness Narrative Images from the original note were not included. Subjective/ROS: seen in follow up of 2 yrs of therapy for Chronic Hepatitis B infection. Has not been seen in a year. He still sees his j2ee developer in regards to concern of hep Brelated arthritic complaints versus osteoarthritis status post multiple traumas. It is noted that while he had active hepatitis C before treatment he had elevated mixed cryoglobulins which were felt to be contributing to his multiple joint problems. He has been since treated for hep C but unfortunately did not have the hepatitis B vaccine while under treatment and subsequently acquired hepatitis B. Last liver function tests that were done last year were normal on [facility]. He states that he was incarcerated for 19 days and was unable to take his medication but did not have a hepatitis B flare, and quickly resumed his medication when he exited the [facility]. He denies any problems with taking his medication which she is very faithful about and denies any side effects of the medication. States he has gotten sober and has been sober for about 9 mos with current use of daily Subsolv (for of higher ration of Buprenorphine to Naloxone) SL once daily. He is in POP and goes to counseling and attends multiple weekly 12 step meetings. Is trying to seek disability as he has tried to work but his physical issues are so multiple and involve severe arthritis, that lacks strength, endurance as well as mobility to do so. Has been seeing a inspection machine tender regarding chest pain for which he is now on Imdur and nitroglycerin with a pending CT angio. He states that he also is having issues with a growing inguinal area lesion and the location he had in 1993 Pseudomonas infection of hernia mesh. He states in the last year he has markedly been increasing. It is not hot red warm or movable and appears to be a fixed lesion that is tender and causes him discomfort, without severe pain. Discussed smoking cessation- he is down to 1 pk/3 d but feels that his 's smoking ( 2 pk/d) is a big trigger. He is trying to get her to quit as she had a heart attack this past year. (She is 10 yrs sober) We discussed asking her to only smoke outside of his presence and ways he can continue to wean off without blaming her or others for his decision to smoke. Discussed means of quittng but he is not interested other than weaning off. HISTORYOF PRESENT ILLNESS: Chronic Hepatitis B (also had Hep C that was treated by Dr. Esparza) from [facility]. Long history of polypharmacy abuse, with Opiate addiction in remission for 6 years, but then went back to using and was increasingly ill for 3 years before getting treatment last FALL, with sustained remission after institution of Buprenorphine/Naloxone. Social History Socioeconomic History Marital status: Spouse name: Not on file Number of children: Not on file Years of education: Not on file Highest education level: Not on file Occupational History Not on file Tobacco Use Smoking status: Every Day Packs/day: 0.25 Years: 25.00 Additional pack years: 0.00 Total pack years: 6.25 Types: Cigarettes Smokeless tobacco: Never Substance and Sexual Activity Alcohol use: Not Currently Drug use: Not Currently Types: Fentanyl, Heroin Comment: Last use was 06/22/2022 Sexual activity: Yes Partners: Female Comment: Other Topics Concern Not on file Social History Narrative Not on file Social Determinants of Health Financial Resource Strain: Not on file Food Insecurity: Not on file Transportation Needs: Not on file Physical Activity: Not on file Stress: Not on file Social Connections: Not on file Intimate Partner Violence: Not on file Housing Stability: Unknown (08/25/2022) Housing Stability Vital Sign Unable to Pay for Housing in the Last Year: No Number of Places Lived in the Last Year: Not on file Unstable Housing in the Last Year: No Past Medical History: Diagnosis Date Hepatitis B Hepatitis B infection 05/24/2023 Opiate withdrawal (HCC) 03/31/2021 Family History Problem Relation Name Age of Onset Cancer Father Vitals: 05/24/23 1052 BP: 122/82 BP Location: Left arm Patient Position: Sitting BP Cuff Size: Adult Pulse: 73 Temp: 36.7 C (98.1 F) SpO2: 98% Weight: 236 lb 6.4 oz (107 kg) Height: 6' (1.829 m) Wt Readings from Last 3 Encounters: 05/24/23 236 lb 6.4 oz (107 kg) 02/08/23 230 lb (104 kg) 08/24/22 230 lb (104 kg) Physical Exam Vitals and nursing note reviewed. Constitutional: General: He is not in acute distress. Appearance: Normal appearance. He is obese. He is ill-appearing. He is not toxic-appearing or diaphoretic. Comments: Well kept and in good spirits. Looks older than stated age of 48. Very good communication today (in the past he would jump from one problem to another and had multiple complaints- now very calm, collected and appropriate) Has gained weight with BMI of 32. HENT: Head: Normocephalic and atraumatic. Ears: Comments: R eye is diverting laterally. No scleral icterus Mouth/Throat: Mouth: Mucous membranes are moist. Pharynx: Oropharynx is clear. No oropharyngeal exudate or posterior oropharyngeal erythema. Comments: Edentulous, tobacco odor to breath. No pharygeal erythema Eyes: General: No scleral icterus. Extraocular Movements: Extraocular movements intact. Pupils: Pupils are equal, round, and reactive to light. Cardiovascular: Rate and Rhythm: Normal rate and regular rhythm. Heart sounds: Normal heart sounds. No murmur heard. Pulmonary: Effort: Pulmonary effort is normal. No respiratory distress. Breath sounds: Normal breath sounds. No stridor. No rhonchi or rales. Chest: Chest wall: No tenderness. Abdominal: General: Bowel sounds are normal. There is no distension. Palpations: Abdomen is soft. There is mass. Tenderness: There is no abdominal tenderness. There is no right CVA tenderness or left CVA tenderness. Comments: Obese and soft. No organomegaly noted. No ascites. No focal tenderness over liver. Notable mass above right inguinal area that is firm solid tissue that is not mobile measuring 7 cm in length and 3-1/2 cm in width with a depth of approximately 2 cm. It is not warm red or fluctuant. It is mildly tender to palpation. It is an area of scar tissue from prior Pseudomonas infected mesh post hernia repair Musculoskeletal: General: Tenderness and deformity present. No swelling. Cervical back: Normal range of motion and neck supple. No rigidity. Right lower leg: Edema present. Left lower leg: Edema present. Comments: Hands wrists knees all tender but no synovitis noted at this time with osteoarthritis deformities in the hands and wrists. Mild edema 1+ of right and left ankle but markedly less than when last seen while he was at an active addiction and not eating appropriately with hypoalbuminemia. Lymphadenopathy: Cervical: No cervical adenopathy. Skin: General: Skin is warm and dry. Capillary Refill: Capillary refill takes 2 to 3 seconds. Findings: No lesion or rash. Comments: Tattoos Neurological: Mental Status: He is alert and oriented to person, place, and time. Gait: Gait abnormal. Comments: Had left trigeminal neuralgia and is status post injection for nerve block with mild asymmetry of face and chronic right eye deviation Gait is slow due to arthritis and knees particularly the right knee and severe chronic back pain Psychiatric: Mood and Affect: Mood normal. Behavior: Behavior normal. Thought Content: Thought content normal. Judgment: Judgment normal. No visits with results within 1 Month(s) from this visit. Latest known visit with results is: Hospital Outpatient Visit on 04/20/2023 Component Date Value Ref Range Status POC Creatinine 04/20/2023 0.7 0.6 - 1.4 mg/dL Final eGFR, Whole Blood 04/20/2023 115.8 Final ASSESSMENT & Plan Diagnosis Plan 1. Chronic viral hepatitis B without delta agent and without coma (HCC) Repeat hepatitis B DNA quantitation and liver panel Has been on Baraclude 2. Severe opioid use disorder (HCC) 3. Hx of drug abuse (CMS/HCC) (HCC) Continue seeing Dr. Magda Lindsey 4. Malaise and fatigue -significant and chronic even in sobriety though marginally improved with buprenorphine/naloxone 5. Other chronic back pain right knee and back as well as wrist hands 6. Mass in right inguinal area at site of prior Pseudomonas infection of inguinal hernia repair mesh in 1993 that is growing in size over the past year will get ultrasound to evaluate whether cystic or solid as opposed scar tissue cancers are concerned particularly with all of the immunosuppression from chronic opiate use he has had over the years and chronic hepatitis B infection I spent total time 45 minutes caring for this patient today,including >51% in reviewing labs, records from another facility, interviewing and examining the patient and documenting, writing orders (prescriptions/meds), and instructing the patient on self care. Renee Peralta MD, MD, FACP { documented in this encounter [place] 05-24-2023 Instructions Renee Peralta MD - 05/24/2023 11:00 AM EDT Get ultrasound of abdomen documented in this encounter [place] 04-23-2023 Telephone encounter Note Call them back. I did not intentionally discontinue the med. If the patient reports that he wants it removed from the list on check in then I have to discontinue the med because Epic will not let me sign the note until I do that. [place] 04-23-2023 Miscellaneous Notes Call them back. I did not intentionally discontinue the med. If the patient reports that he wants it removed from the list on check in then I have to discontinue the med because Epic will not let me sign the note until I do that. Name of caller: April Contact phone number: [phone] Relationship to Patient: patient Provider: Dr. De La Cruz Practice: [facility] Neurology [place] Chief Complaint/Reason for Call: pt states that his infectious disease provider told him that Dr. De La Cruz cancelled his entecavir (Baraclude) tablet 1 mg, and they would like to know if that was a mistake. Please advise. Best time of day caller can be reached: any Patient advised that office/PCP has 24-48 business hours to return their call: Yes documented in this encounter [place] 04-23-2023 Telephone encounter Note Name of caller: April Contact phone number: [phone] Relationship to Patient: patient Provider: Dr. De La Cruz Practice: [facility] Neurology [place] Chief Complaint/Reason for Call: pt states that his infectious disease provider told him that Dr. De La Cruz cancelled his entecavir (Baraclude) tablet 1 mg, and they would like to know if that was a mistake. Please advise. Best time of day caller can be reached: any Patient advised that office/PCP has 24-48 business hours to return their call: Yes [place] 02-20-2023 Telephone encounter Note Spoke with patient about the CT Face that was ordered. Advised him that the Auth has been approved and when he was ready to call Central Scheduling to schedule appt. Gave patient Scheduling # [place] 02-20-2023 Miscellaneous Notes Spoke with patient about the CT Face that was ordered. Advised him that the Auth has been approved and when he was ready to call [facility] Sched[facility] to schedule appt. Gave patient Scheduling # documented in this encounter [place] 02-08-2023 History of Present illness Narrative Images from the original note were not included. [facility] [address] [place] [address] [facility] [address] Dept: [phone] Dept Loc: [phone] April De La Cruz MD Thank you for your kind request for a neurological consultation on this patient. CHIEF COMPLAINT: Chief Complaint Patient presents with Follow-up Numbness HISTORY OF PRESENT ILLNESS: The patient is a 47 y.o. person who presents with severe pain and numnbess in the left lower face and pain around the left ear. Cool breeze will set it off. He reports that certain movements/positions of his head will trigger the severe pain. He reports that he has broken the left mandible and had multiple face and head traumas. He reports that he has injected heroin into his left neck. Short seconds of misery. It has been going on for months. He is trying to withdrawal from heroin at this moment. He is having diarrhea, loss of appetite, and not producing urine. I talked to him about seeing addiction medication. He is having nausea. Past Medical History: has a past medical history of Hepatitis B and Opiate withdrawal (HCC) (03/31/2021). [id number] [place] [address] Patient Name APRIL NAYLOR Admit 11/26/2022 1:10:00 PM Attending YISEL CASTANO MD /Age/Sex 1975 47 M Location [facility] Emergency Room Note Service Date/Time 11-26-2022 13:34 Result Status Final Perform Information YISEL CASTANO MD (11/26/2022 1:38:12 PM) Sign Information YISEL CASTANO MD (11/26/2022 1:38:12 PM) Authentication Information YISEL CASTANO MD (11/26/2022 1:38:12 PM) Page 1 of 6 Basic Information Time Seen: YISEL CASTANO MD 11/26/2022 13:18 Chief Complaint Pt alert and oriented. C/o L facial pain/numbness x several weeks. States has seen ENT and PMD but pain continues to worsen. History of Present Illness This is a 47-year-old male who has had for several weeks at least pain left side of his face. Seen by an ear nose and throat physician according to patient no diagnosis. He was to be referred to a neurosurgeon has not seen yet though however. ENT placed him on prednisone which she is almost finished with and it did not help according the patient. Patient denies any acute trauma. No fever no chills. Notes some occasional numbness. No neck pain or stiffness. No hearing deficit. No acute visual deficit. 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 All his teeth are out and he has no gumline pain. No sore throat or swallowing difficulty. Review of Systems Patient denies chest pain shortness of breath. No rashes. Physical Exam Vitals & Measurements T: 36.6 C (Oral) HR: 78 BP: 151/104 SpO2: 97% Patient awake alert and fully oriented. Examination the face reveals no obvious swelling. Nose no erythema no induration. No evidence of trauma. Eyes reveal disconjugate gaze and evidence of old trauma right eye. Left eye appears normal. Periorbital tissues are normal without erythema or swelling. The neck is supple nontender no lymphadenopathy or mass no meningeal signs no JVD. No masses. Ears show normal TMs canals bilaterally. No evidence of otitis media or externa. Tyrone is normal. Postauricular tissues normal without inflammation or tenderness or swelling. There is really no tenderness by palpation along the mandible or any portion of maxilla on the left or right. Intraoral inspection is normal. The teeth are all absent he is Impression and Plan 1. Facial pain Ordered: gabapentin, Start: 11/26/22 15:00:00 EDT, Dose = 100 mg, = 1 cap(s), Oral, TID, 11/26/22 13:32:00 EDT Discharge Medical Decision Making This is a 47-year-old male with somewhat chronic pain down the left side of his face. There is no evidence of infection or mass including abscess or lymphadenopathy. No temporal artery tenderness. History compatible with possible neuropathic pain. He is already had work-up started and needs to follow-up with neurosurgery. I do not think any acute imaging or laboratory evaluation required at this time. He is placed back on low-dose of gabapentin. Follow-up with his physician. Return if worse such as fever or swelling or changes. Diagnosis: Acute on chronic facial pain Problem List/Past Medical History Ongoing Aortic root dilation Breast mass Cardiac murmur [facility] Patient Name APRIL NAYLOR Admit 11/26/2022 1:10:00 PM Disch Location [facility] Emergency Room Note Page 2 of 6 edentulous. Gums are normal. Tongue is normal. Sublingual tissues are normal. Posterior pharynx clear no erythema exudate tonsillar large mass or edema. Patient phonates and swallows with no difficulty. Patient Education Symptoms With Uncertain Cause Follow Up With When Contact Information CORNELIO CAMACHO DO Within 2-[address] [place] [address] [place] [address]- [phone] A d d i t i o n a l I n s t r u c t i o n s : Go to emergency room if symptoms worsen Within 2-4 days A d d i t i o n a Chest tightness Chronic pain Fentanyl use disorder, moderate Generalized anxiety disorder History of hepatitis B History of hepatitis C History of traumatic head injury Lt facial numbness Major depressive disorder, recurrent episode, moderate Multiple pigmented nevi Normocytic anemia due to blood loss Peripheral edema Rectal bleeding Historical No qualifying data Procedure/Surgical History Hernia repair Face MRSA Eye Allergies Mobic (upset stomach) Vicodin (upset stomach) Social History Smoking Status - 01/30/2014 Former smoker Alcohol Use: Past., 10/13/2020 Nutrition/Health Caffeine intake amount: soda sometimes or tea., 11/22/2022 Substance Abuse Use: Past. Type: Methamphetamines, pt sts i shoot fentanyl . Frequency: Daily., 09/26/2022 Tobacco Nicotine Use: 5-9 cigarettes (between 1/4 to 1/2 pack)/day in last 30 days., 09/26/2022 Family History Cancer: Father. Pulmonary hypertension: Negative: Father. Past Surgical History: has no past surgical history on file. Medications: Current Outpatient Medications: Ascorbic Acid (VITAMIN C PO), Take by mouth., Disp: , Rfl: Hgitqtm-Rxlqgtsymp-Warwrgl D (VITAMIN D3/CALCIUM/PHOSPHORUS PO), Take by mouth., Disp: , Rfl: carBAMazepine (TEGretol) 200 MG tablet, Take 1 tablet (200 mg) by mouth 2 times daily., Disp: 60 tablet, Rfl: 11 Cyanocobalamin (VITAMIN B12 PO), Take by mouth., Disp: , Rfl: entecavir (Baraclude) 1 MG tablet, Take 1 mg by mouth daily., Disp: , Rfl: POTASSIUM GLUCONATE PO, Take by mouth., Disp: , Rfl: promethazine (Phenergan) 25 MG tablet, Take 1 tablet (25 mg) by mouth every 8 hours as needed for nausea or vomiting., Disp: 90 tablet, Rfl: 0 tamsulosin (Flomax) 0.4 MG 24 hr capsule, Take 0.4 mg by mouth daily., Disp: , Rfl: ZINC OXIDE PO, Take by mouth., Disp: , Rfl: Allergies: Patient has no known allergies. Social History: Social History Socioeconomic History Marital status: Spouse name: Not on file Number of children: Not on file Years of education: Not on file Highest education level: Not on file Occupational History Not on file Tobacco Use Smoking status: Every Day Packs/day: 0.25 Years: 25.00 Pack years: 6.25 Types: Cigarettes Smokeless tobacco: Never Substance and Sexual Activity Alcohol use: Not Currently Drug use: Yes Types: Fentanyl Comment: Last use was 06/22/2022 Sexual activity: Not Currently Partners: Female Comment: Other Topics Concern Not on file Social History Narrative Not on file Social Determinants of Health Financial Resource Strain: Not on file Food Insecurity: Not on file Transportation Needs: Not on file Physical Activity: Not on file Stress: Not on file Social Connections: Not on file Intimate Partner Violence: Not on file Housing Stability: Unknown (08/25/2022) Housing Stability Vital Sign Unable to Pay for Housing in the Last Year: No Number of Places Lived in the Last Year: Not on file Unstable Housing in the Last Year: No Family History: Family History Problem Relation Name Age of Onset Cancer Father REVIEW OF SYSTEMS: Review of Systems Constitutional: Negative for appetite change, chills, diaphoresis, fever and unexpected weight change. HENT: Negative for dental problem and mouth sores. Eyes: Negative for discharge and itching. Respiratory: Negative for chest tightness. Cardiovascular: Negative for chest pain and leg swelling. Gastrointestinal: Positive for diarrhea and nausea. Negative for rectal pain and vomiting. Endocrine: Negative for polydipsia, polyphagia and polyuria. Genitourinary: Negative for decreased urine volume, flank pain and genital sores. Musculoskeletal: Negative for arthralgias. Skin: Negative for color change. Allergic/Immunologic: Negative for food allergies and immunocompromised state. Neurological: Positive for headaches. Hematological: Negative for adenopathy. Does not bruise/bleed easily. Psychiatric/Behavioral: Negative for agitation, behavioral problems, decreased concentration, sleep disturbance and suicidal ideas. PHYSICAL EXAM: Vitals: BP (!) 151/90 (BP Location: Left arm, Patient Position: Sitting, BP Cuff Size: Adult) Pulse 67 Ht 6' (1.829 m) Wt 230 lb (104 kg) BMI 31.19 kg/m General Appearance: Patient is in no apparent distress. Head is normocephalic, atraumatic Cardiovascular: Regular rate and rhythm. No heart murmurs. No carotid bruit Neurologic: Mentation: Alert and oriented x 3 to person, place and time. Speech and Language: Speech and language normal Concentration and Attention: Concentration normal Memory: Memory normal Fund of Knowledge: Fund of knowledge normal Cranial Nerves: II, III, IV, V, , VII, VIII, IX, X, XI, XII tested and were intact including fundoscopic exam (optic discs) and visual field to confrontation. Decreased pinprick in the left lower face. Motor: Strength:Strength 5 out of 5 with normal tone Alternating Movements: Normal Cogwheel Rigidity: None Tone: Tone is normal Tremor / Involuntary Movements: None Deep Tendon Reflexes: 1 out of 4 symmetrical in all four limbs. Coordination: Normal coordination upper and lower extremities Gait and Station: Station is normal. Gait is normal DATA CT HEAD OR BRAIN W/O CONTRAST View Image ORIGINAL HISTORY: Left arm and facial numbness COMPARISON: No TECHNIQUE: Routine non-contrast head CT with sagittal and coronal reconstructions This exam was performed according to our departmental dose optimization program, and includes the following measures where applicable: automated exposure control, adjustment of the mAs and/or kVp according to patient size and/or exam, and an iterative reconstruction algorithm. FINDINGS: The ventricles and sulci are normal in size and configuration. There are no abnormal intra- or extra-axial fluid collections. Sawyer-white matter differentiation is maintained. The calvaria and the bones of the base of the skull are intact. There is sinus disease. IMPRESSION: Normal examination of the brain. Sinus disease. Interpreted by: April Humphreys MD Preliminary Report By: April Humphreys MD Electronically signed By April Humphreys MD Dictated Date: 11/20/2022 1:34:55 PM Prelim Date: 11/20/2022 1:36:22 PM Sign Date: 11/20/2022 1:36:22 PM Ordering Provider: MEGAN RICHTER CT ANGIOGRAPHY NECK W/CONTRAST View Image ORIGINAL EXAMINATION: CTA OF THE NECK 11/28/2022 12:00 am TECHNIQUE: CTA of the neck was performed with the administration of intravenous contrast. Multiplanar reformatted images are provided for review. MIP images are provided for review. Stenosis of the internal carotid arteries measured using NASCET criteria. Automated exposure control, iterative reconstruction, and/or weight based adjustment of the mA/kV was utilized to reduce the radiation dose to as low as reasonably achievable. COMPARISON: CT and CTA head same day. HISTORY: ORDERING SYSTEM PROVIDED HISTORY: Reason for Exam: pain and paresthesia of left side of head. Tingling and pain behind left ear. FINDINGS: AORTIC ARCH/ARCH VESSELS: No dissection or arterial injury. No significant stenosis of the brachiocephalic or subclavian arteries. CAROTID ARTERIES: No dissection, arterial injury, or hemodynamically significant stenosis by NASCET criteria. VERTEBRAL ARTERIES: No dissection, arterial injury, or significant stenosis. SOFT TISSUES: The lung apices are clear. No cervical or superior mediastinal lymphadenopathy. The larynx and pharynx are unremarkable. No acute abnormality of the salivary and thyroid glands. BONES: No acute osseous abnormality. Mild degenerative changes in the cervical spine. IMPRESSION: No occlusion or severe stenosis of the carotid or vertebral arteries per NASCET criteria. I have personally reviewed the images of this examination, and agree with the resident's findings and interpretation. Interpreted by: Ko Newsome MD Preliminary Report By: Gwyn Burr Electronically signed By Ko Newsome MD Dictated Date: 11/28/2022 12:06:32 AM Prelim Date: 11/28/2022 12:11:29 AM Sign Date: 11/28/2022 12:26:15 AM Ordering Provider: JESSI BURTON CBC: Lab Results Component Value Date WBC 4.7 08/24/2022 RBC 4.81 08/24/2022 HGB 14.2 08/24/2022 HCT 43.2 08/24/2022 MCV 89.9 08/24/2022 MCH 29.4 08/24/2022 MCHC 32.8 08/24/2022 RDW 13.3 08/24/2022 PLT 223 08/24/2022 MPV 7.0 (L) 08/24/2022 CMP: Lab Results Component Value Date NA 136 08/24/2022 K 4.1 08/24/2022 CL 101 08/24/2022 CO2 29 08/24/2022 BUN 21 (H) 08/24/2022 CREATININE 0.83 08/24/2022 CREATININE 0.60 03/30/2021 GLUCOSE 179 (H) 08/24/2022 PROT 7.6 08/24/2022 CALCIUM 9.5 08/24/2022 BILITOT 0.4 08/24/2022 ALKPHOS 73 08/24/2022 AST 29 08/24/2022 ALT 24 08/24/2022 BMP: Lab Results Component Value Date NA 136 08/24/2022 K 4.1 08/24/2022 CL 101 08/24/2022 CO2 29 08/24/2022 BUN 21 (H) 08/24/2022 CREATININE 0.83 08/24/2022 CREATININE 0.60 03/30/2021 CALCIUM 9.5 08/24/2022 GLUCOSE 179 (H) 08/24/2022 PT/INR: Lab Results Component Value Date PROTIME 11.6 08/24/2022 INR 1.1 08/24/2022 PTT: No results found for: APTT, PTT[APTT} FLP: No results found for: CHLPL, TRIG, HDL, LDLCALC, LDLDIRECT TSH: No results found for: TSH VITAMIN B12: No results found for: [id number] FERRITIN: No results found for: FERRITIN ---- No results found for: PHENYTOIN, PHENOBARB, VALPROATE, CBMZ No components found for: TOPIRANo results found for: OXCARBAZE, OXCARB @LASTAPPOINTMENTTHISPROV@ ECG 12 lead [facility] Test Date: 2021-03-30 Pat Name: April Naylor Department: 1AER Room: [facility] Gender: M 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 Trigeminal neuralgia of left side of face carBAMazepine (TEGretol) 200 MG tablet 2. Left facial numbness carBAMazepine (TEGretol) [address] MAXILLOFACIAL W IV CONTRAST 3. H/O: facial fracture CT MAXILLOFACIAL W IV CONTRAST 4. Dental abscess CT MAXILLOFACIAL W IV CONTRAST 5. Nausea It is medically necessary for him to have MRI brain w and wo for Tumor or Demyelinating lesion causing this trigeminal neuralgia and the lower facial numbness. He does not have teeth, but has had dental issues. It is medically necessary to get CT Maxillofacial to check for dental abscesses causing this. Carbamazepine 200 mg PO BID. He was given phenergan to take as needed for the nausea. I offered a consult with addiction medicine for the withdrawal he is suffering from today. I spent 40 minutes caring for this patient today, reviewing labs and records, seeing the patient, documenting in the record and arranging for studies. documented in this encounter [place] 11-28-2022 Hospital Discharge instructions Patient Education 11/28/2022 00:27:04 Neuropathy, Peripheral Peripheral Neuropathy Peripheral neuropathy is the result of damage to the peripheral nerves. It usually affects the arms or legs, and causes a change in physical feeling. Sometimes it causes weakness in the muscles. You may feel tingling, numbness or shooting pains. Symptoms may be more common at night. Skin may be extra sensitive to light touch or temperature changes. Neuropathy may be caused by a complication of a chronic disease such as diabetes, virus or bacterial infections, or physical injury. A ruptured disk with pressure on the spinal nerve may also lead to the problem. Certain vitamin deficiencies may also lead to it. It may also be caused by exposure to certain drugs or chemicals. Home care Tell the healthcare provider about all medicines you take. This includes prescription and whsr-ort-cmwhili medicines, vitamins, and herbs. Ask if any of the medicines may be causing your problems. Don't make any changes to prescription medicines without talking to your healthcare provider first. You may be prescribed medicines to help relieve the tingling feeling or for pain. Take all medicines as directed. A numb hand or foot may be more prone to injury. To help protect it: oAlways use oven mitts. oTest water with an unaffected hand or foot. oUse caution when trimming nails. File sharp areas. oWear shoes that fit well to avoid pressure points, blisters, and ulcers. oInspect your hands and feet carefully (including the soles of your feet and between your toes) at least once a week. If you see red areas, sores, or other problems, tell your healthcare provider. Follow-up care Follow up with your doctor or as advised by our staff. You may need further testing or evaluation. When to seek medical advice Call your healthcare provider right away if any of the following occur: Redness, swelling, cracking, or ulcer on any numb area, especially the feet New symptoms of numbness or muscle weakness numbness Loss of bowel or bladder control Slurred speech, confusion, or trouble speaking, walking, or seeing [phone] [employer]. [address] [place] [address]. All rights reserved. This information is not intended as a substitute for professional medical care. Always follow your healthcare professional's instructions. Follow Up Care 11/27/2022 22:07:23 With:CORNELIO CAMACHO DO Address: [address] [place] [address] Phys[place], [place] [id number] [phone] When:2-4 days [facility] 11-28-2022 Note ORIGINAL EXAMINATION: CTA OF THE HEAD WITH CONTRAST 11/28/2022 12:03 am: TECHNIQUE: CTA of the head/brain was performed with the administration of intravenous contrast. Multiplanar reformatted images are provided for review. MIP images are provided for review. Automated exposure control, iterative reconstruction, and/or weight based adjustment of the mA/kV was utilized to reduce the radiation dose to as low as reasonably achievable. COMPARISON: CT head and CTA neck same day. HISTORY: ORDERING SYSTEM PROVIDED HISTORY: Reason for Exam: Headache. Pain and tingling behind left ear. FINDINGS: ANTERIOR CIRCULATION: The right A1 segment of the anterior cerebral artery is hypoplastic or absent and both A2 segments appear to arise from the left anterior cerebral artery. Otherwise, no significant stenosis of the intracranial internal carotid, anterior cerebral, or middle cerebral arteries. No aneurysm. POSTERIOR CIRCULATION: No significant stenosis of the vertebral, basilar, or posterior cerebral arteries. No aneurysm. OTHER: No dural venous sinus thrombosis on this non-dedicated study. No radiologic abnormality identified of the left ear. BRAIN: No mass effect or midline shift. No extra-axial fluid collection. The sawyer-white differentiation is maintained. IMPRESSION: No intracranial large vessel occlusion or severe stenosis. I have personally reviewed the images of this examination, and agree with the resident's findings and interpretation. Interpreted by: Ko Newsome MD Preliminary Report By: Gwyn Burr Electronically signed By Ko Newsome MD Dictated Date: 11/28/2022 12:11:43 AM Prelim Date: 11/28/2022 12:18:44 AM Sign Date: 11/28/2022 12:28:54 AM Ordering Provider: JESSI BURTON [facility] 11-28-2022 Note Discharge Instructions Thank you for allowing [facility] to assist you with your healthcare needs. The following is important discharge information regarding your hospital visit. Diagnosis from Today's Visit Neuropathy Facial pain Numbness/tingling What to Do Next Instructions from Your Care Team No qualifying data available. Post Acute Orders No qualifying data available. You Need to Schedule the Following Appointments Follow Up with CORNELIO CAMACHO DO When Within 2-4 days Where: [address] [place] [address] [place] [address] [phone] Allergies Mobic (upset stomach) Vicodin (upset stomach) Medications Please ask your primary doctor or pharmacist before taking any other medication not listed, including over the counter drugs, herbal medications, vitamins and or supplements as they may interact with your home medications. What How Much When Why Instructions Last Dose New gabapentin (gabapentin 100 mg oral capsule) 1 cap by mouth Three (3) times a day Facial pain Printed Prescription Unchanged albuterol (ProAir HFA MDI (90 mcg/ inh) inhalation aerosol) 2 puff(s) by inhalation Four (4) times a day as needed for as needed for wheezing URTI - Viral upper respiratory tract infection Unchanged ascorbic acid (Vitamin C) Once a day Unchanged cholecalciferol (Vitamin D3) Once a day Unchanged cyanocobalamin (Vitamin B12) Unchanged DULoxetine (DULoxetine 30 mg oral delayed release capsule) 1 cap by mouth Once a day Duration: 14 Days do not crush or chew. Take 30 mg PO once daily for two weeks, then increase to 60 mg PO once daily thereafter. Unchanged DULoxetine (DULoxetine 60 mg oral delayed release capsule) 1 cap by mouth Once a day Duration: 60 Days do not crush or chew. Take 30 mg PO once daily for two weeks, then increase to 60 mg PO once daily thereafter. Unchanged entecavir (entecavir 1 mg oral tablet) TAKE 1 TABLET BY MOUTH DAILY Unchanged fluticasone nasal (Flonase 50 mcg/ inh nasal spray) 2 spray(s) each nostril Once a day (in the morning) Sinusitis Duration: 30 Days Unchanged herbal/ nutritional product (turmeric 500 mg oral capsule) 1 cap by mouth Every day not sure of mg Unchanged magnesium oxide (Magnesium 250 mg tablet) by mouth Once a day Unchanged nutritional supplement apple cider vinegar Unchanged potassium acetate Unchanged predniSONE (prednisone 10mg tab (TAPER)) Taper 25-76-90-30-20-10 x 1 day by mouth Once a day (in the morning) Sinus disease Duration: 6 Days Unchanged tamsulosin (tamsulosin 0.4 mg oral capsule) Take 1 capsule by mouth daily at bedtime. Unchanged vitamin E by mouth not sure of mg Unchanged zinc sulfate (Zinc) by mouth Once a day Please take this list to your next doctor s visit. Bring all medications you take, including over the counter medications, herbals and other supplements with you to your doctor s visit. Patients and families are reminded to discard old lists and to update any records with all medication providers or retail pharmacies. Education Materials Peripheral Neuropathy Peripheral neuropathy is the result of damage to the peripheral nerves. It usually affects the arms or legs, and causes a change in physical feeling. Sometimes it causes weakness in the muscles. You may feel tingling, numbness or shooting pains. Symptoms may be more common at night. Skin may be extra sensitive to light touch or temperature changes. Neuropathy may be caused by a complication of a chronic disease such as diabetes, virus or bacterial infections, or physical injury. A ruptured disk with pressure on the spinal nerve may also lead to the problem. Certain vitamin deficiencies may also lead to it. It may also be caused by exposure to certain drugs or chemicals. Home care Tell the healthcare provider about all medicines you take. This includes prescription and kpps-qjx-rbwqzwn medicines, vitamins, and herbs. Ask if any of the medicines may be causing your problems. Don't make any changes to prescription medicines without talking to your healthcare provider first. You may be prescribed medicines to help relieve the tingling feeling or for pain. Take all medicines as directed. A numb hand or foot may be more prone to injury. To help protect it: oAlways use oven mitts. oTest water with an unaffected hand or foot. oUse caution when trimming nails. File sharp areas. oWear shoes that fit well to avoid pressure points, blisters, and ulcers. oInspect your hands and feet carefully (including the soles of your feet and between your toes) at least once a week. If you see red areas, sores, or other problems, tell your healthcare provider. Follow-up care Follow up with your doctor or as advised by our staff. You may need further testing or evaluation. When to seek medical advice Call your healthcare provider right away if any of the following occur: Redness, swelling, cracking, or ulcer on any numb area, especially the feet New symptoms of numbness or muscle weakness numbness Loss of bowel or bladder control Slurred speech, confusion, or trouble speaking, walking, or seeing [phone] [employer]. [address] [place], [place] [id number]. All rights reserved. This information is not intended as a substitute for professional medical care. Always follow your healthcare professional's instructions. Additional Information VACCINATE! IT SAVES LIVES! Members of the community who have not yet received the COVID-19 vaccine and would like to receive it can visit one of [facility] vaccine clinics. There are many vaccine clinic locations within the [facility]. For locations and available times, please visit [email or web address] It is important to note that some COVID mobile vaccine clinics are held outdoors and may be canceled in rainy or stormy conditions. To learn more about pediatric vaccinations (ages 5-11), we invite you to visit the [facility] webpage. [email or web address] [email or web address] To learn more about the COVID-19 vaccine, we invite you to visit the CDC website for a list of frequently asked questions. https://www.cdc.gov/coronavirus/ 2019-ncov/vaccines/faq.html [email or web address] Patient Portal Access Instructions: Stay connected with your healthcare team and access your personal medical information anytime with the [email or web address] Patient Portal. If you would like a full copy of your medical records please contact the [facility] Medical Records Department Sunday through Sunday between 8a.m. and 4:30p.m. Please follow the directions below to access the portal: 1.Access the email account you provided upon registration to the [facility].2.Look for an invitation email from [facility].3.Open the email and access the invitation link: Accept Invitation to [email or web address].Fill in the required mckinney to create your account. Sign into www.[email or web address] with your username and password that you created in the above steps to stay up to date. You can then view a summary of results, a summary of your visits, and the ability to download your summaries to your computer or send the information securely to a physician. Remember that your healthcare information is confidential, so carefully consider who you will allow to register on the [email or web address] Patient Portal for access to your information. You can also access the [email or web address] Patient Portal on the [employer]. Simply click on Health Records under Health Data and then click on the [employer] logo. HOW TO SAFELY DISPOSE OF PRESCRIPTION MEDICATIONS Please use one of the following methods to safely dispose of your unused medications. 1.Use a drug disposal kit: the drug disposal pouch allows you to safely discard your old and unused drugs. Ask your nurse to give you one when you are discharged.2.Visit a local take-back location: Many local pharmacies and police departments have programs that collect old and unwanted prescription drugs. Call your local pharmacy or go to http://EnzySurge.Bevy/9I8Ym0o to find one close to you.3.Make use of household items: Use cat litter or old coffee grounds to dispose medications if other options are not available. Mix your drugs with these household products, seal them in an airtight container and throw it into the garbage. Call [facility]: [phone] to be sure your drugs can be disposed of in this way. Some medicines may require a different approach.4.Never flush your medications down the toilet. IF YOU HAVE BEEN PRESCRIBED AN OPIOIDS FOR PAIN If you have been prescribed an opioid (such as hydrocodone, oxycodone or morphine), it is critical to understand the possible side effects and risks of opioid pain medications. Even when taken as directed, opioids can have several side effects including: Tolerance, meaning you might need to take more of a medication for the same pain relief. Nausea, vomiting and/or constipation. Sleepiness, dizziness, dry mouth, confusion, depression or itching. Physical dependence, meaning you have withdrawal symptoms when a medication is stopped ? this can develop within a few days. KNOW YOUR RESPONSIBILITIES It is important to know exactly how much and how often to take the opioid pain medications you are prescribed. Never take opioids in higher amounts or more often than prescribed. Do not combine opioids with alcohol or other drugs that cause drowsiness, such as benzodiazepines, also known as benzos, including diazepam and alprazolam, muscle relaxants or sleep aids. Never sell or share prescription opioids. This is illegal. Store opioids in a secure place and out of reach of others (including children, family, friends and visitors). The last page(s) of this document has been signed and retained as a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 04/23/2023 Reason Comments Hepatitis B Reason Comments Fibroscan Scheduled Active and Recently Administ ered Medications (unrecognized section and content) Linked Groups Order Group 1: Saline lock IV (COMPLETED) Routine, CONTINUOUS, Starting on Sun03/30/21 at 1500, Until Specified And sodium chloride flush 0.9 % injection 3 mLJump to med 3 mL, Intravenous, EVERY 8 HOURS, First dose on Sun03/30/21 at 1500
Flush line with 3-5 mL
Source Comments (unrecognize d section and content) In the event this informatio n is protected by the Federal Confidentiality of Alcohol and Drug Abuse Patient Records regulations: The Federal rules restrict any use of the information to criminally investigate or prosecute any alcohol or drug abuse patient.[facility] the event this information is protected by the Federal Confidentiality of Alcohol and Drug Abuse Patient Records regulations: The Federal rules restrict any use of the information to criminally investigate or prosecute any alcohol or drug abuse patient.[facility] the event this information is protected by the Federal Confidentiality of Alcohol and Drug Abuse Patient Records regulations: The Federal rules restrict any use of the information to criminally investigate or prosecute any alcohol or drug abuse patient.[facility] the event this information is protected by the Federal Confidentiality of Alcohol and Drug Abuse Patient Records regulations: The Federal rules restrict any use of the information to criminally investigate or prosecute any alcohol or drug abuse patient.[facility] the event this information is protected by the Federal Confidentiality of Alcohol and Drug Abuse Patient Records regulations: The Federal rules restrict any use of the information to criminally investigate or prosecute any alcohol or drug abuse patient.[facility] the event this information is protected by the Federal Confidentiality of Alcohol and Drug Abuse Patient Records regulations: The Federal rules restrict any use of the information to criminally investigate or prosecute any alcohol or drug abuse patient.[facility] the event this information is protected by the Federal Confidentiality of Alcohol and Drug Abuse Patient Records regulations: The Federal rules restrict any use of the information to criminally investigate or prosecute any alcohol or drug abuse patient.[facility] the event this information is protected by the Federal Confidentiality of Alcohol and Drug Abuse Patient Records regulations: The Federal rules restrict any use of the information to criminally investigate or prosecute any alcohol or drug abuse patient.[facility] the event this information is protected by the Federal Confidentiality of Alcohol and Drug Abuse Patient Records regulations: The Federal rules restrict any use of the information to criminally investigate or prosecute any alcohol or drug abuse patient.[facility] the event this information is protected by the Federal Confidentiality of Alcohol and Drug Abuse Patient Records regulations: The Federal rules restrict any use of the information to criminally investigate or prosecute any alcohol or drug abuse patient.[facility] the event this information is protected by the Federal Confidentiality of Alcohol and Drug Abuse Patient Records regulations: The Federal rules restrict any use of the information to criminally investigate or prosecute any alcohol or drug abuse patient.[facility] Care Teams (unrecognized sec tion and content) Diesel Motor Mechanic Relationship Specialty Start Date End Date Gabriel Yoo MD [address] [place] [address] PCP - General Family Practice 11/02/17 Diesel Motor Mechanic Relationship Specialty Start Date End Date Gabriel Yoo MD [address] [place] [address] PCP - General Family Practice 11/02/17 Diesel Motor Mechanic Relationship Specialty Start Date End Date Gabriel Yoo MD [address] [place] [address] PCP - General Family Practice 11/02/17 Diesel Motor Mechanic Relationship Specialty Start Date End Date Gabriel Yoo MD [address] [place] [address] PCP - General Family Practice 11/02/17 Diesel Motor Mechanic Relationship Specialty Start Date End Date Gabriel Yoo MD [address] [place] [address] PCP - General Family Practice 11/02/17 Diesel Motor Mechanic Relationship Specialty Start Date End Date Gabriel Yoo MD [address] [place] [address] PCP - General Family Practice 11/02/17 Diesel Motor Mechanic Relationship Specialty Start Date End Date Gabriel Yoo MD [address] [place] [address] PCP - General Family Practice 11/02/17 Diesel Motor Mechanic Relationship Specialty Start Date End Date Gabriel Yoo MD [address] [place] [address] PCP - General Family Practice 11/02/17 Diesel Motor Mechanic Relationship Specialty Start Date End Date Gabriel Yoo MD [address] [place] [address] PCP - General Family Medicine 11/02/17 Diesel Motor Mechanic Relationship Specialty Start Date End Date Cornelio Camacho [address] [place] [address] Primary Care Provider Family Medicine 02/08/23 Diesel Motor Mechanic Relationship Specialty Start Date End Date Cornelio Camacho [address] [place] [address] Primary Care Provider Family Medicine 02/08/23 Diesel Motor Mechanic Relationship Specialty Start Date End Date Cornelio Camacho [address] [place] [address] Primary Care Provider Family Medicine 02/08/23 Diesel Motor Mechanic Relationship Specialty Start Date End Date Cornelio Camacho [address] [place] [address] Primary Care Provider Family Medicine 02/08/23 Diesel Motor Mechanic Relationship Specialty Start Date End Date [facility] [address] [place] [address] PCP - General 05/28/23 Cornelio Camacho [address] [place] [address] Primary Care Provider Family Medicine 02/08/23 Diesel Motor Mechanic Relationship Specialty Start Date End Date [facility] [address] [place] [address] PCP - General 05/28/23 Cornelio Camacho [address] [place] [address] Primary Care Provider Family Medicine 02/08/23 FOR RECORDS PERTAINING TO PATIENTS WHO ARE OR HAVE BEEN ENROLLED IN A CHEMICAL DEPENDENCY/SUBSTANCEABUSE PROGRAM, SOME INFORMATION MAY BE OMITTED. This clinical summary was aggregated from multiple sources. Caution should be exercised in using it in the provision of clinical care. This summary normalizes information from multiple sources, and as a consequence, information in this document may materially change the coding, format and clinical context of patient data. In addition, data may be omitted in some cases. CLINICAL DECISIONS SHOULD BE BASED ON THE PRIMARY CLINICAL RECORDS. [employer] Get [employer]ved For. provides no warranty or guarantee of the accuracy or completeness of information in this document.
[2023-09-01 00:58] LABS: Lactic Acid 1.2 mmol/L (0.4-1.9)
[2023-09-01] MEDS: Piperacil/Tazobactam 3.375 GM in 0.9% Normal Saline (50mL MB+) 50 ML IV (01:09)
[2023-09-01] MEDS: Vancomycin HCl 1,750 MG in 0.9% Normal Saline (500mL Bag) 500 ML 250 MG IV (01:48)
[2023-09-01 01:50] VITALS: BP 136/85; PULSE 74; RESP 15; O2SAT 92
--- NOTE | 2023-09-01 03:30 | EDS_ITS ---
HPI History of Present Illness Chief Complaint: Abscess Informant: patient Narrative Narrative: Patient is a 48-year-old male who reports a past medical history of hepatitis B and hepatitis C and GARCIA secondary to this. He reports he had an abdominal hernia years ago that he underwent surgery for. He states multiple years later he felt like the area was swollen . He states a surgeon at an outside hospital believe that there was intestine protruding through potential ruptured stitch so he took him back to surgery and in doing so found a area of infection/abscess. Patient states that that was taking care of and has been doing well but over the past 1 to 2 months he has felt an area of swelling in the same location and had concern for infection. He states an outside hospital performed a ultrasound and CAT scan which showed abscess with fistula tract. He states that he did 14 days of Augmentin 14 days of clindamycin and 14 days of Bactrim. He states that there is still an area of swelling and he is concerned that he may need repeat surgery or IV antibiotics and therefore comes in for evaluation [facility] Medical History B12 deficiency anemia Chronic back pain Cirrhosis of liver Opioid abuse Polysubstance abuse Rectal bleeding recurrent MRSA skin infections Tobacco abuse Home Medications cholecalciferol (vitamin D3) 50 mcg (2,000 unit) capsule 150 mcg PO DAILY supplement 11/26/20 [History Last Taken 11/25/20 08:00] multivit with minerals-folic acid-lycopene 0.4 mg-600 mcg tablet 1 tablet PO DAILY supplement 11/26/20 [History Last Taken 11/25/20 08:00] zinc 50 mg tablet 100 mg PO DAILY supplement 11/26/20 [History Last Taken 11/25/20 08:00] entecavir 1 mg tablet 1 mg PO DAILY 12/14/21 [History Last Taken Unknown] magnesium 1 tab PO.IVFORM BID 12/14/21 [History Last Taken Unknown] tamsulosin 0.4 mg capsule (Flomax) 0.4 mg PO DAILY 10 days #10 caps 02/14/22 [Rx Last Taken Unknown] ascorbic acid (vitamin C) 500 mg tablet 500 mg PO DAILY 03/01/22 [History Last Taken Unknown] cyanocobalamin (vitamin B-12) 500 mcg tablet (Vitamin B-12) 500 mcg PO DAILY 03/01/22 [History Last Taken Unknown] potassium 99 mg tablet 99 mg PO DAILY 07/06/22 [History Last Taken Unknown] oxycodone-acetaminophen 5 mg-325 mg tablet (Percocet) 1 tab PO Q6H PRN pain 3 days #12 tabs 09/01/23 [Rx Last Taken Unknown] Allergy/AdvReac Type Severity Reaction Status Date / Time hydrocodone bitartrate AdvReac Upset Verified 08/31/23 20:36 [From Vicodin] Stomach meloxicam [From Mobic] AdvReac Nausea Verified 08/31/23 20:36 Family History Other Addiction Cancer Diabetes Hypertension Surgical History History of eye surgery History of hernia repair Hx of hernia repair Social History household members: spouse current occupational status: employed 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 Smoking Status: Current every day smoker tobacco type: cigarettes alcohol intake: never substance use type: heroin, IV drugs, methamphetamine and other details: IV fentanyl what type of physical activity do you participate in: none do you feel safe at home: Yes ROS ROS ED Constitutional Constitutional ED: Denies chills or fever(s) ENT ENT ED: Denies sore throat Cardiovascular Cardiovascular: Denies chest pain Respiratory/Chest Respiratory/Chest: Denies cough or dyspnea Gastrointestinal Gastrointestinal: Reports abdominal pain; Denies diarrhea, nausea or vomiting Genitourinary Genitourinary ED: Denies dysuria Musculoskeletal Musculoskeletal: Denies myalgias Integumentary Reports abscess Neurologic Neurologic: Denies headache(s) Hematologic/Lymphatic Hematologic/Lymphatic: Denies easy bleeding or easy bruising EXAM Physical Exam Const Vital Signs: 08/31/23 20:33 09/01/23 01:50 Temperature 98 F Temperature Source Temporal Pulse Rate 89 74 Respiratory Rate 16 15 Blood Pressure 120/86 H 136/85 H Blood Pressure Mean 97 102 Pulse Ox 97 92 Oxygen Delivery Method Room Air Room Air Positive well nourished and well developed General Appearance ED: well developed HEENT HEENT Narrative: Normocephalic atraumatic Eyes PERRL and EOMs intact bilaterally Neck supple Neck Narrative: No nuchal rigidity or meningeal signs noted Resp normal respiratory effort and clear to auscultation bilaterally Cardio regular rate and regular rhythm Rate: other Other Details: Heart is regular rate and rhythm without murmurs rubs or gallops GI non-distended GI Narrative: Abdomen is soft and nondistended with normal active bowel sounds. No fluid wave noted There is firmness in the right lower abdomen consistent with scar tissue versus intestinal mass. There is pain on palpation at the site. Laterally from this area there is a small one by one area of erythema and soft tissue swelling consistent with external abscess without active drainage or discharge or lymphangitic streaking No pulsatile mass Auscultation: normoactive bowel sounds Palpation: soft Extremity normal to inspection Neuro oriented x3, CN's II-XII intact bilaterally and no sensory deficits noted Sensorium / Orientation: alert Motor Exam: strength 5/5 throughout Psych mental status grossly normal Skin Skin Narrative: Soft tissue lesion along the right lateral abdomen consistent with abscess as documented above MDM MDM MDM Narrative Medical decision making narrative: Patient presented to the ER with stable vitals. Exam indicated an abdominal wall abscess but as patient reported a history of intestinal or internal abscess and failure of treatment with outpatient antibiotics I did elect to perform basic labs a CT scan and blood cultures. Labs revealed no clinically significant findings and CT scan did not show any type of internal abscess obstruction or inflammatory process. Therefore do not feel need for general surgery consultation or admission to the hospital. The patient underwent incision and drainage of the abdominal wall abscesses documented below but at this time as he does not show findings for septicemia and CAT scan does not reveal internal abscess or intestinal infection or obstruction there is no need for further workup and he is otherwise safe for discharge Patient had the skin cleaned with chlorhexidine. The area was anesthetized with 6 mL of 2% lidocaine with epinephrine and local fashion. A #11 blade was used to make a 1 cm incision over top the area of fluctuance and erythema. A moderate amount of blood and purulent material were expressed. Loculations were dissected with a needle zarate. The area was copiously irrigated with normal saline and then packed with quarter inch iodoform gauze. Patient tolerated procedure well without complication. History & Record Review Discussion w/independent historian: Patient Lab Data Attestation: I reviewed the patient's lab results. Labs: Laboratory Results - last 24 hr 09/01/23 00:07 WBC 3.9 L RBC 4.97 Hgb 15.0 Hct 44.9 MCV 90.3 MCH 30.2 MCHC 33.4 RDW Std Deviation 44.2 H RDW Coeff of Cullen 13.2 Plt Count 178 MPV 9.5 Immature Gran % (Auto) 1.000 H Neut % (Auto) 52.5 Lymph % (Auto) 33.8 [facility] % (Auto) 7.6 Eos % (Auto) 3.8 Baso % (Auto) 1.3 H Absolute Neuts (auto) 2.1 Absolute Lymphs (auto) 1.33 Nucleated RBC % 0 Sodium 137 Potassium 4.3 Chloride 104 Carbon Dioxide 30.0 Anion Gap 3 L BUN 15 Creatinine 0.78 Estim Creat Clear Calc 129.89 Est GFR (MDRD) Af Amer 137 Est GFR (MDRD) Non-Af 113 BUN/Creatinine Ratio 19.1 Glucose 88 Lactic Acid 1.2 Calcium 9.1 Radiography Diagnostic Testing: Clinical Impression(s) from Imaging Studies Abdomen/Pelvis CT 09/01/23 23:53 IMPRESSION: No acute findings. Left nephrolithiasis without hydronephrosis. Electronically Signed: Haydee Vital MD at 2:04 EST Reading Location ID and State: [facility] / [place] Tel , Service support , Discharge Plan Triage Chief Complaint: Abscess ED Provider: Naresh Romero Dx/Rx/DC Orders Clinical Impression: Abdominal wall abscess, Hepatitis B, Hepatitis C, GARCIA (nonalcoholic steatohepatitis) Instructions: ED Abscess Incision And Drainage Prescriptions: New oxycodone-acetaminophen [Percocet] 5-325 mg tablet 1 tab PO Q6H PRN (Reason: pain) 3 Days Qty: 12 0RF No Action cyanocobalamin (vitamin B-12) [Vitamin B-12] 500 mcg tablet 500 mcg PO DAILY ascorbic acid (vitamin C) 500 mg tablet 500 mg PO DAILY zinc 50 MG tablet 100 mg PO DAILY multivit with [id number] 1 EACH tablet 1 tablet PO DAILY cholecalciferol (vitamin D3) 50 MCG capsule 150 mcg PO DAILY entecavir 1 mg tablet 1 mg PO DAILY magnesium 1 tab PO.IVFORM BID tamsulosin [Flomax] 0.4 mg capsule 0.4 mg PO DAILY 10 Days Qty: 10 0RF potassium 99 mg Tablet 99 mg PO DAILY Primary Care Provider: Cornelio Oakes Referrals: Cornelio Oakes DO [Primary Care Provider] - Activity Restrictions/Additional Instructions: Your CT scan did not show any type of retained internal/intestinal abscess. However your physical exam and procedure indicate you do have a small fistula tract. The area was incised and drained and packing was placed. Please remove the packing in 48 to 72 hours and follow-up with your doctor to discuss need for general surgery or wound referral and return to the ER should you have any further concerns. Disposition Disposition: Home, Self Care
[2023-09-01 04:19] VITALS: BP 136/85; PULSE 74; RESP 15; O2SAT 97
--- NOTE | 2023-09-01 23:53 | CT_ITS ---
EXAM: CT Abdomen And Pelvis W/ Contrast Injection HISTORY: abd pain / ? Intestinal abscess TECHNIQUE: Routine protocol CT abdomen pelvis. IV Contrast: IV 100mL [id number] . Oral Contrast: without. Sagittal and coronal images were reconstructed. RADIATION DOSAGE (If Supplied By Facility): CTDIvol = ( 21.33 ) mGy, DLP = ( 1240.41 ) mGycm Individualized dose optimization techniques were used for this CT. COMPARISON: CT abdomen and pelvis 10/05/2018.. LIMITATIONS: None. FINDINGS: LOWER CHEST: Lung bases are clear. LIVER: Unremarkable. GALLBLADDER/BILE DUCTS: Unremarkable. PANCREAS: Unremarkable. SPLEEN: Unremarkable. ADRENAL GLANDS: Unremarkable. KIDNEYS / URETERS: Small calculus in the left kidney. No hydronephrosis. BOWEL / MESENTERY: No bowel obstruction. Moderate amount of stool throughout the colon. APPENDIX: Identified and normal. No evidence of acute appendicitis. PERITONEUM: No free air. No free fluid. VESSELS: Abdominal aorta is normal caliber. RETROPERITONEUM: Unremarkable. REPRODUCTIVE ORGANS: Prostate mildly enlarged. BLADDER: Unremarkable. ABDOMINAL WALL: Unremarkable. BONES: No acute abnormality. Bilateral pars defects at L5 with minimal grade 1 spondylolisthesis L5-S1. Degenerative changes lumbar spine. OTHER: None. CT/Abdomen/Pelvis W IV Cont ONLY IMPRESSION: No acute findings. Left nephrolithiasis without hydronephrosis. Electronically Signed: Haydee Vital MD at 2:04 EST ,
== END 2023-09-01 04:26 | disposition home or self-care (01) ==
PROVIDERS: Emergency Provider Emergency Medicine; PCP Student in an Organized Health Care Education/Training Program; Visit Provider Emergency Medicine
DX: L02.211 Cutaneous abscess of abdominal wall (principal); B19.20 Unspecified viral hepatitis C without hepatic coma; B19.10 Unspecified viral hepatitis B without hepatic coma; K75.81 Nonalcoholic steatohepatitis (NASH); F17.210 Nicotine dependence, cigarettes, uncomplicated
CPT/HCPCS: 74177; 80048; 83605; 85025; 87040; 96365; 96367; 99283; J7030; J7040; Q9967; A4216

== ENCOUNTER 2023-11-23 10:30 | Outpatient (RCR) | payer MEDICAID, SELFPAY ==
[2023-11-06 15:43] VITALS: BP 155/100; PULSE 75; RESP 18; TEMP 36.2
--- NOTE | 2023-11-06 16:13 | PCM.WC.HP ---
History of Present Illness Date of Service: 11/06/23 Chief Complaint: Right groin wound after an operative debridement. History of Wound: 48 year old male presents for wound Vac management of his right groin where he had mesh removed 10/26/23 at [facility] by Dr. Boone. He initially had right inguinal hernia repair in 1993. He developed some issues where he had mesh removed in 2013. His right groin kept getting infected repeatedly, which is how he ended up seeing a surgeon for further evaluation. He has a history of hypertension, arthritis (both osteo and rheumatoid), he smokes half a pack a day of cigarettes, he drinks 3-5 beers 2-3 times a week. He has a history of both Hep B and Hep C. He has a history of a heart murmur and he is currently having that worked up with cardiology. He does not want home health because he has 2 dogs that he does not want around people. He will come into the wound center twice a week for wound VAC dressing changes. Today he denies fever, chills, nausea, vomiting and diarrhea. He states that he does have some discomfort in his right groin surgery site. Progress of Wound: Right groin incision is a nice beefy pink, periwound is stable with no excoriation. There is undermining on the proximal edge of the incision. He seems to be tolerating the wound VAC well. [facility] Medical History B12 deficiency anemia Chronic back pain Cirrhosis of liver Hypertension Opioid abuse Osteoarthritis Polysubstance abuse Rectal bleeding recurrent MRSA skin infections Rheumatoid arthritis Tobacco abuse Home Medications cholecalciferol (vitamin D3) 50 mcg (2,000 unit) capsule 150 mcg PO DAILY supplement 11/26/20 [History Last Taken 11/25/20 08:00] multivit with minerals-folic acid-lycopene 0.4 mg-600 mcg tablet 1 tablet PO DAILY supplement 11/26/20 [History Last Taken 11/25/20 08:00] zinc 50 mg tablet 100 mg PO DAILY supplement 11/26/20 [History Last Taken 11/25/20 08:00] entecavir 1 mg tablet 1 mg PO DAILY 12/14/21 [History Last Taken Unknown] tamsulosin 0.4 mg capsule (Flomax) 0.4 mg PO DAILY 10 days #10 caps 02/14/22 [Rx Last Taken Unknown] ascorbic acid (vitamin C) 500 mg tablet 500 mg PO DAILY 03/01/22 [History Last Taken Unknown] cyanocobalamin (vitamin B-12) 500 mcg tablet (Vitamin B-12) 500 mcg PO DAILY 03/01/22 [History Last Taken Unknown] potassium 99 mg tablet 99 mg PO DAILY 07/06/22 [History Last Taken Unknown] oxycodone-acetaminophen 5 mg-325 mg tablet (Percocet) 1 tab PO Q6H PRN pain 3 days #12 tabs 09/01/23 [Rx Last Taken Unknown] amlodipine 5 mg tablet 5 mg PO DAILY 11/06/23 [History Last Taken Unknown] buprenorphine 8 mg-naloxone 2 mg sublingual film 2 film buccal DAILY 11/06/23 [History Last Taken Unknown] duloxetine 30 mg capsule,delayed release (Cymbalta) 30 mg PO DAILY 11/06/23 [History Last Taken Unknown] duloxetine 60 mg capsule,delayed release 60 mg PO DAILY 11/06/23 [History Last Taken Unknown] entecavir 1 mg tablet 1 mg PO DAILY 11/06/23 [History Last Taken Unknown] isosorbide mononitrate 60 mg tablet,extended release 24 hr 60 mg PO DAILY 11/06/23 [History Last Taken Unknown] nitroglycerin 0.4 mg sublingual tablet 0.4 mg sublingual PRN 11/06/23 [History Last Taken Unknown] Allergy/AdvReac Type Severity Reaction Status Date / Time hydrocodone bitartrate AdvReac Upset Verified 08/31/23 20:36 [From Vicodin] Stomach meloxicam [From Mobic] AdvReac Nausea Verified 08/31/23 20:36 Family History (Updated 11/09/23 @ 17:13 by Cammie Lopez AUDIT MGR, AUDIT MGR-C) Father Diabetes Cancer Dementia Other Addiction Hypertension Surgical History History of eye surgery History of hernia repair Hx of hernia repair Social History household members: spouse current occupational status: employed 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 Smoking Status: Current every day smoker tobacco type: cigarettes alcohol intake: never substance use type: heroin, IV drugs, methamphetamine and other details: IV fentanyl what type of physical activity do you participate in: none do you feel safe at home: Yes ROS Constitutional Constitutional: Denies fever(s) or frequent falls Eyes Eyes: Reports none ENT HEENT: Reports none Cardiovascular Cardiovascular: Denies chest pain or dyspnea Respiratory/Chest Respiratory/Chest: Denies cough or dyspnea Gastrointestinal Gastrointestinal: Denies constipation, nausea or vomiting Genitourinary Genitourinary: Reports none Musculoskeletal Musculoskeletal: Reports joint pain and joint stiffness Integumentary Integumentary: Reports wounds Neurologic Neurologic: Reports none Psychiatric Psychiatric: Reports as per HPI Endocrine Endocrinology: Reports none Vital Signs Vital Signs Vital Signs: 11/06/23 15:43 Temperature 97.2 F L Temperature Source Temporal Pulse Rate 75 Respiratory Rate 18 Blood Pressure 155/100 H Blood Pressure Mean 118 Blood Pressure Source Monitor Blood Pressure Position Semi-Fowlers Blood Pressure Location Left Arm Physical Exam Const alert and oriented x3 General Appearance: cooperative HEENT normocephalic Head and Scalp: atraumatic Eyes General Eye: normal appearance of both eyes Neck full ROM Resp normal respiratory effort, normal air movement and clear to auscultation bilaterally Effort and Inspection: able to speak in complete sentences Cardio regular rate and regular rhythm GI soft to palpation and non-tender Back/Spine normal ROM Extremity full ROM and normal capillary refill Peripheral Pulses: Yes pulses 2+ throughout Skin Wound Narrative: Right groin surgical wound is beefy pink. There is undermining on the proximal edge of the wound. [place] wound is stable with no excoriation. Psych thought process normal and cooperative Debridement Note Debridement Note No debridement was completed: No debridement was completed today Post-Debridement Measurements and Additional Note: Post-Debridement Measurements/Treatment [facility] Nurse 1 - General Ulcer Assessment Start: 11/06/23 14:32 Freq: Status: Active Protocol: DANNY.LOWCHAN Activity Type Activity Date Activity User E-sign Co-sign Detail Recorded Client Recorded Date Recorded By Document 11/06/23 15:43 Desktop 11/06/23 15:47 RB 11/06/23 15:43 - Today's Visit Information Type of service Initial Visit Arrival Mode Ambulatory Transfer Assistance None Patient Identification Verified (Name & Yes ) Patient Requires Transmission-Based No Precautions Vital Signs Temperature (97.8 F-99.1 F) 97.2 F L Temperature Source Temporal Pulse Rate (60-100) 75 Pulse Location Monitor Respiratory Rate (12-18) 18 Respiratory rate source Observation Blood Pressure (90/60-120/80) 155/100 H Blood Pressure Mean 118 Source Monitor Position Semi-Fowlers Blood Pressure Location Left Arm Pain Scale: 0-10 Numeric Is Patient Pain Free? No R groin -Description Sharp -Intensity 8 -Pain Behavior Guarding -Pain Aggravating Factors Debridement -Alleviating Factors/Interventions None WC - Nurse 1 - General Ulcer Measurement Start: 11/06/23 14:32 Freq: Status: Active Protocol: Activity Type Activity Date Activity User E-sign Co-sign Detail Recorded Client Recorded Date Recorded By Document 11/06/23 15:43 RB Desktop 11/06/23 15:47 RB 11/06/23 15:43 Wound Center Nurse 1 1-right Groin -Combined with other wound No -Current Size (cm) - Length 1 -Current Size (cm) - Width 9.5 -Current Size (cm) - Depth 2.3 -Total Square Cm 9.5 -Photo Taken Yes -Tunneling No -Undermining/Tunneling No -Circular Undermining No -Exudate Amt Large -Exudate Type Serosanguineous -Wound Margin Distinct, Outline Attached -Granulation Amt Large (67-100%) -Granulation Quality Red -Slough/Fibrin Yes -Necrosis Amt Small (1-33%) -Necrotic Tissue Type Adherent Slough -Structure Exposed N/A -Texture ([place]-wound Skin Appearance) Assessed -Moisture ([place]-wound Skin Appearance) Assessed -Color ([place]-wound Skin Appearance) Assessed -Temperature ([place]-wound Skin No Abnormality Appearance) (Pt Warm) -Tenderness on Palpation ([place]-wound No Skin Appearance) -Ulcer Cleansing Wound Cleanser -Foul Odor after Cleansing No -Anesthetic Used 4% Lidocaine Solution WC - Nurse 2 - General Ulcer CM Notes Start: 11/06/23 14:32 Freq: Status: Active Protocol: Activity Type Activity Date Activity User E-sign Co-sign Detail Recorded Client Recorded Date Recorded By Document 11/06/23 15:40 LAURA [id number] 11/06/23 15:42 LAURA 11/06/23 15:40 Wound Center Nurse 2 -Correct Patient No -Correct Side, Site, Position No -Correct Procedure No -Procedure Performed No -Wound/Ulcer Outcome Not Healed -Ulcer Cleansing Rinsed/ Irrigated with Saline -Foul Odor after Cleansing No -Bioengineered Tissue No -Bleeding Controlled with Pressure -Treatment Response Procedure Tolerated Well -Offloading No Pain Scale: 0-10 Numeric Is Patient Pain Free? Yes WC - Nurse 3 - General Ulcer D/C NN Start: 11/06/23 14:32 Freq: Status: Active Protocol: Activity Type Activity Date Activity User E-sign Co-sign Detail Recorded Client Recorded Date Recorded By Document 11/06/23 15:43 RB Desktop 11/06/23 15:47 RB 11/06/23 15:43 Vital Signs Temperature (97.8 F-99.1 F) 97.2 F L Temperature Source Temporal Pulse Rate (60-100) 75 Pulse Location Monitor Respiratory Rate (12-18) 18 Respiratory rate source Observation Blood Pressure (90/60-120/80) 155/100 H Blood Pressure Mean 118 Source Monitor Position Semi-Fowlers Blood Pressure Location Left Arm Pain Scale: 0-10 Numeric Is Patient Pain Free? No R groin -Description Sharp -Intensity 8 -Pain Behavior Guarding -Pain Aggravating Factors Debridement -Alleviating Factors/Interventions None Wound Care Center Nurse 3 1-right Groin -Ulcer Cleansing Wound Cleanser -Negative Pressure Wound Therapy Continue -Setting (mmHg) 150 -Negative Pressure is Continuous -NPWT Application Charge NPWT & Debridement (nc ) Treatment Response Procedure Tolerated Well WC - Visit Discharge Discharge Condition Stable Ambulatory Status Ambulatory Transportation Private Auto Medication Reconcilliation completed & No provided to patient/care provider Clinical Summary of Care Provided Yes Charges/Coding Visit Charges Office Visits / Consults: 94902 OV L4 Est 30min (25 modifier) Procedures Integumentary [id number]: [id number] Vivien subq tissue 20 sq cm/< Assessment/Plan Assessment/Plan (1) Right groin wound: CODE(S): S31.109A - Unspecified open wound of abdominal wall, unspecified quadrant without penetration into peritoneal cavity, initial encounter (2) Hypertension: CODE(S): I10 - Essential (primary) hypertension (3) Smoker: CODE(S): F17.200 - Nicotine dependence, unspecified, uncomplicated PLAN: Plan Patient evaluated at the wound healing center today. He is a little over a week post op from having retained mesh in his right groin after hernia repair in 1993 with the mesh removed in 2013. Wound care - Wound VAC at 150 mmHg twice a week, here a the wound center. At the time of the dressing change, the area should be cleaned with soap and water. Instructed him and his that if he has issues with the wound VAC keeping a seal, they need to remove the dressing if it has been 2 hours without a good seal and place a saline moistened gauze dressing twice daily until the wound VAC can be reapplied. They verbalized understanding. His is willing to learn how to place the wound VAC. Encouraged patient to stop smoking as it may have deleterious effects on wound healing. He will follow up on Sunday for a nurse's visit to have his wound VAC changed and next Sunday to see me. Stressed the importance of him making it to these two appointments each week, especially since he missed his last appointment and his wound VAC dressing has been on for a week. He verbalized understanding. He was instructed to call the wound center with any questions or concerns. Over 35 minutes spent with evaluating patient, plan of care, reviewing records and documenting.
--- NOTE | 2023-11-09 12:40 | WC ---
Patients's appointment was at 1130 am today . pt and arrived at 1120am and were sitting in waiting room. At approximately 1145 I talked with pt and verbalized he would be taken back in next after I finished with previous pt. when I came back in waiting room at 1155am pt and were walking through the front door to their car and drove away. Patient nor his talked with the Shayna the statistical secretary that the were leaving. .
[2023-11-13 15:10] VITALS: BP 122/81; PULSE 88; RESP 18; TEMP 36.7
--- NOTE | 2023-11-13 15:18 | WC ---
pt stated she changed the disc and drape of vac on Sunday after pt vac kept alarming leak and error. pt states she left the faom in place but changed the disc and drape only.
--- NOTE | 2023-11-13 15:44 | PCM.WC.PN ---
History of Present Illness Date of Service: 11/13/23 Chief Complaint: Right groin wound after an operative debridement. History of Wound: 48 year old male presents for wound Vac management of his right groin where he had mesh removed 10/26/23 at [facility] by Dr. Boone. He initially had right inguinal hernia repair in 1993. He developed some issues where he had mesh removed in 2013. His right groin kept getting infected repeatedly, which is how he ended up seeing a surgeon for further evaluation. He has a history of hypertension, arthritis (both osteo and rheumatoid), he smokes half a pack a day of cigarettes, he drinks 3-5 beers 2-3 times a week. He has a history of both Hep B and Hep C. He has a history of a heart murmur and he is currently having that worked up with cardiology. He does not want home health because he has 2 dogs that he does not want around people. He will come into the wound center twice a week for wound VAC dressing changes. Today he denies fever, chills, nausea, vomiting and diarrhea. He states that he does have some discomfort in his right groin surgery site. Progress of Wound: Right groin incision is a nice beefy pink, periwound is stable with no excoriation. There is undermining on the proximal edge of the incision. He seems to be tolerating the wound VAC well. No clinical signs of infection. He came last Sunday for his VAC change but did not stay because he had another appointment. I did speak with his surgeon, Dr. Boone, and discussed different wound healing options with him because of my concern with the patient leaving the wound VAC for a week at a time with increase his changes of infection. Dr. Boone stated that he was ok with healing this wound with or without the wound VAC. Objective Data Objective Data Vital Signs: Vital Signs Temp Pulse Resp BP O2 Del Method 98.1 F 88 18 122/81 H Room Air 11/13/23 15:10 11/13/23 15:10 11/13/23 15:10 11/13/23 15:10 11/13/23 15:10 Oxygen Delivery Method Room Air Charges/Coding Procedures Integumentary [id number]-[id number]: [id number] Vivien subq tissue 20 sq cm/< Debridement Note Debridement Note Wound debrided: groin wound Laterality: Right Type of Debridement: Excisional debridement Anesthesia Used: 5% Lidocaine Gel Depth: Down to and including healthy tissue and in the subcutaneous layer Percentage of wound debrided: 100 Instrument Used: 7mm curette Tissue Removed: Non viable tissue and slough Severity: Fat Layer Exposed Amount of bleeding with debridement: Mild Bleeding Controlled with: Compression and gauze Patient tolerated procedure: Patient tolerated procedure well Post-Debridement Measurements and Additional Note: Post-Debridement Measurements/Treatment - Nurse 1 - General Ulcer Assessment Start: 11/06/23 14:32 Freq: Status: Active Protocol: JEF Activity Type Activity Date Activity User E-sign Co-sign Detail Recorded Client Recorded Date Recorded By Document 11/06/23 15:43 RB Desktop 11/06/23 15:47 RB Document 11/09/23 12:40 RB [id number] 11/09/23 12:47 RB Document 11/13/23 15:10 KW Desktop 11/13/23 15:16 KW Document 11/13/23 15:17 RB Desktop 11/13/23 15:21 RB 11/06/23 11/09/23 11/13/23 15:43 12:40 15:10 - Today's Visit Information Type of service Initial Visit Nurse-only Follow-up Visit Visit (Physician/PLASTER PATTERN CASTER ) Arrival Mode Ambulatory Ambulatory Transfer Assistance None Accompanied by Patient Identification Verified (Name & Yes Yes ) Patient Requires Transmission-Based No Precautions Vital Signs Temperature (97.8 F-99.1 F) 97.2 F L 98.1 F Temperature Source Temporal Temporal Pulse Rate (60-100) 75 88 Pulse Location Monitor Monitor Respiratory Rate (12-18) 18 18 Respiratory rate source Observation Observation Oxygen Delivery Method Room Air Blood Pressure (90/60-120/80) 155/100 H 122/81 H Blood Pressure Mean (mm Hg) 118 94 Source Monitor Monitor Position Semi-Fowlers Sitting Blood Pressure Location Left Arm Left Arm History Since Last Visit- (Skip if this is Patient's initial visit) Have you changed medications since your No last visit? Any new allergies or adverse reactions No Had a fall/change in ADL's that may No increase risk of falls Signs or symptoms of abuse and/or No neglect since last visit Have you been in the hospital since your No last visit? Has dressing in place as prescribed Yes Has compression in place as prescribed N/A Has offloadiing in place as prescribed N/A Experienced any changes in pain level or No management Left Footwear Regular Shoe Right Footwear Regular Shoe Pain Scale: 0-10 Numeric Is Patient Pain Free? No Yes Yes R groin -Description Sharp -Intensity 8 -Pain Behavior Guarding -Pain Aggravating Factors Debridement -Alleviating Factors/Interventions None 11/13/23 15:17 WC - Today's Visit Information Type of service Follow-up Visit (Physician/PLASTER PATTERN CASTER ) Arrival Mode Transfer Assistance Accompanied by Patient Identification Verified (Name & ) Patient Requires Transmission-Based Precautions Vital Signs Temperature (97.8 F-99.1 F) Temperature Source Pulse Rate (60-100) Pulse Location Respiratory Rate (12-18) Respiratory rate source Oxygen Delivery Method Blood Pressure (90/60-120/80) Blood Pressure Mean (mm Hg) Source Position Blood Pressure Location History Since Last Visit- (Skip if this is Patient's initial visit) Have you changed medications since your last visit? Any new allergies or adverse reactions Had a fall/change in ADL's that may increase risk of falls Signs or symptoms of abuse and/or neglect since last visit Have you been in the hospital since your last visit? Has dressing in place as prescribed Has compression in place as prescribed Has offloadiing in place as prescribed Experienced any changes in pain level or management Left Footwear Right Footwear Pain Scale: 0-10 Numeric Is Patient Pain Free? No R groin -Description -Intensity -Pain Behavior -Pain Aggravating Factors -Alleviating Factors/Interventions 11/09/23 12:40 Wound Center by Raegan Sol Patients's appointment was at 1130 am today . pt and arrived at 1120am and were sitting in waiting room. At approximately 1145 I talked with pt and verbalized he would be taken back in next after I finished with previous pt. when I came back in waiting room at 1155am pt and were walking through the front door to their car and drove away. Patient nor his talked with the Shayna the workers compensation legal secretary that the were leaving. . Initialized on 11/09/23 12:40 - END OF NOTE 11/13/23 15:18 Wound Center by Raegan Sol pt stated she changed the disc and drape of vac on Sunday after pt vac kept alarming leak and error. pt states she left the faom in place but changed the disc and drape only. Initialized on 11/13/23 15:18 - END OF NOTE WC - Nurse 1 - General Ulcer Measurement Start: 11/06/23 14:32 Freq: Status: Active Protocol: Activity Type Activity Date Activity User E-sign Co-sign Detail Recorded Client Recorded Date Recorded By Document 11/06/23 15:43 RB Desktop 11/06/23 15:47 RB Document 11/13/23 15:10 KW Desktop 11/13/23 15:16 KW 11/06/23 11/13/23 15:43 15:10 Wound Center Nurse 1 1-right Groin -Combined with other wound No -Current Size (cm) - Length 1 0.8 -Current Size (cm) - Width 9.5 9 -Current Size (cm) - Depth 2.3 2.7 -Total Square Cm 9.5 7.2 -Photo Taken Yes -Tunneling No -Undermining/Tunneling No -Circular Undermining No -Exudate Amt Large -Exudate Type Serosanguineous Serosanguineous -Wound Margin Distinct, Distinct, Outline Outline Attached Attached -Granulation Amt Large (67-100%) Large (67-100%) -Granulation Quality Red Red -Slough/Fibrin Yes -Necrosis Amt Small (1-33%) -Necrotic Tissue Type Adherent Slough -Structure Exposed N/A -Texture ([place]-wound Skin Appearance) Assessed Assessed -Moisture ([place]-wound Skin Appearance) Assessed Assessed -Color ([place]-wound Skin Appearance) Assessed Assessed -Temperature ([place]-wound Skin No Abnormality No Abnormality Appearance) (Pt Warm) (Pt Warm) -Tenderness on Palpation ([place]-wound No Skin Appearance) -Ulcer Cleansing Wound Cleanser Soap and Water -Foul Odor after Cleansing No No -Anesthetic Used 4% Lidocaine 4% Lidocaine Solution Solution WC - Nurse 2 - General Ulcer CM Notes Start: 11/06/23 14:32 Freq: Status: Active Protocol: Activity Type Activity Date Activity User E-sign Co-sign Detail Recorded Client Recorded Date Recorded By Document 11/06/23 15:40 [id number] 11/06/23 15:42 Document 11/13/23 15:33 Laptop 11/13/23 15:38 11/06/23 11/13/23 15:40 15:33 Wound Center Nurse 2 1-right Groin -Time 15:34 -Correct Patient No Yes -Correct Side, Site, Position No Yes -Correct Procedure No Yes -Procedure Performed No Yes -Type of Procedure Debridement -Clinical Debridement Subcutaneous -Tissue Removed Subcutaneous -Post Debridement (cm) - Length 1.0 -Post Debridement (cm) - Width 9.5 -Post Debridement (cm) - Depth 2.6 -Total Square (Post) (cm) 9.50 -Area of Debridement (cm) - Length 1.0 -Area of Debridement (cm) - Width 9.5 -Total Square (Area) (cm) 9.50 -Tunneling No -Undermining/Tunneling Yes -Undermining/Tunneling Starts (O'clock 12 ) -Maximum Distance (cm) 2.0 -Circular Undermining No -Wound/Ulcer Outcome Not Healed Not Healed -Ulcer Cleansing Rinsed/ Rinsed/ Irrigated with Irrigated with Saline Saline -Foul Odor after Cleansing No No -Bioengineered Tissue No No -Bleeding Controlled with Pressure Pressure -Treatment Response Procedure Procedure Tolerated Well Tolerated Well -Offloading No No -Debridement - Subq, 1st 20sq cm Yes Pain Scale: 0-10 Numeric Is Patient Pain Free? Yes Yes WC - Nurse 3 - General Ulcer D/C NN Start: 11/06/23 14:32 Freq: Status: Active Protocol: Activity Type Activity Date Activity User E-sign Co-sign Detail Recorded Client Recorded Date Recorded By Document 11/06/23 15:43 RB Desktop 11/06/23 15:47 RB Edit Result 11/06/23 15:43 RB (1) Desktop 11/13/23 12:07 RB (1) 1-right Groin - NPWT Application Charge NPWT & Debridement => NPWT </= 50 sq cm (nc) => ($) 11/06/23 15:43 Vital Signs Temperature (97.8 F-99.1 F) 97.2 F L Temperature Source Temporal Pulse Rate (60-100) 75 Pulse Location Monitor Respiratory Rate (12-18) 18 Respiratory rate source Observation Blood Pressure (90/60-120/80) 155/100 H Blood Pressure Mean (mm Hg) 118 Source Monitor Position Semi-Fowlers Blood Pressure Location Left Arm Pain Scale: 0-10 Numeric Is Patient Pain Free? No R groin -Description Sharp -Intensity 8 -Pain Behavior Guarding -Pain Aggravating Factors Debridement -Alleviating Factors/Interventions None Wound Care Center Nurse 3 1-right Groin -Ulcer Cleansing Wound Cleanser -Negative Pressure Wound Therapy Continue -Setting (mmHg) 150 -Negative Pressure is Continuous -NPWT Application Charge NPWT </= 50 sq cm ($) Treatment Response Procedure Tolerated Well WC - Visit Discharge Discharge Condition Stable Ambulatory Status Ambulatory Transportation Private Auto Medication Reconcilliation completed & No provided to patient/care provider Clinical Summary of Care Provided Yes Assessment/Plan Assessment/Plan (1) Right groin wound: CODE(S): S31.109A - Unspecified open wound of abdominal wall, unspecified quadrant without penetration into peritoneal cavity, initial encounter (2) Hypertension: CODE(S): I10 - Essential (primary) hypertension (3) Smoker: CODE(S): F17.200 - Nicotine dependence, unspecified, uncomplicated PLAN: Plan Patient evaluated at the wound healing center today. He is a little over a week post op from having retained mesh in his right groin after hernia repair in 1993 with the mesh removed in 2013. Wound care - Wound VAC at 150 mmHg twice a week, here a the wound center. At the time of the dressing change, the area should be cleaned with soap and water. Instructed him and his that if he has issues with the wound VAC keeping a seal, they need to remove the dressing if it has been 2 hours without a good seal and place a saline moistened gauze dressing twice daily until the wound VAC can be reapplied. They verbalized understanding. His is willing to learn how to place the wound VAC. Encouraged patient to stop smoking as it may have deleterious effects on wound healing. He will follow up on Sunday for a nurse's visit to have his wound VAC changed and next Sunday to see Dr. Hunt, since I will be out of town. Stressed the importance of him making it to these two appointments each week, especially since he missed his last appointment and his wound VAC dressing has been on for a week. He verbalized understanding. I told him I spoke with his surgeon, Dr. Boone, and discussed different wound healing options with him because of my concern with the patient leaving the wound VAC for a week at a time with increase his changes of infection. Dr. Boone stated that he was ok with healing this wound with or without the wound VAC. He was instructed to call the wound center with any questions or concerns.
[2023-11-16 12:13] VITALS: BP 116/53; PULSE 74; RESP 18; TEMP 36.9
[2023-11-21 15:31] VITALS: BP 155/102; PULSE 80; RESP 20; TEMP 37.1
--- NOTE | 2023-11-21 22:26 | PCM.WC.PN ---
History of Present Illness Date of Service: 11/21/23 Chief Complaint: Right groin wound after an operative debridement. History of Wound: 48 year old male presents for wound Vac management of his right groin where he had mesh removed 10/26/23 at [facility] by Dr. Boone. He initially had right inguinal hernia repair in 1993. He developed some issues where he had mesh removed in 2013. His right groin kept getting infected repeatedly, which is how he ended up seeing a surgeon for further evaluation. He has a history of hypertension, arthritis (both osteo and rheumatoid), he smokes half a pack a day of cigarettes, he drinks 3-5 beers 2-3 times a week. He has a history of both Hep B and Hep C. He has a history of a heart murmur and he is currently having that worked up with cardiology. He does not want home health because he has 2 dogs that he does not want around people. He will come into the wound center twice a week for wound VAC dressing changes. Today he denies fever, chills, nausea, vomiting and diarrhea. He states that he does have some discomfort in his right groin surgery site. Progress of Wound: Continues to improve. Objective Data Objective Data Vital Signs: Vital Signs Temp Pulse Resp BP O2 Del Method 98.8 F 80 20 H 155/102 H Room Air 11/21/23 15:31 11/21/23 15:31 11/21/23 15:31 11/21/23 15:31 11/13/23 15:10 Oxygen Delivery Method Room Air Charges/Coding Procedures Integumentary 111xxx-113xx: 05053 Vivien musc/fascia 20 sq cm/< (ICD-10 - S31.109A, F17.200 ) Debridement Note Debridement Note Wound debrided: #1 Right groin area. Laterality: Right Wound Grade/Stage: 3. Type of Debridement: Excisional debridement Anesthesia Used: 5% Lidocaine Gel Depth: Down to and including healthy tissue, in the subcutaneous layer and to muscle Percentage of wound debrided: 100 Instrument Used: 7mm curette Tissue Removed: Subcutaneous tissue and muscle. Severity: Fat Layer Exposed (muscle is exposed.) Amount of bleeding with debridement: Mild Bleeding Controlled with: Pressure and Compression and gauze Patient tolerated procedure: Patient tolerated procedure well Post-Debridement Measurements and Additional Note: Post-Debridement Measurements/Treatment WC - Nurse 1 - General Ulcer Assessment Start: 11/06/23 14:32 Freq: Status: Active Protocol: WC.[id number] Activity Type Activity Date Activity User E-sign Co-sign Detail Recorded Client Recorded Date Recorded By Document 11/06/23 15:43 RB Desktop 11/06/23 15:47 RB Document 11/09/23 12:40 RB [id number] 11/09/23 12:47 RB Document 11/13/23 15:10 KW Desktop 11/13/23 15:16 KW Document 11/13/23 15:17 RB Desktop 11/13/23 15:21 RB Document 11/16/23 12:13 RB Desktop 11/16/23 12:29 RB Document 11/21/23 15:31 DL Desktop 11/21/23 15:39 DL 11/06/23 11/09/23 11/13/23 15:43 12:40 15:10 WC - Today's Visit Information Type of service Initial Visit Nurse-only Follow-up Visit Visit (Physician/GATE TENDER ) Arrival Mode Ambulatory Ambulatory Transfer Assistance None Accompanied by Patient Identification Verified (Name & Yes Yes ) Patient Requires Transmission-Based No Precautions Vital Signs Temperature (97.8 F-99.1 F) 97.2 F L 98.1 F Temperature Source Temporal Temporal Pulse Rate (60-100) 75 88 Pulse Location Monitor Monitor Respiratory Rate (12-18) 18 18 Respiratory rate source Observation Observation Oxygen Delivery Method Room Air Blood Pressure (90/60-120/80) 155/100 H 122/81 H Blood Pressure Mean (mm Hg) 118 94 Source Monitor Monitor Position Semi-Fowlers Sitting Blood Pressure Location Left Arm Left Arm History Since Last Visit- (Skip if this is Patient's initial visit) Have you changed medications since your No last visit? Any new allergies or adverse reactions No Had a fall/change in ADL's that may No increase risk of falls Signs or symptoms of abuse and/or No neglect since last visit Have you been in the hospital since your No last visit? Has dressing in place as prescribed Yes Has compression in place as prescribed N/A Has offloadiing in place as prescribed N/A Experienced any changes in pain level or No management Left Footwear Regular Shoe Right Footwear Regular Shoe Pain Scale: 0-10 Numeric Is Patient Pain Free? No Yes Yes R groin -Description Sharp -Intensity 8 -Pain Behavior Guarding -Pain Aggravating Factors Debridement -Alleviating Factors/Interventions None 11/13/23 11/16/23 11/21/23 15:17 12:13 15:31 - Today's Visit Information Type of service Follow-up Visit Nurse-only Follow-up Visit (Physician/GATE TENDER Visit (Physician/GATE TENDER ) ) Arrival Mode Ambulatory Ambulatory Transfer Assistance None None Accompanied by Patient Identification Verified (Name & Yes Yes ) Patient Requires Transmission-Based No No Precautions Vital Signs Temperature (97.8 F-99.1 F) 98.5 F 98.8 F Temperature Source Temporal Temporal Pulse Rate (60-100) 74 80 Pulse Location Monitor Monitor Respiratory Rate (12-18) 18 20 H Respiratory rate source Observation Observation Oxygen Delivery Method Blood Pressure (90/60-120/80) 116/53 L 155/102 H Blood Pressure Mean (mm Hg) 74 119 Source Monitor Monitor Position Semi-Fowlers Blood Pressure Location Left Arm History Since Last Visit- (Skip if this is Patient's initial visit) Have you changed medications since your No No last visit? Any new allergies or adverse reactions No No Had a fall/change in ADL's that may No No increase risk of falls Signs or symptoms of abuse and/or No No neglect since last visit Have you been in the hospital since your No No last visit? Has dressing in place as prescribed Yes Yes Has compression in place as prescribed No N/A Has offloadiing in place as prescribed No Yes Experienced any changes in pain level or No No management Left Footwear Right Footwear Pain Scale: 0-10 Numeric Is Patient Pain Free? No Yes Yes R groin -Description -Intensity -Pain Behavior -Pain Aggravating Factors -Alleviating Factors/Interventions - Nurse 1 - General Ulcer Measurement Start: 11/06/23 14:32 Freq: Status: Active Protocol: Activity Type Activity Date Activity User E-sign Co-sign Detail Recorded Client Recorded Date Recorded By Document 11/06/23 15:43 RB Desktop 11/06/23 15:47 RB Document 11/13/23 15:10 KW Desktop 11/13/23 15:16 KW Document 11/16/23 12:13 RB Desktop 11/16/23 12:29 RB Document 11/21/23 15:31 DL Desktop 11/21/23 15:39 DL 11/06/23 11/13/23 11/16/23 15:43 15:10 12:13 Wound Center Nurse 1 1-right Groin -Combined with other wound No No -Current Size (cm) - Length 1 0.8 -Current Size (cm) - Width 9.5 9 -Current Size (cm) - Depth 2.3 2.7 -Total Square Cm 9.5 7.2 -Photo Taken Yes -Tunneling No -Undermining/Tunneling No -Circular Undermining No -Exudate Amt Large Medium -Exudate Type Serosanguineous Serosanguineous Serosanguineous -Wound Margin Distinct, Distinct, Distinct, Outline Outline Outline Attached Attached Attached -Granulation Amt Large (67-100%) Large (67-100%) Medium (34-66%) -Granulation Quality Red Red Lula -Slough/Fibrin Yes Yes -Necrosis Amt Small (1-33%) Medium (34-66%) -Necrotic Tissue Type Adherent Slough Adherent Slough -Structure Exposed N/A N/A -Texture ([place]-wound Skin Appearance) Assessed Assessed Assessed -Moisture ([place]-wound Skin Appearance) Assessed Assessed Assessed -Color ([place]-wound Skin Appearance) Assessed Assessed Assessed -Temperature ([place]-wound Skin No Abnormality No Abnormality No Abnormality Appearance) (Pt Warm) (Pt Warm) (Pt Warm) -Tenderness on Palpation ([place]-wound No No Skin Appearance) -Ulcer Cleansing Wound Cleanser Soap and Water Wound Cleanser -Foul Odor after Cleansing No No No -Anesthetic Used 4% Lidocaine 4% Lidocaine Solution Solution 11/21/23 15:31 Wound Center Nurse 1 1-right Groin -Combined with other wound -Current Size (cm) - Length 1.4 -Current Size (cm) - Width 7.6 -Current Size (cm) - Depth 2.6 -Total Square Cm 10.64 -Photo Taken -Tunneling -Undermining/Tunneling -Circular Undermining -Exudate Amt Large -Exudate Type Serosanguineous -Wound Margin Distinct, Outline Attached -Granulation Amt Large (67-100%) -Granulation Quality Red -Slough/Fibrin -Necrosis Amt Small (1-33%) -Necrotic Tissue Type Adherent Slough -Structure Exposed N/A -Texture ([place]-wound Skin Appearance) Scarring -Moisture ([place]-wound Skin Appearance) No Abnormality -Color ([place]-wound Skin Appearance) No Abnormality -Temperature ([place]-wound Skin No Abnormality Appearance) (Pt Warm) -Tenderness on Palpation ([place]-wound Yes Skin Appearance) -Ulcer Cleansing Soap and Water -Foul Odor after Cleansing No -Anesthetic Used 4% Lidocaine Solution WC - Nurse 2 - General Ulcer CM Notes Start: 11/06/23 14:32 Freq: Status: Active Protocol: Activity Type Activity Date Activity User E-sign Co-sign Detail Recorded Client Recorded Date Recorded By Document 11/06/23 15:40 [id number] 11/06/23 15:42 Document 11/13/23 15:33 JF Laptop 11/13/23 15:38 JF Document 11/21/23 15:53 MW Desktop 11/21/23 15:56 MW 11/06/23 11/13/23 11/21/23 15:40 15:33 15:53 Wound Center Nurse 2 1-right Groin -Time 15:34 15:53 -Correct Patient No Yes Yes -Correct Side, Site, Position No Yes Yes -Correct Procedure No Yes Yes -Procedure Performed No Yes Yes -Type of Procedure Debridement Debridement -Clinical Debridement Subcutaneous Muscle / Fascia -Tissue Removed Subcutaneous Muscle,Fascia -Post Debridement (cm) - Length 1.0 1.5 -Post Debridement (cm) - Width 9.5 8.0 -Post Debridement (cm) - Depth 2.6 2.6 -Total Square (Post) (cm) 9.50 12.00 -Area of Debridement (cm) - Length 1.0 1.5 -Area of Debridement (cm) - Width 9.5 8.0 -Total Square (Area) (cm) 9.50 12.00 -Tunneling No No -Undermining/Tunneling Yes No -Undermining/Tunneling Starts (O'clock 12 ) -Maximum Distance (cm) 2.0 -Circular Undermining No No -Wound/Ulcer Outcome Not Healed Not Healed Not Healed -Ulcer Cleansing Rinsed/ Rinsed/ Rinsed/ Irrigated with Irrigated with Irrigated with Saline Saline Saline -Foul Odor after Cleansing No No No -Bioengineered Tissue No No No -Bleeding Controlled with Pressure Pressure Pressure -Treatment Response Procedure Procedure Procedure Tolerated Well Tolerated Well Tolerated Well -Offloading No No No -Debridement - Subq, 1st 20sq cm Yes -Debridement - Muscle / Fascia, 1st Yes 20sq cm Pain Scale: 0-10 Numeric Is Patient Pain Free? Yes Yes Yes WC - Nurse 3 - General Ulcer D/C NN Start: 11/06/23 14:32 Freq: Status: Active Protocol: Activity Type Activity Date Activity User E-sign Co-sign Detail Recorded Client Recorded Date Recorded By Document 11/06/23 15:43 RB Desktop 11/06/23 15:47 RB Edit Result 11/06/23 15:43 RB (1) Desktop 11/13/23 12:07 RB Document 11/13/23 15:45 KW Desktop 11/13/23 15:46 KW Edit Result 11/13/23 15:45 KW (2) [id number] 11/13/23 15:56 KW Document 11/16/23 12:13 RB Desktop 11/16/23 12:29 RB Document 11/21/23 16:04 GM Desktop 11/21/23 16:05 GM (1) 1-right Groin - NPWT Application Charge NPWT & Debridement => NPWT </= 50 sq cm (nc) => ($) (2) 1-right Groin - NPWT Application Charge NPWT > 50 sq cm ($ => NPWT & Debridement ) => (nc) 11/06/23 11/13/23 11/16/23 15:43 15:45 12:13 Vital Signs Temperature (97.8 F-99.1 F) 97.2 F L 98.5 F Temperature Source Temporal Temporal Pulse Rate (60-100) 75 74 Pulse Location Monitor Monitor Respiratory Rate (12-18) 18 18 Respiratory rate source Observation Observation Blood Pressure (90/60-120/80) 155/100 H 116/53 L Blood Pressure Mean (mm Hg) 118 74 Source Monitor Monitor Position Semi-Fowlers Semi-Fowlers Blood Pressure Location Left Arm Left Arm Pain Scale: 0-10 Numeric Is Patient Pain Free? No Yes Yes R groin -Description Sharp -Intensity 8 -Pain Behavior Guarding -Pain Aggravating Factors Debridement -Alleviating Factors/Interventions None Teaching: Wound Center *Wound/Skin Impairment -Person Taught -Teaching Method -Response to teaching Wound Care Center Nurse 3 1-right Groin -Ulcer Cleansing Wound Cleanser Wound Cleanser -Negative Pressure Wound Therapy Continue Continue -Setting (mmHg) 150 150 -Negative Pressure is Continuous Continuous -NPWT Application Charge NPWT </= 50 sq NPWT & NPWT </= 50 sq cm ($) Debridement (nc cm ($) ) [place]-Wound Care Barrier Treatment Response Procedure Procedure Tolerated Well Tolerated Well WC - Visit Discharge Discharge Condition Stable Stable Stable Ambulatory Status Ambulatory Ambulatory Ambulatory Transportation Private Auto Private Auto Private Auto Accompanied by Medication Reconcilliation completed & No No No provided to patient/care provider Clinical Summary of Care Provided Yes Yes Yes 11/21/23 16:04 Vital Signs Temperature (97.8 F-99.1 F) Temperature Source Pulse Rate (60-100) Pulse Location Respiratory Rate (12-18) Respiratory rate source Blood Pressure (90/60-120/80) Blood Pressure Mean (mm Hg) Source Position Blood Pressure Location Pain Scale: 0-10 Numeric Is Patient Pain Free? Yes R groin -Description -Intensity -Pain Behavior -Pain Aggravating Factors -Alleviating Factors/Interventions Teaching: Wound Center *Wound/Skin Impairment -Person Taught Patient -Teaching Method Discussion -Response to teaching Verbalize understanding Wound Care Center Nurse 3 1-right Groin -Ulcer Cleansing -Negative Pressure Wound Therapy Continue -Setting (mmHg) -Negative Pressure is Continuous -NPWT Application Charge NPWT & Debridement (nc ) [place]-Wound Care Treatment Response WC - Visit Discharge Discharge Condition Stable Ambulatory Status Ambulatory Transportation Private Auto Accompanied by Medication Reconcilliation completed & provided to patient/care provider Clinical Summary of Care Provided Yes Assessment/Plan Assessment/Plan (1) Right groin wound: CODE(S): S31.109A - Unspecified open wound of abdominal wall, unspecified quadrant without penetration into peritoneal cavity, initial encounter (2) Smoker: CODE(S): F17.200 - Nicotine dependence, unspecified, uncomplicated PLAN: Plan He is a little over a week post op from having retained mesh in his right groin after hernia repair in 1993 with the mesh removed in 2013. Wound care - Wound VAC at 150 mmHg twice a week, here a the wound center. At the time of the dressing change, the area should be cleaned with soap and water. Instructed him and his that if he has issues with the wound VAC keeping a seal, they need to remove the dressing if it has been 2 hours without a good seal and place a saline moistened gauze dressing twice daily until the wound VAC can be reapplied. They verbalized understanding. His is willing to learn how to place the wound VAC. Encouraged patient to stop smoking as it may have deleterious effects on wound healing. Stressed the importance of him making it to these two appointments each week, especially since he missed his last appointment and his wound VAC dressing has been on for a week. He verbalized Patient was instructed to call the wound center with any questions or concerns. Followup one week.
[2023-11-23 10:42] VITALS: BP 146/85; PULSE 85; RESP 118; TEMP 36.3
== END 2023-11-25 23:59 | disposition home or self-care (01) ==
LOC: WC 10:30
PROVIDERS: PCP Student in an Organized Health Care Education/Training Program; Referring Provider Student in an Organized Health Care Education/Training Program; Visit Provider Nurse Practitioner Family
DX: S31.109A Unspecified open wound of abdominal wall, unspecified quadrant without penetration into peritoneal cavity, initial encounter (principal); F17.210 Nicotine dependence, cigarettes, uncomplicated; I10 Essential (primary) hypertension; Z86.14 Personal history of Methicillin resistant Staphylococcus aureus infection; M10.9 Gout, unspecified; Z86.19 Personal history of other infectious and parasitic diseases; M19.90 Unspecified osteoarthritis, unspecified site; R01.1 Cardiac murmur, unspecified; Z79.899 Other long term (current) drug therapy; K91.89 Other postprocedural complications and disorders of digestive system; Y82.8 Other medical devices associated with adverse incidents
CPT/HCPCS: 97606; 11042; 11043; 97605; 99214; G0463

== ENCOUNTER 2023-12-24 13:30 | Outpatient (RCR) | payer MEDICAID, SELFPAY ==
[2023-11-26 00:28] VITALS: BP 146/85; PULSE 85; RESP 118; TEMP 36.3
[2023-11-27 14:08] VITALS: BP 113/79; PULSE 131; RESP 18; TEMP 35.8
--- NOTE | 2023-11-27 16:19 | PN.PCM_ITS ---
History of Present Illness Date of Service: 11/27/23 Chief Complaint: Right groin wound after an operative debridement. History of Wound: 48 year old male presents for wound Vac management of his right groin where he had mesh removed 10/26/23 at [facility] by Dr. Boone. He initially had right inguinal hernia repair in 1993. He developed some issues where he had mesh removed in 2013. His right groin kept getting infected repeatedly, which is how he ended up seeing a surgeon for further evaluation. He has a history of hypertension, arthritis (both osteo and rheumatoid), he smokes half a pack a day of cigarettes, he drinks 3-5 beers 2-3 times a week. He has a history of both Hep B and Hep C. He has a history of a heart murmur and he is currently having that worked up with cardiology. He does not want home health because he has 2 dogs that he does not want around people. He will come into the wound center twice a week for wound VAC dressing changes. Today he denies fever, chills, nausea, vomiting and diarrhea. He states that he does have some discomfort in his right groin surgery site. Progress of Wound: Right groin wound is smaller with less depth and undermining. His ilana wound is stable. He would like to take a break from the wound VAC this week. He states he needs a break from carrying around the VAC. Objective Data Objective Data Vital Signs: Vital Signs Temp Pulse Resp BP O2 Del Method 96.5 F L 131 H 18 113/79 Room Air 11/27/23 14:08 11/27/23 14:08 11/27/23 14:08 11/27/23 14:08 11/27/23 14:08 Oxygen Delivery Method Room Air Charges/Coding Procedures Integumentary 111xxx-113xx: 11917 Vivien musc/fascia 20 sq cm/< (ICD-10 - S31.109A, F17.200 ) Debridement Note Debridement Note Wound debrided: #1 Right groin area. Laterality: Right Wound Grade/Stage: 3. Type of Debridement: Excisional debridement Anesthesia Used: 5% Lidocaine Gel Depth: Down to and including healthy tissue, in the subcutaneous layer and to muscle Percentage of wound debrided: 100 Instrument Used: 7mm curette Tissue Removed: Subcutaneous tissue and muscle. Severity: Fat Layer Exposed (muscle is exposed.) Amount of bleeding with debridement: Mild Bleeding Controlled with: Pressure and Compression and gauze Patient tolerated procedure: Patient tolerated procedure well Post-Debridement Measurements and Additional Note: Post-Debridement Measurements/Treatment - Nurse 1 - General Ulcer Assessment Start: 11/27/23 14:07 Freq: Status: Active Protocol: JEF Activity Type Activity Date Activity User E-sign Co-sign Detail Recorded Client Recorded Date Recorded By Document 11/27/23 14:08 [employer] Desktop 11/27/23 14:19 KW 11/27/23 14:08 - Today's Visit Information Type of service Follow-up Visit (Physician/BRISKET PULLER ) Arrival Mode Ambulatory Patient Identification Verified (Name & Yes ) Vital Signs Temperature (97.8 F-99.1 F) 96.5 F L Temperature Source Temporal Pulse Rate (60-100) 131 H Pulse Location Monitor Respiratory Rate (12-18) 18 Respiratory rate source Observation Oxygen Delivery Method Room Air Blood Pressure (90/60-120/80) 113/79 Blood Pressure Mean (mm Hg) 90 History Since Last Visit- (Skip if this is Patient's initial visit) Have you changed medications since your No last visit? Any new allergies or adverse reactions No Had a fall/change in ADL's that may No increase risk of falls Signs or symptoms of abuse and/or No neglect since last visit Have you been in the hospital since your No last visit? Has dressing in place as prescribed Yes Has compression in place as prescribed N/A Has offloadiing in place as prescribed N/A Experienced any changes in pain level or No management Left Footwear Regular Shoe Right Footwear Regular Shoe Pain Scale: 0-10 Numeric Is Patient Pain Free? Yes - Nurse 1 - General Ulcer Measurement Start: 11/27/23 14:07 Freq: Status: Active Protocol: Activity Type Activity Date Activity User E-sign Co-sign Detail Recorded Client Recorded Date Recorded By Document 11/27/23 14:08 KW [employer] 11/27/23 14:19 KW 11/27/23 14:08 Wound Center Nurse 1 1-right Groin -Current Size (cm) - Length 0.3 -Current Size (cm) - Width 8.1 -Current Size (cm) - Depth 1.8 -Total Square Cm 2.43 -Tunneling Yes -Tunneling Position (O'clock) 9 -Tunneling Distance (cm) 2 -Exudate Amt Medium -Exudate Type Serosanguineous -Wound Margin Distinct, Outline Attached -Granulation Amt Large (67-100%) -Granulation Quality Red -Texture ([place]-wound Skin Appearance) Assessed -Moisture ([place]-wound Skin Appearance) Assessed -Color ([place]-wound Skin Appearance) Assessed -Temperature ([place]-wound Skin No Abnormality Appearance) (Pt Warm) -Ulcer Cleansing Soap and Water -Foul Odor after Cleansing No -Anesthetic Used 4% Lidocaine Solution WC - Nurse 2 - General Ulcer CM Notes Start: 11/27/23 14:07 Freq: Status: Active Protocol: Activity Type Activity Date Activity User E-sign Co-sign Detail Recorded Client Recorded Date Recorded By Document 11/27/23 14:33 CP Desktop 11/27/23 14:38 CP 11/27/23 14:33 Wound Center Nurse 2 -Time 14:33 -Correct Patient Yes -Correct Side, Site, Position Yes -Correct Procedure Yes -Procedure Performed Yes -Type of Procedure Debridement -Clinical Debridement Muscle / Fascia -Tissue Removed Muscle,Fascia -Post Debridement (cm) - Length 1 -Post Debridement (cm) - Width 8.3 -Post Debridement (cm) - Depth 1.6 -Total Square (Post) (cm) 8.3 -Area of Debridement (cm) - Length 1 -Area of Debridement (cm) - Width 8.3 -Total Square (Area) (cm) 8.3 -Tunneling Yes -Tunneling Position (O'clock) 9 -Tunneling Distance (cm) 1.4 -Circular Undermining No -Wound/Ulcer Outcome Not Healed -Ulcer Cleansing Rinsed/ Irrigated with Saline -Foul Odor after Cleansing No -Bioengineered Tissue No -Bleeding Controlled with Pressure -Treatment Response Procedure Tolerated Well -Debridement - Muscle / Fascia, 1st Yes 20sq cm Pain Scale: 0-10 Numeric Is Patient Pain Free? Yes Assessment/Plan Assessment/Plan (1) Right groin wound: CODE(S): S31.109A - Unspecified open wound of abdominal wall, unspecified quadrant without penetration into peritoneal cavity, initial encounter (2) Smoker: CODE(S): F17.200 - Nicotine dependence, unspecified, uncomplicated PLAN: Plan He is post op from having retained mesh in his right groin after hernia repair in 1993 with the mesh removed in 2013. Wound care - Wound VAC holiday at patient's request. Will do daily Dakin's 0.25% moistened gauze covered with ABD. He may shower daily and wash the area with soap and water. Will plan on restarting the wound VAC next week. Stressed to patient that he needs to allow his to change the dressing daily if he is take a break from the wound VAC and he verbalized understanding. Encouraged patient to stop smoking as it may have deleterious effects on wound healing. Patient was instructed to call the wound center with any questions or concerns. Followup one week.
[2023-11-30 10:53] VITALS: BP 150/87; PULSE 84; RESP 18; TEMP 36.1
[2023-12-04 14:27] VITALS: BP 156/95; PULSE 91; RESP 18; TEMP 35.6
--- NOTE | 2023-12-04 15:56 | PCM.WC.PN ---
History of Present Illness Date of Service: 12/04/23 Chief Complaint: Right groin wound after an operative debridement. History of Wound: 48 year old male presents for wound Vac management of his right groin where he had mesh removed 10/26/23 at [facility] by Dr. Boone. He initially had right inguinal hernia repair in 1993. He developed some issues where he had mesh removed in 2013. His right groin kept getting infected repeatedly, which is how he ended up seeing a surgeon for further evaluation. He has a history of hypertension, arthritis (both osteo and rheumatoid), he smokes half a pack a day of cigarettes, he drinks 3-5 beers 2-3 times a week. He has a history of both Hep B and Hep C. He has a history of a heart murmur and he is currently having that worked up with cardiology. He does not want home health because he has 2 dogs that he does not want around people. He will come into the wound center twice a week for wound VAC dressing changes. Today he denies fever, chills, nausea, vomiting and diarrhea. He states that he does have some discomfort in his right groin surgery site. Progress of Wound: Patient wanted a wound VAC holiday last week. On , he called and wanted the wound VAC back on because he was having increased drainage. The right groin wound is smaller in size, wound bed is nice beefy pink color with granulation tissue present. He continues to have a small tunnel on the lateral aspect of the ulcer. His [place]in[place] wound is stable. There is a a piece of white foam stuck in the lateral tunnel. He states that the white foam has been in there since before I was gone on vacation (which he was seen by me on 11/13/23, and had a nurse visit 11/16/23). There was no white foam in this tunnel last week when I saw him and debrided his wound. The RN who placed his wound VAC on Sunday11/30/23 states that she did not use white foam and there was no white foam in his tunnel at that time. Unsure how this foam got into his tunnel, unless he is somehow tampering with this ulcer. Objective Data Objective Data Vital Signs: Vital Signs Temp Pulse Resp BP O2 Del Method 96.1 F L 91 18 156/95 H Room Air 12/04/23 14:27 12/04/23 14:27 12/04/23 14:27 12/04/23 14:27 11/30/23 10:53 Oxygen Delivery Method Room Air Charges/Coding Procedures Integumentary [id number]: [id number] Vivien musc/fascia 20 sq cm/< (ICD-10 - S31.109A, F17.200 ) Debridement Note Debridement Note Wound debrided: #1 Right groin area. Laterality: Right Wound Grade/Stage: 3. Type of Debridement: Excisional debridement Anesthesia Used: 5% Lidocaine Gel and Cetacaine Depth: Down to and including healthy tissue, in the subcutaneous layer and to muscle Percentage of wound debrided: 20 Instrument Used: - (Pick ups and hemostats ) Tissue Removed: Subcutaneous tissue and muscle. Severity: Fat Layer Exposed (muscle is exposed.) Amount of bleeding with debridement: Mild Bleeding Controlled with: Pressure and Compression and gauze Patient tolerated procedure: Patient tolerated procedure well Debridement Free Text: There is white foam stuck in the lateral tunnel. Attempted to remove with pick ups and was unable to do so. Used pick ups to pull on the foam and the hemostats to try to get the foam at the base of the ulcer to prevent the foam from ripping. Patient complained of pain and insisted on me stopping to attempt to remove the foam. 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 He states that he will go see Dr. Boone, who did his initial surgery, to remove it. Post-Debridement Measurements and Additional Note: Post-Debridement Measurements/Treatment - Nurse 1 - General Ulcer Assessment Start: 11/27/23 14:07 Freq: Status: Active Protocol: [email or web address].[email or web address] Activity Type Activity Date Activity User E-sign Co-sign Detail Recorded Client Recorded Date Recorded By Document 11/27/23 14:08 KW Desktop 11/27/23 14:19 KW Document 12/04/23 14:27 RB Desktop 12/04/23 14:30 RB 11/27/23 12/04/23 14:08 14:27 - Today's Visit Information Type of service Follow-up Visit Follow-up Visit (Physician/CHIEF DEVELOPMENT OFFICER (Physician/CHIEF DEVELOPMENT OFFICER ) ) Arrival Mode Ambulatory Ambulatory Transfer Assistance None Patient Identification Verified (Name & Yes Yes ) Patient Requires Transmission-Based No Precautions Vital Signs Temperature (97.8 F-99.1 F) 96.5 F L 96.1 F L Temperature Source Temporal Temporal Pulse Rate (60-100) 131 H 91 Pulse Location Monitor Monitor Respiratory Rate (12-18) 18 18 Respiratory rate source Observation Observation Oxygen Delivery Method Room Air Blood Pressure (90/60-120/80) 113/79 156/95 H Blood Pressure Mean (mm Hg) 90 115 Source Monitor Position Semi-Fowlers Blood Pressure Location Left Arm History Since Last Visit- (Skip if this is Patient's initial visit) Have you changed medications since your No No last visit? Any new allergies or adverse reactions No No Had a fall/change in ADL's that may No No increase risk of falls Signs or symptoms of abuse and/or No No neglect since last visit Have you been in the hospital since your No No last visit? Has dressing in place as prescribed Yes Yes Has compression in place as prescribed N/A No Has offloadiing in place as prescribed N/A No Experienced any changes in pain level or No No management Left Footwear Regular Shoe Right Footwear Regular Shoe Pain Scale: 0-10 Numeric Is Patient Pain Free? Yes No R groin -Description Aching -Intensity 3 -Duration (hours) Acute -Pain Behavior Withdrawal from Touch -Pain Aggravating Factors ADL's -Alleviating Factors/Interventions None WC - Nurse 1 - General Ulcer Measurement Start: 11/27/23 14:07 Freq: Status: Active Protocol: Activity Type Activity Date Activity User E-sign Co-sign Detail Recorded Client Recorded Date Recorded By Document 11/27/23 14:08 KW Desktop 11/27/23 14:19 KW Document 12/04/23 14:27 RB Desktop 12/04/23 14:30 RB 11/27/23 12/04/23 14:08 14:27 Wound Center Nurse 1 1-right Groin -Combined with other wound No -Current Size (cm) - Length 0.3 0.5 -Current Size (cm) - Width 8.1 6.5 -Current Size (cm) - Depth 1.8 1.3 -Total Square Cm 2.43 3.25 -Tunneling Yes No -Tunneling Position (O'clock) 9 -Tunneling Distance (cm) 2 -Undermining/Tunneling No -Circular Undermining No -Exudate Amt Medium Medium -Exudate Type Serosanguineous Serosanguineous -Wound Margin Distinct, Thickened & Outline Rolled Under Attached -Granulation Amt Large (67-100%) Medium (34-66%) -Granulation Quality Red [place] -Slough/Fibrin Yes -Necrosis Amt Medium (34-66%) -Necrotic Tissue Type Adherent Slough -Structure Exposed N/A -Texture ([place]-wound Skin Appearance) Assessed Assessed, Scarring -Moisture ([place]-wound Skin Appearance) Assessed Assessed -Color ([place]-wound Skin Appearance) Assessed Assessed -Temperature ([place]-wound Skin No Abnormality No Abnormality Appearance) (Pt Warm) (Pt Warm) -Tenderness on Palpation ([place]-wound No Skin Appearance) -Ulcer Cleansing Soap and Water Wound Cleanser -Foul Odor after Cleansing No No -Anesthetic Used 4% Lidocaine 4% Lidocaine Solution Solution WC - Nurse 2 - General Ulcer CM Notes Start: 11/27/23 14:07 Freq: Status: Active Protocol: Activity Type Activity Date Activity User E-sign Co-sign Detail Recorded Client Recorded Date Recorded By Document 11/27/23 14:33 CP Desktop 11/27/23 14:38 CP Document 12/04/23 14:48 Laptop 12/04/23 14:54 11/27/23 12/04/23 14:33 14:48 Wound Center Nurse 2 1-right Groin -Time 14:33 14:49 -Correct Patient Yes Yes -Correct Side, Site, Position Yes Yes -Correct Procedure Yes Yes -Procedure Performed Yes Yes -Type of Procedure Debridement Debridement -Clinical Debridement Muscle / Fascia Muscle / Fascia -Tissue Removed Muscle,Fascia Muscle,Fascia -Post Debridement (cm) - Length 1 0.7 -Post Debridement (cm) - Width 8.3 6.5 -Post Debridement (cm) - Depth 1.6 1.0 -Total Square (Post) (cm) 8.3 4.55 -Area of Debridement (cm) - Length 1 0.7 -Area of Debridement (cm) - Width 8.3 6.5 -Total Square (Area) (cm) 8.3 4.55 -Tunneling Yes Yes -Tunneling Position (O'clock) 9 9 -Tunneling Distance (cm) 1.4 0.6 -Undermining/Tunneling No -Circular Undermining No No -Wound/Ulcer Outcome Not Healed Not Healed -Ulcer Cleansing Rinsed/ Rinsed/ Irrigated with Irrigated with Saline Saline -Foul Odor after Cleansing No No -Bioengineered Tissue No No -Bleeding Controlled with Pressure Pressure -Treatment Response Procedure Procedure Tolerated Well Tolerated Well -Offloading No -Debridement - Muscle / Fascia, 1st Yes Yes 20sq cm Pain Scale: 0-10 Numeric Is Patient Pain Free? Yes Yes WC - Nurse 3 - General Ulcer D/C NN Start: 11/27/23 14:07 Freq: Status: Active Protocol: Activity Type Activity Date Activity User E-sign Co-sign Detail Recorded Client Recorded Date Recorded By Document 11/30/23 10:53 MT Desktop 11/30/23 10:57 MT Document 12/04/23 15:08 CP Desktop 12/04/23 15:09 CP 11/30/23 12/04/23 10:53 15:08 Wound Care Center Nurse 3 1-right Groin -Ulcer Cleansing Soap and Water Rinsed/ Irrigated with Saline -Foul Odor after Cleansing No -Negative Pressure Wound Therapy Continue -Setting (mmHg) 150 -Negative Pressure is Continuous -Regranex (If Applicable) Continue -Other Dressing dakins moist gauze, 4x4, abd , tape -NPWT Application Charge NPWT </= 50 sq cm ($) Treatment Response Procedure Tolerated Well Vital Signs Temperature (97.8 F-99.1 F) 97 F L Temperature Source Temporal Pulse Rate (60-100) 84 Pulse Location Monitor Respiratory Rate (12-18) 18 Respiratory rate source Observation Oxygen Delivery Method Room Air Blood Pressure (90/60-120/80) 150/87 H Blood Pressure Mean (mm Hg) 108 Source Monitor Position Sitting Blood Pressure Location Right Arm Pain Scale: 0-10 Numeric Is Patient Pain Free? Yes Yes WC - Visit Discharge Discharge Condition Stable Stable Ambulatory Status Ambulatory Ambulatory Transportation Private Auto Private Auto Medication Reconcilliation completed & No No provided to patient/care provider Clinical Summary of Care Provided Yes Yes Notes: pt came in for nurse visit. pt was on wound vac holiday, but was draining too much. aparna oneal, LUIS called for order to put vac back on. Raegan Cosby RN called Aparna. Assessment/Plan Assessment/Plan (1) Right groin wound: CODE(S): S31.109A - Unspecified open wound of abdominal wall, unspecified quadrant without penetration into peritoneal cavity, initial encounter (2) Smoker: CODE(S): F17.200 - Nicotine dependence, unspecified, uncomplicated PLAN: Plan He is post op from having retained mesh in his right groin after hernia repair in 1993 with the mesh removed in 2013. Wound VAC placed back on last Sunday per patient request because he was having so much drainage. I gave a verbal order to place the wound VAC on using black foam with the VAC at 150 mmHg. The nurse who applied the wound VAC on Sunday states that she did not use white foam in this wound and there was not white foam in the tunnel when she placed the wound VAC. I suspect that the patient may be tampering with his dressing. When I was attempting to remove the foam, he became very confrontational with me. I offered to numb the area with lidocaine but he refused stating he had someplace he needed to be. He kept saying that this foam has been in there since before I went on vacation (which was the last week of October). He would like Dr. Boone, the surgeon who did his surgery to remove this white foam. I phoned Dr. Boone's office ([phone]) and spoke with [place] and stated that Dr. Boone is out of the country on a mission trip. I relayed this message to the patient and said he could come back in tomorrow to see another provider, Dr. Hunt, who could possible numb him and remove the foam. The patient states that he will come to the appointment, but he is not sure if he will allow anyone to remove the foam. I stressed the importance of removing this due to the potential source of infection. Clinically the wound looks good now and there is no odor. I phoned Dr. Boone's office back and spoke with [place] who said if the foam is not removed tomorrow, to call them back and they can try to get him into another surgeon in [place]. I relayed this information to Dr. Hunt. Wound care - Dakin's 0.25% moistened gauze covered with ABD daily. Encouraged patient to stop smoking as it may have deleterious effects on wound healing. Patient was instructed to call the wound center with any questions or concerns. Followup tomorrow with Dr. Hunt.
[2023-12-05 13:14] VITALS: BP 163/97; PULSE 95; RESP 16; TEMP 36.4
--- NOTE | 2023-12-05 17:01 | PN.PCM_ITS ---
History of Present Illness Date of Service: 12/05/23 Chief Complaint: Nonhealing ulcer right groin after an operative debridement. History of Wound: 48 year old male presents for wound Vac management of his right groin where he had mesh removed 10/26/23 at [facility] by Dr. Boone. He initially had right inguinal hernia repair in 1993. He developed some issues where he had mesh removed in 2013. His right groin kept getting infected repeatedly, which is how he ended up seeing a surgeon for further evaluation. He has a history of hypertension, arthritis (both osteo and rheumatoid), he smokes half a pack a day of cigarettes, he drinks 3-5 beers 2-3 times a week. He has a history of both Hep B and Hep C. He has a history of a heart murmur and he is currently having that worked up with cardiology. He does not want home health because he has 2 dogs that he does not want around people. He will come into the wound center twice a week for wound VAC dressing changes. Today he denies fever, chills, nausea, vomiting and diarrhea. He states that he does have some discomfort in his right groin surgery site. Progress of Wound: Slightly improved. There is a small piece of residual foam from the VAC adherent to the lateral aspect of the ulcer. Objective Data Objective Data Vital Signs: Vital Signs Temp Pulse Resp BP O2 Del Method 97.5 F L 95 16 163/97 H Room Air 12/05/23 13:14 12/05/23 13:14 12/05/23 13:14 12/05/23 13:14 12/05/23 13:14 Oxygen Delivery Method Room Air Lab / Micro Data Attestation: I reviewed the patient's lab results. Charges/Coding Procedures Integumentary [id number]: 19111 Vivien musc/fascia 20 sq cm/< (ICD-10 - S31.109A, F17.200 ) Debridement Note Debridement Note Wound debrided: #1 Right groin area. Laterality: Right Wound Grade/Stage: 3. Type of Debridement: Excisional debridement Anesthesia Used: 5% Lidocaine Gel and Cetacaine Depth: Down to and including healthy tissue, in the subcutaneous layer and to muscle Percentage of wound debrided: 100 Instrument Used: 5mm curette and - (Pick ups were used to remove the residual foam from the lateral aspect of the ulcer. Mild discomfort noted but tolerated.) Tissue Removed: Subcutaneous tissue and muscle. Severity: Fat Layer Exposed (muscle is exposed.) Amount of bleeding with debridement: Mild Bleeding Controlled with: Pressure and Compression and gauze Patient tolerated procedure: Patient tolerated procedure well Debridement Free Text: The white foam was removed from the lateral aspect of the ulcer. I freed up the edges with a pair of pick ups which loosened the foam enough that I was able to remove it. Upon further inspection there was no evidence of residual foam. Some discomfort noted but he tolerated it reasonably well. Post-Debridement Measurements and Additional Note: Post-Debridement Measurements/Treatment - Nurse 1 - General Ulcer Assessment Start: 11/27/23 14:07 Freq: Status: Active Protocol: JEF Activity Type Activity Date Activity User E-sign Co-sign Detail Recorded Client Recorded Date Recorded By Document 11/27/23 14:08 KW Desktop 11/27/23 14:19 KW Document 12/04/23 14:27 RB Desktop 12/04/23 14:30 RB Document 12/05/23 13:14 BMF Desktop 12/05/23 13:24 BMF 11/27/23 12/04/23 12/05/23 14:08 14:27 13:14 - Today's Visit Information Type of service Follow-up Visit Follow-up Visit Follow-up Visit (Physician/WAITER/WAITRESS (Physician/WAITER/WAITRESS (Physician/WAITER/WAITRESS ) ) ) Arrival Mode Ambulatory Ambulatory Ambulatory Transfer Assistance None None Patient Identification Verified (Name & Yes Yes Yes ) Patient Requires Transmission-Based No No Precautions Vital Signs Temperature (97.8 F-99.1 F) 96.5 F L 96.1 F L 97.5 F L Temperature Source Temporal Temporal Temporal Pulse Rate (60-100) 131 H 91 95 Pulse Location Monitor Monitor Monitor Respiratory Rate (12-18) 18 18 16 Respiratory rate source Observation Observation Observation Oxygen Delivery Method Room Air Room Air Blood Pressure (90/60-120/80) 113/79 156/95 H 163/97 H Blood Pressure Mean (mm Hg) 90 115 119 Source Monitor Monitor Position Semi-Fowlers Sitting Blood Pressure Location Left Arm Right Arm History Since Last Visit- (Skip if this is Patient's initial visit) Have you changed medications since your No No No last visit? Any new allergies or adverse reactions No No No Had a fall/change in ADL's that may No No No increase risk of falls Signs or symptoms of abuse and/or No No No neglect since last visit Have you been in the hospital since your No No No last visit? Has dressing in place as prescribed Yes Yes No Has compression in place as prescribed N/A No N/A Has offloadiing in place as prescribed N/A No N/A Experienced any changes in pain level or No No No management Left Footwear Regular Shoe Regular Shoe Right Footwear Regular Shoe Regular Shoe Pain Scale: 0-10 Numeric Is Patient Pain Free? Yes No Yes R groin -Description Aching -Intensity 3 -Duration (hours) Acute -Pain Behavior Withdrawal from Touch -Pain Aggravating Factors ADL's -Alleviating Factors/Interventions None WC - Nurse 1 - General Ulcer Measurement Start: 11/27/23 14:07 Freq: Status: Active Protocol: Activity Type Activity Date Activity User E-sign Co-sign Detail Recorded Client Recorded Date Recorded By Document 11/27/23 14:08 KW Desktop 11/27/23 14:19 KW Document 12/04/23 14:27 RB Desktop 12/04/23 14:30 RB Document 12/05/23 13:14 BMF Desktop 12/05/23 13:24 BMF 11/27/23 12/04/23 12/05/23 14:08 14:27 13:14 Wound Center Nurse 1 1-right Groin -Combined with other wound No No -Current Size (cm) - Length 0.3 0.5 0.3 -Current Size (cm) - Width 8.1 6.5 7.2 -Current Size (cm) - Depth 1.8 1.3 1.5 -Total Square Cm 2.43 3.25 2.16 -Date of Last Picture (Recall this 12/05/23 field) -Photo Taken Yes -Epithelialization None Present -Tunneling Yes No -Tunneling Position (O'clock) 9 -Tunneling Distance (cm) 2 -Undermining/Tunneling No -Circular Undermining No -Exudate Amt Medium Medium Medium -Exudate Type Serosanguineous Serosanguineous Serosanguineous -Wound Margin Distinct, Thickened & Distinct, Outline Rolled Under Outline Attached Attached -Granulation Amt Large (67-100%) Medium (34-66%) Large (67-100%) -Granulation Quality [place] Red -Slough/Fibrin Yes No -Necrosis Amt Medium (34-66%) None Present (0 %) -Necrotic Tissue Type Adherent Slough -Structure Exposed N/A -Texture ([place]-wound Skin Appearance) Assessed Assessed, Assessed Scarring -Moisture ([place]-wound Skin Appearance) Assessed Assessed Assessed -Color ([place]-wound Skin Appearance) Assessed Assessed Assessed -Temperature ([place]-wound Skin No Abnormality No Abnormality No Abnormality Appearance) (Pt Warm) (Pt Warm) (Pt Warm) -Tenderness on Palpation ([place]-wound No No Skin Appearance) -Ulcer Cleansing Soap and Water Wound Cleanser Soap and Water -Foul Odor after Cleansing No No No -Anesthetic Used 4% Lidocaine 4% Lidocaine 4% Lidocaine Solution Solution Solution WC - Nurse 2 - General Ulcer CM Notes Start: 11/27/23 14:07 Freq: Status: Active Protocol: Activity Type Activity Date Activity User E-sign Co-sign Detail Recorded Client Recorded Date Recorded By Document 11/27/23 14:33 CP Desktop 11/27/23 14:38 CP Document 12/04/23 14:48 JF Laptop 12/04/23 14:54 Document 12/05/23 13:42 MW Desktop 12/05/23 13:47 MW 11/27/23 12/04/23 12/05/23 14:33 14:48 13:42 Wound Center Nurse 2 1-right Groin -Time 14:33 14:49 13:43 -Correct Patient Yes Yes Yes -Correct Side, Site, Position Yes Yes Yes -Correct Procedure Yes Yes Yes -Procedure Performed Yes Yes Yes -Type of Procedure Debridement Debridement Debridement -Clinical Debridement Muscle / Fascia Muscle / Fascia Muscle / Fascia -Tissue Removed Muscle,Fascia Muscle,Fascia Muscle,Fascia -Post Debridement (cm) - Length 1 0.7 0.5 -Post Debridement (cm) - Width 8.3 6.5 7.5 -Post Debridement (cm) - Depth 1.6 1.0 1.5 -Total Square (Post) (cm) 8.3 4.55 3.75 -Area of Debridement (cm) - Length 1 0.7 0.5 -Area of Debridement (cm) - Width 8.3 6.5 7.5 -Total Square (Area) (cm) 8.3 4.55 3.75 -Tunneling Yes Yes No -Tunneling Position (O'clock) 9 9 -Tunneling Distance (cm) 1.4 0.6 -Undermining/Tunneling No No -Circular Undermining No No No -Wound/Ulcer Outcome Not Healed Not Healed Not Healed -Ulcer Cleansing Rinsed/ Rinsed/ Rinsed/ Irrigated with Irrigated with Irrigated with Saline Saline Saline -Foul Odor after Cleansing No No No -Bioengineered Tissue No No No -Bleeding Controlled with Pressure Pressure Pressure -Treatment Response Procedure Procedure Procedure Tolerated Well Tolerated Well Tolerated Well -Offloading No No -Debridement - Muscle / Fascia, 1st Yes Yes Yes 20sq cm Pain Scale: 0-10 Numeric Is Patient Pain Free? Yes Yes Yes WC - Nurse 3 - General Ulcer D/C NN Start: 11/27/23 14:07 Freq: Status: Active Protocol: Activity Type Activity Date Activity User E-sign Co-sign Detail Recorded Client Recorded Date Recorded By Document 11/30/23 10:53 MT Data [employer] 11/30/23 10:57 MT Document 12/04/23 15:08 CP Desktop 12/04/23 15:09 CP Document 12/05/23 13:50 MW Desktop 12/05/23 13:51 MW 11/30/23 12/04/23 12/05/23 10:53 15:08 13:50 Wound Care Center Nurse 3 1-right Groin -Ulcer Cleansing Soap and Water Rinsed/ Rinsed/ Irrigated with Irrigated with Saline Saline -Foul Odor after Cleansing No No -Negative Pressure Wound Therapy Continue Continue -Setting (mmHg) 150 150 -Negative Pressure is Continuous Continuous -Regranex (If Applicable) Continue -Other Dressing dakins moist gauze, 4x4, abd , tape -NPWT Application Charge NPWT </= 50 sq NPWT & cm ($) Debridement (nc ) Treatment Response Procedure Procedure Tolerated Well Tolerated Well Vital Signs Temperature (97.8 F-99.1 F) 97 F L Temperature Source Temporal Pulse Rate (60-100) 84 Pulse Location Monitor Respiratory Rate (12-18) 18 Respiratory rate source Observation Oxygen Delivery Method Room Air Blood Pressure (90/60-120/80) 150/87 H Blood Pressure Mean (mm Hg) 108 Source Monitor Position Sitting Blood Pressure Location Right Arm Pain Scale: 0-10 Numeric Is Patient Pain Free? Yes Yes Yes Teaching: Wound Center Dressing Your Wound -Person Taught Patient -Teaching Method Discussion, Demonstration -Response to teaching Verbalize understanding WC - Visit Discharge Discharge Condition Stable Stable Stable Ambulatory Status Ambulatory Ambulatory Ambulatory Transportation Private Auto Private Auto Private Auto Accompanied by Medication Reconcilliation completed & No No No provided to patient/care provider Clinical Summary of Care Provided Yes Yes Yes Notes: pt came in for nurse visit. pt was on wound vac holiday, but was draining too much. aparna oneal NP called for order to put vac back on. Raegan Cosby RN called Aparna. Assessment/Plan Assessment/Plan (1) Right groin wound: CODE(S): S31.109A - Unspecified open wound of abdominal wall, unspecified quadrant without penetration into peritoneal cavity, initial encounter (2) Smoker: CODE(S): F17.200 - Nicotine dependence, unspecified, uncomplicated PLAN: Plan He is post op from having retained mesh in his right groin after hernia repair in 1993 with the mesh removed in 2013. Continue the VAC twice a week. The residual foam was removed today from the lateral aspect of the ulcer. The base of the ulcer was noted to have good granulation tissue and no more foam was seen. Wound care - Dakin's 0.25% moistened gauze covered with ABD to be done if there are issues with the VAC and consistent suction cannot be maintained. Encouraged patient to stop smoking as it may have deleterious effects on wound healing. He is having the VAC changes twice per week. One visit is with a provider. The other visit would be a nurse visit
[2023-12-10 15:11] VITALS: BP 145/99; PULSE 121; RESP 18; TEMP 36.2
--- NOTE | 2023-12-10 16:57 | PN.PCM_ITS ---
History of Present Illness Date of Service: 12/10/23 Chief Complaint: Nonhealing ulcer right groin after an operative debridement. History of Wound: 48 year old male presents for wound Vac management of his right groin where he had mesh removed 10/26/[address] [facility] by Dr. Boone. He initially had right inguinal hernia repair in 1993. He developed some issues where he had mesh removed in 2013. His right groin kept getting infected repeatedly, which is how he ended up seeing a surgeon for further evaluation. He has a history of hypertension, arthritis (both osteo and rheumatoid), he smokes half a pack a day of cigarettes, he drinks 3-5 beers 2-3 times a week. He has a history of both Hep B and Hep C. He has a history of a heart murmur and he is currently having that worked up with cardiology. He does not want home health because he has 2 dogs that he does not want around people. He will come into the wound center twice a week for wound VAC dressing changes. Today he denies fever, chills, nausea, vomiting and diarrhea. He states that he does have some discomfort in his right groin surgery site. Progress of Wound: Smaller in size. It is a nice beefy pink color. The tunnel on the lateral edge has decreased in depth. Objective Data Objective Data Vital Signs: Vital Signs Temp Pulse Resp BP O2 Del Method 97.2 F L 121 H 18 145/99 H Room Air 12/10/23 15:11 12/10/23 15:11 12/10/23 15:11 12/10/23 15:11 12/10/23 15:11 Oxygen Delivery Method Room Air Charges/Coding Procedures Integumentary [id number]: [id number] Vivien musc/fascia 20 sq cm/< (ICD-10 - S31.109A, F17.200 ) Debridement Note Debridement Note Wound debrided: #1 Right groin area. Laterality: Right Wound Grade/Stage: 3. Type of Debridement: Excisional debridement Anesthesia Used: 5% Lidocaine Gel and Cetacaine Depth: Down to and including healthy tissue, in the subcutaneous layer and to muscle Percentage of wound debrided: 100 Instrument Used: 5mm curette Tissue Removed: Subcutaneous tissue and muscle. Severity: Fat Layer Exposed (muscle is exposed.) Amount of bleeding with debridement: Mild Bleeding Controlled with: Pressure and Compression and gauze Patient tolerated procedure: Patient tolerated procedure well Post-Debridement Measurements and Additional Note: Post-Debridement Measurements/Treatment WC - Nurse 1 - General Ulcer Assessment Start: 11/27/23 14:07 Freq: Status: Active Protocol: JEF Activity Type Activity Date Activity User E-sign Co-sign Detail Recorded Client Recorded Date Recorded By Document 11/27/23 14:08 KW Desktop 11/27/23 14:19 KW Document 12/04/23 14:27 RB Desktop 12/04/23 14:30 RB Document 12/05/23 13:14 BMF Desktop 12/05/23 13:24 BMF Document 12/10/23 15:11 KW Desktop 12/10/23 15:18 KW 11/27/23 12/04/23 12/05/23 14:08 14:27 13:14 - Today's Visit Information Type of service Follow-up Visit Follow-up Visit Follow-up Visit (Physician/CLINICAL CYTOGENETICIST (Physician/CLINICAL CYTOGENETICIST (Physician/CLINICAL CYTOGENETICIST ) ) ) Arrival Mode Ambulatory Ambulatory Ambulatory Transfer Assistance None None Patient Identification Verified (Name & Yes Yes Yes ) Patient Requires Transmission-Based No No Precautions Vital Signs Temperature (97.8 F-99.1 F) 96.5 F L 96.1 F L 97.5 F L Temperature Source Temporal Temporal Temporal Pulse Rate (60-100) 131 H 91 95 Pulse Location Monitor Monitor Monitor Respiratory Rate (12-18) 18 18 16 Respiratory rate source Observation Observation Observation Oxygen Delivery Method Room Air Room Air Blood Pressure (90/60-120/80) 113/79 156/95 H 163/97 H Blood Pressure Mean (mm Hg) 90 115 119 Source Monitor Monitor Position Semi-Fowlers Sitting Blood Pressure Location Left Arm Right Arm History Since Last Visit- (Skip if this is Patient's initial visit) Have you changed medications since your No No No last visit? Any new allergies or adverse reactions No No No Had a fall/change in ADL's that may No No No increase risk of falls Signs or symptoms of abuse and/or No No No neglect since last visit Have you been in the hospital since your No No No last visit? Has dressing in place as prescribed Yes Yes No Has compression in place as prescribed N/A No N/A Has offloadiing in place as prescribed N/A No N/A Experienced any changes in pain level or No No No management Left Footwear Regular Shoe Regular Shoe Right Footwear Regular Shoe Regular Shoe Pain Scale: 0-10 Numeric Is Patient Pain Free? Yes No Yes R groin -Description Aching -Intensity 3 -Duration (hours) Acute -Pain Behavior Withdrawal from Touch -Pain Aggravating Factors ADL's -Alleviating Factors/Interventions None 12/10/23 15:11 WC - Today's Visit Information Type of service Follow-up Visit (Physician/CLINICAL CYTOGENETICIST ) Arrival Mode Ambulatory Transfer Assistance Patient Identification Verified (Name & Yes ) Patient Requires Transmission-Based Precautions Vital Signs Temperature (97.8 F-99.1 F) 97.2 F L Temperature Source Temporal Pulse Rate (60-100) 121 H Pulse Location Monitor Respiratory Rate (12-18) 18 Respiratory rate source Observation Oxygen Delivery Method Room Air Blood Pressure (90/60-120/80) 145/99 H Blood Pressure Mean (mm Hg) 114 Source Monitor Position Semi-Fowlers Blood Pressure Location Left Arm History Since Last Visit- (Skip if this is Patient's initial visit) Have you changed medications since your No last visit? Any new allergies or adverse reactions No Had a fall/change in ADL's that may No increase risk of falls Signs or symptoms of abuse and/or No neglect since last visit Have you been in the hospital since your No last visit? Has dressing in place as prescribed Yes Has compression in place as prescribed N/A Has offloadiing in place as prescribed N/A Experienced any changes in pain level or No management Left Footwear Regular Shoe Right Footwear Regular Shoe Pain Scale: 0-10 Numeric Is Patient Pain Free? Yes R groin -Description -Intensity -Duration (hours) -Pain Behavior -Pain Aggravating Factors -Alleviating Factors/Interventions - Nurse 1 - General Ulcer Measurement Start: 11/27/23 14:07 Freq: Status: Active Protocol: Activity Type Activity Date Activity User E-sign Co-sign Detail Recorded Client Recorded Date Recorded By Document 11/27/23 14:08 KW Desktop 11/27/23 14:19 KW Document 12/04/23 14:27 RB Desktop 12/04/23 14:30 RB Document 12/05/23 13:14 BMF Desktop 12/05/23 13:24 BMF Document 12/10/23 15:11 KW Desktop 12/10/23 15:18 KW 11/27/23 12/04/23 12/05/23 14:08 14:27 13:14 Wound Center Nurse 1 1-right Groin -Combined with other wound No No -Current Size (cm) - Length 0.3 0.5 0.3 -Current Size (cm) - Width 8.1 6.5 7.2 -Current Size (cm) - Depth 1.8 1.3 1.5 -Total Square Cm 2.43 3.25 2.16 -Date of Last Picture (Recall this 12/05/23 field) -Photo Taken Yes -Epithelialization None Present -Tunneling Yes No -Tunneling Position (O'clock) 9 -Tunneling Distance (cm) 2 -Undermining/Tunneling No -Circular Undermining No -Exudate Amt Medium Medium Medium -Exudate Type Serosanguineous Serosanguineous Serosanguineous -Wound Margin Distinct, Thickened & Distinct, Outline Rolled Under Outline Attached Attached -Granulation Amt Large (67-100%) Medium (34-66%) Large (67-100%) -Granulation Quality Red [place] Red -Slough/Fibrin Yes No -Necrosis Amt Medium (34-66%) None Present (0 %) -Necrotic Tissue Type Adherent Slough -Structure Exposed N/A -Texture ([place]-wound Skin Appearance) Assessed Assessed, Assessed Scarring -Moisture ([place]-wound Skin Appearance) Assessed Assessed Assessed -Color ([place]-wound Skin Appearance) Assessed Assessed Assessed -Temperature ([place]-wound Skin No Abnormality No Abnormality No Abnormality Appearance) (Pt Warm) (Pt Warm) (Pt Warm) -Tenderness on Palpation ([place]-wound No No Skin Appearance) -Ulcer Cleansing Soap and Water Wound Cleanser Soap and Water -Foul Odor after Cleansing No No No -Anesthetic Used 4% Lidocaine 4% Lidocaine 4% Lidocaine Solution Solution Solution 12/10/23 15:11 Wound Center Nurse 1 1-right Groin -Combined with other wound -Current Size (cm) - Length 0.1 -Current Size (cm) - Width 6 -Current Size (cm) - Depth 1.0 -Total Square Cm 0.6 -Date of Last Picture (Recall this field) -Photo Taken -Epithelialization -Tunneling -Tunneling Position (O'clock) -Tunneling Distance (cm) -Undermining/Tunneling -Circular Undermining -Exudate Amt Medium -Exudate Type Serosanguineous -Wound Margin Distinct, Outline Attached -Granulation Amt Large (67-100%) -Granulation Quality Red -Slough/Fibrin -Necrosis Amt -Necrotic Tissue Type -Structure Exposed -Texture ([place]-wound Skin Appearance) Assessed -Moisture ([place]-wound Skin Appearance) Assessed -Color ([place]-wound Skin Appearance) Assessed -Temperature ([place]-wound Skin No Abnormality Appearance) (Pt Warm) -Tenderness on Palpation ([place]-wound Skin Appearance) -Ulcer Cleansing Soap and Water -Foul Odor after Cleansing No -Anesthetic Used 4% Lidocaine Solution WC - Nurse 2 - General Ulcer CM Notes Start: 11/27/23 14:07 Freq: Status: Active Protocol: Activity Type Activity Date Activity User E-sign Co-sign Detail Recorded Client Recorded Date Recorded By Document 11/27/23 14:33 CP Desktop 11/27/23 14:38 CP Document 12/04/23 14:48 JF Laptop 12/04/23 14:54 JF Document 12/05/23 13:42 MW Desktop 12/05/23 13:47 MW Document 12/10/23 15:26 Laptop 12/10/23 15:29 11/27/23 12/04/23 12/05/23 14:33 14:48 13:42 Wound Center Nurse 2 1-right Groin -Time 14:33 14:49 13:43 -Correct Patient Yes Yes Yes -Correct Side, Site, Position Yes Yes Yes -Correct Procedure Yes Yes Yes -Procedure Performed Yes Yes Yes -Type of Procedure Debridement Debridement Debridement -Clinical Debridement Muscle / Fascia Muscle / Fascia Muscle / Fascia -Tissue Removed Muscle,Fascia Muscle,Fascia Muscle,Fascia -Post Debridement (cm) - Length 1 0.7 0.5 -Post Debridement (cm) - Width 8.3 6.5 7.5 -Post Debridement (cm) - Depth 1.6 1.0 1.5 -Total Square (Post) (cm) 8.3 4.55 3.75 -Area of Debridement (cm) - Length 1 0.7 0.5 -Area of Debridement (cm) - Width 8.3 6.5 7.5 -Total Square (Area) (cm) 8.3 4.55 3.75 -Tunneling Yes Yes No -Tunneling Position (O'clock) 9 9 -Tunneling Distance (cm) 1.4 0.6 -Undermining/Tunneling No No -Circular Undermining No No No -Wound/Ulcer Outcome Not Healed Not Healed Not Healed -Ulcer Cleansing Rinsed/ Rinsed/ Rinsed/ Irrigated with Irrigated with Irrigated with Saline Saline Saline -Foul Odor after Cleansing No No No -Bioengineered Tissue No No No -Bleeding Controlled with Pressure Pressure Pressure -Treatment Response Procedure Procedure Procedure Tolerated Well Tolerated Well Tolerated Well -Offloading No No -Debridement - Subq, 1st 20sq cm -Debridement - Muscle / Fascia, 1st Yes Yes Yes 20sq cm Pain Scale: 0-10 Numeric Is Patient Pain Free? Yes Yes Yes 12/10/23 15:26 Wound Center Nurse 2 1-right Groin -Time 15:28 -Correct Patient Yes -Correct Side, Site, Position Yes -Correct Procedure Yes -Procedure Performed Yes -Type of Procedure Debridement -Clinical Debridement Muscle / Fascia -Tissue Removed Muscle,Fascia -Post Debridement (cm) - Length 0.6 -Post Debridement (cm) - Width 6.0 -Post Debridement (cm) - Depth 1.5 -Total Square (Post) (cm) 3.60 -Area of Debridement (cm) - Length 0.6 -Area of Debridement (cm) - Width 6.0 -Total Square (Area) (cm) 3.60 -Tunneling No -Tunneling Position (O'clock) -Tunneling Distance (cm) -Undermining/Tunneling No -Circular Undermining No -Wound/Ulcer Outcome Not Healed -Ulcer Cleansing Rinsed/ Irrigated with Saline -Foul Odor after Cleansing No -Bioengineered Tissue No -Bleeding Controlled with Pressure -Treatment Response Procedure Tolerated Well -Offloading No -Debridement - Subq, 1st 20sq cm No -Debridement - Muscle / Fascia, 1st Yes 20sq cm Pain Scale: 0-10 Numeric Is Patient Pain Free? Yes - Nurse 3 - General Ulcer D/C NN Start: 11/27/23 14:07 Freq: Status: Active Protocol: Activity Type Activity Date Activity User E-sign Co-sign Detail Recorded Client Recorded Date Recorded By Document 11/30/23 10:53 MT Desktop 11/30/23 10:57 MT Document 12/04/23 15:08 CP Desktop 12/04/23 15:09 CP Document 12/05/23 13:50 MW Desktop 12/05/23 13:51 MW Document 12/10/23 15:32 DL Desktop 12/10/23 15:33 DL 11/30/23 12/04/23 12/05/23 10:53 15:08 13:50 Wound Care Center Nurse 3 1-right Groin -Ulcer Cleansing Soap and Water Rinsed/ Rinsed/ Irrigated with Irrigated with Saline Saline -Foul Odor after Cleansing No No -Negative Pressure Wound Therapy Continue Continue -Setting (mmHg) 150 150 -Negative Pressure is Continuous Continuous -Regranex (If Applicable) Continue -Primary Dressing Applied -Other Dressing dakins moist gauze, 4x4, abd , tape -Primary Dressing Covered/Secured with -Other Covering -NPWT Application Charge NPWT </= 50 sq NPWT & cm ($) Debridement (nc ) Treatment Response Procedure Procedure Tolerated Well Tolerated Well Vital Signs Temperature (97.8 F-99.1 F) 97 F L Temperature Source Temporal Pulse Rate (60-100) 84 Pulse Location Monitor Respiratory Rate (12-18) 18 Respiratory rate source Observation Oxygen Delivery Method Room Air Blood Pressure (90/60-120/80) 150/87 H Blood Pressure Mean (mm Hg) 108 Source Monitor Position Sitting Blood Pressure Location Right Arm Pain Scale: 0-10 Numeric Is Patient Pain Free? Yes Yes Yes Teaching: Wound Center Dressing Your Wound -Person Taught Patient -Teaching Method Discussion, Demonstration -Response to teaching Verbalize understanding WC - Visit Discharge Discharge Condition Stable Stable Stable Ambulatory Status Ambulatory Ambulatory Ambulatory Transportation Private Auto Private Auto Private Auto Accompanied by Medication Reconcilliation completed & No No No provided to patient/care provider Clinical Summary of Care Provided Yes Yes Yes Notes: pt came in for nurse visit. pt was on wound vac holiday, but was draining too much. aparna oneal NP called for order to put vac back on. Raegan Cosby RN called Aparna. 12/10/23 15:32 Wound Care Center Nurse 3 1-right Groin -Ulcer Cleansing Soap and Water -Foul Odor after Cleansing No -Negative Pressure Wound Therapy -Setting (mmHg) -Negative Pressure is -Regranex (If Applicable) -Primary Dressing Applied Hysept ($) -Other Dressing -Primary Dressing Covered/Secured with Dry Gauze, Secured with Tape -Other Covering ABD -NPWT Application Charge Treatment Response Procedure Tolerated Well Vital Signs Temperature (97.8 F-99.1 F) Temperature Source Pulse Rate (60-100) Pulse Location Respiratory Rate (12-18) Respiratory rate source Oxygen Delivery Method Blood Pressure (90/60-120/80) Blood Pressure Mean (mm Hg) Source Position Blood Pressure Location Pain Scale: 0-10 Numeric Is Patient Pain Free? Yes Teaching: Wound Center Dressing Your Wound -Person Taught -Teaching Method -Response to teaching WC - Visit Discharge Discharge Condition Stable Ambulatory Status Ambulatory Transportation Private Auto Accompanied by Medication Reconcilliation completed & provided to patient/care provider Clinical Summary of Care Provided Notes: Assessment/Plan Assessment/Plan (1) Right groin wound: CODE(S): S31.109A - Unspecified open wound of abdominal wall, unspecified quadrant without penetration into peritoneal cavity, initial encounter (2) Smoker: CODE(S): F17.200 - Nicotine dependence, unspecified, uncomplicated PLAN: Plan He is post op from having retained mesh in his right groin after hernia repair in 1993 with the mesh removed in 2013. Wound care - VAC holiday. Dakin's 0.25% moistened gauze covered with ABD twice daily after washing with soap and water. The reason for the twice a day dressing changes is the patient complains of being able to smell the wound and drainage. Will re-evaluate next week if we will restart the wound VAC. Encouraged patient to stop smoking as it may have deleterious effects on wound healing. Follow up one week.
[2023-12-17 13:13] VITALS: BP 144/100; PULSE 74; RESP 20; TEMP 36.8
--- NOTE | 2023-12-17 13:43 | PCM.WC.PN ---
History of Present Illness Date of Service: 12/17/23 Chief Complaint: Nonhealing wound right groin after an operative debridement. History of Wound: 48 year old male presents for wound Vac management of his right groin where he had mesh removed 10/26/23 at [facility] by Dr. Boone. He initially had right inguinal hernia repair in 1993. He developed some issues where he had mesh removed in 2013. His right groin kept getting infected repeatedly, which is how he ended up seeing a surgeon for further evaluation. He has a history of hypertension, arthritis (both osteo and rheumatoid), he smokes half a pack a day of cigarettes, he drinks 3-5 beers 2-3 times a week. He has a history of both Hep B and Hep C. He has a history of a heart murmur and he is currently having that worked up with cardiology. He does not want home health because he has 2 dogs that he does not want around people. He will come into the wound center twice a week for wound VAC dressing changes. Today he denies fever, chills, nausea, vomiting and diarrhea. He states that he does have some discomfort in his right groin surgery site. Progress of Wound: Right groin wound is much smaller in size. It is a nice beefy pink color. The tunnel on the lateral edge has decreased in depth. He has a new area on his lower right anterior abdomen near his hip where he had an abscess that opened and drained over the weekend. It is very painful. Minimal erythema. A wound culture was obtained today.? Objective Data Objective Data Vital Signs: Vital Signs Temp Pulse Resp BP O2 Del Method 98.2 F 74 20 H 144/100 H Room Air 12/17/23 13:13 12/17/23 13:13 12/17/23 13:13 12/17/23 13:13 12/10/23 15:11 Oxygen Delivery Method Room Air Charges/Coding Procedures Integumentary [id number]: 10129 Vivien subq tissue 20 sq cm/< Debridement Note Debridement Note Wound debrided: #1 Right groin area. Laterality: Right Wound Grade/Stage: 3. Type of Debridement: Excisional debridement Anesthesia Used: 5% Lidocaine Gel Depth: Down to and including healthy tissue and in the subcutaneous layer Percentage of wound debrided: 100 Instrument Used: 5mm curette Tissue Removed: Non viable tissue and slough. Severity: Fat Layer Exposed (muscle is exposed.) Amount of bleeding with debridement: Mild Bleeding Controlled with: Pressure and Compression and gauze Patient tolerated procedure: Patient tolerated procedure well Post-Debridement Measurements and Additional Note: Post-Debridement Measurements/Treatment WC - Nurse 1 - General Ulcer Assessment Start: 11/27/23 14:07 Freq: Status: Active Protocol: [email or web address] Activity Type Activity Date Activity User E-sign Co-sign Detail Recorded Client Recorded Date Recorded By Document 11/27/23 14:08 KW Desktop 11/27/23 14:19 KW Document 12/04/23 14:27 RB Desktop 12/04/23 14:30 RB Document 12/05/23 13:14 BMF Desktop 12/05/23 13:24 BMF Document 12/10/23 15:11 KW Desktop 12/10/23 15:18 KW Document 12/17/23 13:13 DL Laptop 12/17/23 13:21 DL 11/27/23 12/04/23 12/05/23 14:08 14:27 13:14 - Today's Visit Information Type of service Follow-up Visit Follow-up Visit Follow-up Visit (Physician/MELT DOWN FURNACE OPERATOR (Physician/MELT DOWN FURNACE OPERATOR (Physician/MELT DOWN FURNACE OPERATOR ) ) ) Arrival Mode Ambulatory Ambulatory Ambulatory Transfer Assistance None None Patient Identification Verified (Name & Yes Yes Yes ) Patient Requires Transmission-Based No No Precautions Vital Signs Temperature (97.8 F-99.1 F) 96.5 F L 96.1 F L 97.5 F L Temperature Source Temporal Temporal Temporal Pulse Rate (60-100) 131 H 91 95 Pulse Location Monitor Monitor Monitor Respiratory Rate (12-18) 18 18 16 Respiratory rate source Observation Observation Observation Oxygen Delivery Method Room Air Room Air Blood Pressure (90/60-120/80) 113/79 156/95 H 163/97 H Blood Pressure Mean (mm Hg) 90 115 119 Source Monitor Monitor Position Semi-Fowlers Sitting Blood Pressure Location Left Arm Right Arm History Since Last Visit- (Skip if this is Patient's initial visit) Have you changed medications since your No No No last visit? Any new allergies or adverse reactions No No No Had a fall/change in ADL's that may No No No increase risk of falls Signs or symptoms of abuse and/or No No No neglect since last visit Have you been in the hospital since your No No No last visit? Has dressing in place as prescribed Yes Yes No Has compression in place as prescribed N/A No N/A Has offloadiing in place as prescribed N/A No N/A Experienced any changes in pain level or No No No management Left Footwear Regular Shoe Regular Shoe Right Footwear Regular Shoe Regular Shoe Pain Scale: 0-10 Numeric Is Patient Pain Free? Yes No Yes R groin -Description Aching -Intensity 3 -Duration (hours) Acute -Pain Behavior Withdrawal from Touch -Pain Aggravating Factors ADL's -Alleviating Factors/Interventions None 12/10/23 12/17/23 15:11 13:13 WC - Today's Visit Information Type of service Follow-up Visit Follow-up Visit (Physician/MELT DOWN FURNACE OPERATOR (Physician/MELT DOWN FURNACE OPERATOR ) ) Arrival Mode Ambulatory Ambulatory Transfer Assistance None Patient Identification Verified (Name & Yes Yes ) Patient Requires Transmission-Based No Precautions Vital Signs Temperature (97.8 F-99.1 F) 97.2 F L 98.2 F Temperature Source Temporal Temporal Pulse Rate (60-100) 121 H 74 Pulse Location Monitor Monitor Respiratory Rate (12-18) 18 20 H Respiratory rate source Observation Observation Oxygen Delivery Method Room Air Blood Pressure (90/60-120/80) 145/99 H 144/100 H Blood Pressure Mean (mm Hg) 114 114 Source Monitor Monitor Position Semi-Fowlers Blood Pressure Location Left Arm History Since Last Visit- (Skip if this is Patient's initial visit) Have you changed medications since your No No last visit? Any new allergies or adverse reactions No No Had a fall/change in ADL's that may No No increase risk of falls Signs or symptoms of abuse and/or No No neglect since last visit Have you been in the hospital since your No No last visit? Has dressing in place as prescribed Yes Yes Has compression in place as prescribed N/A N/A Has offloadiing in place as prescribed N/A N/A Experienced any changes in pain level or No No management Left Footwear Regular Shoe Right Footwear Regular Shoe Pain Scale: 0-10 Numeric Is Patient Pain Free? Yes Yes R groin -Description -Intensity -Duration (hours) -Pain Behavior -Pain Aggravating Factors -Alleviating Factors/Interventions WC - Nurse 1 - General Ulcer Measurement Start: 04/02/24 14:07 Freq: Status: Active Protocol: Activity Type Activity Date Activity User E-sign Co-sign Detail Recorded Client Recorded Date Recorded By Document 11/27/23 14:08 KW Desktop 11/27/23 14:19 KW Document 12/04/23 14:27 RB Desktop 12/04/23 14:30 RB Document 12/05/23 13:14 BMF Desktop 12/05/23 13:24 BMF Document 12/10/23 15:11 KW Desktop 12/10/23 15:18 KW Document 12/17/23 13:13 DL Laptop 12/17/23 13:21 DL 11/27/23 12/04/23 12/05/23 14:08 14:27 13:14 Wound Center Nurse 1 #2 R Lower ABD -Current Size (cm) - Length -Current Size (cm) - Width -Current Size (cm) - Depth -Total Square Cm -Photo Taken -Exudate Amt -Exudate Type -Wound Margin -Granulation Amt -Granulation Quality -Necrosis Amt -Structure Exposed -Texture ([place]-wound Skin Appearance) -Moisture ([place]-wound Skin Appearance) -Color ([place]-wound Skin Appearance) -Temperature ([place]-wound Skin Appearance) -Tenderness on Palpation ([place]-wound Skin Appearance) -Ulcer Cleansing -Foul Odor after Cleansing -Anesthetic Used 1-right Groin -Combined with other wound No No -Current Size (cm) - Length 0.3 0.5 0.3 -Current Size (cm) - Width 8.1 6.5 7.2 -Current Size (cm) - Depth 1.8 1.3 1.5 -Total Square Cm 2.43 3.25 2.16 -Date of Last Picture (Recall this 12/05/23 field) -Photo Taken Yes -Epithelialization None Present -Tunneling Yes No -Tunneling Position (O'clock) 9 -Tunneling Distance (cm) 2 -Undermining/Tunneling No -Circular Undermining No -Exudate Amt Medium Medium Medium -Exudate Type Serosanguineous Serosanguineous Serosanguineous -Wound Margin Distinct, Thickened & Distinct, Outline Rolled Under Outline Attached Attached -Granulation Amt Large (67-100%) Medium (34-66%) Large (67-100%) -Granulation Quality Red [place] Red -Slough/Fibrin Yes No -Necrosis Amt Medium (34-66%) None Present (0 %) -Necrotic Tissue Type Adherent Slough -Structure Exposed N/A -Texture ([place]-wound Skin Appearance) Assessed Assessed, Assessed Scarring -Moisture ([place]-wound Skin Appearance) Assessed Assessed Assessed -Color ([place]-wound Skin Appearance) Assessed Assessed Assessed -Temperature ([place]-wound Skin No Abnormality No Abnormality No Abnormality Appearance) (Pt Warm) (Pt Warm) (Pt Warm) -Tenderness on Palpation ([place]-wound No No Skin Appearance) -Ulcer Cleansing Soap and Water Wound Cleanser Soap and Water -Foul Odor after Cleansing No No No -Anesthetic Used 4% Lidocaine 4% Lidocaine 4% Lidocaine Solution Solution Solution 12/10/23 12/17/23 15:11 13:13 Wound Center Nurse 1 #2 R Lower ABD -Current Size (cm) - Length 0.3 -Current Size (cm) - Width 0.5 -Current Size (cm) - Depth 2.5 -Total Square Cm 0.15 -Photo Taken Yes -Exudate Amt Medium -Exudate Type Purulent -Wound Margin Distinct, Outline Attached -Granulation Amt Large (67-100%) -Granulation Quality Hyper- granulation,Red -Necrosis Amt None Present (0 %) -Structure Exposed N/A -Texture ([place]-wound Skin Appearance) Localized Edema ,Scarring -Moisture ([place]-wound Skin Appearance) No Abnormality -Color ([place]-wound Skin Appearance) Erythema -Temperature ([place]-wound Skin No Abnormality Appearance) (Pt Warm) -Tenderness on Palpation ([place]-wound No Skin Appearance) -Ulcer Cleansing Soap and Water -Foul Odor after Cleansing No -Anesthetic Used 4% Lidocaine Solution 1-right Groin -Combined with other wound -Current Size (cm) - Length 0.1 0.4 -Current Size (cm) - Width 6 4.4 -Current Size (cm) - Depth 1.0 0.3 -Total Square Cm 0.6 1.76 -Date of Last Picture (Recall this field) -Photo Taken Yes -Epithelialization -Tunneling -Tunneling Position (O'clock) -Tunneling Distance (cm) -Undermining/Tunneling -Circular Undermining -Exudate Amt Medium Medium -Exudate Type Serosanguineous Serosanguineous -Wound Margin Distinct, Distinct, Outline Outline Attached Attached -Granulation Amt Large (67-100%) Large (67-100%) -Granulation Quality Red Red -Slough/Fibrin -Necrosis Amt None Present (0 %) -Necrotic Tissue Type -Structure Exposed N/A -Texture ([place]-wound Skin Appearance) Assessed Scarring -Moisture ([place]-wound Skin Appearance) Assessed No Abnormality -Color ([place]-wound Skin Appearance) Assessed No Abnormality -Temperature ([place]-wound Skin No Abnormality No Abnormality Appearance) (Pt Warm) (Pt Warm) -Tenderness on Palpation ([place]-wound No Skin Appearance) -Ulcer Cleansing Soap and Water Soap and Water -Foul Odor after Cleansing No No -Anesthetic Used 4% Lidocaine 4% Lidocaine Solution Solution WC - Nurse 2 - General Ulcer CM Notes Start: 11/27/23 14:07 Freq: Status: Active Protocol: Activity Type Activity Date Activity User E-sign Co-sign Detail Recorded Client Recorded Date Recorded By Document 11/27/23 14:33 CP Desktop 11/27/23 14:38 CP Document 12/04/23 14:48 JF Laptop 12/04/23 14:54 JF Document 12/05/23 13:42 MW Desktop 12/05/23 13:47 MW Document 12/10/23 15:26 JF Laptop 12/10/23 15:29 JF Document 12/17/23 13:33 JF Laptop 12/17/23 13:39 JF 11/27/23 12/04/23 12/05/23 14:33 14:48 13:42 Wound Center Nurse 2 #2 R Lower ABD -Time -Correct Patient -Correct Side, Site, Position -Correct Procedure -Procedure Performed -Type of Procedure -Clinical Debridement -Tissue Removed -Post Debridement (cm) - Length -Post Debridement (cm) - Width -Post Debridement (cm) - Depth -Total Square (Post) (cm) -Area of Debridement (cm) - Length -Area of Debridement (cm) - Width -Total Square (Area) (cm) -Tunneling -Undermining/Tunneling -Circular Undermining -Wound/Ulcer Outcome -Ulcer Cleansing -Foul Odor after Cleansing -Bioengineered Tissue -Bleeding Controlled with -Treatment Response -Offloading -Debridement - Subq, 1st 20sq cm 1-right Groin -Time 14:33 14:49 13:43 -Correct Patient Yes Yes Yes -Correct Side, Site, Position Yes Yes Yes -Correct Procedure Yes Yes Yes -Procedure Performed Yes Yes Yes -Type of Procedure Debridement Debridement Debridement -Clinical Debridement Muscle / Fascia Muscle / Fascia Muscle / Fascia -Tissue Removed Muscle,Fascia Muscle,Fascia Muscle,Fascia -Post Debridement (cm) - Length 1 0.7 0.5 -Post Debridement (cm) - Width 8.3 6.5 7.5 -Post Debridement (cm) - Depth 1.6 1.0 1.5 -Total Square (Post) (cm) 8.3 4.55 3.75 -Area of Debridement (cm) - Length 1 0.7 0.5 -Area of Debridement (cm) - Width 8.3 6.5 7.5 -Total Square (Area) (cm) 8.3 4.55 3.75 -Tunneling Yes Yes No -Tunneling Position (O'clock) 9 9 -Tunneling Distance (cm) 1.4 0.6 -Undermining/Tunneling No No -Circular Undermining No No No -Wound/Ulcer Outcome Not Healed Not Healed Not Healed -Ulcer Cleansing Rinsed/ Rinsed/ Rinsed/ Irrigated with Irrigated with Irrigated with Saline Saline Saline -Foul Odor after Cleansing No No No -Bioengineered Tissue No No No -Bleeding Controlled with Pressure Pressure Pressure -Treatment Response Procedure Procedure Procedure Tolerated Well Tolerated Well Tolerated Well -Offloading No No -Debridement - Subq, 1st 20sq cm -Debridement - Muscle / Fascia, 1st Yes Yes Yes 20sq cm Pain Scale: 0-10 Numeric Is Patient Pain Free? Yes Yes Yes 12/10/23 12/17/23 15:26 13:33 Wound Center Nurse 2 #2 R Lower ABD -Time 13:37 -Correct Patient Yes -Correct Side, Site, Position Yes -Correct Procedure Yes -Procedure Performed Yes -Type of Procedure Debridement -Clinical Debridement Subcutaneous -Tissue Removed Subcutaneous -Post Debridement (cm) - Length 0.3 -Post Debridement (cm) - Width 0.3 -Post Debridement (cm) - Depth 2.2 -Total Square (Post) (cm) 0.09 -Area of Debridement (cm) - Length 0.3 -Area of Debridement (cm) - Width 0.3 -Total Square (Area) (cm) 0.09 -Tunneling No -Undermining/Tunneling No -Circular Undermining No -Wound/Ulcer Outcome Not Healed -Ulcer Cleansing Rinsed/ Irrigated with Saline -Foul Odor after Cleansing No -Bioengineered Tissue No -Bleeding Controlled with Pressure -Treatment Response Procedure Tolerated Well -Offloading No -Debridement - Subq, 1st 20sq cm No 1-right Groin -Time 15:28 13:37 -Correct Patient Yes Yes -Correct Side, Site, Position Yes Yes -Correct Procedure Yes Yes -Procedure Performed Yes Yes -Type of Procedure Debridement Debridement -Clinical Debridement Muscle / Fascia Subcutaneous -Tissue Removed Muscle,Fascia Subcutaneous -Post Debridement (cm) - Length 0.6 0.6 -Post Debridement (cm) - Width 6.0 4.5 -Post Debridement (cm) - Depth 1.5 0.9 -Total Square (Post) (cm) 3.60 2.70 -Area of Debridement (cm) - Length 0.6 0.6 -Area of Debridement (cm) - Width 6.0 4.5 -Total Square (Area) (cm) 3.60 2.70 -Tunneling No No -Tunneling Position (O'clock) -Tunneling Distance (cm) -Undermining/Tunneling No No -Circular Undermining No No -Wound/Ulcer Outcome Not Healed Not Healed -Ulcer Cleansing Rinsed/ Rinsed/ Irrigated with Irrigated with Saline Saline -Foul Odor after Cleansing No No -Bioengineered Tissue No No -Bleeding Controlled with Pressure Pressure -Treatment Response Procedure Procedure Tolerated Well Tolerated Well -Offloading No No -Debridement - Subq, 1st 20sq cm No Yes -Debridement - Muscle / Fascia, 1st Yes 20sq cm Pain Scale: 0-10 Numeric Is Patient Pain Free? Yes Yes WC - Nurse 3 - General Ulcer D/C NN Start: 11/27/23 14:07 Freq: Status: Active Protocol: Activity Type Activity Date Activity User E-sign Co-sign Detail Recorded Client Recorded Date Recorded By Document 11/30/23 10:53 MT Desktop 11/30/23 10:57 MT Document 12/04/23 15:08 CP Desktop 12/04/23 15:09 CP Document 12/05/23 13:50 MW Desktop 12/05/23 13:51 MW Document 12/10/23 15:32 DL Desktop 12/10/23 15:33 DL 11/30/23 12/04/2312/04/24 10:53 15:08 13:50 Wound Care Center Nurse 3 1-right Groin -Ulcer Cleansing Soap and Water Rinsed/ Rinsed/ Irrigated with Irrigated with Saline Saline -Foul Odor after Cleansing No No -Negative Pressure Wound Therapy Continue Continue -Setting (mmHg) 150 150 -Negative Pressure is Continuous Continuous -Regranex (If Applicable) Continue -Primary Dressing Applied -Other Dressing dakins moist gauze, 4x4, abd , tape -Primary Dressing Covered/Secured with -Other Covering -NPWT Application Charge NPWT </= 50 sq NPWT & cm ($) Debridement (nc ) Treatment Response Procedure Procedure Tolerated Well Tolerated Well Vital Signs Temperature (97.8 F-99.1 F) 97 F L Temperature Source Temporal Pulse Rate (60-100) 84 Pulse Location Monitor Respiratory Rate (12-18) 18 Respiratory rate source Observation Oxygen Delivery Method Room Air Blood Pressure (90/60-120/80) 150/87 H Blood Pressure Mean (mm Hg) 108 Source Monitor Position Sitting Blood Pressure Location Right Arm Pain Scale: 0-10 Numeric Is Patient Pain Free? Yes Yes Yes Teaching: Wound Center Dressing Your Wound -Person Taught Patient -Teaching Method Discussion, Demonstration -Response to teaching Verbalize understanding WC - Visit Discharge Discharge Condition Stable Stable Stable Ambulatory Status Ambulatory Ambulatory Ambulatory Transportation Private Auto Private Auto Private Auto Accompanied by Medication Reconcilliation completed & No No No provided to patient/care provider Clinical Summary of Care Provided Yes Yes Yes Notes: pt came in for nurse visit. pt was on wound vac holiday, but was draining too much. aparna oneal NP called for order to put vac back on. Raegan Cosby RN called Aparna. 12/10/23 15:32 Wound Care Center Nurse 3 1-right Groin -Ulcer Cleansing Soap and Water -Foul Odor after Cleansing No -Negative Pressure Wound Therapy -Setting (mmHg) -Negative Pressure is -Regranex (If Applicable) -Primary Dressing Applied Hysept ($) -Other Dressing -Primary Dressing Covered/Secured with Dry Gauze, Secured with Tape -Other Covering ABD -NPWT Application Charge Treatment Response Procedure Tolerated Well Vital Signs Temperature (97.8 F-99.1 F) Temperature Source Pulse Rate (60-100) Pulse Location Respiratory Rate (12-18) Respiratory rate source Oxygen Delivery Method Blood Pressure (90/60-120/80) Blood Pressure Mean (mm Hg) Source Position Blood Pressure Location Pain Scale: 0-10 Numeric Is Patient Pain Free? Yes Teaching: Wound Center Dressing Your Wound -Person Taught -Teaching Method -Response to teaching WC - Visit Discharge Discharge Condition Stable Ambulatory Status Ambulatory Transportation Private Auto Accompanied by Medication Reconcilliation completed & provided to patient/care provider Clinical Summary of Care Provided Notes: Additional Wound Wound debrided: lower abdomen near hip Laterality: Right Type of Debridement: Excisional debridement Anesthesia Used: 5% Lidocaine Gel Depth: Down to and including healthy tissue and in the subcutaneous layer Percentage of wound debrided: 100 Instrument Used: 3mm curette Tissue Removed: Non viable tissue and slough Severity: Fat Layer Exposed Amount of bleeding with debridement: Mild Bleeding Controlled with: Compression and gauze Patient tolerated procedure: Patient tolerated procedure well Assessment/Plan Assessment/Plan (1) Right groin wound: CODE(S): S31.109A - Unspecified open wound of abdominal wall, unspecified quadrant without penetration into peritoneal cavity, initial encounter (2) Smoker: CODE(S): F17.200 - Nicotine dependence, unspecified, uncomplicated (3) Right lower quadrant abdominal abscess: CODE(S): K65.1 - Peritoneal abscess PLAN: Plan He is post op from having retained mesh in his right groin after hernia repair in 1993 with the mesh removed in 2013. Wound care - Discontinue the wound VAC. Continue Dakin's 0.25% moistened gauze covered with ABD twice daily after washing with soap and water. The reason for the twice a day dressing changes is the patient complains of being able to smell the wound and drainage. Ideally pack Dakin's moistened gauze into the right lower abdomen abscess near right hip to help keep it open to allow for drainage. Patient states that he will not allow anyone to pack this area. A wound culture was obtained today. Will start on Doxycycline. May need to change antibiotic depending on the culture results. Encouraged patient to stop smoking as it may have deleterious effects on wound healing. Follow up one week.
--- NOTE | 2023-12-18 13:37 | WC ---
12/10/2023 RIGHT GROIN ULCER
[2023-12-24 13:24] VITALS: BP 164/98; PULSE 90; TEMP 36.4
--- NOTE | 2023-12-24 14:08 | PN.PCM_ITS ---
History of Present Illness Date of Service: 12/24/23 Chief Complaint: Nonhealing wound right groin after an operative debridement. History of Wound: 48 year old male presents for wound Vac management of his right groin where he had mesh removed 10/26/23 at [facility] by Dr. Boone. He initially had right inguinal hernia repair in 1993. He developed some issues where he had mesh removed in 2013. His right groin kept getting infected repeatedly, which is how he ended up seeing a surgeon for further evaluation. He has a history of hypertension, arthritis (both osteo and rheumatoid), he smokes half a pack a day of cigarettes, he drinks 3-5 beers 2-3 times a week. He has a history of both Hep B and Hep C. He has a history of a heart murmur and he is currently having that worked up with cardiology. He does not want home health because he has 2 dogs that he does not want around people. He will come into the wound center twice a week for wound VAC dressing changes. Wound culture obtained 12/18/23 of right hip abscess was positive for Anaerobic cocci. Will start him on Augmentin. Today he denies fever, chills, vomiting and diarrhea. He states he has been having some upset stomach and increased pain where the abscess drained. Progress of Wound: Right groin wound is much smaller in size, it is almost healed. It is now a small slit on the lateral edge, there is no tunnel present today. The new area on his lower right anterior abdomen near his hip where he had an abscess that opened and drained last week is still painful. He has firm erythema from the area where the abscess drained to where his healing right groin wound is located. When exploring the area with a probe, the abscess tunnels for 7 cm at 3 o'clock, which takes it almost to where his right groin wound is located. Wound cultures positive for Anaerobic cocci, will start him on Augmentin. Objective Data Objective Data Vital Signs: Vital Signs Temp Pulse Resp BP O2 Del Method 97.5 F L 90 20 H 164/98 H Room Air 12/24/23 13:24 12/24/23 13:24 12/17/23 13:13 12/24/23 13:24 12/10/23 15:11 Oxygen Delivery Method Room Air Lab / Micro Data Micro: Microbiology 12/18/23 Unknown Wound - Hip Gram Stain - Final 12/18/23 Unknown Wound - Hip Wound Culture - Final No growth aerobically. 12/18/23 Unknown Wound - Hip Anaerobic Culture - Final Anaerobic cocci Charges/Coding Procedures Integumentary [id number]: [id number] Vivien subq tissue 20 sq cm/< Debridement Note Debridement Note Wound debrided: #1 Right groin area. Laterality: Right Wound Grade/Stage: 3. Type of Debridement: Excisional debridement Anesthesia Used: 5% Lidocaine Gel Depth: Down to and including healthy tissue and in the subcutaneous layer Percentage of wound debrided: 100 Instrument Used: 5mm curette Tissue Removed: Non viable tissue and slough. Severity: Fat Layer Exposed (muscle is exposed.) Amount of bleeding with debridement: Mild Bleeding Controlled with: Pressure and Compression and gauze Patient tolerated procedure: Patient tolerated procedure well Post-Debridement Measurements and Additional Note: Post-Debridement Measurements/Treatment - Nurse 1 - General Ulcer Assessment Start: 11/27/23 14:07 Freq: Status: Active Protocol: JEF Activity Type Activity Date Activity User E-sign Co-sign Detail Recorded Client Recorded Date Recorded By Document 11/27/23 14:08 KW Desktop 11/27/23 14:19 KW Document 12/04/23 14:27 RB Desktop 12/04/23 14:30 RB Document 12/05/23 13:14 BMF Desktop 12/05/23 13:24 BMF Document 12/10/23 15:11 KW Desktop 12/10/23 15:18 KW Document 12/17/23 13:13 DL Laptop 12/17/23 13:21 DL Document 12/24/23 13:24 BMF Desktop 12/24/23 13:30 BMF 11/27/23 12/04/23 12/05/23 14:08 14:27 13:14 - Today's Visit Information Type of service Follow-up Visit Follow-up Visit Follow-up Visit (Physician/YARN SKEINS EXAMINER (Physician/YARN SKEINS EXAMINER (Physician/YARN SKEINS EXAMINER ) ) ) Arrival Mode Ambulatory Ambulatory Ambulatory Transfer Assistance None None Patient Identification Verified (Name & Yes Yes Yes ) Patient Requires Transmission-Based No No Precautions Safety Precautions Vital Signs Temperature (97.8 F-99.1 F) 96.5 F L 96.1 F L 97.5 F L Temperature Source Temporal Temporal Temporal Pulse Rate (60-100) 131 H 91 95 Pulse Location Monitor Monitor Monitor Respiratory Rate (12-18) 18 18 16 Respiratory rate source Observation Observation Observation Oxygen Delivery Method Room Air Room Air Blood Pressure (90/60-120/80) 113/79 156/95 H 163/97 H Blood Pressure Mean (mm Hg) 90 115 119 Source Monitor Monitor Position Semi-Fowlers Sitting Blood Pressure Location Left Arm Right Arm History Since Last Visit- (Skip if this is Patient's initial visit) Have you changed medications since your No No No last visit? Any new allergies or adverse reactions No No No Had a fall/change in ADL's that may No No No increase risk of falls Signs or symptoms of abuse and/or No No No neglect since last visit Have you been in the hospital since your No No No last visit? Has dressing in place as prescribed Yes Yes No Has compression in place as prescribed N/A No N/A Has offloadiing in place as prescribed N/A No N/A Experienced any changes in pain level or No No No management Left Footwear Regular Shoe Regular Shoe Right Footwear Regular Shoe Regular Shoe Pain Scale: 0-10 Numeric Is Patient Pain Free? Yes No Yes R groin -Description Aching -Intensity 3 -Duration (hours) Acute -Pain Behavior Withdrawal from Touch -Pain Aggravating Factors ADL's -Alleviating Factors/Interventions None 12/10/23 12/17/23 12/24/23 15:11 13:13 13:24 WC - Today's Visit Information Type of service Follow-up Visit Follow-up Visit Follow-up Visit (Physician/YARN SKEINS EXAMINER (Physician/YARN SKEINS EXAMINER (Physician/YARN SKEINS EXAMINER ) ) ) Arrival Mode Ambulatory Ambulatory Ambulatory Transfer Assistance None Patient Identification Verified (Name & Yes Yes Yes ) Patient Requires Transmission-Based No Precautions Safety Precautions NA Vital Signs Temperature (97.8 F-99.1 F) 97.2 F L 98.2 F 97.5 F L Temperature Source Temporal Temporal Temporal Pulse Rate (60-100) 121 H 74 90 Pulse Location Monitor Monitor Monitor Respiratory Rate (12-18) 18 20 H Respiratory rate source Observation Observation Oxygen Delivery Method Room Air Blood Pressure (90/60-120/80) 145/99 H 144/100 H 164/98 H Blood Pressure Mean (mm Hg) 114 114 120 Source Monitor Monitor Monitor Position Semi-Fowlers Semi-Fowlers Blood Pressure Location Left Arm Right Arm History Since Last Visit- (Skip if this is Patient's initial visit) Have you changed medications since your No No No last visit? Any new allergies or adverse reactions No No No Had a fall/change in ADL's that may No No No increase risk of falls Signs or symptoms of abuse and/or No No No neglect since last visit Have you been in the hospital since your No No No last visit? Has dressing in place as prescribed Yes Yes Yes Has compression in place as prescribed N/A N/A N/A Has offloadiing in place as prescribed N/A N/A N/A Experienced any changes in pain level or No No No management Left Footwear Regular Shoe Regular Shoe Right Footwear Regular Shoe Regular Shoe Pain Scale: 0-10 Numeric Is Patient Pain Free? Yes Yes Yes R groin -Description -Intensity -Duration (hours) -Pain Behavior -Pain Aggravating Factors -Alleviating Factors/Interventions WC - Nurse 1 - General Ulcer Measurement Start: 11/27/23 14:07 Freq: Status: Active Protocol: Activity Type Activity Date Activity User E-sign Co-sign Detail Recorded Client Recorded Date Recorded By Document 11/27/23 14:08 KW Desktop 11/27/23 14:19 KW Document 12/04/23 14:27 RB Desktop 12/04/23 14:30 RB Document 12/05/23 13:14 BMF Desktop 12/05/23 13:24 BMF Document 12/10/23 15:11 KW Desktop 12/10/23 15:18 KW Document 12/17/23 13:13 DL Laptop 12/17/23 13:21 DL Document 12/24/23 13:24 BMF Desktop 12/24/23 13:30 BMF 11/27/23 12/04/23 12/05/23 14:08 14:27 13:14 Wound Center Nurse 1 #2 R Lower ABD -Combined with other wound -Current Size (cm) - Length -Current Size (cm) - Width -Current Size (cm) - Depth -Total Square Cm -Photo Taken -Exudate Amt -Exudate Type -Wound Margin -Granulation Amt -Granulation Quality -Slough/Fibrin -Necrosis Amt -Structure Exposed -Texture ([place]-wound Skin Appearance) -Moisture ([place]-wound Skin Appearance) -Color ([place]-wound Skin Appearance) -Temperature ([place]-wound Skin Appearance) -Tenderness on Palpation ([place]-wound Skin Appearance) -Ulcer Cleansing -Foul Odor after Cleansing -Anesthetic Used 1-right Groin -Combined with other wound No No -Current Size (cm) - Length 0.3 0.5 0.3 -Current Size (cm) - Width 8.1 6.5 7.2 -Current Size (cm) - Depth 1.8 1.3 1.5 -Total Square Cm 2.43 3.25 2.16 -Date of Last Picture (Recall this 12/05/23 field) -Photo Taken Yes -Epithelialization None Present -Tunneling Yes No -Tunneling Position (O'clock) 9 -Tunneling Distance (cm) 2 -Undermining/Tunneling No -Circular Undermining No -Exudate Amt Medium Medium Medium -Exudate Type Serosanguineous Serosanguineous Serosanguineous -Wound Margin Distinct, Thickened & Distinct, Outline Rolled Under Outline Attached Attached -Granulation Amt Large (67-100%) Medium (34-66%) Large (67-100%) -Granulation Quality Red [place] Red -Slough/Fibrin Yes No -Necrosis Amt Medium (34-66%) None Present (0 %) -Necrotic Tissue Type Adherent Slough -Structure Exposed N/A -Texture ([place]-wound Skin Appearance) Assessed Assessed, Assessed Scarring -Moisture ([place]-wound Skin Appearance) Assessed Assessed Assessed -Color ([place]-wound Skin Appearance) Assessed Assessed Assessed -Temperature ([place]-wound Skin No Abnormality No Abnormality No Abnormality Appearance) (Pt Warm) (Pt Warm) (Pt Warm) -Tenderness on Palpation ([place]-wound No No Skin Appearance) -Ulcer Cleansing Soap and Water Wound Cleanser Soap and Water -Foul Odor after Cleansing No No No -Anesthetic Used 4% Lidocaine 4% Lidocaine 4% Lidocaine Solution Solution Solution 12/10/23 12/17/23 12/24/23 15:11 13:13 13:24 Wound Center Nurse 1 #2 R Lower ABD -Combined with other wound No -Current Size (cm) - Length 0.3 0.1 -Current Size (cm) - Width 0.5 0.1 -Current Size (cm) - Depth 2.5 0.1 -Total Square Cm 0.15 0.01 -Photo Taken Yes -Exudate Amt Medium Large -Exudate Type Purulent Serosanguineous -Wound Margin Distinct, Outline Attached -Granulation Amt Large (67-100%) Large (67-100%) -Granulation Quality Hyper- Hyper- granulation,Red granulation,Red -Slough/Fibrin No -Necrosis Amt None Present (0 None Present (0 %) %) -Structure Exposed N/A -Texture ([place]-wound Skin Appearance) Localized Edema Assessed,Rash ,Scarring -Moisture ([place]-wound Skin Appearance) No Abnormality Assessed -Color ([place]-wound Skin Appearance) Erythema Assessed, Erythema -Temperature ([place]-wound Skin No Abnormality No Abnormality Appearance) (Pt Warm) (Pt Warm) -Tenderness on Palpation ([place]-wound No Yes Skin Appearance) -Ulcer Cleansing Soap and Water Soap and Water -Foul Odor after Cleansing No No -Anesthetic Used 4% Lidocaine 4% Lidocaine Solution Solution 1-right Groin -Combined with other wound No -Current Size (cm) - Length 0.1 0.4 0.1 -Current Size (cm) - Width 6 4.4 0.1 -Current Size (cm) - Depth 1.0 0.3 0.1 -Total Square Cm 0.6 1.76 0.01 -Date of Last Picture (Recall this field) -Photo Taken Yes -Epithelialization Large 67-100% -Tunneling -Tunneling Position (O'clock) -Tunneling Distance (cm) -Undermining/Tunneling -Circular Undermining -Exudate Amt Medium Medium None Present -Exudate Type Serosanguineous Serosanguineous -Wound Margin Distinct, Distinct, Outline Outline Attached Attached -Granulation Amt Large (67-100%) Large (67-100%) -Granulation Quality Red Red -Slough/Fibrin -Necrosis Amt None Present (0 %) -Necrotic Tissue Type -Structure Exposed N/A -Texture ([place]-wound Skin Appearance) Assessed Scarring Assessed, Scarring,Rash -Moisture ([place]-wound Skin Appearance) Assessed No Abnormality Assessed,Dry/ Scaly -Color ([place]-wound Skin Appearance) Assessed No Abnormality Assessed -Temperature ([place]-wound Skin No Abnormality No Abnormality No Abnormality Appearance) (Pt Warm) (Pt Warm) (Pt Warm) -Tenderness on Palpation ([place]-wound No No Skin Appearance) -Ulcer Cleansing Soap and Water Soap and Water Soap and Water -Foul Odor after Cleansing No No No -Anesthetic Used 4% Lidocaine 4% Lidocaine 4% Lidocaine Solution Solution Solution WC - Nurse 2 - General Ulcer CM Notes Start: 11/27/23 14:07 Freq: Status: Active Protocol: Activity Type Activity Date Activity User E-sign Co-sign Detail Recorded Client Recorded Date Recorded By Document 11/27/23 14:33 CP Desktop 11/27/23 14:38 CP Document 12/04/23 14:48 JF Laptop 12/04/23 14:54 JF Document 12/05/23 13:42 MW Desktop 12/05/23 13:47 MW Document 12/10/23 15:26 JF Laptop 12/10/23 15:29 JF Document 12/17/23 13:33 JF Laptop 12/17/23 13:39 JF Document 12/24/23 13:49 JF Laptop 12/24/23 13:52 11/27/23 12/04/23 12/05/23 14:33 14:48 13:42 Wound Center Nurse 2 #2 R Lower ABD -Time -Correct Patient -Correct Side, Site, Position -Correct Procedure -Procedure Performed -Type of Procedure -Clinical Debridement -Tissue Removed -Post Debridement (cm) - Length -Post Debridement (cm) - Width -Post Debridement (cm) - Depth -Total Square (Post) (cm) -Area of Debridement (cm) - Length -Area of Debridement (cm) - Width -Total Square (Area) (cm) -Tunneling -Tunneling Position (O'clock) -Tunneling Distance (cm) -Undermining/Tunneling -Circular Undermining -Wound/Ulcer Outcome -Ulcer Cleansing -Foul Odor after Cleansing -Bioengineered Tissue -Bleeding Controlled with -Treatment Response -Offloading -Debridement - Subq, 1st 20sq cm 1-right Groin -Time 14:33 14:49 13:43 -Correct Patient Yes Yes Yes -Correct Side, Site, Position Yes Yes Yes -Correct Procedure Yes Yes Yes -Procedure Performed Yes Yes Yes -Type of Procedure Debridement Debridement Debridement -Clinical Debridement Muscle / Fascia Muscle / Fascia Muscle / Fascia -Tissue Removed Muscle,Fascia Muscle,Fascia Muscle,Fascia -Post Debridement (cm) - Length 1 0.7 0.5 -Post Debridement (cm) - Width 8.3 6.5 7.5 -Post Debridement (cm) - Depth 1.6 1.0 1.5 -Total Square (Post) (cm) 8.3 4.55 3.75 -Area of Debridement (cm) - Length 1 0.7 0.5 -Area of Debridement (cm) - Width 8.3 6.5 7.5 -Total Square (Area) (cm) 8.3 4.55 3.75 -Tunneling Yes Yes No -Tunneling Position (O'clock) 9 9 -Tunneling Distance (cm) 1.4 0.6 -Undermining/Tunneling No No -Circular Undermining No No No -Wound/Ulcer Outcome Not Healed Not Healed Not Healed -Ulcer Cleansing Rinsed/ Rinsed/ Rinsed/ Irrigated with Irrigated with Irrigated with Saline Saline Saline -Foul Odor after Cleansing No No No -Bioengineered Tissue No No No -Bleeding Controlled with Pressure Pressure Pressure -Treatment Response Procedure Procedure Procedure Tolerated Well Tolerated Well Tolerated Well -Offloading No No -Debridement - Subq, 1st 20sq cm -Debridement - Muscle / Fascia, 1st Yes Yes Yes 20sq cm Pain Scale: 0-10 Numeric Is Patient Pain Free? Yes Yes Yes 12/10/23 12/17/23 12/24/23 15:26 13:33 13:49 Wound Center Nurse 2 #2 R Lower ABD -Time 13:37 13:49 -Correct Patient Yes Yes -Correct Side, Site, Position Yes Yes -Correct Procedure Yes Yes -Procedure Performed Yes Yes -Type of Procedure Debridement Debridement -Clinical Debridement Subcutaneous Subcutaneous -Tissue Removed Subcutaneous Subcutaneous -Post Debridement (cm) - Length 0.3 0.3 -Post Debridement (cm) - Width 0.3 0.8 -Post Debridement (cm) - Depth 2.2 1.5 -Total Square (Post) (cm) 0.09 0.24 -Area of Debridement (cm) - Length 0.3 0.3 -Area of Debridement (cm) - Width 0.3 0.8 -Total Square (Area) (cm) 0.09 0.24 -Tunneling No Yes -Tunneling Position (O'clock) 3 -Tunneling Distance (cm) 7 -Undermining/Tunneling No No -Circular Undermining No No -Wound/Ulcer Outcome Not Healed Not Healed -Ulcer Cleansing Rinsed/ Rinsed/ Irrigated with Irrigated with Saline Saline -Foul Odor after Cleansing No No -Bioengineered Tissue No No -Bleeding Controlled with Pressure Pressure -Treatment Response Procedure Procedure Tolerated Well Tolerated Well -Offloading No No -Debridement - Subq, 1st 20sq cm No No 1-right Groin -Time 15:28 13:37 13:51 -Correct Patient Yes Yes Yes -Correct Side, Site, Position Yes Yes Yes -Correct Procedure Yes Yes Yes -Procedure Performed Yes Yes Yes -Type of Procedure Debridement Debridement Debridement -Clinical Debridement Muscle / Fascia Subcutaneous Subcutaneous -Tissue Removed Muscle,Fascia Subcutaneous Subcutaneous -Post Debridement (cm) - Length 0.6 0.6 0.2 -Post Debridement (cm) - Width 6.0 4.5 1.5 -Post Debridement (cm) - Depth 1.5 0.9 0.1 -Total Square (Post) (cm) 3.60 2.70 0.30 -Area of Debridement (cm) - Length 0.6 0.6 0.2 -Area of Debridement (cm) - Width 6.0 4.5 1.5 -Total Square (Area) (cm) 3.60 2.70 0.30 -Tunneling No No No -Tunneling Position (O'clock) -Tunneling Distance (cm) -Undermining/Tunneling No No No -Circular Undermining No No No -Wound/Ulcer Outcome Not Healed Not Healed Not Healed -Ulcer Cleansing Rinsed/ Rinsed/ Rinsed/ Irrigated with Irrigated with Irrigated with Saline Saline Saline -Foul Odor after Cleansing No No No -Bioengineered Tissue No No No -Bleeding Controlled with Pressure Pressure Pressure -Treatment Response Procedure Procedure Procedure Tolerated Well Tolerated Well Tolerated Well -Offloading No No No -Debridement - Subq, 1st 20sq cm No Yes Yes -Debridement - Muscle / Fascia, 1st Yes 20sq cm Pain Scale: 0-10 Numeric Is Patient Pain Free? Yes Yes Yes WC - Nurse 3 - General Ulcer D/C NN Start: 11/27/23 14:07 Freq: Status: Active Protocol: Activity Type Activity Date Activity User E-sign Co-sign Detail Recorded Client Recorded Date Recorded By Document 11/30/23 10:53 MT Desktop 11/30/23 10:57 MT Document 12/04/23 15:08 CP Desktop 12/04/23 15:09 CP Document 12/05/23 13:50 MW Desktop 12/05/23 13:51 MW Document 12/10/23 15:32 DL Desktop 12/10/23 15:33 DL Document 12/17/23 13:51 ML Desktop 12/17/23 13:53 ML Document 12/24/23 14:00 JF Laptop 12/24/23 14:01 JF 11/30/23 12/04/23 12/05/23 10:53 15:08 13:50 Wound Care Center Nurse 3 #2 R Lower ABD -Ulcer Cleansing -Foul Odor after Cleansing -Primary Dressing Applied -Other Dressing -Primary Dressing Covered/Secured with -Nugauze, Iodoform 1/4in 1-right Groin -Ulcer Cleansing Soap and Water Rinsed/ Rinsed/ Irrigated with Irrigated with Saline Saline -Foul Odor after Cleansing No No -Negative Pressure Wound Therapy Continue Continue -Setting (mmHg) 150 150 -Negative Pressure is Continuous Continuous -Regranex (If Applicable) Continue -Primary Dressing Applied -Other Dressing dakins moist gauze, 4x4, abd , tape -Primary Dressing Covered/Secured with -Other Covering -NPWT Application Charge NPWT </= 50 sq NPWT & cm ($) Debridement (nc ) Treatment Response Procedure Procedure Tolerated Well Tolerated Well Vital Signs Temperature (97.8 F-99.1 F) 97 F L Temperature Source Temporal Pulse Rate (60-100) 84 Pulse Location Monitor Respiratory Rate (12-18) 18 Respiratory rate source Observation Oxygen Delivery Method Room Air Blood Pressure (90/60-120/80) 150/87 H Blood Pressure Mean (mm Hg) 108 Source Monitor Position Sitting Blood Pressure Location Right Arm Pain Scale: 0-10 Numeric Is Patient Pain Free? Yes Yes Yes Teaching: Wound Center Dressing Your Wound -Person Taught Patient -Teaching Method Discussion, Demonstration -Response to teaching Verbalize understanding WC - Visit Discharge Discharge Condition Stable Stable Stable Ambulatory Status Ambulatory Ambulatory Ambulatory Transportation Private Auto Private Auto Private Auto Accompanied by Medication Reconcilliation completed & No No No provided to patient/care provider Clinical Summary of Care Provided Yes Yes Yes Notes: pt came in for nurse visit. pt was on wound vac holiday, but was draining too much. aparna oneal NP called for order to put vac back on. Raegan Cosby RN called Aparna. 12/10/23 12/17/23 12/24/23 15:32 13:51 14:00 Wound Care Center Nurse 3 #2 R Lower ABD -Ulcer Cleansing Rinsed/ Rinsed/ Irrigated with Irrigated with Saline Saline -Foul Odor after Cleansing No No -Primary Dressing Applied Nugauze, Iodoform 1/4in -Other Dressing Dakin's soaked gauze -Primary Dressing Covered/Secured with Dry Gauze, Dry Gauze, Secured with Secured with Tape Tape -Nugauze, Iodoform 1/4in 1 1-right Groin -Ulcer Cleansing Soap and Water Rinsed/ Rinsed/ Irrigated with Irrigated with Saline Saline -Foul Odor after Cleansing No No -Negative Pressure Wound Therapy -Setting (mmHg) -Negative Pressure is -Regranex (If Applicable) -Primary Dressing Applied Hysept ($) C Hydrogel ($) -Other Dressing Dakin's soaked gauze -Primary Dressing Covered/Secured with Dry Gauze, Dry Gauze, Dry Gauze, Secured with Secured with Secured with Tape Tape Tape -Other Covering ABD -NPWT Application Charge Treatment Response Procedure Tolerated Well Vital Signs Temperature (97.8 F-99.1 F) Temperature Source Pulse Rate (60-100) Pulse Location Respiratory Rate (12-18) Respiratory rate source Oxygen Delivery Method Blood Pressure (90/60-120/80) Blood Pressure Mean (mm Hg) Source Position Blood Pressure Location Pain Scale: 0-10 Numeric Is Patient Pain Free? Yes Yes Yes Teaching: Wound Center Dressing Your Wound -Person Taught -Teaching Method -Response to teaching WC - Visit Discharge Discharge Condition Stable Stable Ambulatory Status Ambulatory Ambulatory Transportation Private Auto Private Auto Accompanied by Medication Reconcilliation completed & Yes provided to patient/care provider Clinical Summary of Care Provided Yes Notes: Additional Wound Wound debrided: lower abdomen near hip Laterality: Right Wound Grade/Stage: Stage 3 Type of Debridement: Excisional debridement Anesthesia Used: 5% Lidocaine Gel Depth: Down to and including healthy tissue and in the subcutaneous layer Percentage of wound debrided: 100 Instrument Used: 3mm curette Tissue Removed: Non viable tissue and slough Severity: Fat Layer Exposed Amount of bleeding with debridement: Mild Bleeding Controlled with: Compression and gauze Patient tolerated procedure: Patient did not tolerate procedure well (He did allow debridement, but did not like that the wound was measured and the tunnel probed to measure length) Assessment/Plan Assessment/Plan (1) Right groin wound: CODE(S): S31.109A - Unspecified open wound of abdominal wall, unspecified quadrant without penetration into peritoneal cavity, initial encounter (2) Smoker: CODE(S): F17.200 - Nicotine dependence, unspecified, uncomplicated (3) Right lower quadrant abdominal abscess: CODE(S): K65.1 - Peritoneal abscess PLAN: Plan He is post op from having retained mesh in his right groin after hernia repair in 1993 with the mesh removed in 2013. Wound care - Right groin collagen hydrogel covered with gauze daily after washing with soap and water. Right hip abscess place iodoform into the opening daily, to keep it from closing, and cover with gauze. Ideally pack the iodoform into the the tunnel but the patient states that he will not allow anyone to pack this area. Wound culture obtained 12/18/23 of right hip abscess was positive for Anaerobic cocci. Will start him on Augmentin due to his drinking history. He completed the Doxycycline that he was placed on prophylactically last week while waiting for culture results. I phoned Dr. Boone's office and spoke with his nurse Marjan about my concerns of the erythema and warmth from the area where the abscess drained. She stated that he had an issue with an abscess in this area in the past. My concern is that he may need IV antibiotics. I did tell her that I instructed him to contact your office but if his symptoms get worse, he would need to go to the ED for further evaluation. He states that he would go to [facility] for treatment. She stated that she would reach out to him Encouraged patient to stop smoking as it may have deleterious effects on wound healing. Follow up one week.
== END 2023-12-25 23:59 | disposition home or self-care (01) ==
LOC: WC 13:30
PROVIDERS: PCP Student in an Organized Health Care Education/Training Program; Referring Provider Student in an Organized Health Care Education/Training Program; Visit Provider Nurse Practitioner Family
DX: S31.109A Unspecified open wound of abdominal wall, unspecified quadrant without penetration into peritoneal cavity, initial encounter (principal); M06.9 Rheumatoid arthritis, unspecified; K65.1 Peritoneal abscess; I10 Essential (primary) hypertension; F17.210 Nicotine dependence, cigarettes, uncomplicated; M19.90 Unspecified osteoarthritis, unspecified site; Z86.19 Personal history of other infectious and parasitic diseases; X58.XXXA Exposure to other specified factors, initial encounter
CPT/HCPCS: 11042; 11043; 87070; 87075; 87205; 97605

== ENCOUNTER → 2024-01-15 | Outpatient (CLI) | payer MEDICAID, SELFPAY ==
--- NOTE | 2024-01-15 12:20 | CT_ITS ---
STUDY: CT PELVIS WITH CONTRAST REASON FOR EXAM: Male, 48 years old. Right-sided pelvic pain RADIATION DOSAGE (If Supplied By Facility): CTDIvol = ( 28.21 ) mGy, DLP = ( 2085.45 ) mGycm TECHNIQUE: Transaxial imaging of the pelvis was performed without oral contrast. IV 100mL Isovue-370 was administered intravenously. Individualized dose optimization techniques were used for this CT. COMPARISON: None. FINDINGS: There is a well-defined subcutaneous oval structure containing fluid. This could be a hematoma or perhaps an inflammatory process and abscess. The fluid density measures 17 Hounsfield units. Axial image 31 suggests a possible fistulous connection to the skin but there is no connection to the peritoneum or pelvis. Normal urinary bladder. Normal visualized small intestine. Retained stool in the colon There is no pelvic fluid. There is no pelvic lymphadenopathy or mass lesion. Normal visualized pelvic arteries. No evidence of hernia. Normal osseous structures. CT/Pelvis WITH IV Contrast IMPRESSION: There is a subcutaneous fluid collection just dorsal to the right iliac crest measuring approximately 6.6 x 1.7 x 1.7 cm. This could represent sequela from trauma, hematoma from an injury or needle placement, or could represent an abscess. Fluid measures 17 Hounsfield units. Axial image 31 suggests a possible fistulous connection to the skin. No free pelvic fluid or air. Retained stool No suspicious adenopathy Normal osseous structures Electronically Signed: Gage Lobo MD at 15:27 EDT ,
[2024-01-15 12:48] LABS: CREATININE FINGERSTICK < 1.0 mg/dL (0.70-1.30); EGFR FINGERSTICK > 60.0000 mL/min (>60)
== END | disposition home or self-care (01) ==
LOC: CT 12:17
PROVIDERS: PCP Student in an Organized Health Care Education/Training Program
DX: S31.103D Unspecified open wound of abdominal wall, right lower quadrant without penetration into peritoneal cavity, subsequent encounter (principal); X58.XXXD Exposure to other specified factors, subsequent encounter
CPT/HCPCS: 72193; Q9967

== ENCOUNTER 2024-02-22 10:00 | Outpatient (RCR) | payer MEDICAID, SELFPAY ==
[2023-12-26 00:21] VITALS: BP 164/98; PULSE 90; RESP 20; TEMP 36.4
[2024-02-22 10:34] VITALS: BP 150/85; PULSE 87; RESP 18; TEMP 36.5; BMI 36.6
--- NOTE | 2024-02-22 13:07 | PCM.WC.HP ---
History of Present Illness Date of Service: 02/22/24 Chief Complaint: Nonhealing wound right groin after an operative debridement. History of Wound: Taiwo is a 48 year old male who presents for Wound Vac management of his right groin where he had mesh removed on 10/26/23 at [facility] by Dr. Boone which subsequently became infected and needed surgery again which was performed on 02/18/2024, where white foam was removed from the ulceration. He reports being given IV antibiotics during procedure and cultures being performed but is not currently on any antibiotic treatment. There are no records to review available at this time. He initially had right inguinal hernia repair in 1993. He developed some issues where he had mesh removed in 2013. His right groin kept getting infected repeatedly, which is how he ended up seeing a surgeon for further evaluation. He has a history of hypertension, arthritis (both osteo and rheumatoid), he smokes half a pack a day of cigarettes, he drinks 3-5 beers 2-3 times a week. He has a history of both Hep B and Hep C. He has a history of a heart murmur and he is currently having that worked up with cardiology. He does not want home health because he has 2 dogs that he does not want around people. He will come into the wound center twice a week for wound VAC dressing changes. He denies fever, chills, erythema. He does report significant pain at the surgical site and pain with wound vac changes. [facility] Medical History (Updated 02/22/24 @ 15:[address] Miryam Cuevas, DO) Hepatitis B Hepatitis C Hypertension Osteoarthritis Rheumatoid arthritis Cirrhosis of liver Tobacco abuse Polysubstance abuse B12 deficiency anemia Rectal bleeding Opioid abuse recurrent MRSA skin infections Chronic back pain Home Medications ?Medication ?Instructions ?Recorded ?Last Taken ?Type entecavir 1 mg tablet 1 mg PO DAILY 12/14/21 Unknown History tamsulosin 0.4 mg capsule (Flomax) 0.4 mg PO DAILY 10 days #10 caps 02/14/22 Unknown Rx oxycodone-acetaminophen 5 mg-325 1 tab PO Q6H PRN pain 3 days #12 09/01/23 Unknown Rx mg tablet (Percocet) tabs amlodipine 5 mg tablet 5 mg PO DAILY 11/06/23 Unknown History buprenorphine 8 mg-naloxone 2 mg 2 film buccal DAILY 11/06/23 Unknown History sublingual film duloxetine 30 mg capsule,delayed 30 mg PO DAILY 11/06/23 Unknown History release (Cymbalta) duloxetine 60 mg capsule,delayed 60 mg PO DAILY 11/06/23 Unknown History release isosorbide mononitrate 60 mg 60 mg PO DAILY 11/06/23 Unknown History tablet,extended release 24 hr nitroglycerin 0.4 mg sublingual 0.4 mg sublingual PRN 11/06/23 Unknown History tablet Allergy/AdvReac Type Severity Reaction Status Date / Time hydrocodone bitartrate (From AdvReac Upset Verified 08/31/23 20:36 Vicodin) Stomach meloxicam (From Mobic) AdvReac Nausea Verified 08/31/23 20:36 Family History Father Diabetes Cancer Dementia Other Addiction Hypertension Surgical History History of hernia repair History of eye surgery Hx of hernia repair Social History household members: spouse current occupational status: employed 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 Smoking Status: Heavy Smoker (>10/day) alcohol intake: never substance use type: heroin, IV drugs, methamphetamine and other details: IV fentanyl what type of physical activity do you participate in: none do you feel safe at home: Yes ROS Constitutional Constitutional: Denies chills, fatigue or fever(s) Eyes Eyes: Denies blurry vision, change in vision or loss of vision ENT HEENT: Denies dysphagia, hearing loss or sore throat Cardiovascular Cardiovascular: Denies chest pain, edema or palpitations Respiratory/Chest Respiratory/Chest: Denies dry cough, dyspnea, dyspnea on exertion, productive cough or wheezing Gastrointestinal Gastrointestinal: Denies diarrhea, nausea or vomiting Genitourinary Genitourinary: Denies dysuria or polyuria Musculoskeletal Musculoskeletal: Denies arthralgias, joint stiffness or muscle weakness Integumentary Integumentary: Reports erythema and wounds Neurologic Neurologic: Denies dizziness, memory loss or weakness Psychiatric Psychiatric: Denies homicidal ideation or suicidal ideation Endocrine Endocrinology: Denies polydipsia, polyphagia or polyuria Hematologic/Lymphatic Hematologic/Lymphatic: Denies easy bleeding or easy bruising Allergic/Immunologic Allergic/Immunologic: Denies throat swelling, tongue swelling or urticaria Vital Signs Vital Signs Vital Signs: 02/22/24 10:34 Temperature 97.7 F L Temperature Source Temporal Pulse Rate 87 Respiratory Rate 18 Blood Pressure 150/85 H Blood Pressure Mean 106 Blood Pressure Source Monitor Blood Pressure Position Semi-Fowlers Blood Pressure Location Left Arm Weight Weight: 122.47 kg Body Mass Index (BMI) 36.6 Physical Exam Const alert, oriented x3 and no apparent distress General Appearance: cooperative and comfortable HEENT normocephalic and head/scalp atraumatic Resp normal respiratory effort Effort and Inspection: able to speak in complete sentences Cardio regular rate and regular rhythm Skin Wounds: wounds noted Wound Narrative: as in clinical panel Psych mental status grossly normal, thought process normal, cooperative and affect normal Debridement Note Debridement Note Wound debrided: right groin Laterality: Right Type of Debridement: Excisional debridement Anesthesia Used: 4% Lidocaine Solution, 5% Lidocaine Gel and Cetacaine Depth: Down to and including healthy tissue and in the subcutaneous layer Percentage of wound debrided: 100 Instrument Used: 3mm curette Tissue Removed: Yellow slough, devitalized tissue Severity: Fat Layer Exposed Amount of bleeding with debridement: Mild Bleeding Controlled with: Compression and gauze Patient tolerated procedure: Patient tolerated procedure well Post-Debridement Measurements and Additional Note: Post-Debridement Measurements/Treatment - Nurse 1 - General Ulcer Assessment Start: 02/22/24 10:34 Freq: Status: Active Protocol: DANNY.AAYUSH Activity Type Activity Date Activity User E-sign Co-sign Detail Recorded Client Recorded Date Recorded By Document 02/22/24 10:34 RB WOUND 02/22/24 10:39 RB 02/22/24 10:34 - Today's Visit Information Type of service Initial Visit Arrival Mode Ambulatory Transfer Assistance None Patient Identification Verified (Name & Yes ) Patient Requires Transmission-Based No Precautions Height and Weight Height 6 ft Weight 122.47 kg Weight in Pounds 270.0 lbs Body Mass Index (BMI) 36.6 BMI Classification Obese BSA - Zaida 2.42 Vital Signs Temperature (97.8 F-99.1 F) 97.7 F L Temperature Source Temporal Pulse Rate (60-100) 87 Pulse Location Monitor Respiratory Rate (12-18) 18 Respiratory rate source Observation Blood Pressure (90/60-120/80) 150/85 H Blood Pressure Mean 106 Source Monitor Position Semi-Fowlers Blood Pressure Location Left Arm History Since Last Visit- (Skip if this is Patient's initial visit) Have you changed medications since your No last visit? Any new allergies or adverse reactions No Had a fall/change in ADL's that may No increase risk of falls Signs or symptoms of abuse and/or No neglect since last visit Have you been in the hospital since your No last visit? Has dressing in place as prescribed Yes Has compression in place as prescribed No Has offloadiing in place as prescribed No Experienced any changes in pain level or No management Pain Scale: 0-10 Numeric Is Patient Pain Free? No R groin -Description Burning -Intensity 5 -Duration (hours) Acute -Pain Behavior Withdrawal from Touch, Screaming -Pain Aggravating Factors Exercise/ Activity, Walking, Debridement -Alleviating Factors/Interventions Medication -Effectiveness of Alleviating Factor/ Minimally Intervention effective Communication Assessment Preferred language Persian Mannequin Refinisher Required No Able to Read Yes Able to Write Yes Communication Tools None Right Hearing Abillity Normal Left Hearing Abillity Normal Visual Assistive Devices None Teaching Assessment Preferences Verbal,Written, Demonstration Barriers to Learning None Readiness To Learn Good Willingness to Engage in Self Management Med Activies Readiness to Engage in Self Management Med Activities Anxiety Level Calm Cooperation Cooperative Perception Coherent Interest in Health Problem Asks Questions Education Importance Acknowledges Need Does Patient Smoke tobacco or other No substances Smoking Status Heavy Smoker (> 10/day) Is Patient Diabetic Yes Functional Assessment Recent Decline in Ability to Perform Denies Any Declines Assistive Device With Patient No Culture/Pentecostal/Employment Evaluator/Case Manager Cultural/Pentecostal Needs that may affect No Treatment Plan Would you allow our hospital scanning tech to No meet you for the purpose of spiritual/ emotional support? Employment Evaluator/Case Manager to contact place of sikh No Teaching: Wound Center *Welcome to the Wound Center -Person Taught Patient -Teaching Method Discussion, Demonstration -Response to teaching Verbalize understanding WC - Nurse 1 - General Ulcer Measurement Start: 02/22/24 10:34 Freq: Status: Active Protocol: Activity Type Activity Date Activity User E-sign Co-sign Detail Recorded Client Recorded Date Recorded By Document 02/22/24 10:34 RB WOUND 02/22/24 10:39 RB 02/22/24 10:34 Wound Center Nurse 1 3. R groin -Combined with other wound No -Current Size (cm) - Length 9.5 -Current Size (cm) - Width 0.7 -Current Size (cm) - Depth 2 -Total Square Cm 6.65 -Photo Taken Yes -Tunneling No -Undermining/Tunneling No -Circular Undermining No -Exudate Amt Large -Exudate Type Serosanguineous -Wound Margin Distinct, Outline Attached -Granulation Amt Medium (34-66%) -Granulation Quality Red -Slough/Fibrin Yes -Necrotic Tissue Type Adherent Slough -Structure Exposed N/A -Texture ([place]-wound Skin Appearance) Assessed -Moisture ([place]-wound Skin Appearance) Assessed -Color ([place]-wound Skin Appearance) Assessed -Temperature ([place]-wound Skin No Abnormality Appearance) (Pt Warm) -Tenderness on Palpation ([place]-wound No Skin Appearance) -Ulcer Cleansing Wound Cleanser -Foul Odor after Cleansing No -Anesthetic Used 4% Lidocaine Solution - Nurse 2 - General Ulcer CM Notes Start: 02/22/24 10:34 Freq: Status: Active Protocol: Activity Type Activity Date Activity User E-sign Co-sign Detail Recorded Client Recorded Date Recorded By Document 02/22/24 10:53 [facility] 02/22/24 11:03 02/22/24 10:53 Wound Center Nurse 2 -Time 10:54 -Correct Patient Yes -Correct Side, Site, Position Yes -Correct Procedure Yes -Procedure Performed Yes -Type of Procedure Debridement -Clinical Debridement Subcutaneous -Tissue Removed Subcutaneous -Post Debridement (cm) - Length 1.0 -Post Debridement (cm) - Width 9.5 -Post Debridement (cm) - Depth 1.8 -Total Square (Post) (cm) 9.50 -Area of Debridement (cm) - Length 1.0 -Area of Debridement (cm) - Width 9.5 -Total Square (Area) (cm) 9.50 -Wound/Ulcer Outcome Not Healed -Ulcer Cleansing Rinsed/ Irrigated with Saline -Foul Odor after Cleansing No -Bioengineered Tissue No -Bleeding Controlled with Pressure -Treatment Response Procedure Tolerated Well -Debridement - Subq, 1st 20sq cm Yes Pain Scale: 0-10 Numeric Is Patient Pain Free? Yes - Nurse 3 - General Ulcer D/C NN Start: 02/22/24 10:34 Freq: Status: Active Protocol: Activity Type Activity Date Activity User E-sign Co-sign Detail Recorded Client Recorded Date Recorded By Document 02/22/24 11:07 KW ; 02/22/24 11:07 KW 02/22/24 11:07 Wound Care Center Nurse 3 3. R groin -Negative Pressure Wound Therapy Continue -Setting (mmHg) 150 -Negative Pressure is Continuous -NPWT Application Charge NPWT & Debridement (nc ) Pain Scale: 0-10 Numeric Is Patient Pain Free? Yes Assessment/Plan Assessment/Plan (1) Smoker: CODE(S): F17.200 - Nicotine dependence, unspecified, uncomplicated (2) Hypertension: CODE(S): I10 - Essential (primary) hypertension QUALIFIERS: Hypertension type: unspecified Qualified Code(s): I10 - Essential (primary) hypertension (3) Right groin wound: CODE(S): S31.109A - Unspecified open wound of abdominal wall, unspecified quadrant without penetration into peritoneal cavity, initial encounter QUALIFIERS: Encounter type: subsequent encounter Qualified Code(s): S31.109D - Unspecified open wound of abdominal wall, unspecified quadrant without penetration into peritoneal cavity, subsequent encounter (4) GARCIA (nonalcoholic steatohepatitis): CODE(S): K75.81 - Nonalcoholic steatohepatitis (GARCIA) (5) Chronic hepatitis: CODE(S): K73.9 - Chronic hepatitis, unspecified (6) Hepatitis C: CODE(S): B19.20 - Unspecified viral hepatitis C without hepatic coma QUALIFIERS: Viral hepatitis chronicity: chronic Hepatic coma status: without hepatic coma Qualified Code(s): B18.2 - Chronic viral hepatitis C (7) Hepatitis B: CODE(S): B19.10 - Unspecified viral hepatitis B without hepatic coma QUALIFIERS: Viral hepatitis chronicity: unspecified Hepatic coma status: without hepatic coma Hepatitis delta agent presence: without delta-agent Qualified Code(s): B19.10 - Unspecified viral hepatitis B without hepatic coma (8) Rheumatoid arthritis: CODE(S): M06.9 - Rheumatoid arthritis, unspecified QUALIFIERS: Rheumatoid arthritis location: multiple sites Rheumatoid factor presence: unspecified presence Qualified Code(s): M06.9 - Rheumatoid arthritis, unspecified (9) Osteoarthritis: CODE(S): M19.90 - Unspecified osteoarthritis, unspecified site QUALIFIERS: Osteoarthritis location: multiple joints Osteoarthritis type: unspecified Qualified Code(s): M15.9 - Polyosteoarthritis, unspecified (10) Ulcer of right groin with fat layer exposed: CODE(S): L98.492 - Non-pressure chronic ulcer of skin of other sites with fat layer exposed PLAN: Plan Debridement performed today in clinic as annotated above. At home wound-care instructions: Will reapply wound vac to right groin ulcer at 150 mm Hg pressure. Keep dressing clean and dry. Off-loading: The patient was instructed to avoid pressure and friction on the affected areas. Reposition every 2 hours at minimum. Avoid prolonged standing and/or dangling of legs. When seated, feet should be elevated at chest level. Frequent ambulation is encouraged. Diet: Patient encouraged to increase protein intake while taking caution to avoid high carbohydrate and/or sugar intake. Labs/cultures/imaging: Will obtain records and consider culture based on clinical appearance. Follow-up: He is scheduled to have vac change in [place] and [place] next week with surgeon and then will start changes here on 03/03/2024. Return in 2 weeks for wound care follow up. Return sooner or report to the emergency room should symptoms worsen, or new symptoms arise. Note: [employer] speech recognition deli clerk software was used to create portions of this document. Sound-alike and misspelled words, as well as other deli clerk errors may be contained in the documentation.
== END 2024-02-24 23:59 | disposition home or self-care (01) ==
LOC: WC 10:00
PROVIDERS: PCP Student in an Organized Health Care Education/Training Program; Referring Provider Student in an Organized Health Care Education/Training Program; Visit Provider Family Medicine
DX: S31.109A Unspecified open wound of abdominal wall, unspecified quadrant without penetration into peritoneal cavity, initial encounter (principal); L98.492 Non-pressure chronic ulcer of skin of other sites with fat layer exposed; M06.9 Rheumatoid arthritis, unspecified; B18.2 Chronic viral hepatitis C; K75.81 Nonalcoholic steatohepatitis (NASH); F17.210 Nicotine dependence, cigarettes, uncomplicated; M19.90 Unspecified osteoarthritis, unspecified site; I10 Essential (primary) hypertension; Z79.899 Other long term (current) drug therapy
CPT/HCPCS: 11042; 99213; G0463

== ENCOUNTER 2024-03-24 14:15 | Outpatient (RCR) | payer MEDICAID, SELFPAY ==
[2024-02-25 00:28] VITALS: BP 164/98; PULSE 90; RESP 20; TEMP 36.4; BMI 36.6
[2024-03-03 13:46] VITALS: BP 153/92; PULSE 91; RESP 18; TEMP 35.9; BMI 36.6
[2024-03-07 11:36] VITALS: BP 146/104; PULSE 85; RESP 13; TEMP 36.6; BMI 36.6
--- NOTE | 2024-03-07 12:44 | PN.PCM_ITS ---
History of Present Illness Date of Service: 03/07/24 Chief Complaint: Nonhealing wound right groin after an operative debridement. History of Wound: Taiwo is a 48 year old male who presents for Wound Vac management of his right groin where he had mesh removed on 10/26/23 at [facility] by Dr. Boone which subsequently became infected and needed surgery again which was performed on 02/18/2024, where white foam was removed from the ulceration. He reports being given IV antibiotics during procedure and cultures being performed but is not currently on any antibiotic treatment. There are no records to review available at this time. He initially had right inguinal hernia repair in 1993. He developed some issues where he had mesh removed in 2013. His right groin kept getting infected repeatedly, which is how he ended up seeing a surgeon for further evaluation. He has a history of hypertension, arthritis (both osteo and rheumatoid), he smokes half a pack a day of cigarettes, he drinks 3-5 beers 2-3 times a week. He has a history of both Hep B and Hep C. He has a history of a heart murmur and he is currently having that worked up with cardiology. He does not want home health because he has 2 dogs that he does not want around people. He will come into the wound center twice a week for wound VAC dressing changes. He denies fever, chills, erythema. He does report significant pain at the surgical site and pain with wound vac changes. Subjective Subjective Taiwo returns today for evaluation and treatment of right lower abdomen ulcer s/p surgical debridement of fistula. He is tolerating wound vac treatment well. He notes an odor this week. Denies any increased pain, drainage or bleeding. Objective Data Objective Data Vital Signs: Vital Signs Temp Pulse Resp BP O2 Del Method 97.9 F 85 13 146/104 H Room Air 03/07/24 11:36 03/07/24 11:36 03/07/24 11:36 03/07/24 11:36 03/03/24 13:46 Oxygen Delivery Method Room Air Weight: 122.47 kg Body Mass Index (BMI) 36.6 Physical Exam Const alert, oriented x3 and no apparent distress General Appearance: cooperative and comfortable HEENT normocephalic and head/scalp atraumatic Resp normal respiratory effort Effort and Inspection: able to speak in complete sentences Cardio regular rate and regular rhythm Skin Wounds: wounds noted Wound Narrative: as in clinical panel Psych mental status grossly normal, thought process normal, cooperative and affect normal Debridement Note Debridement Note Wound debrided: right groin Laterality: Right Type of Debridement: Selective debridement Anesthesia Used: 4% Lidocaine Solution, 5% Lidocaine Gel and Cetacaine Depth: Down to and including healthy tissue and in the subcutaneous layer Percentage of wound debrided: 100 Instrument Used: - (probe) Tissue Removed: Yellow slough, devitalized tissue Severity: Fat Layer Exposed Amount of bleeding with debridement: Mild Bleeding Controlled with: Compression and gauze Patient tolerated procedure: Patient tolerated procedure well Post-Debridement Measurements and Additional Note: Post-Debridement Measurements/Treatment - Nurse 1 - General Ulcer Assessment Start: 03/03/24 13:46 Freq: Status: Active Protocol: JEF Activity Type Activity Date Activity User E-sign Co-sign Detail Recorded Client Recorded Date Recorded By Document 03/03/24 13:46 KW h 03/03/24 14:03 KW Document 03/07/24 11:36 ML [id number] 03/07/24 11:39 ML 03/03/24 03/07/24 13:46 11:36 - Today's Visit Information Type of service Follow-up Visit Follow-up Visit (Physician/MANAGED CARE LIAISON (Physician/MANAGED CARE LIAISON ) ) Arrival Mode Ambulatory Ambulatory Transfer Assistance None Accompanied by grandson Patient Identification Verified (Name & Yes Yes ) Patient Requires Transmission-Based No Precautions Height and Weight Body Mass Index (BMI) 36.6 36.6 BMI Classification Obese Obese Vital Signs Temperature (97.8 F-99.1 F) 96.7 F L 97.9 F Temperature Source Temporal Temporal Pulse Rate (60-100) 91 85 Pulse Location Monitor Monitor Respiratory Rate (12-18) 18 13 Respiratory rate source Observation Observation Oxygen Delivery Method Room Air Blood Pressure (90/60-120/80) 153/92 H 146/104 H Blood Pressure Mean (mm Hg) 112 118 Source Monitor Monitor Position Semi-Fowlers Blood Pressure Location Left Arm History Since Last Visit- (Skip if this is Patient's initial visit) Have you changed medications since your No No last visit? Any new allergies or adverse reactions No No Had a fall/change in ADL's that may No No increase risk of falls Signs or symptoms of abuse and/or No No neglect since last visit Have you been in the hospital since your No No last visit? Has dressing in place as prescribed Yes Yes Has compression in place as prescribed N/A Yes Has offloadiing in place as prescribed N/A N/A Experienced any changes in pain level or No No management Left Footwear Regular Shoe Regular Shoe Right Footwear Regular Shoe Regular Shoe Pain Scale: 0-10 Numeric Is Patient Pain Free? Yes No - Nurse 1 - General Ulcer Measurement Start: 03/03/24 13:46 Freq: Status: Active Protocol: Activity Type Activity Date Activity User E-sign Co-sign Detail Recorded Client Recorded Date Recorded By Document 03/07/24 11:36 ML [email or web address] 03/07/24 11:39 ML 03/07/24 11:36 Wound Center Nurse 1 3. R groin -Current Size (cm) - Length 8 -Current Size (cm) - Width 2 -Current Size (cm) - Depth 0.5 -Total Square Cm 16 -Tunneling Yes -Tunneling Position (O'clock) 10 -Tunneling Distance (cm) 3 -Exudate Amt Medium -Exudate Type Serosanguineous -Wound Margin Distinct, Outline Attached -Granulation Amt Medium (34-66%) -Slough/Fibrin Yes -Necrosis Amt Medium (34-66%) -Necrotic Tissue Type Adherent Slough -Texture ([place]-wound Skin Appearance) No Abnormality -Moisture ([place]-wound Skin Appearance) No Abnormality -Color ([place]-wound Skin Appearance) No Abnormality -Temperature ([place]-wound Skin No Abnormality Appearance) (Pt Warm) -Ulcer Cleansing Soap and Water -Foul Odor after Cleansing Yes, Due to Product Use -Anesthetic Used 4% Lidocaine Solution WC - Nurse 2 - General Ulcer CM Notes Start: 03/03/24 13:46 Freq: Status: Active Protocol: Activity Type Activity Date Activity User E-sign Co-sign Detail Recorded Client Recorded Date Recorded By Document 03/07/24 12:15 GM 03/07/24 12:22 03/07/24 12:15 Wound Center Nurse 2 -Time 12:16 -Correct Patient Yes -Correct Side, Site, Position Yes -Wound/Ulcer Outcome Not Healed -Ulcer Cleansing Rinsed/ Irrigated with Saline -Foul Odor after Cleansing No -Bleeding Controlled with Pressure -Treatment Response Procedure Tolerated Well -Wound Comment(s) wound measures 0.8 x 8.5 x 1. 5 with tunneling at 3 oclock for a total of 6 cm Pain Scale: 0-10 Numeric Is Patient Pain Free? Yes WC - Nurse 3 - General Ulcer D/C NN Start: 03/03/24 13:46 Freq: Status: Active Protocol: Activity Type Activity Date Activity User E-sign Co-sign Detail Recorded Client Recorded Date Recorded By Document 03/03/24 13:46 KW h 03/03/24 14:03 KW Document 03/05/24 13:09 MT [id number] 03/05/24 13:28 MT Document 03/07/24 12:26 KW ' 03/07/24 12:26 KW 03/03/24 03/05/24 03/07/24 13:46 13:09 12:26 Vital Signs Temperature (97.8 F-99.1 F) 96.7 F L Temperature Source Temporal Pulse Rate (60-100) 91 Pulse Location Monitor Respiratory Rate (12-18) 18 Respiratory rate source Observation Oxygen Delivery Method Room Air Blood Pressure (90/60-120/80) 153/92 H Blood Pressure Mean (mm Hg) 112 Source Monitor Position Semi-Fowlers Blood Pressure Location Left Arm Comment pt refused bp Pain Scale: 0-10 Numeric Is Patient Pain Free? Yes Yes Yes Wound Care Center Nurse 3 3. R groin -Ulcer Cleansing Soap and Water -Negative Pressure Wound Therapy Continue Continue Continue -Setting (mmHg) 150 150 150 -Negative Pressure is Continuous Continuous Continuous -Regranex (If Applicable) Continue -NPWT Application Charge NPWT > 50 sq cm NPWT </= 50 sq NPWT & ($) cm ($) Debridement (nc ) WC - Visit Discharge Discharge Condition Stable Stable Stable Ambulatory Status Ambulatory Ambulatory Ambulatory Transportation Private Auto Private Auto Private Auto Medication Reconcilliation completed & No No No provided to patient/care provider Clinical Summary of Care Provided Yes Yes Yes Notes: nurse visit wound vac application Assessment/Plan Assessment/Plan (1) Smoker: CODE(S): F17.200 - Nicotine dependence, unspecified, uncomplicated (2) Hypertension: CODE(S): I10 - Essential (primary) hypertension QUALIFIERS: Hypertension type: unspecified Qualified Code(s): I10 - Essential (primary) hypertension (3) Right groin wound: CODE(S): S31.109A - Unspecified open wound of abdominal wall, unspecified quadrant without penetration into peritoneal cavity, initial encounter QUALIFIERS: Encounter type: subsequent encounter Qualified Code(s): S31.109D - Unspecified open wound of abdominal wall, unspecified quadrant without penetration into peritoneal cavity, subsequent encounter (4) GARCIA (nonalcoholic steatohepatitis): CODE(S): K75.81 - Nonalcoholic steatohepatitis (GARCIA) (5) Chronic hepatitis: CODE(S): K73.9 - Chronic hepatitis, unspecified (6) Hepatitis C: CODE(S): B19.20 - Unspecified viral hepatitis C without hepatic coma QUALIFIERS: Hepatic coma status: without hepatic coma Viral hepatitis chronicity: chronic Qualified Code(s): B18.2 - Chronic viral hepatitis C (7) Hepatitis B: CODE(S): B19.10 - Unspecified viral hepatitis B without hepatic coma QUALIFIERS: Hepatic coma status: without hepatic coma Hepatitis delta agent presence: without delta-agent Viral hepatitis chronicity: unspecified Qualified Code(s): B19.10 - Unspecified viral hepatitis B without hepatic coma (8) Rheumatoid arthritis: CODE(S): M06.9 - Rheumatoid arthritis, unspecified QUALIFIERS: Rheumatoid arthritis location: multiple sites Rheumatoid factor presence: unspecified presence Qualified Code(s): M06.9 - Rheumatoid arthritis, unspecified (9) Osteoarthritis: CODE(S): M19.90 - Unspecified osteoarthritis, unspecified site QUALIFIERS: Osteoarthritis location: multiple joints Osteoarthritis type: unspecified Qualified Code(s): M15.9 - Polyosteoarthritis, unspecified (10) Ulcer of right groin with fat layer exposed: CODE(S): L98.492 - Non-pressure chronic ulcer of skin of other sites with fat layer exposed PLAN: Plan Debridement performed today in clinic as annotated above. There is a 6 cm tunnel directed towards the patient's mid abdomen that is approx. 3 cm in width. At home wound-care instructions: Will reapply wound vac to right groin ulcer at 150 mm Hg pressure. Keep dressing clean and dry. Off-loading: The patient was instructed to avoid pressure and friction on the affected areas. Reposition every 2 hours at minimum. Avoid prolonged standing and/or dangling of legs. When seated, feet should be elevated at chest level. Frequent ambulation is encouraged. Diet: Patient encouraged to increase protein intake while taking caution to avoid high carbohydrate and/or sugar intake. Labs/cultures/imaging: Will obtain records. Culture taken today. Will start him on Augmentin due to odor while culture is pending. Follow-up: He will come in for nurse visits Sunday and Sunday for wound vac changes. Return in 1 week for wound care follow up. Return sooner or report to the emergency room should symptoms worsen, or new symptoms arise. Note: [employer] speech recognition associate financial planner software was used to create portions of this document. Sound-alike and misspelled words, as well as other associate financial planner errors may be contained in the documentation.
[2024-03-10 13:56] VITALS: BP 154/11; PULSE 67; RESP 18; TEMP 36.2; BMI 36.6
[2024-03-12 13:47] VITALS: BP 117/67; PULSE 69; TEMP 36.1
[2024-03-14 09:50] VITALS: BP 156/91; PULSE 66; RESP 18; TEMP 36.1; BMI 36.6
--- NOTE | 2024-03-14 11:20 | PCM.WC.PN ---
History of Present Illness Date of Service: 03/14/24 Chief Complaint: Nonhealing wound right groin after an operative debridement. History of Wound: Taiwo is a 48 year old male who presents for Wound Vac management of his right groin where he had mesh removed on 10/26/23 at [facility] by Dr. Boone which subsequently became infected and needed surgery again which was performed on 02/18/2024, where white foam was removed from the ulceration. He reports being given IV antibiotics during procedure and cultures being performed but is not currently on any antibiotic treatment. There are no records to review available at this time. He initially had right inguinal hernia repair in 1993. He developed some issues where he had mesh removed in 2013. His right groin kept getting infected repeatedly, which is how he ended up seeing a surgeon for further evaluation. He has a history of hypertension, arthritis (both osteo and rheumatoid), he smokes half a pack a day of cigarettes, he drinks 3-5 beers 2-3 times a week. He has a history of both Hep B and Hep C. He has a history of a heart murmur and he is currently having that worked up with cardiology. He does not want home health because he has 2 dogs that he does not want around people. He will come into the wound center twice a week for wound VAC dressing changes. He denies fever, chills, erythema. He does report significant pain at the surgical site and pain with wound vac changes. Subjective Subjective Taiwo returns today for evaluation and treatment of right lower abdomen ulcer s/p surgical debridement of fistula. He is tolerating wound vac treatment well. He has been taking Augmentin as prescribed. There may be some slight decrease in pain. Denies any increased pain, drainage or bleeding. Objective Data Objective Data Vital Signs: Vital Signs Temp Pulse Resp BP O2 Del Method 97.0 F L 66 18 156/91 H Room Air 03/14/24 09:50 03/14/24 09:50 03/14/24 09:50 03/14/24 09:50 03/14/24 09:50 Oxygen Delivery Method Room Air Weight: 122.47 kg Body Mass Index (BMI) 36.6 Lab / Micro Data Micro: Microbiology 03/07/24 12:15 Ulcer, Decubitus - Abdominal Gram Stain - Final 03/07/24 12:15 Ulcer, Decubitus - Abdominal Wound Culture - Final Corynebacterium striatum 03/07/24 12:15 Ulcer, Decubitus - Abdominal Anaerobic Culture - Final Anaerobic cocci Physical Exam Const alert, oriented x3 and no apparent distress General Appearance: cooperative and comfortable HEENT normocephalic and head/scalp atraumatic Resp normal respiratory effort Effort and Inspection: able to speak in complete sentences Cardio regular rate and regular rhythm Skin Wounds: wounds noted Wound Narrative: as in clinical panel Psych mental status grossly normal, thought process normal, cooperative and affect normal Debridement Note Debridement Note Wound debrided: right lower abdomen/groin Laterality: Right Type of Debridement: Excisional debridement Anesthesia Used: 4% Lidocaine Solution Depth: Down to and including healthy tissue and in the subcutaneous layer Percentage of wound debrided: 100 Instrument Used: 3mm curette Tissue Removed: yellow slough, devitalized tissue Severity: Fat Layer Exposed Amount of bleeding with debridement: Mild Bleeding Controlled with: Compression and gauze Patient tolerated procedure: Patient tolerated procedure well Post-Debridement Measurements and Additional Note: Post-Debridement Measurements/Treatment - Nurse 1 - General Ulcer Assessment Start: 03/03/24 13:46 Freq: Status: Active Protocol: JEF Activity Type Activity Date Activity User E-sign Co-sign Detail Recorded Client Recorded Date Recorded By Document 03/03/24 13:46 KW h 03/03/24 14:03 KW Document 03/07/24 11:36 ML [id number] 03/07/24 11:39 ML Document 03/10/24 13:56 DL [email or web address] 03/10/24 14:18 DL Document 03/14/24 09:50 KW l 03/14/24 09:58 KW 03/03/24 03/07/24 03/10/24 13:46 11:36 13:56 - Today's Visit Information Type of service Follow-up Visit Follow-up Visit Nurse-only (Physician/EMERGENCY MEDICAL SERVICES COORDINATOR (Physician/EMERGENCY MEDICAL SERVICES COORDINATOR Visit ) ) Arrival Mode Ambulatory Ambulatory Ambulatory Transfer Assistance None None Accompanied by grandson Patient Identification Verified (Name & Yes Yes Yes ) Patient Requires Transmission-Based No No Precautions Height and Weight Body Mass Index (BMI) 36.6 36.6 36.6 BMI Classification Obese Obese Obese Vital Signs Temperature (97.8 F-99.1 F) 96.7 F L 97.9 F 97.2 F L Temperature Source Temporal Temporal Temporal Pulse Rate (60-100) 91 85 67 Pulse Location Monitor Monitor Monitor Respiratory Rate (12-18) 18 13 18 Respiratory rate source Observation Observation Oxygen Delivery Method Room Air Blood Pressure (90/60-120/80) 153/92 H 146/104 H 154/11 H Blood Pressure Mean (mm Hg) 112 118 58 Source Monitor Monitor Monitor Position Semi-Fowlers Blood Pressure Location Left Arm History Since Last Visit- (Skip if this is Patient's initial visit) Have you changed medications since your No No No last visit? Any new allergies or adverse reactions No No No Had a fall/change in ADL's that may No No No increase risk of falls Signs or symptoms of abuse and/or No No No neglect since last visit Have you been in the hospital since your No No No last visit? Has dressing in place as prescribed Yes Yes Yes Has compression in place as prescribed N/A Yes N/A Has offloadiing in place as prescribed N/A N/A N/A Experienced any changes in pain level or No No No management Left Footwear Regular Shoe Regular Shoe Right Footwear Regular Shoe Regular Shoe Pain Scale: 0-10 Numeric Is Patient Pain Free? Yes No Yes 03/14/24 09:50 WC - Today's Visit Information Type of service Follow-up Visit (Physician/EMERGENCY MEDICAL SERVICES COORDINATOR ) Arrival Mode Ambulatory Transfer Assistance Accompanied by Patient Identification Verified (Name & Yes ) Patient Requires Transmission-Based Precautions Height and Weight Body Mass Index (BMI) 36.6 BMI Classification Obese Vital Signs Temperature (97.8 F-99.1 F) 97.0 F L Temperature Source Temporal Pulse Rate (60-100) 66 Pulse Location Monitor Respiratory Rate (12-18) 18 Respiratory rate source Observation Oxygen Delivery Method Room Air Blood Pressure (90/60-120/80) 156/91 H Blood Pressure Mean (mm Hg) 112 Source Monitor Position Semi-Fowlers Blood Pressure Location Left Arm History Since Last Visit- (Skip if this is Patient's initial visit) Have you changed medications since your No last visit? Any new allergies or adverse reactions No Had a fall/change in ADL's that may No increase risk of falls Signs or symptoms of abuse and/or No neglect since last visit Have you been in the hospital since your No last visit? Has dressing in place as prescribed Yes Has compression in place as prescribed N/A Has offloadiing in place as prescribed N/A Experienced any changes in pain level or No management Left Footwear Regular Shoe Right Footwear Regular Shoe Pain Scale: 0-10 Numeric Is Patient Pain Free? Yes WC - Nurse 1 - General Ulcer Measurement Start: 03/03/24 13:46 Freq: Status: Active Protocol: Activity Type Activity Date Activity User E-sign Co-sign Detail Recorded Client Recorded Date Recorded By Document 03/07/24 11:36 ML [email or web address] 03/07/24 11:39 ML Document 03/10/24 13:56 DL [email or web address] 03/10/24 14:18 DL Document 03/14/24 09:50 KW l 03/14/24 09:58 KW 03/07/24 03/10/24 03/14/24 11:36 13:56 09:50 Wound Center Nurse 1 3. R groin/Abdomen -Current Size (cm) - Length 8 1 -Current Size (cm) - Width 2 7.9 -Current Size (cm) - Depth 0.5 1.1 -Total Square Cm 16 7.9 -Tunneling Yes Yes -Tunneling Position (O'clock) 10 1 -Tunneling Distance (cm) 3 6.2 -Exudate Amt Medium Medium Small -Exudate Type Serosanguineous Serosanguineous Serosanguineous -Wound Margin Distinct, Distinct, Distinct, Outline Outline Outline Attached Attached Attached -Granulation Amt Medium (34-66%) Large (67-100%) Large (67-100%) -Granulation Quality Red Red -Slough/Fibrin Yes -Necrosis Amt Medium (34-66%) None Present (0 %) -Necrotic Tissue Type Adherent Slough -Structure Exposed N/A -Texture ([place]-wound Skin Appearance) No Abnormality Scarring Assessed -Moisture ([place]-wound Skin Appearance) No Abnormality No Abnormality Assessed -Color ([place]-wound Skin Appearance) No Abnormality No Abnormality Assessed -Temperature ([place]-wound Skin No Abnormality No Abnormality No Abnormality Appearance) (Pt Warm) (Pt Warm) (Pt Warm) -Tenderness on Palpation ([place]-wound Yes No Skin Appearance) -Ulcer Cleansing Soap and Water Soap and Water Soap and Water -Foul Odor after Cleansing Yes, Due to Yes Yes Product Use -Anesthetic Used 4% Lidocaine 4% Lidocaine Solution Solution - Nurse 2 - General Ulcer CM Notes Start: 03/03/24 13:46 Freq: Status: Active Protocol: Activity Type Activity Date Activity User E-sign Co-sign Detail Recorded Client Recorded Date Recorded By Document 03/07/24 12:15 [facility] 03/07/24 12:22 Document 03/14/24 10:22 [facility] 03/14/24 10:27 03/07/24 03/14/24 12:15 10:22 Wound Center Nurse 2 3. R groin/Abdomen -Time 12:16 10:24 -Correct Patient Yes Yes -Correct Side, Site, Position Yes Yes -Correct Procedure Yes -Procedure Performed Yes -Type of Procedure Debridement -Clinical Debridement Subcutaneous -Tissue Removed Subcutaneous -Post Debridement (cm) - Length 1.0 -Post Debridement (cm) - Width 8.0 -Post Debridement (cm) - Depth 1.4 -Total Square (Post) (cm) 8.00 -Area of Debridement (cm) - Length 1.0 -Area of Debridement (cm) - Width 8.0 -Total Square (Area) (cm) 8.00 -Tunneling Yes -Tunneling Position (O'clock) 3 -Tunneling Distance (cm) 6.2 -Wound/Ulcer Outcome Not Healed Not Healed -Ulcer Cleansing Rinsed/ Irrigated with Saline -Foul Odor after Cleansing No -Bleeding Controlled with Pressure Pressure -Treatment Response Procedure Procedure Tolerated Well Tolerated Well -Debridement - Subq, 1st 20sq cm Yes -Wound Comment(s) wound measures 0.8 x 8.5 x 1. 5 with tunneling at 3 oclock for a total of 6 cm Pain Scale: 0-10 Numeric Is Patient Pain Free? Yes Yes - Nurse 3 - General Ulcer D/C NN Start: 03/03/24 13:46 Freq: Status: Active Protocol: Activity Type Activity Date Activity User E-sign Co-sign Detail Recorded Client Recorded Date Recorded By Document 03/03/24 13:46 KW h 03/03/24 14:03 KW Document 03/05/24 13:09 [place] [id number] 03/05/24 13:28 MT Document 03/07/24 12:26 KW ' 03/07/24 12:26 KW Document 03/10/24 13:56 DL [email or web address] 03/10/24 14:18 DL Document 03/12/24 13:47 [place] [id number] 03/12/24 13:50 MT Document 03/14/24 10:47 RB wound 03/14/24 10:47 RB 03/03/24 03/05/24 03/07/24 13:46 13:09 12:26 Vital Signs Temperature (97.8 F-99.1 F) 96.7 F L Temperature Source Temporal Pulse Rate (60-100) 91 Pulse Location Monitor Respiratory Rate (12-18) 18 Respiratory rate source Observation Oxygen Delivery Method Room Air Blood Pressure (90/60-120/80) 153/92 H Blood Pressure Mean (mm Hg) 112 Source Monitor Position Semi-Fowlers Blood Pressure Location Left Arm Comment pt refused bp Pain Scale: 0-10 Numeric Is Patient Pain Free? Yes Yes Yes Wound Care Center Nurse 3 3. R groin/Abdomen -Ulcer Cleansing Soap and Water -Foul Odor after Cleansing -Negative Pressure Wound Therapy Continue Continue Continue -Setting (mmHg) 150 150 150 -Negative Pressure is Continuous Continuous Continuous -Regranex (If Applicable) Continue -NPWT Application Charge NPWT > 50 sq cm NPWT </= 50 sq NPWT & ($) cm ($) Debridement (nc ) -Wound Comment(s) Treatment Response WC - Visit Discharge Discharge Condition Stable Stable Stable Ambulatory Status Ambulatory Ambulatory Ambulatory Transportation Private Auto Private Auto Private Auto Medication Reconcilliation completed & No No No provided to patient/care provider Clinical Summary of Care Provided Yes Yes Yes Notes: nurse visit wound vac application 03/10/24 03/12/24 03/14/24 13:56 13:47 10:47 Vital Signs Temperature (97.8 F-99.1 F) 97.2 F L 97 F L Temperature Source Temporal Temporal Pulse Rate (60-100) 67 69 Pulse Location Monitor Monitor Respiratory Rate (12-18) 18 Respiratory rate source Oxygen Delivery Method Blood Pressure (90/60-120/80) 154/11 H 117/67 Blood Pressure Mean (mm Hg) 58 83 Source Monitor Monitor Position Semi-Fowlers Blood Pressure Location Right Arm Comment Pain Scale: 0-10 Numeric Is Patient Pain Free? Yes Yes Yes Wound Care Center Nurse 3 3. R groin/Abdomen -Ulcer Cleansing Soap and Water Wound Cleanser -Foul Odor after Cleansing No -Negative Pressure Wound Therapy Continue Continue Continue -Setting (mmHg) 150 150 150 -Negative Pressure is Continuous Continuous Continuous -Regranex (If Applicable) Continue -NPWT Application Charge NPWT > 50 sq cm NPWT </= 50 sq NPWT & ($) cm ($) Debridement (nc ) -Wound Comment(s) PT BP elevated, states not sleeping well and I just got up and have not taken my BP medicine yet Treatment Response Procedure Procedure Tolerated Well Tolerated Well WC - Visit Discharge Discharge Condition Stable Stable Stable Ambulatory Status Ambulatory Ambulatory Ambulatory Transportation Private Auto Private Auto Private Auto Medication Reconcilliation completed & No No provided to patient/care provider Clinical Summary of Care Provided Yes Yes Notes: NURSE VISIT Assessment/Plan Assessment/Plan (1) Smoker: CODE(S): F17.200 - Nicotine dependence, unspecified, uncomplicated (2) Hypertension: CODE(S): I10 - Essential (primary) hypertension QUALIFIERS: Hypertension type: unspecified Qualified Code(s): I10 - Essential (primary) hypertension (3) Right groin wound: CODE(S): S31.109A - Unspecified open wound of abdominal wall, unspecified quadrant without penetration into peritoneal cavity, initial encounter QUALIFIERS: Encounter type: subsequent encounter Qualified Code(s): S31.109D - Unspecified open wound of abdominal wall, unspecified quadrant without penetration into peritoneal cavity, subsequent encounter (4) GARCIA (nonalcoholic steatohepatitis): CODE(S): K75.81 - Nonalcoholic steatohepatitis (GARCIA) (5) Chronic hepatitis: CODE(S): K73.9 - Chronic hepatitis, unspecified (6) Hepatitis C: CODE(S): B19.20 - Unspecified viral hepatitis C without hepatic coma QUALIFIERS: Viral hepatitis chronicity: chronic Hepatic coma status: without hepatic coma Qualified Code(s): B18.2 - Chronic viral hepatitis C (7) Hepatitis B: CODE(S): B19.10 - Unspecified viral hepatitis B without hepatic coma QUALIFIERS: Viral hepatitis chronicity: unspecified Hepatic coma status: without hepatic coma Hepatitis delta agent presence: without delta-agent Qualified Code(s): B19.10 - Unspecified viral hepatitis B without hepatic coma (8) Rheumatoid arthritis: CODE(S): M06.9 - Rheumatoid arthritis, unspecified QUALIFIERS: Rheumatoid arthritis location: multiple sites Rheumatoid factor presence: unspecified presence Qualified Code(s): M06.9 - Rheumatoid arthritis, unspecified (9) Osteoarthritis: CODE(S): M19.90 - Unspecified osteoarthritis, unspecified site QUALIFIERS: Osteoarthritis location: multiple joints Osteoarthritis type: unspecified Qualified Code(s): M15.9 - Polyosteoarthritis, unspecified (10) Ulcer of right groin with fat layer exposed: CODE(S): L98.492 - Non-pressure chronic ulcer of skin of other sites with fat layer exposed PLAN: Plan Debridement performed today in clinic as annotated above. There continues to be a 6 cm tunnel directed towards the patient's mid abdomen that is approx. 3 cm in width. At home wound-care instructions: Will reapply wound vac to right groin ulcer at 150 mm Hg pressure. Keep dressing clean and dry. Advised patient to contact surgeon to undergo incision of the bridge of tissue overlying tunnel or additional surgical debridement. Offered to anesthetize area topically in clinic and incise the tissue overlying the tunnel in order to expose tunnel and place foam into tunnel area but he declines as he wants to have more than topical anesthesia. Off-loading: The patient was instructed to avoid pressure and friction on the affected areas. Reposition every 2 hours at minimum. Avoid prolonged standing and/or dangling of legs. When seated, feet should be elevated at chest level. Frequent ambulation is encouraged. Diet: Patient encouraged to increase protein intake while taking caution to avoid high carbohydrate and/or sugar intake. Labs/cultures/imaging: Will obtain records. Culture was positive for anaerobic bacteria. Advised him to get Flagyl that was prescribed and complete course. Follow-up: He will come in for nurse visits Sunday and Sunday for wound vac changes. Return in 1 week for wound care follow up. Return sooner or report to the emergency room should symptoms worsen, or new symptoms arise. Note: [employer] [place] speech recognition necktie operator pockets and pieces software was used to create portions of this document. Sound-alike and misspelled words, as well as other necktie operator pockets and pieces errors may be contained in the documentation.
[2024-03-17 13:15] VITALS: BP 124/71; PULSE 83; RESP 18; TEMP 36.6; BMI 36.6
[2024-03-19 13:29] VITALS: BP 116/68; PULSE 90; RESP 18; TEMP 36.5; BMI 36.6
[2024-03-21 10:19] VITALS: BP 137/90; PULSE 68; RESP 18; TEMP 36.6
--- NOTE | 2024-03-21 13:22 | PCM.WC.PN ---
History of Present Illness Date of Service: 03/21/24 Chief Complaint: Nonhealing wound right groin after an operative debridement. History of Wound: Taiwo is a 48 year old male who presents for Wound Vac management of his right groin where he had mesh removed on 10/26/23 at [facility] by Dr. Boone which subsequently became infected and needed surgery again which was performed on 02/18/2024, where white foam was removed from the ulceration. He reports being given IV antibiotics during procedure and cultures being performed but is not currently on any antibiotic treatment. There are no records to review available at this time. He initially had right inguinal hernia repair in 1993. He developed some issues where he had mesh removed in 2013. His right groin kept getting infected repeatedly, which is how he ended up seeing a surgeon for further evaluation. He has a history of hypertension, arthritis (both osteo and rheumatoid), he smokes half a pack a day of cigarettes, he drinks 3-5 beers 2-3 times a week. He has a history of both Hep B and Hep C. He has a history of a heart murmur and he is currently having that worked up with cardiology. He does not want home health because he has 2 dogs that he does not want around people. He will come into the wound center twice a week for wound VAC dressing changes. He denies fever, chills, erythema. He does report significant pain at the surgical site and pain with wound vac changes. Subjective Subjective Taiwo returns today for evaluation and treatment of right lower abdomen ulcer s/p surgical debridement of fistula from previous abscess of right lower abdomen. He is tolerating wound vac treatment well but when his vac was changed on Sunday nursing noted an area of skin breakdown below the drape that was draining purulent drainage. He completed Augmentin as prescribed. He is taking Metronidazole. There increase in pain. Denies any increased drainage or bleeding. Objective Data Objective Data Vital Signs: Vital Signs Temp Pulse Resp BP O2 Del Method 97.9 F 68 18 137/90 H Room Air 03/21/24 10:19 03/21/24 10:19 03/21/24 10:19 03/21/24 10:19 03/21/24 10:19 Oxygen Delivery Method Room Air Weight: 122.47 kg Body Mass Index (BMI) 36.6 Lab / Micro Data Micro: Microbiology 03/07/24 12:15 Ulcer, Decubitus - Abdominal Gram Stain - Final 03/07/24 12:15 Ulcer, Decubitus - Abdominal Wound Culture - Final Corynebacterium striatum 03/07/24 12:15 Ulcer, Decubitus - Abdominal Anaerobic Culture - Final Anaerobic cocci Physical Exam Const alert, oriented x3 and no apparent distress General Appearance: cooperative and comfortable HEENT normocephalic and head/scalp atraumatic Resp normal respiratory effort Effort and Inspection: able to speak in complete sentences Cardio regular rate and regular rhythm Skin Wounds: wounds noted Wound Narrative: as in clinical panel Psych mental status grossly normal, thought process normal, cooperative and affect normal Debridement Note Debridement Note Wound debrided: right lower abdomen/groin Laterality: Right Anesthesia Used: 4% Lidocaine Solution Tissue Removed: yellow slough, devitalized tissue Patient tolerated procedure: Patient tolerated procedure well No debridement was completed: No debridement was completed today (no slough present.) Post-Debridement Measurements and Additional Note: Post-Debridement Measurements/Treatment - Nurse 1 - General Ulcer Assessment Start: 03/03/24 13:46 Freq: Status: Active Protocol: JEF Activity Type Activity Date Activity User E-sign Co-sign Detail Recorded Client Recorded Date Recorded By Document 03/03/24 13:46 KW h 03/03/24 14:03 KW Document 03/07/24 11:36 ML [id number] 03/07/24 11:39 ML Document 03/10/24 13:56 DL [email or web address] 03/10/24 14:18 DL Document 03/14/24 09:50 KW l 03/14/24 09:58 KW Document 03/17/24 13:15 BMF [id number] 03/17/24 13:18 BMF Document 03/19/24 13:29 DL [email or web address] 03/19/24 13:47 DL Document 03/21/24 10:19 DS 1 03/21/24 10:33 DS 03/03/24 03/07/24 03/10/24 13:46 11:36 13:56 - Today's Visit Information Type of service Follow-up Visit Follow-up Visit Nurse-only (Physician/INSTRUCTIONAL RESOURCE TEACHER (Physician/INSTRUCTIONAL RESOURCE TEACHER Visit ) ) Arrival Mode Ambulatory Ambulatory Ambulatory Transfer Assistance None None Accompanied by grandson Patient Identification Verified (Name & Yes Yes Yes ) Patient Requires Transmission-Based No No Precautions Safety Precautions Height and Weight Body Mass Index (BMI) 36.6 36.6 36.6 BMI Classification Obese Obese Obese Vital Signs Temperature (97.8 F-99.1 F) 96.7 F L 97.9 F 97.2 F L Temperature Source Temporal Temporal Temporal Pulse Rate (60-100) 91 85 67 Pulse Location Monitor Monitor Monitor Respiratory Rate (12-18) 18 13 18 Respiratory rate source Observation Observation Oxygen Delivery Method Room Air Blood Pressure (90/60-120/80) 153/92 H 146/104 H 154/11 H Blood Pressure Mean (mm Hg) 112 118 58 Source Monitor Monitor Monitor Position Semi-Fowlers Blood Pressure Location Left Arm History Since Last Visit- (Skip if this is Patient's initial visit) Have you changed medications since your No No No last visit? Any new allergies or adverse reactions No No No Had a fall/change in ADL's that may No No No increase risk of falls Signs or symptoms of abuse and/or No No No neglect since last visit Have you been in the hospital since your No No No last visit? Has dressing in place as prescribed Yes Yes Yes Has compression in place as prescribed N/A Yes N/A Has offloadiing in place as prescribed N/A N/A N/A Experienced any changes in pain level or No No No management Left Footwear Regular Shoe Regular Shoe Right Footwear Regular Shoe Regular Shoe Pain Scale: 0-10 Numeric Is Patient Pain Free? Yes No Yes 03/14/24 03/17/24 03/19/24 09:50 13:15 13:29 WC - Today's Visit Information Type of service Follow-up Visit Nurse-only Nurse-only (Physician/INSTRUCTIONAL RESOURCE TEACHER Visit Visit ) Arrival Mode Ambulatory Ambulatory Ambulatory Transfer Assistance None None Accompanied by Patient Identification Verified (Name & Yes Yes Yes ) Patient Requires Transmission-Based No No Precautions Safety Precautions Height and Weight Body Mass Index (BMI) 36.6 36.6 36.6 BMI Classification Obese Obese Obese Vital Signs Temperature (97.8 F-99.1 F) 97.0 F L 98 F 97.7 F L Temperature Source Temporal Temporal Temporal Pulse Rate (60-100) 66 83 90 Pulse Location Monitor Monitor Monitor Respiratory Rate (12-18) 18 18 18 Respiratory rate source Observation Observation Observation Oxygen Delivery Method Room Air Room Air Blood Pressure (90/60-120/80) 156/91 H 124/71 H 116/68 Blood Pressure Mean (mm Hg) 112 88 84 Source Monitor Monitor Monitor Position Semi-Fowlers Sitting Blood Pressure Location Left Arm Left Arm History Since Last Visit- (Skip if this is Patient's initial visit) Have you changed medications since your No No No last visit? Any new allergies or adverse reactions No No No Had a fall/change in ADL's that may No No No increase risk of falls Signs or symptoms of abuse and/or No No No neglect since last visit Have you been in the hospital since your No No No last visit? Has dressing in place as prescribed Yes No Yes Has compression in place as prescribed N/A N/A N/A Has offloadiing in place as prescribed N/A N/A N/A Experienced any changes in pain level or No No No management Left Footwear Regular Shoe Regular Shoe Right Footwear Regular Shoe Regular Shoe Pain Scale: 0-10 Numeric Is Patient Pain Free? Yes Yes Yes 03/21/24 10:19 WC - Today's Visit Information Type of service Follow-up Visit (Physician/INSTRUCTIONAL RESOURCE TEACHER ) Arrival Mode Ambulatory Transfer Assistance Accompanied by Patient Identification Verified (Name & ) Patient Requires Transmission-Based Precautions Safety Precautions Fall Prevention Height and Weight Body Mass Index (BMI) BMI Classification Vital Signs Temperature (97.8 F-99.1 F) 97.9 F Temperature Source Temporal Pulse Rate (60-100) 68 Pulse Location Monitor Respiratory Rate (12-18) 18 Respiratory rate source Ventilator Oxygen Delivery Method Room Air Blood Pressure (90/60-120/80) 137/90 H Blood Pressure Mean (mm Hg) 105 Source Monitor Position Sitting Blood Pressure Location Left Arm History Since Last Visit- (Skip if this is Patient's initial visit) Have you changed medications since your No last visit? Any new allergies or adverse reactions No Had a fall/change in ADL's that may No increase risk of falls Signs or symptoms of abuse and/or No neglect since last visit Have you been in the hospital since your No last visit? Has dressing in place as prescribed Yes Has compression in place as prescribed N/A Has offloadiing in place as prescribed N/A Experienced any changes in pain level or No management Left Footwear Regular Shoe Right Footwear Regular Shoe Pain Scale: 0-10 Numeric Is Patient Pain Free? Yes WC - Nurse 1 - General Ulcer Measurement Start: 03/03/24 13:46 Freq: Status: Active Protocol: Activity Type Activity Date Activity User E-sign Co-sign Detail Recorded Client Recorded Date Recorded By Document 03/07/24 11:36 ML [email or web address] 03/07/24 11:39 ML Document 03/10/24 13:56 DL [email or web address] 03/10/24 14:18 DL Document 03/14/24 09:50 KW l 03/14/24 09:58 KW Document 03/19/24 13:29 DL [email or web address] 03/19/24 13:47 DL Document 03/21/24 10:19 DS 1 03/21/24 10:33 DS 03/07/24 03/10/24 03/14/24 11:36 13:56 09:50 Wound Center Nurse 1 #4right groin medial -Current Size (cm) - Length -Current Size (cm) - Width -Current Size (cm) - Depth -Total Square Cm -Granulation Amt -Granulation Quality -Necrosis Amt -Necrotic Tissue Type -Texture ([place]-wound Skin Appearance) -Moisture ([place]-wound Skin Appearance) -Color ([place]-wound Skin Appearance) -Temperature ([place]-wound Skin Appearance) -Tenderness on Palpation ([place]-wound Skin Appearance) -Ulcer Cleansing -Anesthetic Used 3. R groin/Abdomen -Current Size (cm) - Length 8 1 -Current Size (cm) - Width 2 7.9 -Current Size (cm) - Depth 0.5 1.1 -Total Square Cm 16 7.9 -Photo Taken -Tunneling Yes Yes -Tunneling Position (O'clock) 10 1 -Tunneling Distance (cm) 3 6.2 -Exudate Amt Medium Medium Small -Exudate Type Serosanguineous Serosanguineous Serosanguineous -Wound Margin Distinct, Distinct, Distinct, Outline Outline Outline Attached Attached Attached -Granulation Amt Medium (34-66%) Large (67-100%) Large (67-100%) -Granulation Quality Red Red -Slough/Fibrin Yes -Necrosis Amt Medium (34-66%) None Present (0 %) -Necrotic Tissue Type Adherent Slough -Structure Exposed N/A -Texture ([place]-wound Skin Appearance) No Abnormality Scarring Assessed -Moisture ([place]-wound Skin Appearance) No Abnormality No Abnormality Assessed -Color ([place]-wound Skin Appearance) No Abnormality No Abnormality Assessed -Temperature ([place]-wound Skin No Abnormality No Abnormality No Abnormality Appearance) (Pt Warm) (Pt Warm) (Pt Warm) -Tenderness on Palpation ([place]-wound Yes No Skin Appearance) -Ulcer Cleansing Soap and Water Soap and Water Soap and Water -Foul Odor after Cleansing Yes, Due to Yes Yes Product Use -Anesthetic Used 4% Lidocaine 4% Lidocaine Solution Solution 03/19/24 03/21/24 13:29 10:19 Wound Center Nurse 1 #4right groin medial -Current Size (cm) - Length 0.1 -Current Size (cm) - Width 0.1 -Current Size (cm) - Depth 0.1 -Total Square Cm 0.01 -Granulation Amt Medium (34-66%) -Granulation Quality [place] -Necrosis Amt Medium (34-66%) -Necrotic Tissue Type Adherent Slough -Texture ([place]-wound Skin Appearance) Assessed -Moisture ([place]-wound Skin Appearance) No Abnormality -Color ([place]-wound Skin Appearance) Assessed -Temperature ([place]-wound Skin No Abnormality Appearance) (Pt Warm) -Tenderness on Palpation ([place]-wound No Skin Appearance) -Ulcer Cleansing Soap and Water -Anesthetic Used 5% Lidocaine Gel 3. R groin/Abdomen -Current Size (cm) - Length 1 -Current Size (cm) - Width 7.5 -Current Size (cm) - Depth 1.9 -Total Square Cm 7.5 -Photo Taken No -Tunneling -Tunneling Position (O'clock) 10 -Tunneling Distance (cm) 1.9 -Exudate Amt Medium -Exudate Type Serosanguineous -Wound Margin Distinct, Distinct, Outline Outline Attached Attached -Granulation Amt Large (67-100%) Large (67-100%) -Granulation Quality Red [place] -Slough/Fibrin -Necrosis Amt None Present (0 %) -Necrotic Tissue Type -Structure Exposed N/A -Texture ([place]-wound Skin Appearance) Scarring Assessed -Moisture ([place]-wound Skin Appearance) No Abnormality Assessed -Color ([place]-wound Skin Appearance) No Abnormality Assessed -Temperature ([place]-wound Skin No Abnormality No Abnormality Appearance) (Pt Warm) (Pt Warm) -Tenderness on Palpation ([place]-wound No No Skin Appearance) -Ulcer Cleansing Soap and Water Soap and Water -Foul Odor after Cleansing No -Anesthetic Used 5% Lidocaine Gel - Nurse 2 - General Ulcer CM Notes Start: 03/03/24 13:46 Freq: Status: Active Protocol: Activity Type Activity Date Activity User E-sign Co-sign Detail Recorded Client Recorded Date Recorded By Document 03/07/24 12:15 [facility] 03/07/24 12:22 Document 03/14/24 10:22 [facility] 03/14/24 10:27 Document 03/21/24 10:44 [facility] [email or web address] 03/21/24 10:56 [facility] 03/07/24 03/14/24 03/21/24 12:15 10:22 10:44 Wound Center Nurse 2 #4right groin medial -Post Debridement (cm) - Length 0.5 -Post Debridement (cm) - Width 0.5 -Post Debridement (cm) - Depth 1.0 -Total Square (Post) (cm) 0.25 -Tunneling Yes -Tunneling Position (O'clock) 11 -Tunneling Distance (cm) 3 -Wound/Ulcer Outcome Not Healed -Bleeding Controlled with NA 3. R groin/Abdomen -Time 12:16 10:24 -Correct Patient Yes Yes -Correct Side, Site, Position Yes Yes -Correct Procedure Yes -Procedure Performed Yes -Type of Procedure Debridement -Clinical Debridement Subcutaneous -Tissue Removed Subcutaneous -Post Debridement (cm) - Length 1.0 0.8 -Post Debridement (cm) - Width 8.0 7 -Post Debridement (cm) - Depth 1.4 1.5 -Total Square (Post) (cm) 8.00 5.6 -Area of Debridement (cm) - Length 1.0 0.8 -Area of Debridement (cm) - Width 8.0 7 -Total Square (Area) (cm) 8.00 5.6 -Tunneling Yes Yes -Tunneling Position (O'clock) 3 3 -Tunneling Distance (cm) 6.2 -Wound/Ulcer Outcome Not Healed Not Healed Not Healed -Ulcer Cleansing Rinsed/ Irrigated with Saline -Foul Odor after Cleansing No -Bleeding Controlled with Pressure Pressure NA -Treatment Response Procedure Procedure Tolerated Well Tolerated Well -Debridement - Subq, 1st 20sq cm Yes -Wound Comment(s) wound measures 0.8 x 8.5 x 1. 5 with tunneling at 3 oclock for a total of 6 cm Pain Scale: 0-10 Numeric Is Patient Pain Free? Yes Yes Yes WC - Nurse 3 - General Ulcer D/C NN Start: 03/03/24 13:46 Freq: Status: Active Protocol: Activity Type Activity Date Activity User E-sign Co-sign Detail Recorded Client Recorded Date Recorded By Document 03/03/24 13:46 KW h 03/03/24 14:03 KW Document 03/05/24 13:09 MT [id number] 03/05/24 13:28 MT Document 03/07/24 12:26 KW ' 03/07/24 12:26 KW Document 03/10/24 13:56 DL 10.10.25.7 03/10/24 14:18 DL Document 03/12/24 13:47 MT [id number] 03/12/24 13:50 MT Document 03/14/24 10:47 RB wound 03/14/24 10:47 RB Document 03/17/24 13:15 BMF [email or web address] 03/17/24 13:18 BMF Document 03/19/24 13:29 DL 10.10.25.7 03/19/24 13:47 DL Document 03/21/24 12:02 RB wound 03/21/24 12:03 RB 03/03/24 03/05/24 03/07/24 13:46 13:09 12:26 Vital Signs Temperature (97.8 F-99.1 F) 96.7 F L Temperature Source Temporal Pulse Rate (60-100) 91 Pulse Location Monitor Respiratory Rate (12-18) 18 Respiratory rate source Observation Oxygen Delivery Method Room Air Blood Pressure (90/60-120/80) 153/92 H Blood Pressure Mean (mm Hg) 112 Source Monitor Position Semi-Fowlers Blood Pressure Location Left Arm Comment pt refused bp Pain Scale: 0-10 Numeric Is Patient Pain Free? Yes Yes Yes Wound Care Center Nurse 3 #4right groin medial -Negative Pressure Wound Therapy -Setting (mmHg) -Negative Pressure is -NPWT Application Charge 3. R groin/Abdomen -Ulcer Cleansing Soap and Water -Foul Odor after Cleansing -Negative Pressure Wound Therapy Continue Continue Continue -Setting (mmHg) 150 150 150 -Negative Pressure is Continuous Continuous Continuous -Regranex (If Applicable) Continue -Other Dressing -NPWT Application Charge NPWT > 50 sq cm NPWT </= 50 sq NPWT & ($) cm ($) Debridement (nc ) -Wound Comment(s) [place]-Wound Care Treatment Response WC - Visit Discharge Discharge Condition Stable Stable Stable Ambulatory Status Ambulatory Ambulatory Ambulatory Transportation Private Auto Private Auto Private Auto Medication Reconcilliation completed & No No No provided to patient/care provider Clinical Summary of Care Provided Yes Yes Yes Notes: nurse visit wound vac application 03/10/24 03/12/24 03/14/24 13:56 13:47 10:47 Vital Signs Temperature (97.8 F-99.1 F) 97.2 F L 97 F L Temperature Source Temporal Temporal Pulse Rate (60-100) 67 69 Pulse Location Monitor Monitor Respiratory Rate (12-18) 18 Respiratory rate source Oxygen Delivery Method Blood Pressure (90/60-120/80) 154/11 H 117/67 Blood Pressure Mean (mm Hg) 58 83 Source Monitor Monitor Position Semi-Fowlers Blood Pressure Location Right Arm Comment Pain Scale: 0-10 Numeric Is Patient Pain Free? Yes Yes Yes Wound Care Center Nurse 3 #4right groin medial -Negative Pressure Wound Therapy -Setting (mmHg) -Negative Pressure is -NPWT Application Charge 3. R groin/Abdomen -Ulcer Cleansing Soap and Water Wound Cleanser -Foul Odor after Cleansing No -Negative Pressure Wound Therapy Continue Continue Continue -Setting (mmHg) 150 150 150 -Negative Pressure is Continuous Continuous Continuous -Regranex (If Applicable) Continue -Other Dressing -NPWT Application Charge NPWT > 50 sq cm NPWT </= 50 sq NPWT & ($) cm ($) Debridement (nc ) -Wound Comment(s) PT BP elevated, states not sleeping well and I just got up and have not taken my BP medicine yet [place]-Wound Care Treatment Response Procedure Procedure Tolerated Well Tolerated Well WC - Visit Discharge Discharge Condition Stable Stable Stable Ambulatory Status Ambulatory Ambulatory Ambulatory Transportation Private Auto Private Auto Private Auto Medication Reconcilliation completed & No No provided to patient/care provider Clinical Summary of Care Provided Yes Yes Notes: NURSE VISIT 03/17/24 03/19/24 03/21/24 13:15 13:29 12:02 Vital Signs Temperature (97.8 F-99.1 F) 98 F 97.7 F L Temperature Source Temporal Temporal Pulse Rate (60-100) 83 90 Pulse Location Monitor Monitor Respiratory Rate (12-18) 18 18 Respiratory rate source Observation Observation Oxygen Delivery Method Room Air Blood Pressure (90/60-120/80) 124/71 H 116/68 Blood Pressure Mean (mm Hg) 88 84 Source Monitor Monitor Position Sitting Blood Pressure Location Left Arm Comment Pain Scale: 0-10 Numeric Is Patient Pain Free? Yes Yes Yes Wound Care Center Nurse 3 #4right groin medial -Negative Pressure Wound Therapy Continue -Setting (mmHg) 150 -Negative Pressure is Continuous -NPWT Application Charge NPWT & Debridement (nc ) 3. 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 technician semiconductor development -NPWT Application Charge NPWT </= 50 sq NPWT </= 50 sq NPWT - Multiple cm ($) cm ($) Locations -Wound Comment(s) foam packed into R groin tunnel [place]-Wound Care Barrier Treatment Response Procedure Procedure Procedure Tolerated Well Tolerated Well Tolerated Well WC - Visit Discharge Discharge Condition Stable Stable Stable Ambulatory Status Ambulatory Ambulatory Ambulatory Transportation Private Auto Private Auto Private Auto Medication Reconcilliation completed & No provided to patient/care provider Clinical Summary of Care Provided Yes Notes: Assessment/Plan Assessment/Plan (1) Smoker: CODE(S): F17.200 - Nicotine dependence, unspecified, uncomplicated (2) Hypertension: CODE(S): I10 - Essential (primary) hypertension QUALIFIERS: Hypertension type: unspecified Qualified Code(s): I10 - Essential (primary) hypertension (3) Right groin wound: CODE(S): S31.109A - Unspecified open wound of abdominal wall, unspecified quadrant without penetration into peritoneal cavity, initial encounter QUALIFIERS: Encounter type: subsequent encounter Qualified Code(s): S31.109D - Unspecified open wound of abdominal wall, unspecified quadrant without penetration into peritoneal cavity, subsequent encounter (4) GARCIA (nonalcoholic steatohepatitis): CODE(S): K75.81 - Nonalcoholic steatohepatitis (GARCIA) (5) Chronic hepatitis: CODE(S): K73.9 - Chronic hepatitis, unspecified (6) Hepatitis C: CODE(S): B19.20 - Unspecified viral hepatitis C without hepatic coma QUALIFIERS: Viral hepatitis chronicity: chronic Hepatic coma status: without hepatic coma Qualified Code(s): B18.2 - Chronic viral hepatitis C (7) Hepatitis B: CODE(S): B19.10 - Unspecified viral hepatitis B without hepatic coma QUALIFIERS: Viral hepatitis chronicity: unspecified Hepatic coma status: without hepatic coma Hepatitis delta agent presence: without delta-agent Qualified Code(s): B19.10 - Unspecified viral hepatitis B without hepatic coma (8) Rheumatoid arthritis: CODE(S): M06.9 - Rheumatoid arthritis, unspecified QUALIFIERS: Rheumatoid arthritis location: multiple sites Rheumatoid factor presence: unspecified presence Qualified Code(s): M06.9 - Rheumatoid arthritis, unspecified (9) Osteoarthritis: CODE(S): M19.90 - Unspecified osteoarthritis, unspecified site QUALIFIERS: Osteoarthritis location: multiple joints Osteoarthritis type: unspecified Qualified Code(s): M15.9 - Polyosteoarthritis, unspecified (10) Ulcer of right groin with fat layer exposed: CODE(S): L98.492 - Non-pressure chronic ulcer of skin of other sites with fat layer exposed (11) Right lower quadrant abdominal abscess: CODE(S): K65.1 - Peritoneal abscess PLAN: Plan Evaluation performed today in clinic as annotated above. There continues to be a tunnel directed towards the patient's mid abdomen that is approx. 8 cm in width now and it appears that an underlying abscess may have formed and developed a fistula to an area lower on his abdomen closer to his groin at edge of previous surgical incision that likely connects to the tunnel in his current surgical site. At home wound-care instructions: Will reapply wound vac to right groin ulcer at 150 mm Hg pressure. Keep dressing clean and dry. Will refer patient to plastic surgeon here at wound care to evaluate for possible further debridement to undergo incision of the bridge of tissue overlying tunnel or additional surgical debridement to eliminate the tract to the lower groin ulcer. CT scan ordered to evaluate for any other underlying abscess or possible communication of the ulcers and culture taken of the new ulcer site inferior groin. Off-loading: The patient was instructed to avoid pressure and friction on the affected areas. Reposition every 2 hours at minimum. Avoid prolonged standing and/or dangling of legs. When seated, feet should be elevated at chest level. Frequent ambulation is encouraged. Diet: Patient encouraged to increase protein intake while taking caution to avoid high carbohydrate and/or sugar intake. Labs/cultures/imaging: Will obtain records from surgery in [place] at [facility]. Culture was positive for anaerobic bacteria. Advised him to complete course of Flagyl. Follow-up: He will come in for nurse visits Sunday and Sunday for wound vac changes. Return in 1 week for wound care follow up. Return sooner or report to the emergency room should symptoms worsen, or new symptoms arise. Note: [employer] speech recognition laboratory clerk software was used to create portions of this document. Sound-alike and misspelled words, as well as other laboratory clerk errors may be contained in the documentation.
[2024-03-24 14:34] VITALS: BP 120/80; PULSE 89; RESP 18; TEMP 36.3; BMI 36.6
--- NOTE | 2024-03-26 09:56 | WC ---
PHOTO 03/17/24 RIGHT ABD
== END 2024-03-26 23:59 | disposition home or self-care (01) ==
LOC: WC 14:15
PROVIDERS: PCP Student in an Organized Health Care Education/Training Program; Referring Provider Student in an Organized Health Care Education/Training Program; Visit Provider Family Medicine
DX: L98.492 Non-pressure chronic ulcer of skin of other sites with fat layer exposed (principal); M06.9 Rheumatoid arthritis, unspecified; K73.9 Chronic hepatitis, unspecified; S31.109S Unspecified open wound of abdominal wall, unspecified quadrant without penetration into peritoneal cavity, sequela; I10 Essential (primary) hypertension; F17.210 Nicotine dependence, cigarettes, uncomplicated; K75.81 Nonalcoholic steatohepatitis (NASH); B19.20 Unspecified viral hepatitis C without hepatic coma; B19.10 Unspecified viral hepatitis B without hepatic coma; M19.90 Unspecified osteoarthritis, unspecified site; X58.XXXS Exposure to other specified factors, sequela
CPT/HCPCS: 11042; 87070; 87075; 87077; 87186; 87205; 97605; 97606; 99213; G0463

== ENCOUNTER → 2024-04-10 | Outpatient (CLI) | payer MEDICAID, SELFPAY ==
--- NOTE | 2024-04-10 15:02 | CT_ITS ---
STUDY: CT ABDOMEN AND PELVIS WITH CONTRAST REASON FOR EXAM: Male, 48 years old. WOUND FISTULA/ABSCESS RADIATION DOSAGE (If Supplied By Facility): CTDIvol = ( 16.67 ) mGy, DLP = ( 1218.07 ) mGycm TECHNIQUE: Transaxial images were obtained from the dome of the diaphragm to the symphysis pubis with oral contrast. Oral and amp; IV Readi-CAT and amp; 100mL Isovue-300 was administered. Sagittal and coronal images were reconstructed. Individualized dose optimization techniques were used for this CT. COMPARISON: None. FINDINGS: The visualized lung bases are unremarkable. The visualized portions of the heart are within normal limits. Normal liver. Normal gallbladder and extrahepatic biliary system. Normal spleen. Normal pancreas. Normal bilateral adrenal glands. Normal right kidney. Normal left kidney. Normal visualized stomach. Normal small intestine. Normal colon. The appendix is visualized and appears normal. Normal abdominal aorta. Normal inferior vena cava. Normal retroperitoneum. Normal urinary bladder. There are prostatic calcifications. There is a small umbilical hernia containing fat. Postoperative changes of the lateral anterior abdominal wall in the right lower quadrant but no loculated fluid collection to suggest postoperative seroma, hematoma, or abscess. Mild dextroscoliosis of the thoracolumbar spine with degenerative disc disease. 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 No anterolisthesis of L5 on S1 due to spondylolisthesis CT/Abdomen/Pelvis WITH Contrast IMPRESSION: Right lower quadrant scarring but no fluid collection. Electronically Signed: Rod Crocker MD at 12:48 EDT ,
== END | disposition home or self-care (01) ==
LOC: CT 15:01
PROVIDERS: PCP Student in an Organized Health Care Education/Training Program; Referring Provider Family Medicine; Visit Provider Family Medicine
DX: L02.211 Cutaneous abscess of abdominal wall (principal)
CPT/HCPCS: 74177; Q9967

== ENCOUNTER 2024-04-14 13:45 | Outpatient (RCR) | payer MEDICAID, SELFPAY ==
[2024-03-27 00:15] VITALS: BP 164/98; PULSE 90; RESP 20; TEMP 36.4; BMI 36.6
[2024-03-28 09:52] VITALS: BP 148/92; PULSE 80; RESP 18; TEMP 35.7; BMI 36.6
--- NOTE | 2024-03-28 12:18 | PCM.WC.PN ---
History of Present Illness Date of Service: 03/28/24 Chief Complaint: Nonhealing wound right groin after an operative debridement History of Wound: Taiwo is a 48 year old male who presents for Wound Vac management of his right groin where he had mesh removed on 10/26/23 at [facility] by Dr. Boone which subsequently became infected and needed surgery again which was performed on 02/18/2024, where white foam was removed from the ulceration/incision site. He reports being given IV antibiotics during procedure and cultures being performed but was not started on any antibiotic treatment after surgery. There are no records to review available at this time. He initially had right inguinal hernia repair in 1993. He developed some issues where he had mesh removed in 2013. His right groin kept getting infected repeatedly, which is how he ended up seeing a surgeon for further evaluation. He has a history of hypertension, arthritis (both osteo and rheumatoid), he smokes half a pack a day of cigarettes, he drinks 3-5 beers 2-3 times a week. He has a history of both Hep B and Hep C. He has a history of a heart murmur and he is currently having that worked up with cardiology. He does not want home health because he has 2 dogs that he does not want around people. He will come into the wound center twice a week for wound VAC dressing changes. He denies fever, chills, erythema. He does report significant pain at the surgical site and pain with wound vac changes. Subjective Subjective Taiwo returns today for evaluation and treatment of right lower abdomen ulcer s/p surgical debridement of fistula from previous abscess of right lower abdomen. He is tolerating wound vac treatment well but when his vac was changed on 03/19/24 nursing noted an area of skin breakdown below the drape that was draining purulent drainage. He completed Augmentin as prescribed. He completed Metronidazole on 03/22/24 and wound culture taken on 03/21/24 still has positive wound culture with E. Faecalis and anaerobic bacteria. There is increased pain. Denies any increased drainage or bleeding. Objective Data Objective Data Vital Signs: Vital Signs Temp Pulse Resp BP 96.2 F L 80 18 148/92 H 03/28/24 09:52 03/28/24 09:52 03/28/24 09:52 03/28/24 09:52 Weight: 122.47 kg Body Mass Index (BMI) 36.6 Physical Exam Const alert, oriented x3 and no apparent distress General Appearance: cooperative and comfortable HEENT normocephalic and head/scalp atraumatic Resp normal respiratory effort Effort and Inspection: able to speak in complete sentences Cardio regular rate and regular rhythm Skin Wounds: wounds noted Wound Narrative: as in clinical panel Psych mental status grossly normal, thought process normal, cooperative and affect normal Debridement Note Debridement Note Wound debrided: right lower abdomen Laterality: Right Type of Debridement: Excisional debridement Anesthesia Used: 4% Lidocaine Solution, 5% Lidocaine Gel and Cetacaine Depth: Down to and including healthy tissue and in the subcutaneous layer Percentage of wound debrided: 100 Instrument Used: 3mm curette Tissue Removed: Yellow slough, devitalized tissue Severity: Fat Layer Exposed Amount of bleeding with debridement: Mild Bleeding Controlled with: Compression and gauze Patient tolerated procedure: Patient tolerated procedure well Post-Debridement Measurements and Additional Note: Post-Debridement Measurements/Treatment - Nurse 1 - General Ulcer Assessment Start: 03/28/24 09:52 Freq: Status: Active Protocol: JEF Activity Type Activity Date Activity User E-sign Co-sign Detail Recorded Client Recorded Date Recorded By Document 03/28/24 09:52 RB wound 03/28/24 09:55 RB 03/28/24 09:52 - Today's Visit Information Type of service Follow-up Visit (Physician/EM[employer] DE[employer]MENT SPECIALIST ) Arrival Mode Ambulatory Transfer Assistance None Patient Identification Verified (Name & Yes ) Patient Requires Transmission-Based No Precautions Height and Weight Body Mass Index (BMI) 36.6 BMI Classification Obese Vital Signs Temperature (97.8 F-99.1 F) 96.2 F L Temperature Source Temporal Pulse Rate (60-100) 80 Pulse Location Monitor Respiratory Rate (12-18) 18 Respiratory rate source Observation Blood Pressure (90/60-120/80) 148/92 H Blood Pressure Mean (mm Hg) 110 Source Monitor Position Semi-Fowlers Blood Pressure Location Left Arm History Since Last Visit- (Skip if this is Patient's initial visit) Have you changed medications since your No last visit? Any new allergies or adverse reactions No Had a fall/change in ADL's that may No increase risk of falls Signs or symptoms of abuse and/or No neglect since last visit Have you been in the hospital since your No last visit? Has dressing in place as prescribed Yes Has compression in place as prescribed No Has offloadiing in place as prescribed No Experienced any changes in pain level or No management Pain Scale: 0-10 Numeric Is Patient Pain Free? No R groin -Description Sharp -Intensity 5 -Duration (hours) Acute -Pain Behavior Withdrawal from Touch -Pain Aggravating Factors Exercise/ Activity, Debridement -Alleviating Factors/Interventions None WC - Nurse 1 - General Ulcer Measurement Start: 03/28/24 09:52 Freq: Status: Active Protocol: Activity Type Activity Date Activity User E-sign Co-sign Detail Recorded Client Recorded Date Recorded By Document 03/28/24 09:52 RB wound 03/28/24 09:55 RB 03/28/24 09:52 Wound Center Nurse 1 #4right groin medial -Combined with other wound No -Current Size (cm) - Length 0.5 -Current Size (cm) - Width 0.6 -Current Size (cm) - Depth 2 -Total Square Cm 0.30 -Tunneling No -Undermining/Tunneling No -Exudate Amt Large -Exudate Type Serosanguineous -Wound Margin Thickened & Rolled Under -Granulation Amt Large (67-100%) -Granulation Quality [place] -Slough/Fibrin Yes -Necrosis Amt Small (1-33%) -Necrotic Tissue Type Adherent Slough -Structure Exposed N/A -Texture ([place]-wound Skin Appearance) Assessed, Scarring -Moisture ([place]-wound Skin Appearance) Assessed -Color ([place]-wound Skin Appearance) Erythema -Temperature ([place]-wound Skin No Abnormality Appearance) (Pt Warm) -Tenderness on Palpation ([place]-wound No Skin Appearance) -Ulcer Cleansing Wound Cleanser -Foul Odor after Cleansing No -Anesthetic Used 4% Lidocaine Solution,5% Lidocaine Gel 3. R groin/Abdomen -Combined with other wound No -Current Size (cm) - Length 0.6 -Current Size (cm) - Width 2 -Current Size (cm) - Depth 1.7 -Total Square Cm 1.2 -Tunneling No -Undermining/Tunneling No -Circular Undermining No -Exudate Amt Large -Exudate Type Serosanguineous -Wound Margin Thickened & Rolled Under -Granulation Amt Large (67-100%) -Granulation Quality [place] -Slough/Fibrin Yes -Necrosis Amt Small (1-33%) -Necrotic Tissue Type Adherent Slough -Structure Exposed N/A -Texture ([place]-wound Skin Appearance) Assessed, Scarring -Moisture ([place]-wound Skin Appearance) Maceration -Color ([place]-wound Skin Appearance) Assessed, Erythema -Temperature ([place]-wound Skin No Abnormality Appearance) (Pt Warm) -Tenderness on Palpation ([place]-wound No Skin Appearance) -Ulcer Cleansing Wound Cleanser -Foul Odor after Cleansing No -Anesthetic Used 5% Lidocaine Gel WC - Nurse 2 - General Ulcer CM Notes Start: 03/28/24 09:52 Freq: Status: Active Protocol: Activity Type Activity Date Activity User E-sign Co-sign Detail Recorded Client Recorded Date Recorded By Document 03/28/24 10:10 JF 0000 03/28/24 10:22 Edit Result 03/28/24 10:10 JF (1) 0000 03/28/24 10:25 JF (1) 3. R groin/Abdomen - Undermining/Tunneling No => Yes - Undermining/Tunneling Starts (O'clock) => 3 - Maximum Distance (cm) => 2.8 03/28/24 10:10 Wound Center Nurse 2 #4right groin medial -Time 10:12 -Correct Patient Yes -Correct Side, Site, Position Yes -Correct Procedure Yes -Procedure Performed Yes -Type of Procedure Debridement -Clinical Debridement Subcutaneous -Tissue Removed Subcutaneous -Post Debridement (cm) - Length 0.5 -Post Debridement (cm) - Width 0.5 -Post Debridement (cm) - Depth 3.5 -Total Square (Post) (cm) 0.25 -Area of Debridement (cm) - Length 0.5 -Area of Debridement (cm) - Width 0.5 -Total Square (Area) (cm) 0.25 -Tunneling No -Undermining/Tunneling No -Circular Undermining No -Wound/Ulcer Outcome Not Healed -Ulcer Cleansing Rinsed/ Irrigated with Saline -Foul Odor after Cleansing No -Bioengineered Tissue No -Bleeding Controlled with Pressure -Treatment Response Procedure Tolerated Well -Offloading No -Debridement - Subq, 1st 20sq cm No 3. R groin/Abdomen -Time 10:12 -Correct Patient Yes -Correct Side, Site, Position Yes -Correct Procedure Yes -Procedure Performed Yes -Type of Procedure Debridement -Clinical Debridement Subcutaneous -Tissue Removed Subcutaneous -Post Debridement (cm) - Length 0.7 -Post Debridement (cm) - Width 2.2 -Post Debridement (cm) - Depth 1.0 -Total Square (Post) (cm) 1.54 -Area of Debridement (cm) - Length 0.7 -Area of Debridement (cm) - Width 2.2 -Total Square (Area) (cm) 1.54 -Tunneling No -Undermining/Tunneling Yes -Undermining/Tunneling Starts (O'clock 3 ) -Maximum Distance (cm) 2.8 -Circular Undermining No -Wound/Ulcer Outcome Not Healed -Ulcer Cleansing Rinsed/ Irrigated with Saline -Foul Odor after Cleansing No -Bioengineered Tissue No -Bleeding Controlled with Pressure -Treatment Response Procedure Tolerated Well -Offloading No -Debridement - Subq, 1st 20sq cm Yes Pain Scale: 0-10 Numeric Is Patient Pain Free? Yes WC - Nurse 3 - General Ulcer D/C NN Start: 03/28/24 09:52 Freq: Status: Active Protocol: Activity Type Activity Date Activity User E-sign Co-sign Detail Recorded Client Recorded Date Recorded By Document 03/28/24 10:39 KW [facility] 03/28/24 10:40 KW 03/28/24 10:39 Wound Care Center Nurse 3 #4right groin medial -Primary Dressing Applied Aquacel AG 4x4 -Primary Dressing Covered/Secured with Dry Gauze, Secured with Tape -Aquacel AG 4x4 2 3. R groin/Abdomen -Other Dressing AQUACEL -Primary Dressing Covered/Secured with Dry Gauze, Secured with Tape Pain Scale: 0-10 Numeric Is Patient Pain Free? Yes Additional Wound Wound debrided: right groin medial Laterality: Right Type of Debridement: Excisional debridement Anesthesia Used: 4% Lidocaine Solution, 5% Lidocaine Gel and Cetacaine Depth: Down to and including healthy tissue and in the subcutaneous layer Percentage of wound debrided: 100 Instrument Used: 3mm curette Tissue Removed: Yellow slough, devitalized tissue Severity: Fat Layer Exposed Amount of bleeding with debridement: Mild Bleeding Controlled with: Compression and gauze Patient tolerated procedure: Patient tolerated procedure well Assessment/Plan Assessment/Plan (1) Smoker: CODE(S): F17.200 - Nicotine dependence, unspecified, uncomplicated (2) Hypertension: CODE(S): I10 - Essential (primary) hypertension QUALIFIERS: Hypertension type: unspecified Qualified Code(s): I10 - Essential (primary) hypertension (3) Right groin wound: CODE(S): S31.109A - Unspecified open wound of abdominal wall, unspecified quadrant without penetration into peritoneal cavity, initial encounter QUALIFIERS: Encounter type: subsequent encounter Qualified Code(s): S31.109D - Unspecified open wound of abdominal wall, unspecified quadrant without penetration into peritoneal cavity, subsequent encounter (4) GARCIA (nonalcoholic steatohepatitis): CODE(S): K75.81 - Nonalcoholic steatohepatitis (GARCIA) (5) Chronic hepatitis: CODE(S): K73.9 - Chronic hepatitis, unspecified (6) Hepatitis C: CODE(S): B19.20 - Unspecified viral hepatitis C without hepatic coma QUALIFIERS: Viral hepatitis chronicity: chronic Hepatic coma status: without hepatic coma Qualified Code(s): B18.2 - Chronic viral hepatitis C (7) Hepatitis B: CODE(S): B19.10 - Unspecified viral hepatitis B without hepatic coma QUALIFIERS: Viral hepatitis chronicity: unspecified Hepatic coma status: without hepatic coma Hepatitis delta agent presence: without delta-agent Qualified Code(s): B19.10 - Unspecified viral hepatitis B without hepatic coma (8) Rheumatoid arthritis: CODE(S): M06.9 - Rheumatoid arthritis, unspecified QUALIFIERS: Rheumatoid arthritis location: multiple sites Rheumatoid factor presence: unspecified presence Qualified Code(s): M06.9 - Rheumatoid arthritis, unspecified (9) Osteoarthritis: CODE(S): M19.90 - Unspecified osteoarthritis, unspecified site QUALIFIERS: Osteoarthritis location: multiple joints Osteoarthritis type: unspecified Qualified Code(s): M15.9 - Polyosteoarthritis, unspecified (10) Ulcer of right groin with fat layer exposed: CODE(S): L98.492 - Non-pressure chronic ulcer of skin of other sites with fat layer exposed (11) Right lower quadrant abdominal abscess: CODE(S): K65.1 - Peritoneal abscess PLAN: Plan Evaluation performed today in clinic as annotated above. There continues to be a tunnel directed towards the patient's mid abdomen, it did seem to decrease in size to 3 cm from 8 cm in the last week but it appears that an underlying abscess may have formed and developed a fistula to an area lower on his abdomen closer to his groin at edge of previous surgical incision that likely connects to the tunnel in his current surgical site. CT scan approved and is going to be scheduled. At home wound-care instructions: Will hold wound vac at this time due to infection. Will dress ulcers with Aquacel silver and ciover with ABD and change twice daily for heavy drainage. Keep dressing clean and dry. Will refer patient to Dr. Bailon here at wound care to evaluate for possible further debridement to undergo incision of the bridge of tissue overlying tunnel or additional surgical debridement to eliminate the tract to the lower groin ulcer or drain abscess if there is one underlying. CT scan ordered to evaluate for any other underlying abscess or possible communication of the ulcers. Off-loading: The patient was instructed to avoid pressure and friction on the affected areas. Reposition every 2 hours at minimum. Avoid prolonged standing and/or dangling of legs. When seated, feet should be elevated at chest level. Frequent ambulation is encouraged. Diet: Patient encouraged to increase protein intake while taking caution to avoid high carbohydrate and/or sugar intake. Labs/cultures/imaging: Culture was positive for anaerobic bacteria and E. faecalis. Referral for IV antibiotic recommendations to Dr. Peralta who he sees for treatment of his Hep. B. He states that he usually needs to have IV antibiotics and oral antibiotics typically do not work which we have seen in his current infection. Follow-up: He is scheduled to see Dr. Bailon for surgical evaluation on Sunday03/31/24. Return sooner or report to the emergency room should symptoms worsen, or new symptoms arise. Note: [employer] speech recognition strategic solutions consultant software was used to create portions of this document. Sound-alike and misspelled words, as well as other strategic solutions consultant errors may be contained in the documentation.
[2024-03-31 14:18] VITALS: BP 150/102; PULSE 104; RESP 18; TEMP 36.8; BMI 36.6
--- NOTE | 2024-03-31 15:16 | PCM.WC.PN ---
History of Present Illness Date of Service: 03/31/24 Chief Complaint: Nonhealing wound right groin after an operative debridement History of Wound: Taiwo is a 48 year old male who presents for Wound Vac management of his right groin where he had mesh removed on 10/26/23 at [facility] by Dr. Boone which subsequently became infected and needed surgery again which was performed on 02/18/2024, where white foam was removed from the ulceration/incision site. He reports being given IV antibiotics during procedure and cultures being performed but was not started on any antibiotic treatment after surgery. There are no records to review available at this time. He initially had right inguinal hernia repair in 1993. He developed some pain issues where he had mesh removed in 2013. His right groin kept getting infected repeatedly, which is how he ended up seeing a surgeon for further evaluation. He has a history of hypertension, arthritis (both osteo and rheumatoid), he smokes half a pack a day of cigarettes, he drinks 3-5 beers 2-3 times a week. He has a history of both Hep B and Hep C. He has a history of a heart murmur and he is currently having that worked up with cardiology. He does not want home health because he has 2 dogs that he does not want around people. He will come into the wound center twice a week for wound VAC dressing changes. CURRENT ENCOUNTER, 31 March 2024: He denies fever, chills, erythema. He does report significant pain at the right lower quadrant where the wound is located. Reports that he is still smoking (I counseled him extensively on smoking cessation today). Objective Data Objective Data Vital Signs: Vital Signs Temp Pulse Resp BP O2 Del Method 98.3 F 104 H 18 150/102 H Room Air 03/31/24 14:18 03/31/24 14:18 03/31/24 14:18 03/31/24 14:18 03/31/24 14:18 Oxygen Delivery Method Room Air Weight: 270 lb Body Mass Index (BMI) 36.6 Charges/Coding Procedures Integumentary 111xxx-113xx: 75919 Vivien subq tissue 20 sq cm/< Multi Select Codes Visit Charges Office Visit/Consults: 53842 OV L5 New 60min (25 modifier ) Physical Exam Narrative Right lower quadrant/groin wound with the noted dimensions from the debridement (see debridement portion of the note) The 2 openings tunnel however they do not connect There is no purulent drainage today, and no surrounding induration. Const alert and oriented x3 Eyes PERRL Resp normal respiratory effort Cardio regular rate GI non-distended Extremity normal to inspection and no clubbing, cyanosis or edema Psych affect normal Speech: normal speech Debridement Note Debridement Note Post-Debridement Measurements and Additional Note: Post-Debridement Measurements/Treatment WC - Nurse 1 - General Ulcer Assessment Start: 03/28/24 09:52 Freq: Status: Active Protocol: JEF Activity Type Activity Date Activity User E-sign Co-sign Detail Recorded Client Recorded Date Recorded By Document 03/28/24 09:52 RB wound 03/28/24 09:55 RB Document 03/31/24 14:18 KW fghj 03/31/24 14:25 KW 03/28/24 03/31/24 09:52 14:18 WC - Today's Visit Information Type of service Follow-up Visit Follow-up Visit (Physician/EQUINE INTERN (Physician/EQUINE INTERN ) ) Arrival Mode Ambulatory Ambulatory Transfer Assistance None Patient Identification Verified (Name & Yes Yes ) Patient Requires Transmission-Based No Precautions Height and Weight Body Mass Index (BMI) 36.6 36.6 BMI Classification Obese Obese Vital Signs Temperature (97.8 F-99.1 F) 96.2 F L 98.3 F Temperature Source Temporal Temporal Pulse Rate (60-100) 80 104 H Pulse Location Monitor Monitor Respiratory Rate (12-18) 18 18 Respiratory rate source Observation Observation Oxygen Delivery Method Room Air Blood Pressure (90/60-120/80) 148/92 H 150/102 H Blood Pressure Mean (mm Hg) 110 118 Source Monitor Monitor Position Semi-Fowlers Sitting Blood Pressure Location Left Arm Left Arm History Since Last Visit- (Skip if this is Patient's initial visit) Have you changed medications since your No No last visit? Any new allergies or adverse reactions No No Had a fall/change in ADL's that may No No increase risk of falls Signs or symptoms of abuse and/or No No neglect since last visit Have you been in the hospital since your No No last visit? Has dressing in place as prescribed Yes Yes Has compression in place as prescribed No N/A Has offloadiing in place as prescribed No N/A Experienced any changes in pain level or No No management Left Footwear Regular Shoe Right Footwear Regular Shoe Pain Scale: 0-10 Numeric Is Patient Pain Free? No Yes R groin -Description Sharp -Intensity 5 -Duration (hours) Acute -Pain Behavior Withdrawal from Touch -Pain Aggravating Factors Exercise/ Activity, Debridement -Alleviating Factors/Interventions None WC - Nurse 1 - General Ulcer Measurement Start: 03/28/24 09:52 Freq: Status: Active Protocol: Activity Type Activity Date Activity User E-sign Co-sign Detail Recorded Client Recorded Date Recorded By Document 03/28/24 09:52 RB wound 03/28/24 09:55 RB Document 03/31/24 14:18 KW fgj 03/31/24 14:25 KW 03/28/24 03/31/24 09:52 14:18 Wound Center Nurse 1 #4right groin medial -Combined with other wound No -Current Size (cm) - Length 0.5 0.8 -Current Size (cm) - Width 0.6 2.3 -Current Size (cm) - Depth 2 1 -Total Square Cm 0.30 1.84 -Date of Last Picture (Recall this 03/31/24 field) -Tunneling No -Undermining/Tunneling No -Exudate Amt Large Medium -Exudate Type Serosanguineous Serosanguineous -Wound Margin Thickened & Thickened & Rolled Under Rolled Under -Granulation Amt Large (67-100%) Large (67-100%) -Granulation Quality Glenvil Red -Slough/Fibrin Yes -Necrosis Amt Small (1-33%) Small (1-33%) -Necrotic Tissue Type Adherent Slough Adherent Slough -Structure Exposed N/A -Texture ([place]-wound Skin Appearance) Assessed, Assessed Scarring -Moisture ([place]-wound Skin Appearance) Assessed Assessed -Color ([place]-wound Skin Appearance) Erythema Assessed -Temperature ([place]-wound Skin No Abnormality No Abnormality Appearance) (Pt Warm) (Pt Warm) -Tenderness on Palpation ([place]-wound No No Skin Appearance) -Ulcer Cleansing Wound Cleanser Rinsed/ Irrigated with Saline -Foul Odor after Cleansing No No -Anesthetic Used 4% Lidocaine 5% Lidocaine Solution,5% Gel Lidocaine Gel 3. R groin/Abdomen -Combined with other wound No -Current Size (cm) - Length 0.6 0.2 -Current Size (cm) - Width 2 0.3 -Current Size (cm) - Depth 1.7 0.2 -Total Square Cm 1.2 0.06 -Date of Last Picture (Recall this 03/31/24 field) -Tunneling No -Undermining/Tunneling No -Circular Undermining No -Exudate Amt Large Small -Exudate Type Serosanguineous Serosanguineous -Wound Margin Thickened & Distinct, Rolled Under Outline Attached -Granulation Amt Large (67-100%) Large (67-100%) -Granulation Quality Glenvil Glenvil -Slough/Fibrin Yes -Necrosis Amt Small (1-33%) Small (1-33%) -Necrotic Tissue Type Adherent Slough Adherent Slough -Structure Exposed N/A -Texture ([place]-wound Skin Appearance) Assessed, Assessed Scarring -Moisture ([place]-wound Skin Appearance) Maceration Maceration -Color ([place]-wound Skin Appearance) Assessed, Assessed Erythema -Temperature ([place]-wound Skin No Abnormality No Abnormality Appearance) (Pt Warm) (Pt Warm) -Tenderness on Palpation ([place]-wound No No Skin Appearance) -Ulcer Cleansing Wound Cleanser Rinsed/ Irrigated with Saline -Foul Odor after Cleansing No No -Anesthetic Used 5% Lidocaine 5% Lidocaine Gel Gel WC - Nurse 2 - General Ulcer CM Notes Start: 03/28/24 09:52 Freq: Status: Active Protocol: Activity Type Activity Date Activity User E-sign Co-sign Detail Recorded Client Recorded Date Recorded By Document 03/28/24 10:10 0000 03/28/24 10:22 Edit Result 03/28/24 10:10 (1) 0000 03/28/24 10:25 Document 03/31/24 15:04 0000 03/31/24 15:14 (1) 3. R groin/Abdomen - Undermining/Tunneling No => Yes - Undermining/Tunneling Starts (O'clock) => 3 - Maximum Distance (cm) => 2.8 03/28/24 03/31/24 10:10 15:04 Wound Center Nurse 2 #4right groin medial -Time 10:12 15:04 -Correct Patient Yes Yes -Correct Side, Site, Position Yes Yes -Correct Procedure Yes Yes -Procedure Performed Yes Yes -Type of Procedure Debridement Debridement -Clinical Debridement Subcutaneous Subcutaneous -Tissue Removed Subcutaneous Subcutaneous -Post Debridement (cm) - Length 0.5 0.5 -Post Debridement (cm) - Width 0.5 0.5 -Post Debridement (cm) - Depth 3.5 2.0 -Total Square (Post) (cm) 0.25 0.25 -Area of Debridement (cm) - Length 0.5 0.5 -Area of Debridement (cm) - Width 0.5 0.5 -Total Square (Area) (cm) 0.25 0.25 -Tunneling No Yes -Tunneling Position (O'clock) 9 -Tunneling Distance (cm) 2.0 -Undermining/Tunneling No No -Circular Undermining No No -Wound/Ulcer Outcome Not Healed Not Healed -Ulcer Cleansing Rinsed/ Rinsed/ Irrigated with Irrigated with Saline Saline -Foul Odor after Cleansing No No -Bioengineered Tissue No No -Bleeding Controlled with Pressure Pressure -Treatment Response Procedure Procedure Tolerated Well Tolerated Well -Offloading No No -Debridement - Subq, 1st 20sq cm No No 3. R groin/Abdomen -Time 10:12 15:06 -Correct Patient Yes Yes -Correct Side, Site, Position Yes Yes -Correct Procedure Yes Yes -Procedure Performed Yes Yes -Type of Procedure Debridement Debridement -Clinical Debridement Subcutaneous Subcutaneous -Tissue Removed Subcutaneous Subcutaneous -Post Debridement (cm) - Length 0.7 3 -Post Debridement (cm) - Width 2.2 2 -Post Debridement (cm) - Depth 1.0 1.0 -Total Square (Post) (cm) 1.54 6 -Area of Debridement (cm) - Length 0.7 3.0 -Area of Debridement (cm) - Width 2.2 2.0 -Total Square (Area) (cm) 1.54 6.00 -Tunneling No Yes -Tunneling Position (O'clock) 3 -Tunneling Distance (cm) 2.0 -Undermining/Tunneling Yes No -Undermining/Tunneling Starts (O'clock 3 ) -Maximum Distance (cm) 2.8 -Circular Undermining No No -Wound/Ulcer Outcome Not Healed Not Healed -Ulcer Cleansing Rinsed/ Rinsed/ Irrigated with Irrigated with Saline Saline -Foul Odor after Cleansing No No -Bioengineered Tissue No No -Bleeding Controlled with Pressure Pressure -Treatment Response Procedure Procedure Tolerated Well Tolerated Well -Offloading No No -Debridement - Subq, 1st 20sq cm Yes Yes Pain Scale: 0-10 Numeric Is Patient Pain Free? Yes Yes WC - Nurse 3 - General Ulcer D/C NN Start: 03/28/24 09:52 Freq: Status: Active Protocol: Activity Type Activity Date Activity User E-sign Co-sign Detail Recorded Client Recorded Date Recorded By Document 03/28/24 10:39 KW bgj 03/28/24 10:40 KW 03/28/24 10:39 Wound Care Center Nurse 3 #4right groin medial -Primary Dressing Applied Aquacel AG 4x4 -Primary Dressing Covered/Secured with Dry Gauze, Secured with Tape -Aquacel AG 4x4 2 3. R groin/Abdomen -Other Dressing AQUACEL -Primary Dressing Covered/Secured with Dry Gauze, Secured with Tape Pain Scale: 0-10 Numeric Is Patient Pain Free? Yes Assessment/Plan Assessment/Plan (1) Ulcer of right groin with fat layer exposed: CODE(S): L98.492 - Non-pressure chronic ulcer of skin of other sites with fat layer exposed PLAN: Taiwo Torrez is a 48-year-old male with a history of right inguinal hernia repair about 2 decades ago complicated by a right lower quadrant wound with extrusion of the mesh and several operations over the past 10 years to remove the foreign body and treat the wound. I am meeting him for the first time today. Previous wound care physician ordered a CT scan last week. This has not yet been done. The wound is involved since the last CT scan, and therefore I agree with this plan for CT abdomen pelvis with contrast. I will review the results. In the meantime I would like an updated A1c, CMP, and prealbumin (ordered). I will follow-up these results in clinic next week and discussed with the patient his ability to heal the wound based on his overall metabolic condition. He has multiple comorbidities including hepatitis B infection of the liver, untreated rheumatoid arthritis secondary to inability to treat because of his viral hepatitis, and he has overall poor health secondary to his obesity. At this point given the chronicity of the wound I would not be unreasonable also to biopsy the wound, and I will discuss this with him at the next appointment. I will also discussed with him his heart issues at the next appointment and make sure he is getting medically optimized with cardiology. In the meantime he will pack the wound with Nu Gauze (moist) and the 2 locations where it is open and tunneling, and will start a course of Keflex (ordered) for the treatment of the Enterococcus and Corynebacterium that grew from the culture taken last week and wound care clinic. He is following up with his infectious disease doctor this week, and she can come up with a sustainable antibiotic course that is appropriate. The wound does not look grossly infected today and he is nontoxic-appearing with stable vital signs. Follow-up in 1 week PLAN: Plan I have spent 60 minutes reviewing chart, results and history. I've also examined the patient personally and obtained the history face to face. I also debrided the wound.
--- NOTE | 2024-04-01 09:39 | WC ---
PHOTO 03/31/24 RIGHT ABD
--- NOTE | 2024-04-01 09:40 | WC ---
PHOTO 03/31/24 RIGHT ABD
[2024-04-04 12:53] LABS: Hematocrit 48.1 % (40-54); Hemoglobin 16.2 g/dL (13.0-16.5); Mean Corp Hgb Conc 33.7 g/dL (32-36); Mean Corpuscular Hgb 31.1 pg (27.0-32.0); Mean Corpuscular Volume 92.3 fL (80-94); Mean Platelet Vol. 9.6 fl (6.2-12.0); Platelet Count 251 K/mm3 (150-450); Red Blood Count 5.21 M/mm3 (4.6-6.2)
[2024-04-04 13:05] LABS: Prothrombin Time (Protime)PT. 13.2 SECONDS (11.7-14.9)
[2024-04-04 13:20] LABS: ALB/GLOB Ratio 0.9 RATIO (0.9-2.4); AST(SGOT) 22 U/L (15-37); Alanine Aminotransfer ALT/SGPT 31 U/L (16-61); Albumin, Serum 3.5 g/dL (3.2-5.0); Alkaline Phosphatase 80 U/L (45-117); Anion Gap 4 (5-15); BUN 10 mg/dL (7-18); BUN/Creat Ratio 14.7 RATIO (10-20); Calcium,Total 9.4 mg/dL (8.5-10.1); Chloride 102 mmol/L (98-107); Creatinine, Serum 0.68 mg/dL (0.70-1.30); EST Glomerular Filtration Rate 133 mL/min (>60); Est Glom Filt Rate - Afr Amer 161 mL/min (>60); Estimated Creatinine Clearance 183.45 ml/min; Globulin 3.9 g/dL (2.2-4.2); Glucose 136 mg/dL (74-106); Potassium 3.7 mmol/L (3.5-5.1); Protein, Total 7.4 g/dL (6.4-8.2); Sodium Level 135 mmol/L (136-145)
[2024-04-04 13:29] LABS: Hemoglobin A1c 5.6 % (3.8-5.6)
[2024-04-05 10:42] LABS: Prealbumin 18 mg/dL (12-34)
--- NOTE | 2024-04-14 13:12 | PCM.WC.PN ---
History of Present Illness Date of Service: 04/14/24 Chief Complaint: Nonhealing wound right groin after an operative debridement History of Wound: Taiwo is a 48 year old male who presents for Wound Vac management of his right groin where he had mesh removed on 10/26/23 at [facility] by Dr. Boone which subsequently became infected and needed surgery again which was performed on 02/18/2024, where white foam was removed from the ulceration/incision site. He reports being given IV antibiotics during procedure and cultures being performed but was not started on any antibiotic treatment after surgery. There are no records to review available at this time. He initially had right inguinal hernia repair in 1993. He developed some pain issues where he had mesh removed in 2013. His right groin kept getting infected repeatedly, which is how he ended up seeing a surgeon for further evaluation. He has a history of hypertension, arthritis (both osteo and rheumatoid), he smokes half a pack a day of cigarettes, he drinks 3-5 beers 2-3 times a week. He has a history of both Hep B and Hep C. He has a history of a heart murmur and he is currently having that worked up with cardiology. He does not want home health because he has 2 dogs that he does not want around people. He will come into the wound center twice a week for wound VAC dressing changes. Subjective Subjective 31 March 2024: He denies fever, chills, erythema. He does report significant pain at the right lower quadrant where the wound is located. Reports that he is still smoking (I counseled him extensively on smoking cessation today). CURRENT ENCOUNTER, 14 April 2024: Doing well. He got the CT scan. He he feels like the wounds are getting smaller. He has been reducing significantly the amount of cigarettes he smokes per day, reportedly. Objective Data Objective Data Vital Signs: Vital Signs Temp Pulse Resp BP O2 Del Method 98.3 F 104 H 18 150/102 H Room Air 03/31/24 14:18 03/31/24 14:18 03/31/24 14:18 03/31/24 14:18 03/31/24 14:18 Oxygen Delivery Method Room Air Weight: 270 lb Body Mass Index (BMI) 36.6 Lab / Micro Data 04/04/24 12:13 04/04/24 12:13 Charges/Coding Procedures Integumentary [id number]: [id number] Vivien subq tissue 20 sq cm/< Physical Exam Narrative Right lower quadrant/groin wound with the noted dimensions from the debridement (see debridement portion of the note) The lateral wound is almost completely healed, and is no longer tunneling. The medial wound tunnels laterally just a few centimeters. It is getting much smaller. There is no purulent drainage today, and no surrounding induration. Const alert and oriented x3 Eyes PERRL Resp normal respiratory effort Cardio regular rate GI non-distended Extremity normal to inspection and no clubbing, cyanosis or edema Psych affect normal Speech: normal speech Debridement Note Debridement Note Post-Debridement Measurements and Additional Note: Post-Debridement Measurements/Treatment WC - Nurse 1 - General Ulcer Assessment Start: 03/28/24 09:52 Freq: Status: Active Protocol: JEF Activity Type Activity Date Activity User E-sign Co-sign Detail Recorded Client Recorded Date Recorded By Document 03/28/24 09:52 RB wound 03/28/24 09:55 RB Document 03/31/24 14:18 KW fghj 03/31/24 14:25 KW 03/28/24 03/31/24 09:52 14:18 - Today's Visit Information Type of service Follow-up Visit Follow-up Visit (Physician/RN IMAGING (Physician/RN IMAGING ) ) Arrival Mode Ambulatory Ambulatory Transfer Assistance None Patient Identification Verified (Name & Yes Yes ) Patient Requires Transmission-Based No Precautions Height and Weight Body Mass Index (BMI) 36.6 36.6 BMI Classification Obese Obese Vital Signs Temperature (97.8 F-99.1 F) 96.2 F L 98.3 F Temperature Source Temporal Temporal Pulse Rate (60-100) 80 104 H Pulse Location Monitor Monitor Respiratory Rate (12-18) 18 18 Respiratory rate source Observation Observation Oxygen Delivery Method Room Air Blood Pressure (90/60-120/80) 148/92 H 150/102 H Blood Pressure Mean (mm Hg) 110 118 Source Monitor Monitor Position Semi-Fowlers Sitting Blood Pressure Location Left Arm Left Arm History Since Last Visit- (Skip if this is Patient's initial visit) Have you changed medications since your No No last visit? Any new allergies or adverse reactions No No Had a fall/change in ADL's that may No No increase risk of falls Signs or symptoms of abuse and/or No No neglect since last visit Have you been in the hospital since your No No last visit? Has dressing in place as prescribed Yes Yes Has compression in place as prescribed No N/A Has offloadiing in place as prescribed No N/A Experienced any changes in pain level or No No management Left Footwear Regular Shoe Right Footwear Regular Shoe Pain Scale: 0-10 Numeric Is Patient Pain Free? No Yes R groin -Description Sharp -Intensity 5 -Duration (hours) Acute -Pain Behavior Withdrawal from Touch -Pain Aggravating Factors Exercise/ Activity, Debridement -Alleviating Factors/Interventions None WC - Nurse 1 - General Ulcer Measurement Start: 03/28/24 09:52 Freq: Status: Active Protocol: Activity Type Activity Date Activity User E-sign Co-sign Detail Recorded Client Recorded Date Recorded By Document 03/28/24 09:52 RB wound 03/28/24 09:55 RB Document 03/31/24 14:18 KW fgj 03/31/24 14:25 KW 03/28/24 03/31/24 09:52 14:18 Wound Center Nurse 1 #4right groin medial -Combined with other wound No -Current Size (cm) - Length 0.5 0.8 -Current Size (cm) - Width 0.6 2.3 -Current Size (cm) - Depth 2 1 -Total Square Cm 0.30 1.84 -Date of Last Picture (Recall this 03/31/24 field) -Tunneling No -Undermining/Tunneling No -Exudate Amt Large Medium -Exudate Type Serosanguineous Serosanguineous -Wound Margin Thickened & Thickened & Rolled Under Rolled Under -Granulation Amt Large (67-100%) Large (67-100%) -Granulation Quality [place] Red -Slough/Fibrin Yes -Necrosis Amt Small (1-33%) Small (1-33%) -Necrotic Tissue Type Adherent Slough Adherent Slough -Structure Exposed N/A -Texture ([place]-wound Skin Appearance) Assessed, Assessed Scarring -Moisture ([place]-wound Skin Appearance) Assessed Assessed -Color ([place]-wound Skin Appearance) Erythema Assessed -Temperature ([place]-wound Skin No Abnormality No Abnormality Appearance) (Pt Warm) (Pt Warm) -Tenderness on Palpation ([place]-wound No No Skin Appearance) -Ulcer Cleansing Wound Cleanser Rinsed/ Irrigated with Saline -Foul Odor after Cleansing No No -Anesthetic Used 4% Lidocaine 5% Lidocaine Solution,5% Gel Lidocaine Gel 3. R groin/Abdomen -Combined with other wound No -Current Size (cm) - Length 0.6 0.2 -Current Size (cm) - Width 2 0.3 -Current Size (cm) - Depth 1.7 0.2 -Total Square Cm 1.2 0.06 -Date of Last Picture (Recall this 03/31/24 field) -Tunneling No -Undermining/Tunneling No -Circular Undermining No -Exudate Amt Large Small -Exudate Type Serosanguineous Serosanguineous -Wound Margin Thickened & Distinct, Rolled Under Outline Attached -Granulation Amt Large (67-100%) Large (67-100%) -Granulation Quality [place] -Slough/Fibrin Yes -Necrosis Amt Small (1-33%) Small (1-33%) -Necrotic Tissue Type Adherent Slough Adherent Slough -Structure Exposed N/A -Texture ([place]-wound Skin Appearance) Assessed, Assessed Scarring -Moisture ([place]-wound Skin Appearance) Maceration Maceration -Color ([place]-wound Skin Appearance) Assessed, Assessed Erythema -Temperature ([place]-wound Skin No Abnormality No Abnormality Appearance) (Pt Warm) (Pt Warm) -Tenderness on Palpation ([place]-wound No No Skin Appearance) -Ulcer Cleansing Wound Cleanser Rinsed/ Irrigated with Saline -Foul Odor after Cleansing No No -Anesthetic Used 5% Lidocaine 5% Lidocaine Gel Gel WC - Nurse 2 - General Ulcer CM Notes Start: 03/28/24 09:52 Freq: Status: Active Protocol: Activity Type Activity Date Activity User E-sign Co-sign Detail Recorded Client Recorded Date Recorded By Document 03/28/24 10:10 JF 0000 03/28/24 10:22 Edit Result 03/28/24 10:10 JF (1) 0000 03/28/24 10:25 JF Document 03/31/24 15:04 JF 0000 03/31/24 15:14 JF (1) 3. R groin/Abdomen - Undermining/Tunneling No => Yes - Undermining/Tunneling Starts (O'clock) => 3 - Maximum Distance (cm) => 2.8 03/28/24 03/31/24 10:10 15:04 Wound Center Nurse 2 #4right groin medial -Time 10:12 15:04 -Correct Patient Yes Yes -Correct Side, Site, Position Yes Yes -Correct Procedure Yes Yes -Procedure Performed Yes Yes -Type of Procedure Debridement Debridement -Clinical Debridement Subcutaneous Subcutaneous -Tissue Removed Subcutaneous Subcutaneous -Post Debridement (cm) - Length 0.5 0.5 -Post Debridement (cm) - Width 0.5 0.5 -Post Debridement (cm) - Depth 3.5 2.0 -Total Square (Post) (cm) 0.25 0.25 -Area of Debridement (cm) - Length 0.5 0.5 -Area of Debridement (cm) - Width 0.5 0.5 -Total Square (Area) (cm) 0.25 0.25 -Tunneling No Yes -Tunneling Position (O'clock) 9 -Tunneling Distance (cm) 2.0 -Undermining/Tunneling No No -Circular Undermining No No -Wound/Ulcer Outcome Not Healed Not Healed -Ulcer Cleansing Rinsed/ Rinsed/ Irrigated with Irrigated with Saline Saline -Foul Odor after Cleansing No No -Bioengineered Tissue No No -Bleeding Controlled with Pressure Pressure -Treatment Response Procedure Procedure Tolerated Well Tolerated Well -Offloading No No -Debridement - Subq, 1st 20sq cm No No 3. R groin/Abdomen -Time 10:12 15:06 -Correct Patient Yes Yes -Correct Side, Site, Position Yes Yes -Correct Procedure Yes Yes -Procedure Performed Yes Yes -Type of Procedure Debridement Debridement -Clinical Debridement Subcutaneous Subcutaneous -Tissue Removed Subcutaneous Subcutaneous -Post Debridement (cm) - Length 0.7 3 -Post Debridement (cm) - Width 2.2 2 -Post Debridement (cm) - Depth 1.0 1.0 -Total Square (Post) (cm) 1.54 6 -Area of Debridement (cm) - Length 0.7 3.0 -Area of Debridement (cm) - Width 2.2 2.0 -Total Square (Area) (cm) 1.54 6.00 -Tunneling No Yes -Tunneling Position (O'clock) 3 -Tunneling Distance (cm) 2.0 -Undermining/Tunneling Yes No -Undermining/Tunneling Starts (O'clock 3 ) -Maximum Distance (cm) 2.8 -Circular Undermining No No -Wound/Ulcer Outcome Not Healed Not Healed -Ulcer Cleansing Rinsed/ Rinsed/ Irrigated with Irrigated with Saline Saline -Foul Odor after Cleansing No No -Bioengineered Tissue No No -Bleeding Controlled with Pressure Pressure -Treatment Response Procedure Procedure Tolerated Well Tolerated Well -Offloading No No -Debridement - Subq, 1st 20sq cm Yes Yes Pain Scale: 0-10 Numeric Is Patient Pain Free? Yes Yes WC - Nurse 3 - General Ulcer D/C NN Start: 03/28/24 09:52 Freq: Status: Active Protocol: Activity Type Activity Date Activity User E-sign Co-sign Detail Recorded Client Recorded Date Recorded By Document 03/28/24 10:39 KW bgj 03/28/24 10:40 KW Document 03/31/24 15:18 KW fgj 03/31/24 15:19 KW 03/28/24 03/31/24 10:39 15:18 Wound Care Center Nurse 3 #4right groin medial -Primary Dressing Applied Aquacel AG 4x4 Nugauze, Plain 1/4in -Primary Dressing Covered/Secured with Dry Gauze, Dry Gauze, Secured with Secured with Tape Tape -Aquacel AG 4x4 2 -Nugauze, Plain 1/4in 1 3. R groin/Abdomen -Other Dressing AQUACEL nugauze 1/4 in -Primary Dressing Covered/Secured with Dry Gauze, Dry Gauze, Secured with Secured with Tape Tape Pain Scale: 0-10 Numeric Is Patient Pain Free? Yes Yes Assessment/Plan Assessment/Plan (1) Right groin wound: CODE(S): S31.109A - Unspecified open wound of abdominal wall, unspecified quadrant without penetration into peritoneal cavity, initial encounter QUALIFIERS: Encounter type: subsequent encounter Qualified Code(s): S31.109D - Unspecified open wound of abdominal wall, unspecified quadrant without penetration into peritoneal cavity, subsequent encounter PLAN: Right groin/lower abdominal wound is healing very well with local wound care. No signs of infection today at our clinic appointment. There was some biofilm, so it was gently debrided with a curette (see dictation above) Very excited that he is cutting down on the cigarettes and he is working on quitting I will see him in clinic in 2-week Patient is happy with the plan
[2024-04-14 13:43] VITALS: BP 171/108; PULSE 76; RESP 18; TEMP 36.1; BMI 36.6
--- NOTE | 2024-04-17 09:27 | WC ---
PHOTO 04/14/24 TAIWO/OPAL
== END 2024-04-26 23:59 | disposition home or self-care (01) ==
LOC: WC 13:45
PROVIDERS: PCP Student in an Organized Health Care Education/Training Program; Referring Provider Student in an Organized Health Care Education/Training Program; Visit Provider Surgery Plastic and Reconstructive Surgery
DX: L98.492 Non-pressure chronic ulcer of skin of other sites with fat layer exposed (principal); M06.9 Rheumatoid arthritis, unspecified; K65.1 Peritoneal abscess; B18.2 Chronic viral hepatitis C; K75.81 Nonalcoholic steatohepatitis (NASH); F17.210 Nicotine dependence, cigarettes, uncomplicated; I10 Essential (primary) hypertension; L90.5 Scar conditions and fibrosis of skin; M19.90 Unspecified osteoarthritis, unspecified site; B19.20 Unspecified viral hepatitis C without hepatic coma
CPT/HCPCS: 11042; 36415; 80053; 83036; 84134; 85027; 85610

== ENCOUNTER → 2024-12-24 | Outpatient (CLI) | payer MEDICAID, SELFPAY ==
--- NOTE | 2024-12-24 07:38 | US_ITS ---
PROCEDURE: ABD LIMITED W/ ELASTOGRAPHY, 12/24/2024 REASON FOR EXAM: GARCIA, RUQ PAIN COMPARISON: 04/10/2024 TECHNIQUE: Grayscale and color Doppler imaging of the right upper quadrant was performed. Elastography was performed for non-invasive assessment of liver tissue stiffness utilizing a [employer] S-shear wave imaging unit. FINDINGS: Exam limited by shadowing bowel gas and soft tissue attenuation. Liver: Somewhat coarsened echotexture. 13.7 cm in length. Gallbladder: No visualized stones, sludge, wall thickening or pericholecystic fluid. Reportedly, sonographic Uriarte's was negative. Biliary tree: Unremarkable. CBD measures 2-6 mm. Pancreas: Largely obscured by shadowing bowel gas, grossly unremarkable as minimally imaged. Right kidney: Unremarkable. 11.9 cm in length. Other: No visualized free fluid. Hepatic elastography: Number of measurements: 15 measurements across 3 regions, 5 measurements per region. US probe: CA1-7A. EQI median: 10.8 kPa EQI median velocity: 1.88 m/s IQR/Med: 20.5-27.8% (kPa) and 9.6-13.7% (m/s). If the IQR/Med is IQR/median >30% (for kPa) or >15% in m/s, the variance in the measurements is a large and the accuracy of the measurement may be in question. US/ABD Limited w/ Elastography IMPRESSION: 1. No visualized cholelithiasis, findings to suggest cholecystitis, or signific ant biliary dilatation. If unexplained symptoms persist, consider CT. 2. Coarsened hepatic echotexture as can be seen in fibrosis/cirrhosis. Correla te for clinical and laboratory evidence of chronic liver disease. 3. Liver stiffness is 10.8 kPa. Per the below 2020 SRU criteria, this is sugges tive of compensated advanced chronic liver disease but requires further testing for confirmation. 4. Additional description as above. Assessment is per the Update to the SRU Liver Elastography Consensus Statement (2020) Note that the above assessment of liver fibrosis is vendor-neutral and intended for use in fibrosis related to viral etiologies and non-alcoholic fatty-liver disease (NAFLD); in causes other than viral hepat itis and NAFLD, the cutoff values are currently not well established. In some patients with NAFLD, the cutoff values for cACLD may be lower (7-9 kPa). Note also that in the setting of elevated LFTs, nonfasting or vascular congestion, the stage of lifer fibrosis may be overestimated. Previous SRU reference values: <1.37 m/s (5.7kPa): No to mild fibrosis 1.37 m/s - 2.2 m/s: Moderate to severe fibrosis >2.2 m/s (15kPa): Significant fibrosis / cirrhosis Reading Location: [id number]
[2024-12-24 08:41] LABS: Prothrombin Time (Protime)PT. 13.1 SECONDS (11.7-14.9)
[2024-12-24 09:49] LABS: Hepatitis B Surface Antigen Preliminary Reactive (Nonreactive); Hepatitis C Antibody REAC (Nonreactive)
[2024-12-24 10:36] LABS: Hepatitis B Surface Antibody Nonreactive
[2024-12-25 23:07] LABS: AFP, Tumor Marker 2.5 ng/mL (0.0-6.9); HCV Quant. RNA PCR HCV Not Detected IU/mL (.); Hepatitis Be Ag Negative (Negative)
== END | disposition home or self-care (01) ==
PROVIDERS: PCP Student in an Organized Health Care Education/Training Program; Referring Provider Nurse Practitioner Acute Care; Visit Provider Nurse Practitioner Acute Care
DX: B19.10 Unspecified viral hepatitis B without hepatic coma (principal); B18.2 Chronic viral hepatitis C; K62.5 Hemorrhage of anus and rectum; K75.81 Nonalcoholic steatohepatitis (NASH); R10.11 Right upper quadrant pain; R11.0 Nausea
CPT/HCPCS: 36415; 76705; 76981; 82105; 85610; 86706; 86803; 87340; 87350; 87522